=== PATIENT | female | born 1935 | race Caucasian/White ===

== ENCOUNTER → 2018-07-22 10:51 | Outpatient (CLI) | payer MEDICARE, SELFPAY ==
--- NOTE | 2018-07-22 10:55 | XR_ITS ---
XR shoulder RT min 2V HISTORY: Pain stiffness and limited range of motion ITS.REASON: grashy, axillary and supraspinatus views ORDERING PHYSICIAN: Blaine Canela MD PATIENT AGE: 82 years Comparison: None FINDINGS: There is severe subacromial stenosis. The distal acromion has a concave appearance and is markedly and. There is also thinning of the distal aspect of the clavicle having an oblique contour. There is a high rising humeral head and there are osteoarthritic changes of the glenohumeral joint. These findings are consistent with chronic rotator cuff tear with high riding humeral head. Has the patient had prior osteotomy of the distal clavicle? There is sclerosis of the distal aspect of the clavicle. No dislocation. No acute fracture. IMPRESSION: The findings are consistent with chronic rotator cuff tear with high right humeral head and osteoarthritic change of the glenohumeral joint with deformity of the distal clavicle and the acromion from the chronic tear. Has the patient had prior shoulder surgery?
== END ==
PROVIDERS: PCP Family Medicine; Visit Provider Orthopaedic Surgery
DX: M25.511 Pain in right shoulder (principal)
CPT/HCPCS: 73030

== ENCOUNTER 2019-07-18 12:03 | Observation (INO) ==
--- NOTE | 2019-07-18 12:22 | Emergency Department Note ---
ED Disposition Clinical Impression: Atrial fibrillation with rapid ventricular response, Chest pain, Congestive heart failure, Hypokalemia Disposition: Admitted As Inpatient Condition on Discharge: Serious Time of Disposition: 14:50 - Critical Care Critical Care Time: Yes Attestation: On 07/18/19, the high probability of a clinically significant, sudden or life threatening deterioration of the following system(s) required my full and direct attention, intervention and personal management. The time I documented below is in addition to time spent performing reported procedures but includes the follo wing listed in this critical care notation. Total Critical Care Time: 30 Vital system(s) involved:: Circulatory Failure My critical care processes included: Assessment & monitoring of V/S, Initial and Re-exams, Medication Orders and management Medical Decision Making - Medical Records Medical records reviewed: Yes: I reviewed the patient's medical records. - Chaz Inquiry Pt receiving controlled substance: No Vital Signs: 07/18/19 12:05 07/18/19 12:31 07/18/19 13:16 Temperature 98.3 F Temperature Source Oral Pulse Rate [Right Radial] 164 H 86 90 Respiratory Rate 22 Blood Pressure [Right Arm] 153/111 H 80/51 L 113/54 L Blood Pressure Mean [Right Arm] 125 60 73 Blood Pressure Source [Right Arm] Automatic Cuff Automatic Cuff Blood Pressure Position [Right Arm] Sitting Supine Sitting 02 Sat by Pulse Oximetry 97 95 96 Oxygen Delivery Method Room Air 07/18/19 13:30 07/18/19 14:04 Temperature Temperature Source Pulse Rate [Right Radial] 107 H 92 H Respiratory Rate Blood Pressure [Right Arm] 122/84 111/71 Blood Pressure Mean [Right Arm] 96 84 Blood Pressure Source [Right Arm] Automatic Cuff Manual Cuff/ Palpation Blood Pressure Position [Right Arm] Supine Supine 02 Sat by Pulse Oximetry 97 96 Oxygen Delivery Method - Lab Data Lab Results 07/18/19 12:05: WBC 8.3, RBC 5.49 H, Hgb 15.2, Hct 47.6 H, MCV 86.7, MCH 27.6, MCHC 31.9, RDW 15.8, Plt Count 246, MPV 10.2, Neut % (Auto) 80.6 H, Lymph % (Auto) 12.8, Parke % (Auto) 5.4, Eos % (Auto) 0.6, Baso % (Auto) 0.6, Neut # (Auto) 6.7, Lymph # (Auto) 1.1, Parke # (Auto) 0.5, Eos # (Auto) 0.1, Baso # (Auto) 0.1 07/18/19 12:05: Sodium 139, Potassium 2.6 L*, Chloride 98, Carbon Dioxide 29, Anion Gap 14.6, BUN 38 H, Creatinine 1.25 H, Estimated Creat Clear 59, Estimated GFR 41 L, Est GFR ( Amer) 50 L, Glucose 138 H, Calcium 9.9, Troponin I < 0.02, TSH 0.82 07/18/19 12:05: B-Natriuretic Peptide 993 H Result diagrams: 07/18/19 12:05 07/18/19 12:05 Orders (Tests/Meds): ED MEDICATIONS Generic Name Dose Route Start Last Admin Trade Name Freq PRN Reason Stop Dose Admin Diltiazem HCl 100 mg/ Sodium 100 mls @ 10 mls/hr 07/18/19 12:17 07/18/19 12:38 Chloride IV 07/18/19 22:16 10 mls/hr .Q10H ONE Administration Protocol Discontinued Medications Generic Name Dose Route Start Last Admin Trade Name Freq PRN Reason Stop Dose Admin Calcium Chloride 1 gm 07/18/19 12:32 07/18/19 12:42 Calcium Chloride 1gm/10ml Syringe IVP 07/18/19 12:33 Not Given ONCE ONE Calcium Chloride 1 gm 07/18/19 14:39 07/18/19 14:41 Calcium Chloride 1gm/10ml Syringe IVP 07/18/19 14:40 1 gm ONCE ONE Administration Diltiazem HCl 20 mg 07/18/19 12:18 07/18/19 12:28 Cardizem 125mg/25ml Vial IV 07/18/19 12:19 20 mg ONCE ONE Administration Magnesium Oxide 400 mg 07/18/19 14:16 07/18/19 14:40 Mag-Ox 400mg Tab PO 07/18/19 14:17 400 mg ONCE ONE Administration Potassium Chloride 60 meq 07/18/19 14:19 07/18/19 14:40 Klor-Con 20meq Tablet PO 07/18/19 14:20 60 meq ONCE ONE Administration ORDERS Category Date Time Status Troponin I Q3H Lab 07/18/19 15:30 Ordered Troponin I Q3H Lab 07/18/19 18:30 Ordered - ECG Data Tracing #1 I reviewed this ECG and interpreted as documented below: Atrial fibrillation with rapid ventricular response at 172 bpm. QRS duration normal at 80 ms. Corrected QT interval normal at 456 ms. URS axis normal at 55 degrees. ECG initial impression date: 07/17/19 ECG initial impression time: 12:02 Normal Sinus Rhythm: No Arrhythmias present: afib/aflutter - LEESA Score for Non-Stemi Age of Patient: 80-89 years old Heart Rate: 150-199 bpm Systolic Blood Pressure: 140-159 mmHg Serum Creatinine: 1.20-1.59 mg/dl CHF Killip Class: II-Pulmonary Rales or Jug Other Risk Factors: None Non-Stemi Risk Score: 183 General Adult HPI - General Chief complaint: Shortness of Breath/Dyspnea Stated complaint: SOA Time Seen by Provider: 07/18/19 12:10 Mode of Arrival: Wheelchair Source of Information: Patient Limitations: No Limitations Description of Symptoms (Recalled from ER Triage Doc. by RN): PT C/O SOA SINCE 299 CAUSING PAIN IN HER CHEST. - History of Present Illness HPI narrative: 83-year old obese female with a history of atrial fibrillation presents with complaints of weakness, shortness of breath and chest pain for the past 4 hours. Upon initial assessment the patient was found to be in atrial fibrillation with rapid ventricular response. Onset (ago): hour(s) (8) Severity: moderate Consistency: constant Relieving factors: none Exacerbating factors: none Associated symptoms: chest pain, malaise, shortness of breath Treatments prior to arrival: none - Related Data Home Medications Medication Instructions Recorded Confirmed aspirin 81 mg tablet,delayed 81 mg PO ONCE 12/04/17 11/12/18 release atenolol 50 mg tablet 50 mg PO Q12H tab 12/04/17 11/12/18 diclofenac sodium 1 % topical gel 2 g TOPICAL QID PRN 12/04/17 11/12/18 furosemide 40 mg tablet 40 mg PO ONCE PRN tab 12/04/17 11/12/18 losartan 50 mg-hydrochlorothiazide 1 tab PO ONCE 12/04/17 11/12/18 12.5 mg tablet warfarin 6 mg tablet 6 mg PO QMWF tab 12/04/17 11/12/18 Allergies Allergy/AdvReac Type Severity Reaction Status Date / Time codeine Allergy Mild Vomiting/na Verified 05/08/19 10:54 usea meloxicam AdvReac Verified 11/12/18 10:54 [facility] History - Hepatitis A Screen Drug use history?: No High risk sexual behaviors?: No History of sexually transmitted infection?: No Currently employed?: No Childcare worker?: No Do you have indoor plumbing?: Yes Do you have electricity?: Yes Attestation statement:: This patient has been screened for Hepatitis A risk factors. I have reviewed the patient's past medical history: Yes Medical History: Reports:: Atrial Fibrillation, Hypertension Denies:: Diabetes Mellitus Type 1, Diabetes Mellitus Type 2, Hyperlipidemia Other Medical History: Reports: Anemia, Arthritis Comment: 2 Heart blockages. - Social History Smoking Status: Never smoker Alcohol Intake: never Substance Use Type: denies use Occupational Status: retired Family Hx:: Hypertension, Heart Attack ROS Obtained: Yes Systems reviewed as appropriate & no additional complaints - Constitutional Constitutional: Reports fatigue, Reports malaise - Eyes Eyes: Reports system reviewed and no additional complaints, except as docu - ENT Ears, Nose, Mouth, and Throat: Reports system reviewed and no additional complaints, except as docu - Cardiovascular Cardiovascular: Reports chest pain, Reports dyspnea, Reports palpitations - Respiratory Respiratory: Yes dyspnea - Gastrointestinal Gastrointestingal: Reports: system reviewed and no additional complaints, except as docu - Genitourinary Female Genitourinary: Reports system reviewed and no additional complaints, except as docu - Musculoskeletal Musculoskeletal: Reports system reviewed and no additional complaints, except as docu - Integumentary/Breasts Skin/Breast: Reports system reviewed and no additional complaints, except as docu - Neurologic Neurologic: Reports system reviewed and no additional complaints, except as docu - Endocrine Endocrine: Reports system reviewed and no additional complaints, except as docu - Hematologic/Lymphatic Henatologic/Lymphatic: Reports system reviewed and no additional complaints, except as docu - Allergic/Immunologic Allergic/Immunologic: Reports system reviewed and no additional complaints, except as docu Physical Exam - General General appearance: alert, in no apparent distress - Head Head exam: atraumatic, normocephalic, normal inspection - Eye Eye exam: Present: normal appearance, PERRL, EOMI - ENT ENT exam: Present: normal exam, normal oropharynx, mucous membranes moist, normal external ear exam - Neck Neck exam: Present: normal inspection, full ROM, trachea midline. Absent: meningismus, lymphadenopathy - Chest Chest inspection: Present: normal inspection, symmetric chest wall rise. Absent: tenderness - Respiratory Respiratory exam: Present: normal lung sounds bilaterally. Absent: respiratory distress - Cardiovascular Cardiovascular exam: Present: tachycardia, irregular rhythm, normal heart sounds - Abdominal Exam Abdominal exam: Present: soft, normal bowel sounds. Absent: distention, tenderness, guarding - Extremities Exam Extremities exam: Present: normal inspection, full ROM, normal capillary refill. Absent: calf tenderness - Back Exam Back exam: Present: normal inspection. Absent: tenderness - Neurological Exam Neurological exam: Present: alert, oriented X3, CN II-XII intact. Absent: motor sensory deficit - Psychiatric Psychiatric exam: Present: normal affect, normal mood - Skin Skin exam: Present: warm, dry, intact, normal color
[2019-07-18 13:06] LABS: Basophils # 0.1 K/mm3 (0-0.2); Basophils % 0.6 % (0.1-2.0); Eosinophils # 0.1 K/mm3 (0.0-0.4); Eosinophils % 0.6 % (0.1-12.0); Hematocrit 47.6 % (37.0-47.0); Hemoglobin 15.2 g/dL (12.2-16.2); Lymphocytes # 1.1 K/mm3 (0.7-4.5); Lymphocytes % 12.8 % (10-50); Mean Corpuscular HGB Conc 31.9 g/dL (31.8-35.4); Mean Corpuscular Volume 86.7 fl (81-99); Mean Platelet Volume 10.2 fl (7.4-10.4); Monocytes # 0.5 K/mm3 (0.1-1.0); Monocytes % 5.4 % (1.7-9.3); Neutrophils # 6.7 K/mm3 (1.8-7.8); Neutrophils % 80.6 % (37.0-80.0); Platelet Count 246 K/mm3 (142-424); Red Blood Count 5.49 M/mm3 (4.20-5.40); Red Cell Distribution Width 15.8 % (11.5-17.5); White Blood Count 8.3 K/mm3 (4.8-10.8)
[2019-07-18 13:17] LABS: Anion Gap 14.6 mEq/L (5-15); Blood Urea Nitrogen 38 mg/dL (7-18); Calcium 9.9 mg/dL (8.5-10.1); Carbon Dioxide 29 mmol/L (21.0-32.0); Chloride 98 mmol/L (98-107); Sodium 139 mmol/L (136-145)
[2019-07-18 13:58] LABS: Glucose 138 mg/dL (74-106)
--- NOTE | 2019-07-18 14:19 | Electrocardiograph Report ---
APPROVED REPORT Exam: Resting ECG HR:172 bpm ECG Measurements Heart Rate 172 AXES QRSd 80 QRS 55 QT 270 T221 QTc 456 <Conclusion> Atrial fibrillation with rapid ventricular response Marked ST abnormality, possible inferior subendocardial injury Abnormal ECG Electronically signed by : Jairo Mann, 07/18/2019 14:18:35
[2019-07-18 14:36] LABS: Thyroid Stimulating Hormone 0.82 uIU/ml (0.358-3.740)
[2019-07-18 15:53] LABS: Activated Partial Thrombo Time 26.6 seconds (23.6-34.0); INR 1.47 (0.9-1.1)
[2019-07-19 06:22] LABS: Basophils # 0.1 K/mm3 (0-0.2); Basophils % 0.6 % (0.1-2.0); Eosinophils # 0.1 K/mm3 (0.0-0.4); Eosinophils % 1.2 % (0.1-12.0); Hematocrit 41.3 % (37.0-47.0); Lymphocytes % 12.1 % (10-50); Mean Corpuscular HGB Conc 32.2 g/dL (31.8-35.4); Mean Corpuscular Volume 86.7 fl (81-99); Mean Platelet Volume 10.1 fl (7.4-10.4); Monocytes # 0.5 K/mm3 (0.1-1.0); Monocytes % 5.4 % (1.7-9.3); Neutrophils # 6.9 K/mm3 (1.8-7.8); Neutrophils % 80.7 % (37.0-80.0); Platelet Count 195 K/mm3 (142-424); Red Blood Count 4.77 M/mm3 (4.20-5.40); Red Cell Distribution Width 15.8 % (11.5-17.5); White Blood Count 8.5 K/mm3 (4.8-10.8)
[2019-07-19 06:24] LABS: Hemoglobin 13.3 g/dL (12.2-16.2)
[2019-07-19 06:33] LABS: Albumin Level 3.3 gm/dL (3.4-5.0); Anion Gap 10.5 mEq/L (5-15); Bilirubin,Total 1.2 mg/dL (0.2-1.0); Calcium 9.8 mg/dL (8.5-10.1); Chol/HDL Ratio 4.5 (1-3.5); Globulin 3.3 gm/dl (1.3-3.2); Phosphorous 3.4 mg/dL (2.4-4.9); Total Protein,Serum 6.6 gm/dL (6.4-8.2)
--- NOTE | 2019-07-19 08:34 | History & Physical Report ---
*Admission Date: 07/19/19 *Chief complaint: Shortness of breath *History of present illness: 83-year-old female with known atrial fibrillation presented to the emergency department after awakening yesterday morning with inability to catch her breath. Patient denies chest pain but does note increasing swelling over the last several days. Patient is recently and since the of her has noticed symptoms of depression and she passed off some of her declining health as grieving. She has noticed change in her energy level. She denies orthopnea and endorses chronic dyspnea on exertion. Work-up in the emergency department revealed atrial fibrillation with rapid ventricular response with EKG capturing a rate of 172 bpm. Patient was started on a Cardizem drip and admitted to the stepdown unit. Overnight if pulse rate increased Cardizem drip was also increased which usually resulted in a sudden drop in pulse to the 40s and 50s. Currently patient is on Cardizem at 5 mg/min. Chest x-ray in the emergency department showed mild fluid overload and patient's BNP was elevated. She was also found to be hypokalemic. Patient takes Lasix intermittently. She takes losartan with HCTZ. She takes Coumadin for her atrial fibrillation but is generally noncompliant with follow-up and monitoring of her coags. [facility] History I have reviewed the patient's past medical history: Yes Medical History: Reports:: Atrial Fibrillation, Hypertension Denies:: Diabetes Mellitus Type 1, Diabetes Mellitus Type 2, Hyperlipidemia *Have you ever received a pneumonia vaccine?: No (refuses) *Have you received a flu vaccine this season?: No (refuses) Other Medical History: Reports: Anemia, Arthritis Laterality Cases: Left: Total Knee Replacement Other Surgeries: Yes: Cardiac Catheterization Amputation: No Fractures: No - *Social History Educational Level: Completed High School Smoking Status: Never smoker Alcohol Intake: never Substance Use Type: denies use *Occupational Status:: retired Household Members: none *Travel in the last 8 weeks: None Family Hx:: Hypertension, Heart Attack Review of Systems - Constitutional Reports lack of energy, Reports malaise, Denies body ache(s), Denies chills, Denies night sweats - *Cardiovascular Reports leg swelling, Denies chest pain, Denies chest pain at rest, Denies chest pain with activity - *Respiratory Reports shortness of breath, Reports shortness of breath with activity, Denies change in phlegm color, Denies chest congestion, Denies cough - *Musculoskeletal Denies abnormal walking Meds Home Medications Medication Instructions Recorded Confirmed Type furosemide 40 mg tablet 40 mg PO ONCE PRN tab 12/04/17 07/18/19 History losartan 50 mg-hydrochlorothiazide 1 tab PO ONCE 12/04/17 07/18/19 History 12.5 mg tablet warfarin 6 mg tablet 4 mg PO DAILY tab 12/04/17 07/18/19 History Allergies Allergy/AdvReac Type Severity Reaction Status Date / Time codeine Allergy Mild Vomiting/na Verified 11/12/18 10:54 usea meloxicam AdvReac Verified 11/12/18 10:54 Exam Vital signs and Labs for Last 24 Hours: Temp Pulse Resp BP Pulse Ox 97.8 F 110 H 22 100/82 L 96 07/19/19 04:00 07/19/19 07:00 07/19/19 07:00 07/19/19 07:00 07/19/19 07:00 Laboratory Results - last 24 hr 07/18/19 12:05: WBC 8.3, RBC 5.49 H, Hgb 15.2, Hct 47.6 H, MCV 86.7, MCH 27.6, MCHC 31.9, RDW 15.8, Plt Count 246, MPV 10.2, Neut % (Auto) 80.6 H, Lymph % (Auto) 12.8, [facility] % (Auto) 5.4, Eos % (Auto) 0.6, Baso % (Auto) 0.6, Neut # (Auto) 6.7, Lymph # (Auto) 1.1, [facility] # (Auto) 0.5, Eos # (Auto) 0.1, Baso # (Auto) 0.1 07/18/19 12:05: Sodium 139, Potassium 2.6 L*, Chloride 98, Carbon Dioxide 29, Anion Gap 14.6, BUN 38 H, Creatinine 1.25 H, Estimated Creat Clear 59, Estimated GFR 41 L, Est GFR ( Amer) 50 L, Glucose 138 H, Calcium 9.9, Troponin I < 0.02, TSH 0.82 07/18/19 12:05: B-Natriuretic Peptide 993 H 07/18/19 12:45: PT 15.0 H, INR 1.47 H, APTT 26.6 07/18/19 16:30: Troponin I 0.03 07/18/19 18:40: Troponin I 0.03 07/18/19 21:45: Troponin I 0.03 07/19/19 05:25: WBC 8.5, RBC 4.77, Hgb 13.3 D, Hct 41.3, MCV 86.7, MCH 28.0, MCHC 32.2, RDW 15.8, Plt Count 195, MPV 10.1, Neut % (Auto) 80.7 H, Lymph % (Auto) 12.1, [facility] % (Auto) 5.4, Eos % (Auto) 1.2, Baso % (Auto) 0.6, Neut # (Auto) 6.9, Lymph # (Auto) 1.0, [facility] # (Auto) 0.5, Eos # (Auto) 0.1, Baso # (Auto) 0.1 07/19/19 05:25: Sodium 139, Potassium 3.5 D, Chloride 102, Carbon Dioxide 30, Anion Gap 10.5, BUN 39 H, Creatinine 1.07 H, Estimated Creat Clear 69, Estimated GFR 49 L, Est GFR ( Amer) 60, Glucose 119 H, Calcium 9.8, Phosphorus 3.4, Magnesium 2.3 H, Total Bilirubin 1.2 H, AST 18, ALT 22, Alkaline Phosphatase 97, Total Protein 6.6, Albumin 3.3 L, Globulin 3.3 H, Albumin/Globulin Ratio 1.0 L, Triglycerides 113, Cholesterol 215 H, LDL Cholesterol 144 H, VLDL Cholesterol 23, HDL Cholesterol 48, Cholesterol/HDL Ratio 4.5 H I & O for Last 24 hours: Intake & Output 07/16/19 07/17/19 07/18/19 07/19/19 11:59 11:59 11:59 11:59 Intake Total 190 / 190 Balance 190 / 190 Weight 235 lb 2 oz - Constitutional no acute distress - *Routine HEENT Exam Head: Present: normocephalic Eye: Present: EOMI, PERRL ENT: Present: mucous membranes moist - *Routine Neck Exam Present: full ROM. Absent: JVD, carotid bruit - *Routine Respiratory Exam Present: CTA bilaterally, crackles (Bases). Absent: wheezes - *Routine Cardiovascular Exam Present: irregularly irregular - *Routine Abdominal Exam Present: soft, normoactive bowel sounds, obese. Absent: tenderness - *Routine Extremities Exam Present: edema (2+ lower extremities) - *Routine Skin Exam Present: intact. Absent: cyanosis, erythema - *Routine Neurological Exam Present: alert, oriented X3, CN II-XII intact Assessment and Plan (1) Atrial fibrillation with rapid ventricular response Current visit: Yes Status: Acute Category: Medical Code(s): I48.91 - Unspecified atrial fibrillation Attempt to wean patient from Cardizem drip today by starting oral Cardizem as well as low-dose oral beta-hamilton due to suspected underlying congestive heart failure. Cardiology consult. Echocardiogram in the morning (2) Congestive heart failure Current visit: Yes Status: Suspected Category: Medical Code(s): I50.9 - Heart failure, unspecified Insert Aguilar catheter for monitoring of urine output. Start Lasix 40 mg twice daily IV with oral potassium supplementation (3) Hypokalemia Current visit: Yes Status: Acute Category: Medical Code(s): E87.6 - Hypokalemia Start oral potassium supplementation
--- NOTE | 2019-07-19 11:42 | Pharmacy Consult Notes ---
[facility] Pharmacy VTE Monitoring - Patient Demographics Admission date: 07/19/19 Report Date: 07/19/19 Time: 11:42 Allergies/Adverse Reactions: Patient Allergies codeine Allergy (Mild, Verified 11/12/18 10:54) Vomiting/nausea meloxicam Adverse Reaction (Verified 11/12/18 10:54) Height: 1.7 m Weight: 106.651 kg Patient Problems: Current Active Problems Atrial fibrillation with rapid ventricular response (Acute) Chest pain (Acute) Hypokalemia (Acute) - VTE Risk Labs: VTE Related Lab Results Hgb 13.3 g/dL (12.2-16.2) D 07/19/19 05:25 Hct 41.3 % (37.0-47.0) 07/19/19 05:25 Plt Count 195 K/mm3 (142-424) 07/19/19 05:25 PT 15.0 seconds (9.4-11.8) H 07/18/19 12:45 INR 1.47 (0.9-1.1) H 07/18/19 12:45 APTT 26.6 seconds (23.6-34.0) 07/18/19 12:45 BUN 39 mg/dL (7-18) H 07/19/19 05:25 Creatinine 1.07 mg/dL (0.55-1.02) H 07/19/19 05:25 Estimated Creat Clear 69 mL/min (50-200) 07/19/19 05:25 Was VTE Risk Assessment Performed: Yes VTE Score: 3 VTE Risk Level: Low Risk - Prophylaxis Types of VTE Prophylaxis: TEDS Knee High (BECKY HOSE ORDER PLACED) Location of Applied Device: Bilateral Lower Extremeties
[2019-07-19 15:27] LABS: Microscopic, Urine URINE MICROSCOPIC (MICROSCOPIC)
[2019-07-19 15:38] LABS: Appearance,Urine CLEAR (Clear); Bilirubin,Urine Negative (Negative); Blood, Urine Negative (Negative); Color,Urine YELLOW (Yellow); Glucose,Urine (UA) Negative (Negative); Ketones,Urine Negative (Negative); Leukocyte Esterase,Urine 1+ (Negative); Protein,Urine Negative (Negative); Urobilinogen,Urine 0.2 EU/dl (0.2)
[2019-07-19 15:49] LABS: Bacteria,Urine 4+ /lpf; Mucus,Urine Trace /lpf
[2019-07-20 04:34] LABS: INR 1.87 (0.9-1.1); Prothrombin Time 18.9 seconds (9.4-11.8)
[2019-07-20 04:35] LABS: Anion Gap 7.7 mEq/L (5-15); Calcium 9.1 mg/dL (8.5-10.1)
--- NOTE | 2019-07-20 07:11 | Progress Note ---
Internal Medicine - PN: Subj *Date: 07/20/19 *Time: 07:09 Interval history: Patient has no complaints this morning other than we are disturbing her earlier than she is used to. She asks for a little more time to rest this morning. Echocardiogram will be performed soon. Patient denies any chest pain. Aguilar catheter is draining and patient has put out over 2 L of urine in the last 24 hours. She denies shortness of breath this morning. Patient once again had episodes of bradycardia overnight with pulse dropping into the 40s and 50s. Exam Vital signs and Labs for Last 24 Hours: Temp Pulse Resp BP Pulse Ox 98 F 74 26 H 115/69 95 07/20/19 04:00 07/20/19 06:00 07/20/19 06:00 07/20/19 06:00 07/20/19 06:00 Laboratory Results - last 24 hr 07/19/19 10:23: Urine Color Yellow, Urine Appearance Clear, Urine pH 6.0, Ur Specific Roland 1.020, Urine Protein Negative, Urine Glucose (UA) Negative, Urine Ketones Negative, Urine Blood Negative, Urine Nitrate Negative, Urine Bilirubin Negative, Urine Urobilinogen 0.2, Ur Leukocyte Esterase 1+ A, Urine RBC 5-10, Urine WBC 10-20, Ur Squamous Epith Cells 5-10, Urine Bacteria 4+, Urine Mucus Trace 07/20/19 04:15: PT 18.9 H, INR 1.87 H 07/20/19 04:15: Sodium 139, Potassium 3.7, Chloride 101, Carbon Dioxide 34 H, Anion Gap 7.7, BUN 32 H, Creatinine 1.08 H, Estimated Creat Clear 69, Estimated GFR 49 L, Est GFR ( Amer) 59, Glucose 95 D, Calcium 9.1 I & O for Last 24 hours: Intake & Output 07/17/19 07/18/19 07/19/19 07/20/19 11:59 11:59 11:59 11:59 Intake Total 190 / 190 240 / 240 Output Total 2675 / 2675 Balance 190 / 190 -2435 / -2435 Weight 235 lb 2 oz 229 lb 3 oz Microbiology Reports for the Last 24 Hours: Microbiology 07/19/19 10:23 Urine,Catheterized Urine Culture - Preliminary Gram Negative Rods Narrative: Patient is resting in bed. She is able to communicate clearly although does seem slightly confused this morning. Lungs are clear anteriorly with faint rales at the bases. Heart has an irregular rate and rhythm. Abdomen is soft. Aguilar catheter is in place. Assessment and Plan (1) Atrial fibrillation with rapid ventricular response Current visit: Yes Status: Acute Category: Medical Code(s): I48.91 - Unspecified atrial fibrillation (2) Congestive heart failure Current visit: Yes Status: Suspected Category: Medical Code(s): I50.9 - Heart failure, unspecified (3) Hypokalemia Current visit: Yes Status: Acute Category: Medical Code(s): E87.6 - Hypokalemia - Assessment and plan all Dx Assessment and Plan for all problems:: 1. Patient will be given a dose of digoxin this morning to finish a 1 g loading dose over the last 24 hours. Continue Cardizem and metoprolol. Cardiology consult this morning. Echocardiogram is been ordered. 2. Repeat CBC this morning. Patient's initial chest x-ray had been interpreted as possible infiltrate in the right lower lobe. We will monitor her white count. Patient has not shown any symptoms of infection such as fever, chills, cough
[2019-07-20 07:30] LABS: Basophils % 0.5 % (0.1-2.0); Eosinophils # 0.1 K/mm3 (0.0-0.4); Eosinophils % 0.8 % (0.1-12.0); Hematocrit 39.8 % (37.0-47.0); Hemoglobin 13.1 g/dL (12.2-16.2); Lymphocytes # 0.5 K/mm3 (0.7-4.5); Lymphocytes % 6.6 % (10-50); Mean Corpuscular Volume 86.2 fl (81-99); Mean Platelet Volume 10.3 fl (7.4-10.4); Monocytes # 0.6 K/mm3 (0.1-1.0); Monocytes % 6.6 % (1.7-9.3); Neutrophils # 7.1 K/mm3 (1.8-7.8); Neutrophils % 85.5 % (37.0-80.0); Platelet Count 169 K/mm3 (142-424); Red Blood Count 4.62 M/mm3 (4.20-5.40); Red Cell Distribution Width 15.8 % (11.5-17.5); White Blood Count 8.3 K/mm3 (4.8-10.8)
--- NOTE | 2019-07-20 08:06 | Consult Report ---
History of Present Illness Consult date: 07/20/19 Requesting physician: Jairo Valverde Consult reason: atrial fibrillation Chief complaint: SOA, palpitations Additional Medical History:: 1. Coronary artery disease, cardiac cath 1984, reportedly 2 blockages that did not require intervention per patient 2. Chronic atrial fibrillation, on chronic Coumadin therapy 3. Hypertension 4. History of knee replacement 5. Cardiomyopathy with ejection fraction 35%, echocardiogram, 07/2019 6. Pulmonary hypertension with right-sided pressure of 60 mmHg, echocardiogram, 07/2019 7. Mild to moderate mitral regurgitation, echocardiogram, 07/2019 History of present illness: 83-year-old female with known atrial fibrillation presented to the emergency department after awakening yesterday morning with inability to catch her breath. Patient denies chest pain but does note increasing swelling over the last several days. Patient is recently and since the of her has noticed symptoms of depression and she passed off some of her declining health as grieving. She has noticed change in her energy level. She denies orthopnea and endorses chronic dyspnea on exertion. Work-up in the emergency department revealed atrial fibrillation with rapid ventricular response with EKG capturing a rate of 172 bpm. Patient was started on a Cardizem drip and admitted to the stepdown unit. Overnight if pulse rate increased Cardizem drip was also increased which usually resulted in a sudden drop in pulse to the 40s and 50s. Currently patient is on Cardizem at 5 mg/min. Chest x-ray in the emergency department showed mild fluid overload and patient's BNP was elevated. She was also found to be hypokalemic. Patient takes Lasix intermittently. She takes losartan with HCTZ. She takes Coumadin for her atrial fibrillation but is generally noncompliant with follow-up and monitoring of her coags The above per Dr. Valverde Patient relates breathing has improved since hospitalization. She also relates a remote history of coronary artery disease by cardiac cath in 1984 and does not recall any further work-up since then. She has had some intermittent echocardiograms but reportedly no significant findings. Last one was about 10 years ago. Preliminary echocardiogram this a.m. shows ejection fraction of 35% with global hypokinesis, mild to moderate mitral regurgitation and a right ventricular systolic pressure of 60 mmHg. Cardiology consulted for evaluation and recommendations. Troponins have remained within normal limits during her hospitalization. She remains in atrial fibrillation with a controlled ventricular response at this time. [facility] History Medical History: Reports:: Atrial Fibrillation, Congestive Heart Failure, Coronary Artery Disease, Hypertension Denies:: Diabetes Mellitus Type 1, Diabetes Mellitus Type 2, Hyperlipidemia *Have you ever received a pneumonia vaccine?: No (refuses) *Have you received a flu vaccine this season?: No (refuses) Other Medical History: Reports: Anemia, Arthritis Laterality Cases: Left: Total Knee Replacement Other Surgeries: Yes: Cardiac Catheterization Amputation: No Fractures: No - *Social History Educational Level: Completed High School Smoking Status: Never smoker Alcohol Intake: never Substance Use Type: denies use *Occupational Status:: retired Household Members: none *Travel in the last 8 weeks: None Family Hx:: Hypertension, Heart Attack Meds Home Medications Medication Instructions Recorded Confirmed Type furosemide 40 mg tablet 40 mg PO DAILY tab 12/04/17 07/19/19 History losartan 50 mg-hydrochlorothiazide 1 tab PO ONCE 12/04/17 07/18/19 History 12.5 mg tablet warfarin 6 mg tablet 4 mg PO DAILY tab 12/04/17 07/18/19 History ALPRAZolam [Alprazolam 0.25mg 0.25 mg PO BIDP PRN 07/19/19 07/19/19 History Tab] Citalopram Hydrobromide [Celexa 10 mg PO DAILY 07/19/19 07/19/19 History 10mg Tablet] Temazepam [Restoril 30mg capsule] 30 mg PO HSP PRN 07/19/19 07/19/19 History Allergies Allergy/AdvReac Type Severity Reaction Status Date / Time codeine Allergy Mild Vomiting/na Verified 11/12/18 10:54 usea meloxicam AdvReac Verified 11/12/18 10:54 Review of Systems - *Cardiovascular Reports shortness of breath, Denies chest pain - *Respiratory Reports shortness of breath - *Gastrointestinal Denies abdominal pain, Denies nausea, Denies vomiting - *Genitourinary Denies blood in urine - *Musculoskeletal Reports joint pain, Denies back pain - *Neurologic Denies abnormal walking Exam Vital signs and Labs for Last 24 Hours: Temp Pulse Resp BP Pulse Ox 98 F 94 H 26 H 115/69 95 07/20/19 04:00 07/20/19 07:23 07/20/19 06:00 07/20/19 06:00 07/20/19 06:00 Laboratory Results - last 24 hr 07/19/19 10:23: Urine Color Yellow, Urine Appearance Clear, Urine pH 6.0, Ur Specific [place] 1.020, Urine Protein Negative, Urine Glucose (UA) Negative, Urine Ketones Negative, Urine Blood Negative, Urine Nitrate Negative, Urine Bilirubin Negative, Urine Urobilinogen 0.2, Ur Leukocyte Esterase 1+ A, Urine RBC 5-10, Urine WBC 10-20, Ur Squamous Epith Cells 5-10, Urine Bacteria 4+, Urine Mucus Trace 07/20/19 04:15: PT 18.9 H, INR 1.87 H 07/20/19 04:15: Sodium 139, Potassium 3.7, Chloride 101, Carbon Dioxide 34 H, Anion Gap 7.7, BUN 32 H, Creatinine 1.08 H, Estimated Creat Clear 69, Estimated GFR 49 L, Est GFR ( Amer) 59, Glucose 95 D, Calcium 9.1 07/20/19 04:15: WBC 8.3, RBC 4.62, Hgb 13.1, Hct 39.8, MCV 86.2, MCH 28.4, MCHC 33.0, RDW 15.8, Plt Count 169, MPV 10.3, Neut % (Auto) 85.5 H, Lymph % (Auto) 6.6 L, [place] % (Auto) 6.6, Eos % (Auto) 0.8, Baso % (Auto) 0.5, Neut # (Auto) 7.1, Lymph # (Auto) 0.5 L, [place] # (Auto) 0.6, Eos # (Auto) 0.1, Baso # (Auto) 0.0 I & O for Last 24 hours: Intake & Output 07/17/19 07/18/19 07/19/19 07/20/19 11:59 11:59 11:59 11:59 Intake Total 190 / 190 240 / 240 Output Total 2675 / 2675 Balance 190 / 190 -2435 / -2435 Weight 235 lb 2 oz 229 lb 3 oz Microbiology Reports for the Last 24 Hours: Microbiology 07/19/19 10:23 Urine,Catheterized Urine Culture - Preliminary Gram Negative Rods - *Routine HEENT Exam Head: Present: normocephalic Eye: Present: EOMI, PERRL ENT: Present: mucous membranes moist - *Routine Neck Exam Present: supple. Absent: JVD, carotid bruit - *Routine Respiratory Exam Present: CTA bilaterally. Absent: accessory muscle use, rales, rhonchi, wheezes - *Routine Cardiovascular Exam Present: irregularly irregular. Absent: murmur, gallop, rubs - *Routine Abdominal Exam Present: soft. Absent: tenderness, distended, guarding - *Routine Extremities Exam Present: edema. Absent: calf tenderness - *Routine Neurological Exam Present: alert, oriented X3, moving all extremities Assessment and Plan (1) Atrial fibrillation with rapid ventricular response Current visit: Yes Status: Acute Category: Medical Code(s): I48.91 - Unspecified atrial fibrillation (2) Congestive heart failure Current visit: Yes Status: Suspected Category: Medical Code(s): I50.9 - Heart failure, unspecified (3) Hypokalemia Current visit: Yes Status: Acute Category: Medical Code(s): E87.6 - Hypokalemia (4) Pulmonary hypertension Current visit: Yes Status: Acute Category: Medical Code(s): I27.20 - Pulmonary hypertension, unspecified (5) Cardiomyopathy Current visit: Yes Status: Acute Category: Medical Code(s): I42.9 - Cardiomyopathy, unspecified - Assessment and plan all Dx Assessment and Plan for all problems:: 1. Atrial fibrillation with a rapid ventricular response, patient relates out of her beta-hamilton for couple of months. Rate is now controlled on Cardizem, metoprolol and digoxin. Brief episodes of bradycardia noted on telemetry but overall heart rate in the 60 to 80 bpm range. 2. Cardiomyopathy with ejection fraction of around 35% on preliminary echocardiogram. Will discontinue Cardizem and continue beta-hamilton therapy in combination with losartan and digoxin. 3. Remote history of coronary artery disease for which patient will need stress testing to reassess during this hospitalization. 4. Consideration for AICD (dual-chamber versus biventricular pending above results) in the future but patient will need to be on goal-directed therapy prior to implantation. She may need LifeVest prior to discharge.
[2019-07-20 10:05] LABS: Lymphocytes % 8 % (10-50); Monocytes % 3 % (2-9); Neutrophils % 89 % (42-76); RBC Morphology Normal; Total Cells Counted 100
--- NOTE | 2019-07-20 22:08 | Cardiology Report ---
APPROVED REPORT Exam: Pharmacologic Technologist: Samira Mcnulty Ht: 5 ft 7 in Wt: 240 lbs BSA: 2.19 m2 HR: 76 bpm BP: 118/76 mmHg Indications: Cardiomyopathy, Atrial Fibrillation Medical History Medications: Alprazolam,,,,, Furosemide (LASIX),,,,, Warfarin,,,,, Losartan,,,,, Temazepam,,,,, Citalopram,,,,, Stress Test Details Test: LEXISCAN HR Resting HR: 80 bpmMax Heart Rate (APMHR): 139 bpm Max HR Achieved: 112 bpmTarget HR (85% APMHR): 118 bpm % of APMHR: 80 Recovery HR: 94 bpm BP Resting BP: 118.0/76.0 mmHg Max BP: 118.0/76.0 mmHg Recovery BP: 115.0/78.0 mmHg ECG Clinical Reason for Termination: Completed Protocol Exercise duration: 04:01 min Highest Stage Achieved: Exercise capacity: 1.0 METs Stress ECG Conclusion Non-Diagnostic lexiscan stress test. Patient received the infusion per protocol without chest pain. Baseline EKG is atrial fibrillation with CVR and NSSTTW abnormalities that preclude diagnostic interpretation. Occasional PVC's and bigeminy noted during stress. See the nuclear report for further information. Test Summary REST.......Resting REST30:46..80.118/ 76.. Stage 1.......Myoview Injected Stage 101:00..85.... Stage 201:00..94.115/ 72.. Stage 301:00..109.112/ 72.. Stage 401:00..88.... Stage 401:01..90...Stop exercise at 04:01 YJMEJTIC16:00..87.114/ 78.. ZYHXGBNO47:00..97.114/ 78.. OGGWEZCA35:00..97.115/ 78.. WZBVKEPL82:00..100.115/ 78.. VMYQFSRK72:28..100.115/ 78.. Electronically signed by : César Garcia, 07/20/2019 22:08:09
--- NOTE | 2019-07-20 22:16 | Cardiology Report ---
APPROVED REPORT EXAM: Comprehensive 2D, Doppler, and color-flow Echocardiogram Rate Manager: Cass Mckeon RT(R) Ht: 5 ft 7 in Wt: 229lbs BSA: 2.14 BP: 100/82 mmHg Indications: Shortness of Breath, Atrial Fibrillation, Hypertension/HDD 2D Dimensions LVOT 1.84 cm (M/F) 1.5-2.5 M-Mode Dimensions RVDd 3.70 cm (0.9-2.6)LVDd 4.82 cm (3.5-5.7) LVDs 4.02 cm (3.5-5.7)IVSd 1.21 cm (0.6-1.1) PWd 1.04 cm (0.6-1.1)EF (Teich) 34.80% FS 16.60% EDV (Teich) 108.60 mL ESV (Teich) 70.80 mL Aortic Valve AO VTI 155.53 (18-25 cm) Left Ventricle Left atrium is moderately enlarged, left ventricle is normal size, mild concentric left ventricular hypertrophy, visually estimated ejection fraction of 30 to 35%, left ventricle is globally hypokinetic. Diastolic parameters are inconclusive. Right Ventricle Right atrium and right ventricular normal size and contractility. Aortic Valve Aortic valve is thickened and calcified leaflet continue to display good mobility, there is no aortic stenosis or aortic insufficiency. Mitral Valve Mitral valve leaflets are minimally thickened, there is no mitral stenosis, there is moderate mitral regurgitation. Tricuspid Valve Tricuspid valve is grossly normal, there is mild tricuspid regurgitation, tricuspid regurgitation jet velocity is inadequate for calculation of the right ventricular systolic pressure. Pulmonic Valve Pulmonic valve is poorly visualized. Great Vessels Aortic root is normal size. Pericardium No significant pericardial effusion noted. Conclusion 1. Moderately enlarged left atrium, normal left ventricular size, mild concentric left ventricular hypertrophy, visually estimated ejection fraction 30 to 35%, left ventricle is globally hypokinetic. Diastolic parameters are inconclusive. 2. Thickened and calcified aortic valve without aortic stenosis or aortic insufficiency. 3. Moderate mitral and mild tricuspid regurgitation. 4. No significant pericardial effusion noted. Electronically signed by : César Garcia, 07/20/2019 22:15:52
[2019-07-21 05:42] LABS: Basophils % 0.3 % (0.1-2.0); Eosinophils # 0.1 K/mm3 (0.0-0.4); Eosinophils % 0.8 % (0.1-12.0); Hemoglobin 12.7 g/dL (12.2-16.2); INR 2.08 (0.9-1.1); Lymphocytes # 0.8 K/mm3 (0.7-4.5); Lymphocytes % 9.4 % (10-50); Mean Corpuscular HGB Conc 33.3 g/dL (31.8-35.4); Mean Corpuscular Volume 83.6 fl (81-99); Monocytes # 0.6 K/mm3 (0.1-1.0); Monocytes % 6.7 % (1.7-9.3); Neutrophils # 7.2 K/mm3 (1.8-7.8); Neutrophils % 82.7 % (37.0-80.0); Platelet Count 176 K/mm3 (142-424); Prothrombin Time 20.9 seconds (9.4-11.8); Red Blood Count 4.55 M/mm3 (4.20-5.40); Red Cell Distribution Width 15.6 % (11.5-17.5); White Blood Count 8.7 K/mm3 (4.8-10.8)
[2019-07-21 05:45] LABS: Anion Gap 7.8 mEq/L (5-15)
--- NOTE | 2019-07-21 07:24 | Progress Note ---
Internal Medicine - PN: Subj *Date: 07/21/19 *Time: 07:20 Interval history: Patient has no complaints this morning, she simply questions whether we think she will "get better". She remains in A. fib on the pvc monitor with heart rate rising up to 130 during the interview. Echocardiogram yesterday revealed ejection fraction of 30 to 35%. Patient denies shortness of breath or chest pain this morning. Exam Vital signs and Labs for Last 24 Hours: Temp Pulse Resp BP Pulse Ox 98.0 F 115 H 17 105/82 L 99 07/21/19 04:00 07/21/19 04:00 07/21/19 04:00 07/21/19 04:00 07/21/19 04:00 Laboratory Results - last 24 hr 07/20/19 04:15: WBC 8.3, RBC 4.62, Hgb 13.1, Hct 39.8, MCV 86.2, MCH 28.4, MCHC 33.0, RDW 15.8, Plt Count 169, MPV 10.3, Neut % (Auto) 85.5 H, Lymph % (Auto) 6.6 L, [place] % (Auto) 6.6, Eos % (Auto) 0.8, Baso % (Auto) 0.5, Neut # (Auto) 7.1, Lymph # (Auto) 0.5 L, [place] # (Auto) 0.6, Eos # (Auto) 0.1, Baso # (Auto) 0.0, Total Counted 100, Neutrophils % (Manual) 89 H, Lymphocytes % (Manual) 8 L, Monocytes % (Manual) 3, Platelet Estimate Normal, RBC Morphology Normal 07/21/19 05:05: WBC 8.7, RBC 4.55, Hgb 12.7, Hct 38.0, MCV 83.6, MCH 27.8, MCHC 33.3, RDW 15.6, Plt Count 176, MPV 10.0, Neut % (Auto) 82.7 H, Lymph % (Auto) 9.4 L, [place] % (Auto) 6.7, Eos % (Auto) 0.8, Baso % (Auto) 0.3, Neut # (Auto) 7.2, Lymph # (Auto) 0.8, [place] # (Auto) 0.6, Eos # (Auto) 0.1, Baso # (Auto) 0.0 07/21/19 05:05: PT 20.9 H, INR 2.08 H 07/21/19 05:05: Sodium 137, Potassium 3.8, Chloride 101, Carbon Dioxide 32, Anion Gap 7.8, BUN 31 H, Creatinine 0.91, Estimated Creat Clear 72, Estimated GFR 59, Est GFR ( Amer) 72 D, Glucose 96, Calcium 9.0 I & O for Last 24 hours: Intake & Output 07/18/19 07/19/19 07/20/19 07/21/19 11:59 11:59 11:59 11:59 Intake Total 190 / 190 480 / 480 720 / 720 Output Total 2675 / 2675 2200 / 2200 Balance 190 / 190 -2195 / -2195 -1480 / -1480 Weight 235 lb 2 oz 229 lb 3 oz 229 lb 3 oz Microbiology Reports for the Last 24 Hours: Microbiology 07/19/19 10:23 Urine,Catheterized Urine Culture - Final Klebsiella pneumoniae Narrative: Patient is awake and alert this morning. Lungs have some rales at the right base that cleared with repetitive deep breathing. No wheezing is heard. Heart is irregularly irregular. Abdomen is obese. Extremities have BECKY hose in place and very little palpable edema Assessment and Plan (1) Congestive heart failure Current visit: Yes Status: Acute Qualifiers: Heart failure type: systolic Category: Medical Code(s): I50.9 - Heart failure, unspecified (2) Atrial fibrillation with rapid ventricular response Current visit: Yes Status: Acute Category: Medical Code(s): I48.91 - Unspecified atrial fibrillation (3) Hypokalemia Current visit: Yes Status: Acute Category: Medical Code(s): E87.6 - Hypokalemia (4) Pulmonary hypertension Current visit: Yes Status: Acute Category: Medical Code(s): I27.20 - Pulmonary hypertension, unspecified (5) Cardiomyopathy Current visit: Yes Status: Acute Category: Medical Code(s): I42.9 - Cardiomyopathy, unspecified (6) UTI due to Klebsiella species Current visit: Yes Status: Acute Category: Medical Code(s): N39.0 - Uri nary tract infection, site not specified; B96.1 - Klebsiella pneumoniae [K. pneumoniae] as the cause of diseases classified elsewhere - Assessment and plan all Dx Assessment and Plan for all problems:: 1. Increase metoprolol ER to 25 mg. Continue digoxin. Patient will also continue her orbit. 2. Start Rocephin for Klebsiella urinary tract infection 3. Out of bed to chair today
--- NOTE | 2019-07-21 09:15 | Progress Note ---
Subjective Date: 07/21/19 Time: 09:11 Principal diagnosis: A. maxx with RVR, Cardiomyopathy Interval history: 83 yo WF in bed in NAD. Breathing better and feeling better. Telemetry shows A. maxx with mild RVR up to 120's bpm with no bradycardia noted. Lexiscan Myoview yesterday showed no evidence of ischemia with reduced ejection fraction. Echocardiogram showed ejection fraction in the 30 to 35% range. Exam Vital signs and Labs for Last 24 Hours: Temp Pulse Resp BP Pulse Ox 98.1 F 108 H 18 137/73 96 07/21/19 08:00 07/21/19 08:00 07/21/19 08:00 07/21/19 08:00 07/21/19 08:00 Laboratory Results - last 24 hr 07/20/19 04:15: Total Counted 100, Neutrophils % (Manual) 89 H, Lymphocytes % (Manual) 8 L, Monocytes % (Manual) 3, Platelet Estimate Normal, RBC Morphology Normal 07/21/19 05:05: WBC 8.7, RBC 4.55, Hgb 12.7, Hct 38.0, MCV 83.6, MCH 27.8, MCHC 33.3, RDW 15.6, Plt Count 176, MPV 10.0, Neut % (Auto) 82.7 H, Lymph % (Auto) 9.4 L, [place] % (Auto) 6.7, Eos % (Auto) 0.8, Baso % (Auto) 0.3, Neut # (Auto) 7.2, Lymph # (Auto) 0.8, [place] # (Auto) 0.6, Eos # (Auto) 0.1, Baso # (Auto) 0.0 07/21/19 05:05: PT 20.9 H, INR 2.08 H 07/21/19 05:05: Sodium 137, Potassium 3.8, Chloride 101, Carbon Dioxide 32, Anion Gap 7.8, BUN 31 H, Creatinine 0.91, Estimated Creat Clear 72, Estimated GFR 59, Est GFR ( Amer) 72 D, Glucose 96, Calcium 9.0 I & O for Last 24 hours: Intake & Output 07/18/19 07/19/19 07/20/19 07/21/19 11:59 11:59 11:59 11:59 Intake Total 190 / 190 480 / 480 960 / 960 Output Total 2675 / 2675 4100 / 4100 Balance 190 / 190 -2195 / -2195 -3140 / -3140 Weight 235 lb 2 oz 229 lb 3 oz 229 lb 3 oz Microbiology Reports for the Last 24 Hours: Microbiology 07/19/19 10:23 Urine,Catheterized Urine Culture - Final Klebsiella pneumoniae - *Routine Respiratory Exam Present: CTA bilaterally. Absent: accessory muscle use, rales, rhonchi, wheezes - *Routine Cardiovascular Exam Present: tachycardia, irregularly irregular. Absent: murmur, gallop, rubs - *Routine Extremities Exam Absent: edema, calf tenderness - *Routine Neurological Exam Present: alert, oriented X3, moving all extremities Progress Note: A&P (1) Congestive heart failure Status: Acute Current Visit: Yes (2) Atrial fibrillation with rapid ventricular response Status: Acute Current Visit: Yes (3) Hypokalemia Status: Acute Current Visit: Yes (4) Pulmonary hypertension Status: Acute Current Visit: Yes (5) Cardiomyopathy Status: Acute Current Visit: Yes (6) UTI due to Klebsiella species Status: Acute Current Visit: Yes Assessment and Plan for All Diagnoses:: 1. Systolic congestive heart failure with cardiomyopathy, improved on medical therapy. Patient does not wish to proceed with further evaluation but would rather continue with medical therapy at this time. Continue metoprolol, digoxin, Avapro, Lasix and spironolactone. 2. Atrial fibrillation with rapid ventricular response. Metoprolol has been increased today we will continue to follow on telemetry to evaluate for bradycardia. No need for pacemaker at this time. Patient continues on Coumadin therapy.
[2019-07-22 07:14] LABS: INR 1.91 (0.9-1.1); Prothrombin Time 19.3 seconds (9.4-11.8)
[2019-07-22 07:16] LABS: Anion Gap 9.4 mEq/L (5-15); Calcium 9.1 mg/dL (8.5-10.1)
--- NOTE | 2019-07-22 07:19 | Progress Note ---
Internal Medicine - PN: Subj *Date: 07/22/19 *Time: 07:16 Interval history: Patient has no complaints this morning. Yesterday oxygen was gradually weaned and then patient began feeling short of breath again and oxygen was reapplied. Despite her complaint of shortness of breath patient maintained her O2 sats above 90%. Exam Vital signs and Labs for Last 24 Hours: Temp Pulse Resp BP Pulse Ox 97.8 F 107 H 20 149/90 H 99 07/22/19 04:00 07/22/19 04:00 07/22/19 04:00 07/22/19 04:00 07/22/19 04:00 I & O for Last 24 hours: Intake & Output 07/19/19 07/20/19 07/21/19 07/22/19 11:59 11:59 11:59 11:59 Intake Total 190 / 190 480 / 480 960 / 960 650 / 650 Output Total 2675 / 2675 4100 / 4100 900 / 900 Balance 190 / 190 -2195 / -2195 -3140 / -3140 -250 / -250 Weight 235 lb 2 oz 229 lb 3 oz 229 lb 3 oz 227 lb 1 oz Microbiology Reports for the Last 24 Hours: Microbiology 07/19/19 10:23 Urine,Catheterized Urine Culture - Final Klebsiella pneumoniae Narrative: Patient looks well. Heart is irregularly irregular. Lungs are clear. Abdomen is soft. Lower extremity edema has improved. Patient has redness and induration in the left antecubital space from an IV consistent with phlebitis Assessment and Plan (1) Congestive heart failure Current visit: Yes Status: Acute Qualifiers: Heart failure type: systolic Category: Medical Code(s): I50.9 - Heart failure, unspecified (2) Atrial fibrillation with rapid ventricular response Current visit: Yes Status: Acute Category: Medical Code(s): I48.91 - Unspecified atrial fibrillation (3) Hypokalemia Current visit: Yes Status: Acute Category: Medical Code(s): E87.6 - Hypokalemia (4) Pulmonary hypertension Current visit: Yes Status: Acute Category: Medical Code(s): I27.20 - Pulmonary hypertension, unspecified (5) Cardiomyopathy Current visit: Yes Status: Acute Category: Medical Code(s): I42.9 - Cardiomyopathy, unspecified (6) UTI due to Klebsiella species Current visit: Yes Status: Acute Category: Medical Code(s): N39.0 - Urinary tract infection, site not specified; B96.1 - Klebsiella pneumoniae [K. pneumoniae] as the cause of diseases classified elsewhere (7) Phlebitis Current visit: Yes Status: Acute Category: Medical Code(s): I80.9 - Phlebitis and thrombophlebitis of unspecified site - Assessment and plan all Dx Assessment and Plan for all problems:: 1. Pulse rate is still quite variable and as high as 120. Increase metoprolol extended release to 50 mg daily. Continue digoxin. 2. Continue spironolactone and Lasix for patient's congestive heart failure with LV dysfunction 3. Continue Rocephin IV for Klebsiella UTI 4. Warm compresses to the left antecubital space
--- NOTE | 2019-07-22 11:21 | Progress Note ---
Subjective Date: 07/22/19 Time: 11:19 Principal diagnosis: Chris lilly with RVR, Cardiomyopathy Interval history: This is an 83-year-old white female who was found to be in atrial fibrillation with RVR as well as systolic congestive heart failure with cardiomyopathy. The patient states that she is feeling better. She denies any chest pain or pressure. She denies any shortness of breath or edema. She denies any fever, chills, nausea, vomiting, diarrhea, PND or orthopnea. However, her family states that she does seem to be short of breath although she denies that she is short of breath. When speaking to her she is short of breath just talking but she states that she does not feel that short of breath. The patient remains in atrial fibrillation with RVR. Her heart rate is around 105 but this is down from around 120s. The patient did undergo a Dulce scan which was negative for ischemia. She does have cardiomyopathy and the patient has preferred to just proceed with medical management. Exam Vital signs and Labs for Last 24 Hours: Temp Pulse Resp BP Pulse Ox 98.5 F 72 24 150/87 H 98 07/22/19 08:00 07/22/19 08:28 07/22/19 08:00 07/22/19 08:00 07/22/19 08:49 Laboratory Results - last 24 hr 07/22/19 06:13: PT 19.3 H, INR 1.91 H 07/22/19 06:13: Sodium 135 L, Potassium 4.4, Chloride 102, Carbon Dioxide 28, Anion Gap 9.4, BUN 32 H, Creatinine 0.83, Estimated Creat Clear 72, Estimated GFR 66, Est GFR ( Amer) 80, Glucose 94, Calcium 9.1 I & O for Last 24 hours: Intake & Output 07/19/19 07/20/19 07/21/19 07/22/19 23:59 23:59 23:59 23:59 Intake Total 386 / 386 960 / 960 840 / 840 390 / 390 Output Total 1475 / 2475 2800 / 2800 2800 / 2800 775 / 775 Balance -1089 / -2089 -1840 / -1840 -1960 / -1960 -385 / -385 Weight 235 lb 2 oz 229 lb 3 oz 229 lb 3 oz 227 lb 1 oz Microbiology Reports for the Last 24 Hours: Microbiology 07/19/19 10:23 Urine,Catheterized Urine Culture - Final Klebsiella pneumoniae Narrative: Her telemetry strip is atrial fibrillation with a rate of 105. - Constitutional no acute distress, obese - *Routine HEENT Exam Head: Present: normocephalic Eye: Present: EOMI, PERRL ENT: Present: mucous membranes moist - *Routine Neck Exam Present: supple, full ROM, normal carotid upstroke. Absent: JVD, carotid bruit, lymphadenopathy - *Routine Respiratory Exam Present: CTA bilaterally - *Routine Cardiovascular Exam Present: Normal S1, Normal S2, tachycardia, irregularly irregular. Absent: murmur - *Routine Abdominal Exam Present: soft, normoactive bowel sounds. Absent: tenderness - *Routine Extremities Exam Present: full ROM, pulses intact, normal capillary refill. Absent: cyanosis, clubbing, edema - *Routine Skin Exam Present: intact, warm. Absent: erythema, rash - *Routine Neurological Exam Present: alert, oriented X3, CN II-XII intact. Absent: sensory deficit, motor deficit - Detailed Eye Exam Eyelids: Left normal inspection Progress Note: A&P (1) Acute systolic (congestive) heart failure Status: Acute Current Visit: Yes (2) Atrial fibrillation with rapid ventricular response Status: Acute Current Visit: Yes (3) Hypokalemia Status: Acute Current Visit: Yes (4) Pulmonary hypertension Status: Acute Current Visit: Yes (5) Cardiomyopathy Status: Acute Current Visit: Yes (6) UTI due to Klebsiella species Status: Acute Current Visit: Yes (7) Phlebitis Status: Acute Current Visit: Yes Assessment and Plan for All Diagnoses:: Plan: 1. The patient was admitted to the hospital and found to be in atrial fibrillation with RVR. Her heart rate is down to 105 today from 120. However, her heart rate still remains too high. We will increase her metoprolol XL to 100 mg p.o. daily for better heart rate control. 2. The patient will continue Coumadin for anticoagulation secondary to her atrial fibrillation. 3. The patient does have systolic congestive heart failure with cardiomyopathy. She has preferred medical management for this. She will continue on metoprolol, digoxin, irbesartan, Lasix and Aldactone. She is tolerating these medications well. 4. She did have a Lexiscan that showed no ischemia. No plans for invasive cardiac testing at this time. 5. Her blood pressure is elevated this morning. Increasing her metoprolol will help to improve her blood pressure as well. 6. Her LDL goal is less than 55. 7. Further recommendations will be made pending the patient's response to treatment. Thank you for the opportunity to help participate in the care of this patient.
--- NOTE | 2019-07-23 07:20 | Discharge Summary ---
General - General Admission date:: 07/20/19 Discharge date: 07/23/19 HPI HPI: 83-year-old female with known atrial fibrillation presented to the emergency department after awakening yesterday morning with inability to catch her breath. Patient denies chest pain but does note increasing swelling over the last several days. Patient is recently and since the of her has noticed symptoms of depression and she passed off some of her declining health as grieving. She has noticed change in her energy level. She denies orthopnea and endorses chronic dyspnea on exertion. Work-up in the emergency department revealed atrial fibrillation with rapid ventricular response with EKG capturing a rate of 172 bpm. Patient was started on a Cardizem drip and admitted to the stepdown unit. Overnight if pulse rate increased Cardizem drip was also increased which usually resulted in a sudden drop in pulse to the 40s and 50s. Currently patient is on Cardizem at 5 mg/min. Chest x-ray in the emergency department showed mild fluid overload and patient's BNP was elevated. She was also found to be hypokalemic. Patient takes Lasix intermittently. She takes losartan with HCTZ. She takes Coumadin for her atrial fibrillation but is generally noncompliant with follow-up and monitoring of her coags. Hospital Course Hospital Course: Patient was admitted and placed on a Cardizem drip for her atrial fibrillation. Within 24 hours patient was transitioned to an oral regimen of p.o. Cardizem as well as p.o. metoprolol extended release. Patient was felt to be in congestive heart failure as well. Aguilar catheter was placed and patient was given Lasix 40 mg IV twice daily which led to excellent diuresis. On the morning of the patient underwent echocardiogram which revealed LV dysfunction with ejection fraction of 30 to 35%. Lexiscan stress test was performed later on that same day which showed no ischemia but depressed ejection fraction. Patient was continued on Toprol-XL which was gradually increased due to persistent tachycardia from atrial fibrillation. Patient will continue losartan and was also started on spironolactone and daily Lasix. Digoxin was also used to help with heart rate control. As hospitalization progressed and patient diuresed dyspnea improved. On the morning of discharge O2 sats were 97% on room air. Patient still had some dry crackles at the right base which were probably due to atelectasis. Heart rate remained irregular but mostly between 70 and 90 bpm. Home health was discussed with patient but she is trying to keep medical costs low at this time due to the recent of her and was declined. Routine urinalysis was performed with insertion of Aguilar catheter and urine came back with infection of Klebsiella pneumonia. Patient was started on Rocephin 1 g IV daily and she will continue Keflex at discharge to complete a course of antibiotics for her UTI. Objective Vital signs: Temp Pulse Resp BP Pulse Ox 98.1 F 106 H 23 151/67 H 96 07/23/19 04:00 07/23/19 04:00 07/23/19 04:00 07/23/19 04:00 07/23/19 04:00 no acute distress - *Routine HEENT Exam Head: Present: normocephalic Eye: Present: EOMI ENT: Present: mucous membranes moist - *Routine Neck Exam Present: supple. Absent: JVD - *Routine Respiratory Exam Present: rales (right base) - *Routine Cardiovascular Exam Present: irregularly irregular - *Routine Extremities Exam Present: edema (improved) Results Labs on day of discharge: Labs from last 24 hours 07/22/19 07/22/19 06:13 06:13 PT 19.3 H INR 1.91 H Sodium 135 L Potassium 4.4 Chloride 102 Carbon Dioxide 28 Anion Gap 9.4 BUN 32 H Creatinine 0.83 Estimated Creat Clear 72 Estimated GFR 66 Est GFR ( Amer) 80 Glucose 94 Calcium 9.1 DS: Diagnosis - Discharge Diagnosis (1) Acute systolic (congestive) heart failure Status: Acute (2) Atrial fibrillation with rapid ventricular response Status: Acute (3) Hypokalemia Status: Acute (4) Pulmonary hypertension Status: Acute (5) Cardiomyopathy Status: Acute (6) UTI due to Klebsiella species Status: Acute (7) Phlebitis Status: Acute Discharge Plan - Patient Discharge Instructions ACTIVITY: Continue current activity Patient Instructions: DI for Atrial Fibrillation, DI for Urinary Tract Infection (UTI), Warfarin, Coumadin Vitamin K/ Diet, Coumadin Therapy Booklet - Follow up Plan Follow up with: Jairo Valverde MD [Primary Care Provider] - 1 week Disposition: Home, Self-Longterm Medications: Home Medications Medication Instructions Recorded Confirmed Type furosemide 40 mg tablet 40 mg PO DAILY tab 12/04/17 07/19/19 History losartan 50 mg-hydrochlorothiazide 1 tab PO ONCE 12/04/17 07/18/19 History 12.5 mg tablet warfarin 6 mg tablet 4 mg PO DAILY tab 12/04/17 07/18/19 History ALPRAZolam [Alprazolam 0.25mg 0.25 mg PO BIDP PRN 07/19/19 07/19/19 History Tab] Citalopram Hydrobromide [Celexa 10 mg PO DAILY 07/19/19 07/19/19 History 10mg Tablet] Temazepam [Restoril 30mg capsule] 30 mg PO HSP PRN 07/19/19 07/19/19 History Digoxin [Digoxin 0.125mg Tablet] 125 mcg PO DAILY #30 tab 07/23/19 Rx Furosemide [Lasix 40mg tablet] 40 mg PO DAILY #30 tab 07/23/19 Rx Losartan Potassium 50 mg PO DAILY #30 tab 07/23/19 Rx Metoprolol Succinate [Toprol XL 100 mg PO DAILY #30 tab.er.24h 07/23/19 Rx 100mg tablet] Potassium Chloride [Klor-con 20 20 meq PO BID #60 tab 07/23/19 Rx mEq tablet] Spironolactone [Aldactone 25mg 25 mg PO DAILY #30 tab 07/23/19 Rx Tab] cephALEXin [Cephalexin 500mg Tab] 1,000 mg PO Q12H #20 tab 07/23/19 Rx Prescriptions/Medication Reconciliation: New Spironolactone [Aldactone 25mg Tab] 25 mg PO DAILY #30 tab Digoxin [Digoxin 0.125mg Tablet] 125 mcg PO DAILY #30 tab Furosemide [Lasix 40mg tablet] 40 mg PO DAILY #30 tab Losartan Potassium 50 mg PO DAILY #30 tab cephALEXin [Cephalexin 500mg Tab] 1,000 mg PO Q12H #20 tab Potassium Chloride [Klor-con 20 mEq tablet] 20 meq PO BID #60 tab Metoprolol Succinate [Toprol XL 100mg tablet] 100 mg PO DAILY #30 tab.er.24h Continued warfarin 6 mg tablet 4 mg PO DAILY tab ALPRAZolam [Alprazolam 0.25mg Tab] 0.25 mg PO BIDP PRN PRN Reason: Anxiety Temazepam [Restoril 30mg capsule] 30 mg PO HSP PRN PRN Reason: Sleep Citalopram Hydrobromide [Celexa 10mg Tablet] 10 mg PO DAILY Discontinued losartan 50 mg-hydrochlorothiazide 12.5 mg tablet 1 tab PO ONCE furosemide 40 mg tablet 40 mg PO DAILY tab - Problem Reconciliation Problems Reviewed?: Yes
[2019-07-23 07:35] LABS: Anion Gap 10.6 mEq/L (5-15); Calcium 9.2 mg/dL (8.5-10.1)
[2019-07-23 07:40] LABS: INR 1.86 (0.9-1.1); Prothrombin Time 18.8 seconds (9.4-11.8)
== END 2019-07-23 10:50 | disposition home or self-care (01) ==
LOC: ER 12:03 → 2ND 14:29 → INTOOBSV 07-20 12:12 → 2ND 07-21 08:55
PROVIDERS: ADMIT Emergency Medicine; ATTEND Family Medicine
CPT/HCPCS: 36415; 71010; 71045; 78452; 80048; 80053; 80061; 81001; 83735; 83880; 84100; 84443; 84484; 85007; 85025; 85610; 85730; 87086; 87088; 87186; 93005; 93017; 93306; 94761; 96365; 96375; 99285; A9502; G0378; J2785

== ENCOUNTER → 2019-12-22 14:53 | Outpatient (CLI) | payer MEDICARE, SELFPAY | PROVIDERS: PCP Family Medicine; Visit Provider Family Medicine | DX: I50.21 Acute systolic (congestive) heart failure (principal) | CPT/HCPCS: 93306 ==

== ENCOUNTER → 2021-12-16 08:28 | Outpatient (CLI) | payer MEDICARE, SELFPAY ==
--- NOTE | 2021-12-16 08:36 | XR_ITS ---
PROCEDURE INFORMATION: Exam: XR Right Ribs with PA Chest Exam date and time: 12/16/2021 8:37 AM Age: 86 years old Clinical indication: Injury or trauma; Fall; Rib area; Blunt trauma (contusions or hematomas); Injury date: 12/15/21; Additional info: Rib pain- right mid rib- fell and hit door knob TECHNIQUE: Imaging protocol: XR Right ribs with PA chest. Views: 3 views COMPARISON: CR XR CHEST PORTABLE 07/18/2019 1:11 PM FINDINGS: Lungs: Old granulomatous disease. No focal consolidation. Pleural spaces: No pneumothorax. Heart/Mediastinum: Mild cardiomegaly. Vasculature: Vascular calcifications. Bones/joints: Scoliosis and osteoarthritic changes. No evidence of an acute fracture. IMPRESSION: No acute process.
== END ==
PROVIDERS: PCP Nurse Practitioner Family; Visit Provider Nurse Practitioner Family
DX: R07.81 Pleurodynia (principal); S29.9XXA Unspecified injury of thorax, initial encounter
CPT/HCPCS: 71101

== ENCOUNTER 2022-03-17 11:21 | Emergency (ER) | payer MEDICARE, SELFPAY ==
--- NOTE | 2022-03-17 11:28 | EXP.UTC ---
Discharge Plan Disposition Patient Disposition: Home, Self-Care Condition: Good Prescriptions Prescriptions: New cephalexin [cephalexin] 500 mg capsule 500 mg PO Q6H 10 Days Qty: 40 0RF mupirocin 2 % ointment 1 applic topical TID 7 Days Qty: 1 0RF ondansetron 4 mg Tablet,Disintegrating 4 mg PO Q8H PRN (Reason: Nausea) Qty: 20 0RF No Action warfarin 2.5 MG tablet 2.5 mg PO DAILY methylprednisolone 4 MG tablets,dose pack 4 mg PO DIRECTED losartan 50 MG tablet 50 mg PO DAILY furosemide 40 MG tablet 40 mg PO DAILY metoprolol succinate 100 MG tablet extended release 24 hr 100 mg PO DAILY spironolactone 25 MG tablet 25 mg PO DAILY digoxin 125 MCG tablet 125 mcg PO DAILY Referrals Follow up/Referrals: Jacque Godinez APRN [Primary Care Provider] - See instructions Activity Restrictions/Add. Instructions Additional Instructions/Restrictions: Keep the affected area clean and dry. Follow up in 2 to 3 days to have the wound rechecked by your primary care physicain. Your primary care physician may need to refer you to a wound care physician also, Take the antibiotics as directed and apply the topical antibiotics as directed. Apply warm wet compresses to the affected area three or four times per day. GO TO THE ER FOR ANY WORSENING SYMPTOMS Clinical Impressions Clinical Impression: Cellulitis and abscess of right leg Instructions Patient Instructions: Cellulitis Discharge ED [place] Feng [place] [facility] [facility] [place] General Stated complaint: rt leg painful spot Time Seen by Provider: 03/17/22 11:51 History of Present Illness Provider Complaint: She states that she has a sore on her right lower leg that has been present for the past 1 week. She saw her pcp for this and she was prescribed bactrim, but she was unable to take it due to GI upset for the antibiotic. She has used the mupirocin as directed by her pcp but she states that it has not helped. Related Data Home Medications Medication Instructions Recorded Confirmed digoxin 125 mcg (0.125 mg) tablet 125 mcg PO DAILY ATRIAL 09/11/19 09/11/19 FIBRILLATION furosemide 40 mg tablet 40 mg PO DAILY Fluid 09/11/19 09/11/19 losartan 50 mg tablet 50 mg PO DAILY HTN 09/11/19 09/11/19 methylprednisolone 4 mg tablets in 4 mg PO DIRECTED INFLAMMTION 09/11/19 09/11/19 a dose pack metoprolol succinate 100 mg 100 mg PO DAILY HTN 09/11/19 09/11/19 tablet,extended release 24 hr spironolactone 25 mg tablet 25 mg PO DAILY Fluid 09/11/19 09/11/19 warfarin 2.5 mg tablet 2.5 mg PO DAILY Blood thinner 09/11/19 09/11/19 Previous Rx's Medication Instructions Recorded cephalexin 500 mg capsule 500 mg PO Q6H 10 days #40 caps 03/17/22 mupirocin 2 % topical ointment 1 applic topical TID 7 days #1 g 03/17/22 ondansetron 4 mg disintegrating 4 mg PO Q8H PRN Nausea #20 tabs 03/17/22 tablet Allergies Allergy/AdvReac Type Severity Reaction Status Date / Time codeine Allergy Mild Vomiting/na Verified 03/17/22 11:49 usea meloxicam AdvReac Verified 03/17/22 11:49 PFSH PFSH Social History Smoking Status: Never smoker alcohol intake: never substance use type: denies use current occupational status: retired Travel in the last 8 weeks: None household members: none caffeine: No ROS Obtained: Yes All systems reviewed & no additional complaints except as documented Constitutional Constitutional: Reports system reviewed and no additional complaints, except as documented, Denies chills and Denies fever(s) Eyes Eyes: Denies eye discharge ENT Ears, Nose, Mouth, and Throat: Denies dysphagia, Denies sore throat and Denies throat swelling Cardiovascular Cardiovascular: Denies chest pain and Denies dyspnea Respiratory Respiratory: Denies chest congestion, Denies cough and Denies dyspnea Gastrointestinal Gastrointestingal: Denies a
[2022-03-17 11:46] VITALS: BP 103/83; PULSE 66; RESP 16; TEMP 36.6; O2SAT 97; BMI 24.5
[2022-03-17 12:54] VITALS: BP 103/83; PULSE 66; RESP 16; TEMP 36.6
== END 2022-03-17 12:55 | disposition home or self-care (01) ==
PROVIDERS: Emergency Provider Nurse Practitioner Family; PCP Nurse Practitioner Family
DX: L03.115 Cellulitis of right lower limb (principal)
CPT/HCPCS: 87070; 87077; 87186; 87205; 96372; 99212; G0463; J0696

== ENCOUNTER 2022-04-16 14:00 | Outpatient (RCR) | payer MEDICARE, SELFPAY | END 2022-04-16 14:05 | disposition home or self-care (01) | LOC: PT 14:00 | PROVIDERS: PCP Nurse Practitioner Family; Visit Provider Family Medicine | DX: L97.919 Non-pressure chronic ulcer of unspecified part of right lower leg with unspecified severity (principal) | CPT/HCPCS: 29580; 97162; 97597; 97598 ==

== ENCOUNTER → 2022-07-05 13:35 | Outpatient (CLI) | payer MEDICARE, SELFPAY ==
[2022-07-05 13:41] LABS: Microscopic, Urine URINE MICROSCOPIC (MICROSCOPIC)
[2022-07-05 15:23] LABS: Appearance,Urine CLEAR (Clear); Bilirubin,Urine Negative (Negative); Blood, Urine Negative (Negative); Color,Urine YELLOW (Yellow); Glucose,Urine (UA) Negative (Negative); Ketones,Urine Negative (Negative); Leukocyte Esterase,Urine Negative (Negative); Nitrate,Urine Negative (Negative); PH,Urine 5.5 (5.0-8.5); Protein,Urine Negative (Negative); Specific Gravity, Urine 1.015 (1.005-1.030); Urobilinogen,Urine 0.2 EU/dl (0.2)
[2022-07-05 15:33] LABS: Hyaline Casts,Urine Occasional #/lpf (0)
[2022-07-05 15:34] LABS: Bacteria,Urine Trace /lpf; WBC,Urine Occasional #/hpf (0-3); Yeast,Urine Occasional /lpf
== END ==
PROVIDERS: PCP Nurse Practitioner Family; Visit Provider Nurse Practitioner Family
DX: R39.0 Extravasation of urine (principal)
CPT/HCPCS: 36415; 81001

== ENCOUNTER → 2022-07-17 12:33 | Outpatient (CLI) | payer MEDICARE, SELFPAY ==
--- NOTE | 2022-07-17 12:54 | XR_ITS ---
FINAL REPORT CLINICAL HISTORY: ulcer of foot FINDINGS: RIGHT FOOT Three views of the right foot demonstrate no acute fracture or dislocation. There are mild and moderate degenerative changes. There is a small plantar calcaneal spur. No bony erosion is seen. The soft tissues are unremarkable. IMPRESSION: Mild and moderate degenerative changes with no acute bony abnormality. No bony erosion is seen. Reviewed, Interpreted and Dictated by David Vargas III, MD Transcribed by Erika Henry Authenticated and [facility]
[2022-07-17 13:35] LABS: Basophils # 0.1 K/mm3 (0-0.2); Basophils % 1.1 % (0.1-2.0); Eosinophils # 0.1 K/mm3 (0.0-0.4); Eosinophils % 1.8 % (0.1-12.0); Hematocrit 33.4 % (37.0-47.0); Hemoglobin 10.7 g/dL (12.2-16.2); Lymphocytes # 1.3 K/mm3 (0.7-4.5); Mean Corpuscular HGB Conc 31.9 g/dL (31.8-35.4); Mean Corpuscular Hemoglobin 29.7 pg (27.0-31.2); Monocytes # 0.3 K/mm3 (0.1-1.0); Monocytes % 4.6 % (1.7-9.3); Neutrophils # 5.6 K/mm3 (1.8-7.8); Neutrophils % 75.6 % (37.0-80.0); Platelet Count 404 K/mm3 (142-424); Red Cell Distribution Width 16.9 % (11.5-17.5); White Blood Count 7.5 K/mm3 (4.8-10.8)
[2022-07-17 14:08] LABS: Erythrocyte Sedimentation Rate 98 mm/hr (0-30)
[2022-07-17 14:51] LABS: Chloride 101 mmol/L (98-107)
[2022-07-17 14:52] LABS: Potassium 3.5 mmoL/L (3.5-5.1); Sodium 141 mmol/L (136-145)
[2022-07-17 14:54] LABS: Alanine Aminotransferase 17 U/L (12-78); Alkaline Phosphatase 124 U/L (38-126); Anion Gap 10.5 mEq/L (5-15); Aspartate Amino Transferase 29 U/L (14-36); Bilirubin,Total 1.2 mg/dl (0.2-1.3); Blood Urea Nitrogen 17 mg/dl (7-17); Carbon Dioxide 33 mmol/L (22.0-30.0); Estimated Glomerular Filt Rate 95 ml/min (>60); GFR (African American) 115 ML/MIN (>60)
[2022-07-17 14:55] LABS: Albumin Level 3.6 g/dl (3.5-5.0); Albumin/Globulin Ratio 1.1 (1.1-1.8); Calcium 9.4 mg/dl (8.4-10.2); Globulin 3.4 g/dL (1.3-3.2); Glucose 89 mg/dl (74-100)
[2022-07-17 15:00] LABS: C-Reactive Protein 7.1 mg/L (0-4)
== END ==
PROVIDERS: PCP Nurse Practitioner Family; Visit Provider Nurse Practitioner Family
DX: L97.519 Non-pressure chronic ulcer of other part of right foot with unspecified severity (principal); I48.91 Unspecified atrial fibrillation
CPT/HCPCS: 36415; 73630; 80053; 85025; 85651; 86140

== ENCOUNTER → 2022-07-18 13:26 | Outpatient (CLI) | payer MEDICARE, SELFPAY ==
--- NOTE | 2022-07-18 13:28 | US_ITS ---
FINAL REPORT CLINICAL HISTORY: non healing wound of right foot, CAD, HLD, HTN FINDINGS: ANKLE-BRACHIAL PRESSURE INDICES Pressure indices are as follows: RIGHT LOWER EXTREMITY: Ankle-brachial pressure index: 0.65 Comments: Moderate LEFT LOWER EXTREMITY: Ankle-brachial pressure index: 0.90 Comments: Borderline CONCLUSION: Findings consistent with moderate vascular disease on the right and borderline vascular disease on the left. Reviewed, Interpreted and Dictated by David Vargas III, MD Transcribed by Chelsea Calvo Authenticated and [facility]
--- NOTE | 2022-07-18 13:31 | XR_ITS ---
FINAL REPORT CLINICAL HISTORY: broken right second toe; unhealing wound COMPARISON: One day prior FINDINGS: RIGHT TOES SERIES Three views of the right toes were obtained. Nondisplaced fracture proximal aspect of the 2nd proximal phalanx. There is inferior dislocation of the 2nd middle phalanx at the PIP. There is mild degenerative change noted. There is erosion of the tuft of the 2nd distal phalanx. The soft tissues are unremarkable. IMPRESSION: Nondisplaced fracture 2nd proximal phalanx. Inferior dislocation 2nd middle phalanx. Erosion of the tuft 2nd distal phalanx. Reviewed, Interpreted and Dictated by David Vargas III, MD Transcribed by Chelsea Calvo Authenticated and [facility]
== END ==
PROVIDERS: PCP Nurse Practitioner Family; Visit Provider Nurse Practitioner Family
DX: I73.9 Peripheral vascular disease, unspecified (principal); Z51.89 Encounter for other specified aftercare
CPT/HCPCS: 73660; 87070; 87077; 87186; 87205; 93923

== ENCOUNTER → 2022-07-23 13:55 | Outpatient (CLI) | payer MEDICARE, SELFPAY ==
--- NOTE | 2022-07-23 13:59 | CT_ITS ---
FINAL REPORT TECHNIQUE: Thin section axial images were obtained through the right foot without contrast. Reconstruction images were obtained from the axial data. Exam was performed using dose reduction technique. CLINICAL HISTORY: R/O Osteomyelitis of 2nd toe FINDINGS: There is osteopenia with cortical loss at the base of the proximal phalanx of the 2nd toe. There may be a subtle fracture along the medial base. There is bone irregularity of the head of the 2nd proximal phalanx with dislocation at the PIP joint. The middle phalanx is dislocated in the plantar direction. On this exam there appears to be a soft tissue defect along the dorsum of the 2nd toe, bone may protrude through the defect. No additional acute fracture is identified. There is multi joint degenerative disease. There are findings in the midfoot which likely represent neuropathic joint. There is nonspecific soft tissue edema of the foot which is worse at the forefoot. There is no convincing loculated fluid collection on this unenhanced exam. IMPRESSION: 1. Findings concerning for osteomyelitis of the proximal phalanx of the 2nd toe with a possible pathologic fracture at the base and with dislocation at the PIP joint. 2. 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 2. Diffuse soft tissue edema without convincing abscess. Reviewed, Interpreted and Dictated by Ada Perales MD Transcribed by Erika Henry Authenticated and [facility]
== END ==
PROVIDERS: PCP Nurse Practitioner Family; Visit Provider Nurse Practitioner Family
DX: G89.29 Other chronic pain (principal); L97.519 Non-pressure chronic ulcer of other part of right foot with unspecified severity; M79.674 Pain in right toe(s); M86.171 Other acute osteomyelitis, right ankle and foot
CPT/HCPCS: 73700

== ENCOUNTER 2022-07-31 14:00 | Observation (INO) | payer MEDICARE, SELFPAY ==
[2022-07-31] VITALS (75 sets, daily range): BP systolic 90–188; BP diastolic 43–124; PULSE 42–89; RESP 12–95; TEMP 36–36.9; O2SAT 92–99; BMI 24.5; BMI 25.7
--- NOTE | 2022-07-31 07:16 | IR_ITS ---
APPROVED REPORT Patient Location: Outpatient Sol[facility] Recoverer: ELIZABETH Lomeli RT (R) PROCEDURES Right femoral arterial access Left femoral arterial access Right retrograde femoral angiogram Left retrograde femoral angiogram Catheter placement in the abdominal aorta Distal abdominal aortography Bare-metal stent deployment to the distal abdominal aorta extending into the right common iliac artery Bare-metal stent deployment to the distal abdominal aorta extending into the left common iliac artery Reconstruction of the distal abdominal aortic bifurcation Bare-metal stent deployment to the left external iliac artery Pigtail catheter placement in the abdominal aorta status post aortic bifurcation reconstruction Bilateral iliofemoral runoff INDICATION [place] claudication class V and , Abnormal ABIs, Aortoiliac atherosclerosis Informed consent was obtained prior to the procedure. COMPLICATIONS None Estimated Blood Loss: Less than 10 mls TECHNIQUE 1% lidocaine used to anesthetize the left femoral groin. The left femoral artery was accessed via the Seldinger technique. A 5 Barbadian sheath was placed in the left femoral artery. A pigtail catheter could not traverse the iliofemoral vessel. A JR4 catheter was advanced to the common iliac artery and this was used to negotiate through the stenosis along with an advantage wire. With an advantage wire being placed in the abdominal aorta a pigtail catheter was then advanced. Abdominal aortography with bilateral iliofemoral angiography was performed. This demonstrated bilateral common iliac artery critical stenoses. At this point 1% lidocaine was used anesthetize the right groin and the right femoral artery was accessed via the Salinger technique. A 5 Barbadian sheath was placed in the right femoral artery and retrograde angiography was performed. A Choice PT extra-support wire was then used to traverse the right common iliac artery stenosis. Therapeutic heparin was administered and the 5 Barbadian sheaths were exchanged for bilateral 6 Barbadian 23 cm sheath. An 8 mm x 40 mm lithotripsy balloon was deployed at 4 5 and 6 alexandra supplying 30 pulsations to the right common iliac artery and distal abdominal aorta. Following this two 8 mm x 57 mm balloon mounted stents were deployed in the distal abdominal aorta into each right and left common iliac artery and then deployed at 12 alexandra. An 9 mm x 20 mm balloon was then deployed in the distal left common iliac artery and used to post dilate the distal aspect of the stent. An 9 mm x 40 mm self-expanding stent was then placed distal to the left common iliac artery which extended into the left external iliac artery, excellent transitioning through the stents was then achieved. Following this the 9 mm x 20 mm balloon was then advanced into the right femoral artery sheath and placed at the distal abdominal aorta and right common iliac artery and then deployed at 12 alexandra to further post dilate and reduce the calcium. After achieving excellent angiographic results a pigtail catheter was then placed back into the distal abdominal aorta and bilateral iliofemoral runoff was performed. At the end of procedure the apparatus was removed the sheaths were taped into place patient was transferred to the postop putting in stable addition for sheath removal ANGIOGRAPHIC RESULTS Distal abdominal aorta is heavily calcified and tortuous with a greater than 50% distal stenosis Right common iliac artery has a calcified ostial concentric 90% stenosis. The distal right common internal and external iliac arteries are widely patent but calcified. Right common femoral artery is heavily calcified but patent Right profunda femoris artery is normal
[2022-07-31 09:13] LABS: Chloride 108 mmol/L (98-107); Potassium 3.7 mmoL/L (3.5-5.1); Sodium 142 mmol/L (136-145)
[2022-07-31 09:15] LABS: Basophils # 0.1 K/mm3 (0-0.2); Basophils % 1.7 % (0.1-2.0); Eosinophils # 0.2 K/mm3 (0.0-0.4); Eosinophils % 2.8 % (0.1-12.0); Hemoglobin 10.9 g/dL (12.2-16.2); Lymphocytes # 1.2 K/mm3 (0.7-4.5); Lymphocytes % 19.2 % (10-50); Mean Corpuscular HGB Conc 32.1 g/dL (31.8-35.4); Mean Corpuscular Hemoglobin 29.5 pg (27.0-31.2); Mean Corpuscular Volume 91.9 fl (81-99); Mean Platelet Volume 9.2 fl (7.4-10.4); Monocytes # 0.3 K/mm3 (0.1-1.0); Monocytes % 4.4 % (1.7-9.3); Neutrophils # 4.6 K/mm3 (1.8-7.8); Neutrophils % 71.9 % (37.0-80.0); Platelet Count 309 K/mm3 (142-424); Red Cell Distribution Width 16.6 % (11.5-17.5); White Blood Count 6.4 K/mm3 (4.8-10.8)
[2022-07-31 09:16] LABS: Anion Gap 9.7 mEq/L (5-15); Blood Urea Nitrogen 17 mg/dl (7-17); Calcium 9.4 mg/dl (8.4-10.2); Carbon Dioxide 28 mmol/L (22.0-30.0); Creatinine Clearance Estimated 47 mL/min (50-200); Estimated Glomerular Filt Rate 80 ml/min (>60); GFR (African American) 96 ML/MIN (>60); Glucose 96 mg/dl (74-100)
[2022-07-31 12:32] LABS: CATHL Activated Clotting Time 239 SEC (74-125)
--- NOTE | 2022-07-31 14:22 | EXP.HP ---
History of Present Illness *Admission Date: 07/31/22 *Reason for visit:: Admitted for observation overnight after stenting of bilateral iliacs *History of present illness: Ms. Jones is an 86-year-old female with significant peripheral artery disease and nonhealing right second toe ulcer who presented as an outpatient to cardiology for intervention on her peripheral artery disease. Taken today to the Awning Craftsperson for stenting and evaluation of her lower extremities. Found to have severe to critical bilateral ostial common iliac artery stenosis. Successfully reconstructed improving flow in the bilateral lower extremities. Needs monitoring overnight as she is at risk for bleeding from bilateral insertion sites. Patient's history includes atrial fibrillation, peripheral artery disease, coronary artery disease, cardiomyopathy, hypertension, chronic systolic heart failure. Her granddaughter is her caregiver and at bedside on evaluation. Patient is still recovering from anesthesia and still groggy. Most of history and review of systems obtained from family. Patient appears comfortable at this time. Procedure today was elective. No acute complaints of pain, shortness of breath, chest pain, nausea, vomiting, diarrhea. Patient has slurred speech at this time, this is not baseline and secondary to anesthesia. Currently supine due to post procedural protocol. Hemodynamically stable and afebrile. No active bleeding at this time. Additionally, has appointment for follow-up with podiatry tomorrow, will have podiatry see her while she is inpatient for planning of further intervention on chronic ulcerated right second toe. Still finishing antibiotics for few more days (doxycycline). Cath report findings as follows: IMPRESSION Severe to critical bilateral ostial common iliac artery stenoses Successful reconstruction of the distal abdominal aorta and aortic bifurcation greatly improving inline flow into the bilateral lower extremities. Chronically occluded right distal SFA and right popliteal artery which then reconstitutes and supplies two-vessel runoff into the right foot. Chronically occluded left-sided infrageniculate disease which then reconstitutes at the infrageniculate level and supplies two-vessel runoff. [facility] Disclaimer: The information contained in this section may have been updated after the patient was seen, as this information can be updated by other users. Medical History Atrial fibrillation with rapid ventricular response Callus of foot Cardiomyopathy Congestive heart failure Edema Encounter for wound care Hammer toe Hypokalemia Left-sided weakness Onychoincurvatum Osteomyelitis Pincer nail deformity Pulmonary hypertension Ulcer of right foot Surgical History History of left knee replacement Social History Smoking Status: Never smoker alcohol intake: never substance use type: denies use current occupational status: retired Travel in the last 8 weeks: None household members: none caffeine: No Review of Systems Review of Systems Review of systems (narrative): 14 point review of systems performed, pertinent positives and negatives as per [facility] Meds Home Medications and Allergies Home Medications Medication Instructions Recorded Confirmed Type digoxin 125 mcg (0.125 mg) tablet 125 mcg PO DAILY ATRIAL 09/11/19 07/31/22 History FIBRILLATION furosemide 40 mg tablet 40 mg PO DAILY Fluid 09/11/19 07/31/22 History apixaban 5 mg tablet (Eliquis) 5 mg PO QODHS CEREBRAL INFARCTION 07/18/22 07/31/22 History atorvastatin 80 mg tablet 80 mg PO DAILY Cholesterol 07/18/22 07/31/22 History hydralazine 25 mg tablet 12.5 mg PO HS Hypertension 07/18/22 07/31/22 History doxycycline hyclate 100 mg capsule 100 mg PO BID right foot ulcer 14 07/19/22 07/31/22 Rx days #28 ca
--- NOTE | 2022-07-31 15:08 | HMH.PHAINT1 ---
Pharmacy Intervention Comments: MEDICATION RECONCILIATION COMPLETED ON PATIENT USING EXTERNAL FILL HISTORY FROM PHARMACY AND LIST FROM CARDIOLOGY OFFICE. -LAMAR COLE, CARMELAD
[2022-07-31 15:14] LABS: CATHL Activated Clotting Time 168 SEC (74-125)
[2022-07-31 15:15] LABS: CATHL Activated Clotting Time 210 SEC (74-125)
[2022-07-31 15:16] LABS: CATHL Activated Clotting Time 212 SEC (74-125)
[2022-07-31 15:18] LABS: CATHL Activated Clotting Time 241 SEC (74-125)
[2022-07-31 15:18] LABS: Microscopic, Urine URINE MICROSCOPIC (MICROSCOPIC)
[2022-07-31 15:20] LABS: Appearance,Urine CLEAR (Clear); Bilirubin,Urine Negative (Negative); Blood, Urine Negative (Negative); Color,Urine STRAW (Yellow); Glucose,Urine (UA) Negative (Negative); Ketones,Urine Negative (Negative); Leukocyte Esterase,Urine Negative (Negative); Nitrate,Urine Negative (Negative); Protein,Urine Negative (Negative); Urobilinogen,Urine 0.2 EU/dl (0.2)
--- NOTE | 2022-07-31 15:28 | PC.NURSE ---
Pt arrived to the floor at this time
--- NOTE | 2022-07-31 17:03 | PC.WOUNDNOTE ---
right second toe
--- NOTE | 2022-07-31 17:03 | PC.WOUNDNOTE ---
right second toe
--- NOTE | 2022-07-31 17:44 | EXP.ORTH.CON ---
History of Present Illness *Admission Date: 07/31/22 *History of present illness: Ms. Jones is an 86-year-old female with significant peripheral artery disease and nonhealing right second toe ulcer who presented as an outpatient to cardiology for intervention on her peripheral artery disease. Taken today to the Dope Edger for stenting and evaluation of her lower extremities. Found to have severe to critical bilateral ostial common iliac artery stenosis. Successfully reconstructed improving flow in the bilateral lower extremities. Needs monitoring overnight as she is at risk for bleeding from bilateral insertion sites. Patient's history includes atrial fibrillation, peripheral artery disease, coronary artery disease, cardiomyopathy, hypertension, chronic systolic heart failure. Her granddaughter is her caregiver and at bedside on evaluation. Patient is still recovering from anesthesia and still groggy. Most of history and review of systems obtained from family. Patient appears comfortable at this time. Procedure today was elective. No acute complaints of pain, shortness of breath, chest pain, nausea, vomiting, diarrhea. Patient has slurred speech at this time, this is not baseline and secondary to anesthesia. Currently supine due to post procedural protocol. Hemodynamically stable and afebrile. No active bleeding at this time. Additionally, has appointment for follow-up with podiatry tomorrow, will have podiatry see her while she is inpatient for planning of further intervention on chronic ulcerated right second toe. Still finishing antibiotics for few more days (doxycycline). Cath report findings as follows: IMPRESSION: Severe to critical bilateral ostial common iliac artery stenoses Successful reconstruction of the distal abdominal aorta and aortic bifurcation greatly improving inline flow into the bilateral lower extremities. Chronically occluded right distal SFA and right popliteal artery which then reconstitutes and supplies two-vessel runoff into the right foot. Chronically occluded left-sided infrageniculate disease which then reconstitutes at the infrageniculate level and supplies two-vessel runoff. Podiatry: Patient seen and evaluated with Viridiana. Granddaughter at bedside. Patient more awake and able to answer questions. Granddaughter concerned with patient going home and would like for her to have up to 20 days placement of SNF, preferably [facility]. I explained placement based on observation versus inpatient status. She is currently observation. If she is able to be switched to inpatient status, I can do her amputation surgery on and she will need PICC line, daily dressing changes. [facility] Disclaimer: The information contained in this section may have been updated after the patient was seen, as this information can be updated by other users. Medical History Atrial fibrillation with rapid ventricular response Callus of foot Cardiomyopathy Congestive heart failure Edema Encounter for wound care Hammer toe Hypokalemia Left-sided weakness Onychoincurvatum Osteomyelitis Pincer nail deformity Pulmonary hypertension Ulcer of right foot Surgical History History of left knee replacement Social History Smoking Status: Never smoker alcohol intake: never substance use type: denies use current occupational status: retired Travel in the last 8 weeks: None household members: none caffeine: No Review of Systems Review of Systems Review of systems:: pertinent systems reviewed and negative unless documented below Review of systems (narrative): 14 point review of systems performed, pertinent positives and negatives as per HPI Constitutional Constitutional: Reports system reviewed and no additional complaints, except as documented Eyes Eyes: Reports system rev
--- NOTE | 2022-07-31 19:00 | PC.NURSE ---
Right groin, hematoma present when brought to floor, site massaged, no bleeding noted during assessments. BP elevated, hospitalist aware, bp medicines restarted for tonight. Patient confused and lethargic but arousable and cooperative. Left groin site clean dry intact, no hematoma. 2nd toe on right foot ulcer present, pictures taken and in chart. Dr. Blackburn consulted, surgery 08/02 planned.
[2022-08-01] VITALS: PULSE 65
[2022-08-01 04:00] VITALS: BP 97/46; PULSE 72; PULSE 78; RESP 20; TEMP 36.9; O2SAT 94; BMI 25.7
[2022-08-01 04:08] LABS: Coronavirus 19, PCR Not Detected (NotDetected); Influenza A, PCR Not Detected (NotDetected); Influenza B, PCR Not Detected (NotDetected)
--- NOTE | 2022-08-01 04:18 | PC.NURSE ---
pt rested well through the night, blood pressures on the soft side post po hydralazine 12.5mg given as prescribed, bilateral groin cath sites with dressings cdi, pt c/o pain and tenderness rated 3/10 and medicated with tylenol as prescribed; no acute distress, lung sounds clear and diminished bilaterally with 02 sats 95% on room air, telemetry reveals atrial fib with st depression with hr fluctuating from 40-75; hr down to 36 at times, md's previously aware on dayshi, f/c to bsd with cyu noted, pt without edema, + pedal pulses ble, skin pwd, pt is alert and oriented but appears to be drowsy and sleeps when not disturbed, pt mumbles and slurs speech at times, pt with incontinent bowel x1 this shift.
[2022-08-01 07:05] LABS: Basophils % 0.6 % (0.1-2.0); Eosinophils # 0.2 K/mm3 (0.0-0.4); Eosinophils % 2.8 % (0.1-12.0); Hematocrit 29.2 % (37.0-47.0); Lymphocytes # 1.4 K/mm3 (0.7-4.5); Lymphocytes % 20.4 % (10-50); Mean Corpuscular HGB Conc 33.1 g/dL (31.8-35.4); Mean Corpuscular Hemoglobin 30.7 pg (27.0-31.2); Mean Corpuscular Volume 92.9 fl (81-99); Mean Platelet Volume 9.1 fl (7.4-10.4); Monocytes # 0.3 K/mm3 (0.1-1.0); Monocytes % 5.1 % (1.7-9.3); Neutrophils # 4.7 K/mm3 (1.8-7.8); Neutrophils % 71.1 % (37.0-80.0); Platelet Count 280 K/mm3 (142-424); Red Blood Count 3.14 M/mm3 (4.20-5.40); Red Cell Distribution Width 16.5 % (11.5-17.5); White Blood Count 6.6 K/mm3 (4.8-10.8)
[2022-08-01 07:09] VITALS: PULSE 60
[2022-08-01 07:09] LABS: Hemoglobin 9.7 g/dL (12.2-16.2)
[2022-08-01 07:15] LABS: Alanine Aminotransferase 13 U/L (12-78); Albumin Level 3.2 g/dl (3.5-5.0); Albumin/Globulin Ratio 1.1 (1.1-1.8); Alkaline Phosphatase 103 U/L (38-126); Anion Gap 8.7 mEq/L (5-15); Aspartate Amino Transferase 23 U/L (14-36); Bilirubin,Total 0.9 mg/dl (0.2-1.3); Blood Urea Nitrogen 17 mg/dl (7-17); Calcium 8.7 mg/dl (8.4-10.2); Carbon Dioxide 29 mmol/L (22.0-30.0); Chloride 107 mmol/L (98-107); Creatinine Clearance Estimated 49 mL/min (50-200); Estimated Glomerular Filt Rate 68 ml/min (>60); GFR (African American) 83 ML/MIN (>60); Globulin 2.9 g/dL (1.3-3.2); Glucose 79 mg/dl (74-100); Potassium 3.7 mmoL/L (3.5-5.1); Sodium 141 mmol/L (136-145); Total Protein,Serum 6.1 g/dl (6.3-8.2)
[2022-08-01 07:27] VITALS: BP 151/64; PULSE 66; RESP 18; TEMP 36.6; O2SAT 95
[2022-08-01 07:30] LABS: Erythrocyte Sedimentation Rate 64 mm/hr (0-30)
[2022-08-01 08:00] VITALS: PULSE 66
--- NOTE | 2022-08-01 08:00 | EXP.ORTH.PN ---
Subjective *Date: 08/01/22 *Time: 12:10 Interval history: Patient resting in bed alert and oriented. No acute distress noted. Right 2nd toe wound intact, no drainage noted. Patient will be schedule to have out patient surgery right foot second toe amputation by on 08/08/22 at 07:30. Consent signed by patient. She will need post op shoe prior to discharge today. Call podiatry with questions or concerns. Ortho Exam (Inpt) Vital signs and Labs for Last 24 Hours: Temp Pulse Resp BP Pulse Ox 97.8 F 66 18 151/64 H 95 08/01/22 07:27 08/01/22 07:27 08/01/22 07:27 08/01/22 07:27 08/01/22 07:27 Laboratory Results - last 24 hr 07/31/22 08:54: WBC 6.4, RBC 3.70 L, Hgb 10.9 L, Hct 34.0 L, MCV 91.9, MCH 29.5, MCHC 32.1, RDW 16.6, Plt Count 309, MPV 9.2, Neut % (Auto) 71.9, Lymph % (Auto) 19.2, [place] % (Auto) 4.4, Eos % (Auto) 2.8, Baso % (Auto) 1.7, Neut # (Auto) 4.6, Lymph # (Auto) 1.2, [place] # (Auto) 0.3, Eos # (Auto) 0.2, Baso # (Auto) 0.1 07/31/22 08:54: Sodium 142, Potassium 3.7, Chloride 108 H, Carbon Dioxide 28, Anion Gap 9.7, BUN 17, Creatinine 0.70, Estimated Creat Clear 47, Estimated GFR 80, Est GFR ( Amer) 96, Glucose 96, Calcium 9.4 07/31/22 12:14: Activated Clotting Time 239 H* 07/31/22 12:24: Urine Color Straw, Urine Appearance Clear, Urine pH 7.0, Ur Specific [place] 1.010, Urine Protein Negative, Urine Glucose (UA) Negative, Urine Ketones Negative, Urine Blood Negative, Urine Nitrate Negative, Urine Bilirubin Negative, Urine Urobilinogen 0.2, Ur Leukocyte Esterase Negative, Urine RBC None, Urine WBC None, Urine Bacteria None 07/31/22 12:54: Activated Clotting Time 241 H* 07/31/22 13:31: Activated Clotting Time 212 H* 07/31/22 13:58: Activated Clotting Time 210 H* 07/31/22 14:18: Activated Clotting Time 168 H* 08/01/22 03:30: SARS-CoV-2 (PCR) Not detected, Influenza A Untype (PCR) Not detected, Influenza Type B (PCR) Not detected 08/01/22 06:48: WBC 6.6, RBC 3.14 L, Hgb 9.7 L D, Hct 29.2 L, MCV 92.9, MCH 30.7, MCHC 33.1, RDW 16.5, Plt Count 280, MPV 9.1, Neut % (Auto) 71.1, Lymph % (Auto) 20.4, [place] % (Auto) 5.1, Eos % (Auto) 2.8, Baso % (Auto) 0.6, Neut # (Auto) 4.7, Lymph # (Auto) 1.4, [place] # (Auto) 0.3, Eos # (Auto) 0.2, Baso # (Auto) 0.0 08/01/22 06:48: Sodium 141, Potassium 3.7, Chloride 107, Carbon Dioxide 29, Anion Gap 8.7, BUN 17, Creatinine 0.80, Estimated Creat Clear 49, Estimated GFR 68, Est GFR ( Amer) 83, Glucose 79, Calcium 8.7, Total Bilirubin 0.9, AST 23, ALT 13, Alkaline Phosphatase 103, C-Reactive Protein 12.0 H, Total Protein 6.1 L, Albumin 3.2 L, Globulin 2.9, Albumin/Globulin Ratio 1.1 08/01/22 06:48: ESR 64 H I & O for Labs for Last 24 Hours: Intake & Output 07/29/22 07/30/22 07/31/22 08/01/22 23:59 23:59 23:59 23:59 Intake Total 0 / 0 Output Total 1949 250 / 250 Balance -1949 / -250 / -250 Weight 164 lb 3 oz 163 lb 9.6 oz Constitutional: Present no acute distress Head: Present normocephalic Neck: Present normal inspection Respiratory: Present normal respiratory effort and able to speak in complete sentences Cardiac: Present Regular Rate and pedal pulses present GI: Present other (no obesity) Rectal (female): Present deferred (female): Present deferred Extremities: Present normal inspection, tenderness (right foot 2nd toe) and calf tenderness (no calf tenderness) Skin: Present erythema (right 2nd toe), warm and wounds (right dorsal PIPJ: 2x1x0.1cm full thicknenn, 100 % yellow fibrotic) Neuro: Present Weakness (left side) and oriented x 3 Comment:: Hx of CVA Ankle: bilateral: normal inspection Feet/Toes: right: deformity, right: erythema (R-2nd toe), right: swelling (R-2nd toe), right: tenderness (R-2nd toe) and right: wound and bilateral: hammer toe and bilateral: nail abnormalities Assessment and Plan *Assessment and plan (1) Non-healing wound: Status: Acute Category: Medical (2) Abnormal ankle brachial index (ALEJANDRO): Status: Acute
--- NOTE | 2022-08-01 09:12 | EXP.CARD.CON ---
History of Present Illness History of Present Illness Consult date: 08/01/22 Requesting physician: Feng Vicente Chief complaint: post procedure observation Additional Medical History:: Significant past medical hx AFIB previously on eliquis CAD PAD with non healing right second toe ulcer HTN HFrEF recovered Interventional procedure note from 07/31/2022 IMPRESSION Severe to critical bilateral ostial common iliac artery stenoses Successful reconstruction of the distal abdominal aorta and aortic bifurcation greatly improving inline flow into the bilateral lower extremities Chronically occluded right distal SFA and right popliteal artery which then reconstitutes and supplies two-vessel runoff into the right foot Chronically occluded left-sided infrageniculate disease which then reconstitutes at the infrageniculate level and supplies two-vessel runoff PLAN 1. Xarelto 2.5 twice daily plus aspirin 81 mg daily 2. LDL less than 55 to be achieved with high intensity statin 3. Patient should have significant improvement with tremendous improvement in the inline flow to the lower extremities which should help heal any previous lower extremity ulcer and also allow much greater improvement with anticipated upcoming amputation 4. Physical therapy 5. Wound care History of present illness: 86 year old female presented to hospital yesterday for outpatient interventional procedure for peripheral artery disease. Patient underwent successful reconstruction of the distal abdominal aortia and aortic bifurcation. Patient was admitted overnight for observation of bilateral insertion sites due to risk of bleeding. Patient is currently also being treated by Dr. Blackburn and has an upcoming amputation of right second toe planned. Patient reports had a pleasant evening with no complaints at this time. Family member is at bedside. Bilateral groin sites have dry dressings intact with no signs of swelling or bleeding noted. [facility] Disclaimer: The information contained in this section may have been updated after the patient was seen, as this information can be updated by other users. Medical History Atrial fibrillation with rapid ventricular response Callus of foot Cardiomyopathy Congestive heart failure Edema Encounter for wound care Hammer toe Hypokalemia Left-sided weakness Onychoincurvatum Osteomyelitis Pincer nail deformity Pulmonary hypertension Ulcer of right foot Surgical History History of left knee replacement Social History Smoking Status: Never smoker alcohol intake: never substance use type: denies use current occupational status: retired Travel in the last 8 weeks: None household members: none caffeine: No Review of Systems Review of Systems Review of systems:: pertinent systems reviewed and negative unless documented below *Musculoskeletal Comments: lower extremity claudication *Neurologic Neurologic: Reports system reviewed and no additional complaints, except as documented Exam Data for Last 24 hours Vital signs and Labs for Last 24 Hours: Temp Pulse Resp BP Pulse Ox 97.8 F 66 18 151/64 H 95 08/01/22 07:27 08/01/22 07:27 08/01/22 07:27 08/01/22 07:27 08/01/22 07:27 Laboratory Results - last 24 hr 07/31/22 08:54: WBC 6.4, RBC 3.70 L, Hgb 10.9 L, Hct 34.0 L, MCV 91.9, MCH 29.5, MCHC 32.1, RDW 16.6, Plt Count 309, MPV 9.2, Neut % (Auto) 71.9, Lymph % (Auto) 19.2, [place] % (Auto) 4.4, Eos % (Auto) 2.8, Baso % (Auto) 1.7, Neut # (Auto) 4.6, Lymph # (Auto) 1.2, [place] # (Auto) 0.3, Eos # (Auto) 0.2, Baso # (Auto) 0.1 07/31/22 08:54: Sodium 142, Potassium 3.7, Chloride 108 H, Carbon Dioxide 28, Anion Gap 9.7, BUN 17, Creatinine 0.70, Estimated Creat Clear 47, Estimated GFR 80, Est GFR ( Amer) 96, Glucose 96, Calcium 9.4 07/31/22 12:14: Activated Thuy
--- NOTE | 2022-08-01 09:47 | HMH.OTEV ---
OT Inpatient Evaluation Rehab OT IP Evaluation Start: 07/31/22 17:48 Freq: ONCE Status: Active Protocol: Document 08/01/22 09:41 SHANNAN (Rec: 08/01/22 09:47 SHANNAN [id number]) Rehab OT IP Assessment Subjective History Ms. Jones is an 86-year-old female with significant peripheral artery disease and nonhealing right second toe ulcer who presented as an outpatient to cardiology for intervention on her peripheral artery disease. Taken today to the Jump Roll Operator for stenting and evaluation of her lower extremities. Found to have severe to critical bilateral ostial common iliac artery stenosis. Successfully reconstructed improving flow in the bilateral lower extremities. Needs monitoring overnight as she is at risk for bleeding from bilateral insertion sites. Patient's history includes atrial fibrillation, peripheral artery disease, coronary artery disease, cardiomyopathy , hypertension, chronic systolic heart failure. Her granddaughter is her caregiver and at bedside on evaluation. Patient is still recovering from anesthesia and still groggy. Most of history and review of systems obtained from family. Patient appears comfortable at this time. Procedure today was elective. No acute complaints of pain, shortness of breath, chest pain, nausea, vomiting, diarrhea. Patient has slurred speech at this time, this is not baseline and secondary to anesthesia. Currently supine due to post procedural protocol. Hemodynamically stable and afebrile. No active bleeding
--- NOTE | 2022-08-01 10:05 | HMH.PTEV ---
Physical Therapy Evaluation Rehab PT IP Evaluation Start: 07/31/22 17:48 Freq: ONCE Status: Active Protocol: Document 08/01/22 09:05 MANPREET (Rec: 08/01/22 10:05 MANPREET [id number]) Subjective/History History History Pt is an 86 y/o female with significant peripheral artery disease and non-healing right second toe ulcer who presented as an outpatient to cardiology for intervention on her peripheral artery disease . Taken to Short Filler Bunch Machine Operator on 07/31 for stenting and evaluation of her lower extremities. Found to have severe to critical bilateral ostial common iliac artery stenosis. Successfully reconstructed improving flow in the bilateral lower extremities. Pt was admitted for observation overnight following stenting of bilateral iliacs. Per history & physical note, pt additionally has appointment for follow-up with podiatry and will have podiatry see her while she is inpatient for planning of further intervention on chronic ulcerated right second toe. Still finishing antibiotics for few more days (doxycycline ). Medical History: atrial fibrillation, peripheral artery disease, coronary artery disease, cardiomyopathy , hypertension, chronic systolic heart failure Subjective Subjective Pt reports she lives at home with her grandaughter who assists with her care. Pt states her home is one story and she uses a RW for ambulation. Pt reports she did fall in April of 2022 due to a CVA affecting the left side but denies recent falls. Pt's grandaughter reports she
[2022-08-01 10:29] VITALS: BMI 25.6
--- NOTE | 2022-08-01 10:35 | EXP.DC.SUM ---
General Admission date:: 07/31/22 Discharge date: 08/01/22 HPI HPI HPI: Ms. Jones is an 86-year-old female with significant peripheral artery disease and nonhealing right second toe ulcer who presented as an outpatient to cardiology for intervention on her peripheral artery disease. Taken today to the Ecologist for stenting and evaluation of her lower extremities. Found to have severe to critical bilateral ostial common iliac artery stenosis. Successfully reconstructed improving flow in the bilateral lower extremities. Needs monitoring overnight as she is at risk for bleeding from bilateral insertion sites. Patient's history includes atrial fibrillation, peripheral artery disease, coronary artery disease, cardiomyopathy, hypertension, chronic systolic heart failure. Her granddaughter is her caregiver and at bedside on evaluation. Patient is still recovering from anesthesia and still groggy. Most of history and review of systems obtained from family. Patient appears comfortable at this time. Procedure today was elective. No acute complaints of pain, shortness of breath, chest pain, nausea, vomiting, diarrhea. Patient has slurred speech at this time, this is not baseline and secondary to anesthesia. Currently supine due to post procedural protocol. Hemodynamically stable and afebrile. No active bleeding at this time. Additionally, has appointment for follow-up with podiatry tomorrow, will have podiatry see her while she is inpatient for planning of further intervention on chronic ulcerated right second toe. Still finishing antibiotics for few more days (doxycycline). Cath report findings as follows: IMPRESSION: Severe to critical bilateral ostial common iliac artery stenoses Successful reconstruction of the distal abdominal aorta and aortic bifurcation greatly improving inline flow into the bilateral lower extremities. Chronically occluded right distal SFA and right popliteal artery which then reconstitutes and supplies two-vessel runoff into the right foot. Chronically occluded left-sided infrageniculate disease which then reconstitutes at the infrageniculate level and supplies two-vessel runoff. Podiatry: Patient seen and evaluated with Viridiana. Granddaughter at bedside. Patient more awake and able to answer questions. Granddaughter concerned with patient going home and would like for her to have up to 20 days placement of SNF, preferably [facility]. I explained placement based on observation versus inpatient status. She is currently observation. If she is able to be switched to inpatient status, I can do her amputation surgery on and she will need PICC line, daily dressing changes. Hospital Course Hospital Course Hospital Course: 86-year-old female with A. fib, peripheral artery disease, chronic systolic CHF, chronic ulceration of right foot who presented for outpatient evaluation and management of peripheral artery disease.? Status post stenting of bilateral iliacs with improvement of lower extremity flow.? Admitted for monitoring overnight.? Cardiology and podiatry consulted.? Problems addressed as follows: Peripheral artery disease Iliac stenosis -Cardiology consulted, appreciate their recommendations. Status post stenting to bilateral iliacs with improved inflow. Plan to resume her Xarelto for improved blood flow as well as A. fib. Continue daily aspirin 81 mg. Continue high intensity statin and Plavix. We will allow flow to improve for the next week before proceeding with amputation of right second toe as planned with podiatry. Patient has no bleeding or significant hematomas at insertion sites from sheaths and bilateral inguinal regions. Stable for discharge home. Cardiac Meds: Plavix 75mg PO daily Digoxin 125mcg PO daily Metoprolol 25mg PO daily Xarelto 20mg PO daily Atorvastatin 80mg PO daily Entresto 24/26mg PO daily Jardiance 10mg PO daily, held due to cost. Aldactone 25mg PO daily Chronic right foot ulcer/leni
--- NOTE | 2022-08-01 10:42 | SW/DCPLANNER ---
Addendum entered by Idania Castellanos 08/01/22 12:50: Niki w/ [facility] stated that services will resume tomorrow. Original Note: I received a referral on this patient regarding: placement and IV antibiotics. After a lengthy discussion with MD the plan for this patient is to return home today w/ granddaughter (Mackenzie [phone]) and resume home health services from [facility]. Patient is agreeable with this plan. Patient will not need IV antibiotics at discharge. PT/OT evaluated patient and stated that she was safe to return home with home health services. Mackenzie has asked that I fax patient information to [facility] incase placement is needed after surgery next week. I will fax all information to [facility] and [facility]. Patient will discharge today.
--- NOTE | 2022-08-01 12:49 | HMH.PHACL ---
PHA Retread Technician Discharge Med Bituminous Distributor Operator: Mireya Jones (EDUCATION PROVIDED TO NURSE PER PATIENT REQUEST) has received discharge medication counseling on the following medications: -ATORVASTATIN (ON PREVIOUSLY) -PLAVIX (BLEED/BRUISE RISK, NURSE AWARE) -METOPROLOL (ON PREVIOUSLY) -XARELTO (STOP ELIQUIS, BLEED RISK, NURSE AWARE) -ENTRESTO (BP, TWICE DAILY, NURSE AWARE) -SPIRONOLACTONE (FLUID PILL, WATCH FOR ELEVATED POTASSIUM, NURSE AWARE) NO QUESTIONS VERBALIZED AT THIS TIME.
--- NOTE | 2022-08-02 11:11 | CARE MANAGER ---
Contacted patient's granddaughter. She states patient is doing well. They haven't picked up medication yet as it wasn't ready and are waiting on pharmacy to contact them. They are aware of follow up appointments and home health is currently there. Deny any questions or concerns at this time. KASH Mann
== END 2022-08-01 12:55 | disposition home health service (06) ==
LOC: 2ND 14:01
PROVIDERS: Internal Medicine; Podiatrist; Admitting Provider Internal Medicine Adolescent Medicine; PCP Nurse Practitioner Family; Visit Provider Internal Medicine Adolescent Medicine
DX: I48.91 Unspecified atrial fibrillation (principal); I42.9 Cardiomyopathy, unspecified; I70.92 Chronic total occlusion of artery of the extremities; I70.222 Atherosclerosis of native arteries of extremities with rest pain, left leg; I25.2 Old myocardial infarction; G89.29 Other chronic pain; M79.674 Pain in right toe(s); M86.9 Osteomyelitis, unspecified; I11.0 Hypertensive heart disease with heart failure; I50.22 Chronic systolic (congestive) heart failure; I77.1 Stricture of artery; I25.10 Atherosclerotic heart disease of native coronary artery without angina pectoris; I70.235 Atherosclerosis of native arteries of right leg with ulceration of other part of foot; I69.354 Hemiplegia and hemiparesis following cerebral infarction affecting left non-dominant side; Z20.822 Contact with and (suspected) exposure to COVID-19; L97.516 Non-pressure chronic ulcer of other part of right foot with bone involvement without evidence of necrosis
CPT/HCPCS: G0378; 36415; 37221; 75625; 75716; 80048; 80053; 81001; 85025; 85347; 85651; 86140; 97162; 97165; 99152; 99153; C1725; C1769; C1876; C1894; C9765; C9803; J1644; J2720; Q9966; U0003; U0005

== ENCOUNTER 2022-08-06 08:48 | Emergency (ER) | payer MEDICARE, SELFPAY ==
--- NOTE | 2022-08-06 09:00 | HMH.EDFALL ---
Discharge Plan Disposition Patient Disposition: Home, Self-Care Condition: Good Prescriptions Prescriptions: No Action hydralazine 25 mg tablet 12.5 mg PO HS atorvastatin 80 mg tablet 80 mg PO DAILY doxycycline hyclate 100 mg capsule 100 mg PO BID 14 Days Qty: 28 0RF trazodone 50 mg tablet 50 mg PO HSP PRN (Reason: Insomnia) metoprolol tartrate 25 mg tablet 25 mg PO DAILY multivitamin Tablet 1 tab PO DAILY clopidogrel 75 mg Tablet 75 mg PO DAILY 30 Days Qty: 30 0RF Xarelto 10 mg Tablet 20 mg PO QPMWITHMEAL 30 Days Qty: 60 0RF spironolactone 25 mg Tablet 25 mg PO DAILY 30 Days Qty: 30 0RF Entresto 24-26 mg Tablet 1 ea PO BID 30 Days Qty: 60 0RF furosemide 40 MG tablet 40 mg PO DAILY digoxin 125 MCG tablet 125 mcg PO DAILY Referrals Follow up/Referrals: Jacque Godinez APRN [Primary Care Provider] - See instructions Activity Restrictions/Add. Instructions Additional Instructions/Restrictions: Return to the emergency department if you feel worse in any way. Keep all appointments as scheduled. Take all medications as prescribed. Clinical Impressions Clinical Impression: Fall PRITESH (subconjunctival hemorrhage) Qualifiers: Laterality: right Qualified Code(s): H11.31 - Conjunctival hemorrhage, right eye Instructions Patient Instructions: How to Prevent Falls, DI for Subconjunctival Hemorrhage Discharge ED Provider: Lor Leiva [facility] General Chief Complaint: Fall Stated Complaint: [id number]/29@home pain in hip, post op stint 08/01 Time Seen by Provider: 08/06/22 08:54 History of Present Illness HPI Narrative: The patient presents to the emergency department accompanied by her daughter after having fallen yesterday. She recently had a cardiac catheterization with stent placement and is currently on Eliquis. She did not lose consciousness. She fell because she tripped losing her balance while dusting furniture. He says that she fell on her right hip but that there is no pain there now. She has been ambulating on this lower extremity since yesterday. This morning she noticed that she had some redness in her right thigh. She does not recall injuring it but thought that maybe she scratched her eye during the night. She has no other symptoms. Related Data Home Medications Medication Instructions Recorded Confirmed digoxin 125 mcg (0.125 mg) tablet 125 mcg PO DAILY ATRIAL 09/11/19 07/31/22 FIBRILLATION furosemide 40 mg tablet 40 mg PO DAILY Fluid 09/11/19 07/31/22 atorvastatin 80 mg tablet 80 mg PO DAILY Cholesterol 07/18/22 07/31/22 hydralazine 25 mg tablet 12.5 mg PO HS Hypertension 07/18/22 07/31/22 trazodone 50 mg tablet 50 mg PO HSP PRN Insomnia 07/26/22 07/31/22 metoprolol tartrate 25 mg tablet 25 mg PO DAILY Hypertension 07/31/22 07/31/22 multivitamin 1 tab PO DAILY Supplement 07/31/22 07/31/22 Previous Rx's Medication Instructions Recorded doxycycline hyclate 100 mg capsule 100 mg PO BID right foot ulcer 14 07/19/22 days #28 caps clopidogrel 75 mg tablet 75 mg PO DAILY 30 days #30 tabs 08/01/22 rivaroxaban 10 mg tablet (Xarelto) 20 mg PO QPMWITHMEAL 30 days #60 08/01/22 tabs sacubitril 24 mg-valsartan 26 mg 1 ea PO BID 30 days #60 tabs 08/01/22 tablet (Entresto) spironolactone 25 mg tablet 25 mg PO DAILY 30 days #30 tabs 08/01/22 Allergies Allergy/AdvReac Type Severity Reaction Status Date / Time codeine Allergy Mild Vomiting/na Verified 07/26/22 09:02 usea meloxicam AdvReac Verified 07/26/22 09:02 [facility] Disclaimer: The information contained in this section may have been updated after the patient was seen, as this information can be updated by other users. Medical History Atrial fibrillation with rapid ventricular response Callus of foot Cardiomyopathy Congestive heart failure Edema Encounter for wound care Hammer toe Hypokalemi
[2022-08-06 09:01] VITALS: BP 166/58; PULSE 84; RESP 14; TEMP 36.5; O2SAT 96; BMI 24.2
[2022-08-06 09:17] VITALS: BP 103/68; PULSE 65; RESP 13; TEMP 37.2; O2SAT 100
== END 2022-08-06 09:18 | disposition home or self-care (01) ==
PROVIDERS: Emergency Provider Emergency Medicine; PCP Nurse Practitioner Family
DX: H11.31 Conjunctival hemorrhage, right eye (principal); M25.551 Pain in right hip; W01.0XXA Fall on same level from slipping, tripping and stumbling without subsequent striking against object, initial encounter; Z95.5 Presence of coronary angioplasty implant and graft; Z79.01 Long term (current) use of anticoagulants; I48.91 Unspecified atrial fibrillation; I50.9 Heart failure, unspecified; I42.9 Cardiomyopathy, unspecified; Z96.652 Presence of left artificial knee joint
CPT/HCPCS: 99283

== ENCOUNTER 2022-08-08 06:05 | Day surgery (SDC) | payer MEDICARE, SELFPAY ==
--- NOTE | 2022-08-06 10:27 | SUR.PREOP ---
Verified with Dr. Blackburn that pt is to hold Eloquis the morning of the surgery on 08/08/22. Notified granddaughter, Mackenzie-verbalized understanding.
[2022-08-08] VITALS (8 sets, daily range): BP systolic 109–165; BP diastolic 56–87; PULSE 48–62; RESP 16–18; TEMP 36.7–43; O2SAT 95–100; BMI 23.3
--- NOTE | 2022-08-08 07:34 | XR_ITS ---
FINAL REPORT CLINICAL HISTORY: Post op amp COMPARISON: 07/18/2022 FINDINGS: RIGHT FOOT: Three views of the right foot were obtained. There are postoperative changes from amputation of the 2nd digit at the MTP. There are 3rd, 4th, and 5th hammertoes. There is no acute fracture or dislocation. The joint spaces are intact. There is no soft tissue abnormality. IMPRESSION: Postoperative changes as described. 3rd,, 4th and 5th hammertoes. Reviewed, Interpreted and Dictated by David Vargas III, MD Transcribed by Chelsea Calvo Authenticated and [facility]
--- NOTE | 2022-08-08 08:20 | EXP.OP.NOTE ---
Date of procedure: 08/08/22 Pre-op Diagnosis:: Right second toe ulcer Right second toe osteomyelitis Post-op Diagnosis:: Same Procedure performed:: Right second toe amputation Right foot I&D Surgeon:: Simran Blackburn DPM SENIOR TRIAL ATTORNEY:: Roshan Linares Anesthesia: MAC and local (20cc 0.5% marcaine plain) Estimated blood loss (mL): 10 Clinical Note:: Patient is an 86-year-old female who presented with a right second toe ulcer, cellulitis with radiographic evidence of osteomyelitis. We discussed conservative versus surgical treatment options. Conservative treatment options include local wound care, oral and IV antibiotics, change in shoe wear, taping/padding, and off-loading. We discussed surgical intervention for amputation of the second toe. Patient understands that there is a chance that the toes can migrate to fill the gap or the foot may change shape after surgery. Patient also understands that they could have wound healing complications including delayed healing and infection. We discussed that if the wound does not heal, it is possible that they may need a more proximal amputation and could result in further loss of digits, loss of partial foot or loss of leg. We discussed the risks and benefits in great detail. Other surgical risks include: prolonged pain and swelling, further infection requiring oral or IV antibiotics, delay in healing of soft tissue or bone, nerve or blood vessel damage, CRPS/RSD, DVT, anesthesia complications, and even . All questions answered. Patient verbalized understanding. Consent obtained. Patient was recently admitted for a lower extremity runoff by Dr. Bolden and medical clearance granted by Dr. Vicente. She was discharged after 23-hour observation stay last week to do the toe amputation outpatient. SNF evaluation [facility] was pending a PT/OT evaluation. Operative findings:: Palpable pedal pulses noted. Right second toe edema with mild erythema. Ulcer noted to the dorsal aspect of the second toe over the PIPJ full-thickness 0.5 x 0.5 x 0.5 cm down to the level of the bone. Exposed proximal phalanx head noted and soft/crumbly. No purulence, drainage or malodor noted. There was no sinus tracking or signs of infection proximal past the second metatarsal. Operative note:: On this date and time patient was deemed an appropriate surgical candidate. With informed consent signed, the patient was taken to the operating theater. The patient was positioned supine. MAC anesthesia was induced. No tourniquet used. Pre-op right second toe block given with 10 cc 0.5% marcaine plain. IV Dapto infused today. Right 2nd irrigation and debridement, digit amputation: The right lower extremity was prepped and drapped in normal sterile fashion. Cellulitis is noted extending to the PIPJ. A racquetball incision was mapped out. Utilizing a 15 blade dissection was carried down sharply to the level of the bone around the medial phalanx which was disarticulated from the proximal phalanx. The middle phalanx bone was soft and crumbly and had a no malodor to it. Attention was then directed to the proximal phalanx. The head was soft and easily broken, discolored with cortical erosions noted. Portion of it was cut and sent for bone culture and the other part was sent for bone biopsy for pathology. The head of the metatarsal was intact with no cortical erosions, discoloration or obvious signs of osteomyelitis. Next gentamicin irrigation was used to flush the wound. The wound was reexplored and no further signs of infection noted. Bleeding controlled. No vessels ligated with electrocautery or tied as there was minimal to no blood loss. 3-0 vicryl and nylon was used to close skin in an interrupted simple suture fashion. The wounds were cleansed. Xeroform, betadine, dry sterile dressing was then applied to the foot. The patient was awoken from anesthesia and transferred to recovery with vital signs stable and neurovascular status intact. Discharge/Plan: Patient
--- NOTE | 2022-08-08 10:01 | HMH.PTEV ---
Physical Therapy Evaluation Rehab PT IP Evaluation Start: 08/08/22 07:35 Freq: ONCE Status: Active Protocol: Document 08/08/22 09:53 ERUM (Rec: 08/08/22 10:01 ERUM [id number]) Subjective/History History History 86 yowf in OR this date for R 2nd toe amputation due to chronic wound. She reports she lives with granddaughter, no steps to enter the home, uses a walker for ambulation at baseline. Her granddaughter assists her with all ADLs at baseline as well (cooking, cleaning, dressing, and bathing.) Subjective Subjective Pt currently c/o feeling dizzy , likely due to post anesthesia, and pain in the R foot. Rehab PT IP Eval Objective Appearance Patient Behavior Appropriate Patient Orientation Person,Place,Time Difficulty following instructions none Speech Pattern Clear Ambulation Patient Able to Ambulate No Balance Ability to Arise Able, uses arms to help Sitting Balance Steady, safe Standing Balance Unsteady Dynamic Sitting Balance Ability Good Dynamic Standing Balance Ability Poor Transfers Bed Transfer Ability Minimal x 1 (25% assist) Chair Transfer Ability Maximum x 1 (75% assist) Sit to Stand Bed Transfer Ability Maximum x 1 (75% assist) Sit to Stand Chair Transfer Ability Maximum x 1 (75% assist) ROM RUE PT ROM Status ABN Abnormal ROM Comment prior shld pathology MMT All Extremities PT MMT WFL Abnormal MMT Grade except R UE SHLD 2/5 Rehab PT IP prob,goals,plan Problems Date of Evaluation: 08/08/22 Discharge Plan PT Discharge Plan Pt is most appropriate for rehab placement once medically stable. G -code Required No Eval Complexity Eval Charge Codes 86265 - Moderate Complexity PHYSICIAN CERTIFICATION: I certify the specified therapy services for Mireya Jones are required, authorized, and reviewed every 30 days.
--- NOTE | 2022-08-08 10:02 | SUR.PHASEII ---
x-ray at bedside at 0935 rehab at bedside at 0968
== END 2022-08-08 10:00 | disposition home or self-care (01) ==
PROVIDERS: PCP Nurse Practitioner Family; Visit Provider Podiatrist
PROC: (CPT 28820; principal; 2022-08-08 07:30)
DX: M20.41 Other hammer toe(s) (acquired), right foot (principal); L03.031 Cellulitis of right toe; L97.514 Non-pressure chronic ulcer of other part of right foot with necrosis of bone; M86.171 Other acute osteomyelitis, right ankle and foot; Z79.01 Long term (current) use of anticoagulants; Z79.899 Other long term (current) drug therapy; I48.91 Unspecified atrial fibrillation; I42.9 Cardiomyopathy, unspecified; I11.0 Hypertensive heart disease with heart failure; I50.9 Heart failure, unspecified
CPT/HCPCS: 28820; 73630; 87077; 87186; 88304; 88305; 88311; 96374; 97162; J0878

== ENCOUNTER 2022-08-13 12:48 | Outpatient (CLI) | payer MEDICARE, SELFPAY ==
[2022-08-13 14:54] VITALS: BMI 21.7
--- NOTE | 2022-08-13 14:55 | XR_ITS ---
FINAL REPORT CLINICAL HISTORY: PICC line placement, 2 attempts made at picc line placement. COMPARISON: December 2021 FINDINGS: A right-sided PICC line terminates in the SVC. The heart size is normal. The mediastinum is within normal limits. There are mild chronic changes in both lungs. There is no acute cardiopulmonary process. There is no pleural effusion. There is no pneumothorax. The bony thorax is intact. IMPRESSION: No acute cardiopulmonary process. Reviewed, Interpreted and Dictated by Santo Aguilar MD Transcribed by Teo Helm Authenticated and [facility]
== END 2022-08-13 16:09 | disposition home or self-care (01) ==
LOC: INF 12:49
PROVIDERS: PCP Nurse Practitioner Family; Visit Provider Podiatrist
DX: Z45.2 Encounter for adjustment and management of vascular access device (principal); L97.514 Non-pressure chronic ulcer of other part of right foot with necrosis of bone; M86.9 Osteomyelitis, unspecified
CPT/HCPCS: 36569; 71045; C1751

== ENCOUNTER 2022-08-30 12:07 | Outpatient (CLI) | payer MEDICARE, SELFPAY | END 2022-08-30 12:30 | disposition home or self-care (01) | LOC: INF 12:08 | PROVIDERS: PCP Nurse Practitioner Family; Visit Provider Podiatrist | DX: E11.621 Type 2 diabetes mellitus with foot ulcer (principal); M86.671 Other chronic osteomyelitis, right ankle and foot; Z45.2 Encounter for adjustment and management of vascular access device; L97.519 Non-pressure chronic ulcer of other part of right foot with unspecified severity; Z22.322 Carrier or suspected carrier of Methicillin resistant Staphylococcus aureus | CPT/HCPCS: G0463 ==

== ENCOUNTER → 2022-10-03 11:58 | Outpatient (CLI) | payer MEDICARE, SELFPAY | PROVIDERS: Visit Provider Nurse Practitioner Family | DX: S98.131A Complete traumatic amputation of one right lesser toe, initial encounter (principal); Z98.890 Other specified postprocedural states | CPT/HCPCS: 87070; 87077; 87186; 87205 ==

== ENCOUNTER → 2023-02-12 09:23 | Outpatient (CLI) | payer MEDICARE, SELFPAY ==
[2023-02-12 09:41] LABS: Adenovirus F 40/41, stool Not Detected (NotDetected); Astrovirus Not Detected (NotDetected); Campylobacter Not Detected (NotDetected); Clostridium Difficile A/B, PCR Not Detected (NotDetected); Cryptosporidium Not Detected (NotDetected); Cyclospora Cayetanesis Not Detected (NotDetected); Entamoeba histolytica Not Detected (NotDetected); Enteroaggregative E coli Not Detected (NotDetected); Enteropathogenic E coli Not Detected (NotDetected); Enterotoxigenic E coli Not Detected (NotDetected); Giardia lamblia Not Detected (NotDetected); Norovirus Not Detected (NotDetected); Plesimonas Shigalloides, PCR Not Detected (NotDetected); Rotavirus A Not Detected (NotDetected); Salmonella, PCR Not Detected (NotDetected); Sapovirus Not Detected (NotDetected); Shiga-like toxin E coli Not Detected (NotDetected); Shigella Enterovasive E coli Not Detected (NotDetected); Vibrio Cholerae Not Detected (NotDetected); Vibrio, PCR Not Detected (NotDetected); Yersinia Entercolitica, PCR Not Detected (NotDetected)
== END ==
PROVIDERS: PCP Nurse Practitioner Family; Visit Provider Nurse Practitioner Family
DX: R19.7 Diarrhea, unspecified (principal); R10.9 Unspecified abdominal pain
CPT/HCPCS: 87506

== ENCOUNTER 2023-07-03 11:34 | Emergency (ER) | payer MEDICARE, SELFPAY ==
[2023-07-03 11:35] VITALS: BP 127/86; PULSE 89; RESP 18; TEMP 36.6; O2SAT 98; BMI 24.9
--- NOTE | 2023-07-03 12:20 | ED_ITS ---
Discharge Plan Disposition Patient Disposition: Home, Self-Care Condition: Good Prescriptions Prescriptions: New cephalexin 500 mg capsule 500 mg PO QID 7 Days Qty: 28 0RF mupirocin 2 % ointment 1 applic topical TID 10 Days Qty: 22 0RF Rx Instructions: apply directly to scratches on right lower leg No Action hydralazine 25 mg tablet 12.5 mg PO HS atorvastatin 80 mg tablet 80 mg PO DAILY clopidogrel 75 mg tablet 75 mg PO DAILY trazodone 50 mg tablet 50 mg PO HSP PRN (Reason: Insomnia) Santyl 250 unit/gram ointment 1 applic topical QDAY 30 Days Qty: 90 1RF oxycodone-acetaminophen 7.5-325 mg tablet 1 tab PO Q4-6H PRN (Reason: pain) Qty: 30 0RF temazepam 15 mg capsule 15 mg PO HS PRN (Reason: sleep) 90 Days Qty: 90 0RF Pradaxa 110 mg capsule 110 mg PO BID 90 Days Qty: 180 0RF metoprolol tartrate 25 mg tablet 25 mg PO DAILY multivitamin Tablet 1 tab PO DAILY furosemide 40 MG tablet 40 mg PO QODHS digoxin 125 MCG tablet 125 mcg PO DAILY Entresto 24-26 mg tablet 1 ea PO BID Referrals Follow up/Referrals: Jacque Godinez APRN [Primary Care Provider] - See instructions Activity Restrictions/Add. Instructions Additional Instructions/Restrictions: Use topical antibiotic on scratches on your right lower leg as prescribed Take oral antibiotics as prescribed Follow up with your Family Doctor as scheduled to discuss urine culture results and recheck urine Straight to ER if any worsening of redness, swelling or streaks Clinical Impressions Clinical Impression: Cellulitis Qualifiers: Site of cellulitis: unspecified site Qualified Code(s): L03.90 - Cellulitis, unspecified UTI (urinary tract infection) Qualifiers: Urinary tract infection type: site unspecified Hematuria presence: without hematuria Qualified Code(s): N39.0 - Urinary tract infection, site not specified Instructions Patient Instructions: Cellulitis, DI for Urinary Tract Infection (UTI), Cephalexin Discharge ED Provider: Sangita Mendez [facility] General Stated complaint: pain, swelling, redness in right leg Mode of Arrival: Wheelchair Source of Information: Patient Limitations: No Limitations Time Seen by Provider: 07/03/23 12:21 Description of Symptoms (Recalled from Triage Doc. by RN): Patient reports possible cellulitis in right lower leg and possible uti. HEENT Symptoms (Recalled from RN notes): No Resp Symptoms (Recalled from RN notes): No Skin Symptoms (Recalled from RN notes): Yes MS Symptoms (Recalled from RN notes): No Functional Status (Recalled from RN notes): wnl History of Present Illness Provider Complaint: Patient states that she has been scratching her right lower leg at night and noticed she had an area on her right ankle area that was starting to look red worried that she may be starting to get cellulitis States that she has been having a strong smell to her urine and caregiver states that she was acting like she did when she had UTI before so she wanted to get her urine checked Related Data Home Medications Medication Instructions Recorded Confirmed digoxin 125 mcg (0.125 mg) tablet 125 mcg PO DAILY ATRIAL 09/11/19 06/26/23 FIBRILLATION furosemide 40 mg tablet 40 mg PO QODHS Fluid 09/11/19 06/26/23 atorvastatin 80 mg tablet 80 mg PO DAILY Cholesterol 07/18/22 06/26/23 hydralazine 25 mg tablet 12.5 mg PO HS Hypertension 07/18/22 06/26/23 trazodone 50 mg tablet 50 mg PO HSP PRN Insomnia 07/26/22 06/26/23 metoprolol tartrate 25 mg tablet 25 mg PO DAILY Hypertension 07/31/22 06/26/23 multivitamin 1 tab PO DAILY Supplement 07/31/22 06/26/23 sacubitril 24 mg-valsartan 26 mg 1 ea PO BID * 08/06/22 06/26/23 tablet (Entresto) clopidogrel 75 mg tablet 75 mg PO DAILY 08/14/22 06/26/23 Previous Rx's Medication Instructions Recorded oxycodone-acetaminophen 7.5 mg-325 1 tab PO Q4-6H PRN pain #30 tabs 08/10/22 mg tablet collagenase clostridium histo. 250 1 applic topical QDAY wound care 08/30/22 unit/gram topical ointment (Santyl) 30 days #90 grams temazepam 15 mg capsule 15 mg PO HS PRN sleep 90 days #90 04/29/23 caps dabigatran etexilate 110 mg 110 mg PO BID 90 days #180 caps 06/26/23 capsule (Pradaxa) cephalexin 500 mg capsule 500 mg PO QID 7 days #28 caps 07/03/23 mupirocin 2 % topical ointment 1 applic topical TID 10 days #22 07/03/23 grams Allergies Allergy/AdvReac Type Severity Reaction Status Date / Time codeine Allergy Mild Vomiting/na Verified 06/26/23 13:43 usea meloxicam AdvReac Verified 06/26/23 13:43 Worker's Comp Is this a Worker's Comp case?: No [facility] Disclaimer: The information contained in this section may have been updated after the patient was seen, as this information can be updated by other users. Medical History Atrial fibrillation with rapid ventricular response Callus of foot Cardiomyopathy Congestive heart failure Congestive heart failure Edema Encounter for wound care Hammer toe History of stroke Hyperlipidemia Hypertension Hypokalemia Left-sided weakness Onychoincurvatum Osteomyelitis Pincer nail deformity Pulmonary hypertension Ulcer of right foot Surgical History History of left knee replacement History of surgery stent placed in femoral artery D/T venous insufficiencey in lower extremity Family History Other No significant family history Social History Smoking Status: Never smoker alcohol intake: never substance use type: denies use current occupational status: retired Travel in the last 8 weeks: None household members: none caffeine: No ROS Obtained: Yes All systems reviewed & no additional complaints except as documented and Yes Systems reviewed as appropriate & no additional complaints except as documented Constitutional Constitutional: Reports system reviewed and no additional complaints, except as documented and Reports as per HPI ENT Ears, Nose, Mouth, and Throat: Reports system reviewed and no additional complaints, except as documented and Reports as per HPI Cardiovascular Cardiovascular: Reports system reviewed and no additional complaints, except as documented and Reports as per HPI Respiratory Respiratory: Reports system reviewed and no additional complaints, except as documented and Reports as per HPI Gastrointestinal Gastrointestingal: Reports system reviewed and no additional complaints, except as documented and as per HPI; Denies abdominal pain Genitourinary Female Genitourinary: Reports system reviewed and no additional complaints, except as documented, Reports as per HPI and Reports other (urine has strong odor) Musculoskeletal Musculoskeletal: Reports system reviewed and no additional complaints, except as documented and Reports as per HPI Integumentary/Breasts Skin/Breast: Reports system reviewed and no additional complaints, except as do cumented, Reports as per HPI and Reports other Comments: scratches to right lower extremity from her leg itching with redness starting around her lower leg just above ankle Physical Exam General General appearance: alert and in no apparent distress ENT ENT exam: Present mucous membranes moist Respiratory Respiratory exam: Present normal lung sounds bilaterally; Absent respiratory distress or wheezes Cardiovascular Cardiovascular exam: Present regular rate, normal rhythm and normal heart sounds Expanded Lower Extremity Exam Right: Leg image: 2 1. redness noted mild warmth to the touch no edema noted at this time 2. multiple scratch roman with scabbing noted from patient scratching her lower leg at night Neurological Exam Neurological exam: Present alert, oriented X3 and normal gait Medical Decision Making Chaz Inquiry Pt receiving controlled substance: No Chaz was queried for this patient: No Vital Signs: 07/03/23 11:35 Temperature 97.8 F Temperature Source Oral Pulse Rate [Radial] 89 Respiratory Rate 18 Blood Pressure [Right Arm] 127/86 Blood Pressure Mean [Right Arm] 99 Blood Pressure Source [Right Arm] Automatic Cuff Blood Pressure Position [Right Arm] Sitting 02 Sat by Pulse Oximetry 98 Oxygen Delivery Method Room Air Lab Data Lab results reviewed: Yes I reviewed the patient's lab results.
[2023-07-03 12:29] LABS: Apearance,Urine Cloudy (Clear); Bilirubin,Urine 1+ (Negative); Blood, Urine Negative (Negative); Color,Urine Dark Yellow (Yellow); Glucose,Urine (UA) Negative (Negative); Ketones,Urine TRACE (Negative); Protein,Urine 1+ (Negative); Specific Gravity, Urine 1.025 (1.005-1.030); UTC Leukocyte Esterase,Urine Negative (Negative); UTC Nitrate,Urine Positive (Negative); Urobilinogen,Urine 0.2 EU/dl (0.2)
[2023-07-03 12:47] VITALS: BP 127/86; PULSE 89; RESP 18; TEMP 36.6; O2SAT 98
== END 2023-07-03 12:48 | disposition home or self-care (01) ==
PROVIDERS: Emergency Provider Nurse Practitioner; PCP Nurse Practitioner Family
DX: N39.0 Urinary tract infection, site not specified (principal); L03.115 Cellulitis of right lower limb; I11.0 Hypertensive heart disease with heart failure; I50.9 Heart failure, unspecified; E78.5 Hyperlipidemia, unspecified; I27.20 Pulmonary hypertension, unspecified
CPT/HCPCS: 81003; 99212; 99214; G0463

== ENCOUNTER 2023-07-09 07:08 | Outpatient (CLI) | payer MEDICARE, SELFPAY | END 2023-07-09 23:59 | LOC: LAB.DROPOF 07-10 07:11 | PROVIDERS: PCP Nurse Practitioner Family; Visit Provider Nurse Practitioner Family | DX: R30.0 Dysuria (principal) | CPT/HCPCS: 87086 ==

== ENCOUNTER 2023-07-16 07:12 | Inpatient (IN) | payer MEDICARE, SELFPAY ==
[2023-07-16] VITALS (19 sets, daily range): BP systolic 69–146; BP diastolic 27–102; PULSE 60–158; RESP 17–31; TEMP 35.2–36.8; O2SAT 93–100; BMI 24.9; BMI 25.7
--- NOTE | 2023-07-16 07:13 | CT_ITS ---
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 Coronal reformatted images were also obtained.This study was performed with techniques to keep radiation doses as low as reasonably achievable (ALARA). Individualized dose reduction techniques using automated exposure control or adjustment of mA and/or kV according to the patient's size were employed. There is age-appropriate atrophy. There is right hemisphere encephalomalacia. There is no evidence of intracranial hemorrhage or mass. The ventricular size is within normal limits. There is no evidence of shift of the midline structures. No abnormal extra axial fluid collection is identified. No skull abnormality is seen on the bone window images. IMPRESSION: No acute intracranial abnormality. Reviewed, Interpreted and Dictated by David Vargas III, MD Transcribed by Doris Fregsoo Authenticated and [facility]
--- NOTE | 2023-07-16 07:16 | ED_ITS ---
Discharge Plan Disposition Patient Disposition: Admitted Chief Complaint: Headache Clinical Impressions Clinical Impression: Headache, Acute hypotension, Atrial fibrillation with RVR, CHF exacerbation, Abdominal pain Discharge ED Provider: Polo Chavez General Adult HPI <Mackenzie Dougherty MD - Last Filed: 07/16/23 07:33> General Chief complaint: Headache Stated complaint: headache Time Seen by Provider: 07/16/23 07:13 Mode of Arrival: EMS History of Present Illness HPI narrative: Patient is an 87-year-old female with past medical history peripheral vascular disease status post stent on Eliquis, CAD, A-fib, cardiomyopathy presenting with sudden onset headache 4.5 hours prior to arrival. Patient states that she had sudden onset severe headache at 2:27 AM which is 4.5 hours prior to arrival. She does have a history of known aneurysm that she was told by a neurologist about during a prior head imaging and given this she is very aware of if she has headache, states it was in the back of her head and has significantly decreased in severity but still present. She denies any numbness, tingling, weakness but presented for further evaluation given her history of aneurysm. Denies any chest pain, shortness of breath, nausea, vomiting, abdominal pain. Related Data Home Medications Medication Instructions Recorded Confirmed digoxin 125 mcg (0.125 mg) tablet 125 mcg PO DAILY ATRIAL 09/11/19 07/09/23 FIBRILLATION atorvastatin 80 mg tablet 80 mg PO DAILY Cholesterol 07/18/22 07/09/23 hydralazine 25 mg tablet 12.5 mg PO HS Hypertension 07/18/22 07/09/23 trazodone 50 mg tablet 50 mg PO HSP PRN Insomnia 07/26/22 07/09/23 multivitamin 1 tab PO DAILY Supplement 07/31/22 07/09/23 sacubitril 24 mg-valsartan 26 mg 1 ea PO BID * 08/06/22 07/09/23 tablet (Entresto) clopidogrel 75 mg tablet 75 mg PO DAILY 08/14/22 07/09/23 apixaban 5 mg tablet (Eliquis) 5 mg PO BID 07/09/23 07/09/23 Previous Rx's Medication Instructions Recorded oxycodone-acetaminophen 7.5 mg-325 1 tab PO Q4-6H PRN pain #30 tabs 08/10/22 mg tablet temazepam 15 mg capsule 15 mg PO HS PRN sleep 90 days #90 04/29/23 caps dabigatran etexilate 110 mg 110 mg PO BID 90 days #180 caps 06/26/23 capsule (Pradaxa) cephalexin 500 mg capsule 500 mg PO QID 7 days #28 caps 07/03/23 mupirocin 2 % topical ointment 1 applic topical TID 10 days #22 07/03/23 grams furosemide 40 mg tablet 40 mg PO QODHS Fluid 90 days #45 07/09/23 tabs mupirocin 2 % topical ointment 1 applic topical TID 10 days #50 07/09/23 grams metoprolol tartrate 25 mg tablet See Rx Instructions .Route 07/15/23 .COMPLEX #270 tabs Allergies Allergy/AdvReac Type Severity Reaction Status Date / Time codeine Allergy Mild Vomiting/na Verified 07/09/23 15:06 usea meloxicam AdvReac Verified 07/09/23 15:06 PFSH <Mackenzie Dougherty MD - Last Filed: 07/16/23 07:33> [facility] Disclaimer: The information contained in this section may have been updated after the pat ient was seen, as this information can be updated by other users. Medical History Atrial fibrillation with rapid ventricular response Callus of foot Cardiomyopathy Congestive heart failure Congestive heart failure Edema Encounter for wound care Hammer toe History of stroke Hyperlipidemia Hypertension Hypokalemia Left-sided weakness Onychoincurvatum Osteomyelitis Pincer nail deformity Pulmonary hypertension Ulcer of right foot Surgical History History of left knee replacement History of surgery stent placed in femoral artery D/T venous insufficiencey in lower extremity Family History Other No significant family history Social History Smoking Status: Unknown if ever smoked alcohol intake: never substance use type: denies use current occupational status: retired Travel in the last 8 weeks: None household members: none caffeine: No <Mackenzie Dougherty MD - Last Filed: 07/16/23 07:33> ROS Obtained: Yes All systems reviewed & no additional complaints except as documented Physical Exam <Mackenzie Dougherty MD - Last Filed: 07/16/23 07:33> General General appearance: alert and in no apparent distress Head Head exam: atraumatic and normocephalic Eye Eye exam: Present PERRL and EOMI ENT ENT exam: Present mucous membranes moist Neck Neck exam: Present normal inspection Chest Chest inspection: Present normal inspection and symmetric chest wall rise Respiratory Respiratory exam: Present normal lung sounds bilaterally; Absent respiratory distress Cardiovascular Cardiovascular exam: Present regular rate and normal rhythm Abdominal Exam Abdominal exam: Present soft; Absent tenderness Extremities Exam Extremities exam: Present normal inspection Neurological Exam Neurological exam: Present alert, oriented X3 and other (Strength 5 out of 5 bilateral upper and lower extremities, sensation intact bilateral upper and lower extremities, face is symmetric, able to smile, stick out tongue, raise eyebrows, close eyes) Psychiatric Psychiatric exam: Present normal affect Skin Skin exam: Present warm and dry Medical Decision Making <Mackenzie Dougherty MD - Last Filed: 07/16/23 07:33> Medical Records Medical records reviewed: Yes I reviewed the patient's medical records. Chaz Inquiry Pt receiving controlled substance: No Vital Signs: 07/16/23 07:12 07/16/23 07:30 07/16/23 08:05 Temperature 97.9 F Temperature Source Oral Pulse Rate 119 H 146 H Pulse Rate [Radial] 131 H Respiratory Rate 18 20 27 H TAR Vitals Timing Blood Pressure 111/84 97/76 L Blood Pressure [Right Arm] 127/89 Blood Pressure Mean 91 81 Blood Pressure Mean [Right Arm] 101 Blood Pressure Source Blood Pressure Source [Right Arm] Automatic Cuff Blood Pressure Position [Right Arm] Supine 02 Sat by Pulse Oximetry 93 L 93 L 93 L Oxygen Delivery Method Room Air Nasal Cannula Nasal Cannula Oxygen Flow Rate (LPM) 4 4 07/16/23 08:20 07/16/23 08:30 07/16/23 08:00 Temperature Temperature Source Pulse Rate 143 H 65 130 H Pulse Rate [Radial] Respiratory Rate 24 25 H 31 H TAR Vitals Timing Blood Pressure 130/102 H 77/51 L 71/45 L Blood Pressure [Right Arm] Blood Pressure Mean 106 59 Blood Pressure Mean [Right Arm] Blood Pressure Source Blood Pressure Source [Right Arm] Blood Pressure Position [Right Arm] 02 Sat by Pulse Oximetry 96 94 L 98 Oxygen Delivery Method Nasal Cannula Nasal Cannula Nasal Cannula Oxygen Flow Rate (LPM) 4 4 4 07/16/23 08:35 07/16/23 08:28 07/16/23 08:15 Temperature 97.9 F Temperature Source Oral Pulse Rate 158 H 130 H 158 H Pulse Rate [Radial] Respiratory Rate 25 H 31 H 25 H TAR Vitals Timing Pre-Blood Vitals Start Vitals Blood Pressure 69/27 L 71/45 L 69/27 L Blood Pressure [Right Arm] Blood Pressure Mean 53 41 Blood Pressure Mean [Right Arm] Blood Pressure Source Blood Pressure Source [Right Arm] Blood Pressure Position [Right Arm] 02 Sat by Pulse Oximetry 97 98 98 Oxygen Delivery Method Nasal Cannula Oxygen Flow Rate (LPM) 07/16/23 08:20 07/16/23 08:25 07/16/23 08:30 Temperature 95.4 F L 97.2 F L Temperature Source Core Core Pulse Rate 118 H 115 H 118 H Pulse Rate [Radial] Respiratory Rate 23 26 H 22 TAR Vitals Timing 5 Minute 10 Minute 15 Minute Blood Pressure 70/33 L 146/98 H 132/99 H Blood Pressure [Right Arm] Blood Pressure Mean 45 114 110 Blood Pressure Mean [Right Arm] Blood Pressure Source Automatic Cuff Blood Pressure Source [Right Arm] Blood Pressure Position [Right Arm] 02 Sat by Pulse Oximetry 97 99 99 Oxygen Delivery Method Oxygen Flow Rate (LPM) 07/16/23 08:40 Temperature 98.0 F Temperature Source Core Pulse Rate 122 H Pulse Rate [Radial] Respiratory Rate 22 TAR Vitals Timing 30 Minute Blood Pressure 123/88 Blood Pressure [Right Arm] Blood Pressure Mean 99 Blood Pressure Mean [Right Arm] Blood Pressure Source Blood Pressure Source [Right Arm] Blood Pressure Position [Right Arm] 02 Sat by Pulse Oximetry 98 Oxygen Delivery Method Oxygen Flow Rate (LPM) Lab Data Lab Results 07/16/23 07:40: WBC 5.5, RBC 4.29, Hgb 11.8 L, Hct 37.4, MCV 87.1, MCH 27.5, MCHC 31.6 L, RDW 15.0, Plt Count 216, MPV 9.0, Neut % (Auto) 74.6, Lymph % (Auto) 16.8, Cataño % (Auto) 6.1, Eos % (Auto) 1.5, Baso % (Auto) 1.0, Neut # (Auto) 4.1, Lymph # (Auto) 0.9, Cata[place] # (Auto) 0.3, Eos # (Auto) 0.1, Baso # (Auto) 0.1, PT 12.9 H, INR 1.21 H, APTT 28.5, Sodium 139, Potassium 3.7, Chloride 107, Carbon Dioxide 27, Anion Gap 8.7, BUN 24 H, Creatinine 0.70, Estimated Creat Clear 47, Estimated GFR 80, Est GFR ( Amer) 96, Glucose 105 H, Calcium 9.2, Total Bilirubin 1.1, AST 40 H, ALT 30, Alkaline Phosphatase 121, Troponin I 0.03, NT-Pro-B Natriuret Pep 83104 H, Total Protein 6.7, Albumin 3.6, Globulin 3.1, Albumin/Globulin Ratio 1.2 07/16/23 08:10: Blood Type A Positive, Antibody Screen Negative, Crossmatch (AHG) See Detail 07/16/23 10:16: Specimen Source A-line, O2 % 3.5 lpm, ABG pH 7.34 L, ABG pCO2 38.9, ABG pO2 136.8 H, ABG HCO3 20.7 L, ABG Total CO2 21.9 L, ABG O2 Saturation 99, ABG Base Excess -5.0 L, Fahad Test N/a 07/16/23 11:40: Troponin I 0.05 H 07/16/23 07:40 07/16/23 07:40 Orders (Tests/Meds): ED MEDICATIONS Discontinued Medications Generic Name Dose Route Start Last Admin Trade Name Michael PRN Reason Stop Dose Admin Acetaminophen 1,000 mg 07/16/23 07:13 07/16/23 07:32 Acetaminophen 500mg Tab PO 07/16/23 07:14 1,000 mg ONCE ONE Administration Diphenhydramine HCl 25 mg 07/16/23 07:13 07/16/23 07:32 Diphenhydramine 50mg/Ml Vial IV 07/16/23 07:14 25 mg ONCE ONE Administration Furosemide 40 mg 07/16/23 10:18 07/16/23 10:20 Furosemide 40mg/4ml Vial IV 07/16/23 10:19 40 mg ONCE ONE Administration Esmolol HCl 2,500 mg in 250 mls @ 21.636 mls/hr 07/16/23 08:15 07/16/23 10:58 Esmolol In Water 2,500mg/250ml Premix IV 08/15/23 08:14 0 mcg/kg/min .[id number] PRITESH 0 mls/hr Titration Protocol 50 MCG/KG/MIN Nicardipine HCl 25 mg/ Sodium 250 mls @ 50 mls/hr 07/16/23 08:45 07/16/23 10:23 Chloride IV 08/15/23 08:44 Not Given .Q5H PRITESH Protocol Iopamidol 200 ml 07/16/23 09:10 07/16/23 09:12 Iopamidol-370 (76%);100ml Bottle IV 07/16/23 09:11 200 ml ONCE ONE Administration Prochlorperazine Edisylate 10 mg 07/16/23 07:13 07/16/23 07:32 Prochlorperazine 10mg/2ml Vial IV 07/16/23 07:14 10 mg ONCE ONE Administration Sodium Chloride 100 ml 07/16/23 09:10 07/16/23 09:12 0.9 % Sodium Chloride 50 Ml Vial IV 07/16/23 09:11 100 ml ONCE ONE Administration ORDERS Category Date Time Status Type and Screen Stat BBK 07/16/23 08:[address] angio abdomen pelvis Stat Cat Scan 07/16/23 08:[address] angio chest - dissection Stat Cat Scan 07/16/23 08:[address] head/brain wo con Stat Cat Scan 07/16/23 07:13 Completed XR chest portable Stat Exams 07/16/23 07:28 Completed Brain Natriuretic Peptide Stat Lab 07/16/23 07:40 Completed CBC w/Auto Diff [Complete Blood Count Auto Diff] Stat Lab 07/16/23 07:40 Completed CMP [Comprehensive Metabolic Panel] Stat Lab 07/16/23 07:40 Completed Complete Blood Count Auto Diff AMLAB Lab 07/17/23 06:00 Ordered Comprehensive Metabolic Panel AMLAB Lab 07/17/23 06:00 Ordered Magnesium AMLAB Lab 07/17/23 06:00 Ordered PT/INR [Prothrombin Time INR] Stat Lab 07/16/23 07:40 Completed PTT [Activated Partial Thrombo Time] Stat Lab 07/16/23 07:40 Completed Troponin I Stat Lab 07/16/23 11:40 Ordered Urinalysis and Microscopic Stat Lab 07/16/23 08:55 Ordered ABG [Arterial Blood Gas] Stat RT 07/16/23 10:16 Completed ECG initial Besson Routine Y 07/16/23 07:35 Completed Medical Decision Narrative: Patient is an 87-year-old female with past medical history A-fib and peripheral vascular disease status post stenting on Eliquis, cardiomyopathy presenting with sudden onset headache 4.5 hours prior to arrival that patient notes was severe and in the posterior head. It has lessened in severity since onset and patient is neurologically intact, NIH 0 and GCS 15 on arrival. Despite headache improving since onset did patient does also have a notable history of reported cerebral aneurysm and given this history and patient presented within 6 hours of onset will obtain CT imaging for further evaluation, will obtain basic labs and provide medication for headache at this time. Notably patient also noted to be tachycardic and cariac workup added to patient labs for further evaluation. Care of patient transferred to Dr. Chavez pending labs, ECG and imaging results. <Polo Chavez MD - Last Filed: 07/16/23 12:36> Vital Signs: 07/16/23 07:12 07/16/23 07:30 07/16/23 08:05 Temperature 97.9 F Temperature Source Oral Pulse Rate 119 H 146 H Pulse Rate [Radial] 131 H Respiratory Rate 18 20 27 H TAR Vitals Timing Blood Pressure 111/84 97/76 L Blood Pressure [Right Arm] 127/89 Blood Pressure Mean 91 81 Blood Pressure Mean [Right Arm] 101 Blood Pressure Source Blood Pressure Source [Right Arm] Automatic Cuff Blood Pressure Position [Right Arm] Supine 02 Sat by Pulse Oximetry 93 L 93 L 93 L Oxygen Delivery Method Room Air Nasal Cannula Nasal Cannula Oxygen Flow Rate (LPM) 4 4 07/16/23 08:20 07/16/23 08:30 07/16/23 08:00 Temperature Temperature Source Pulse Rate 143 H 65 130 H Pulse Rate [Radial] Respiratory Rate 24 25 H 31 H TAR Vitals Timing Blood Pressure 130/102 H 77/51 L 71/45 L Blood Pressure [Right Arm] Blood Pressure Mean 106 59 Blood Pressure Mean [Right Arm] Blood Pressure Source Blood Pressure Source [Right Arm] Blood Pressure Position [Right Arm] 02 Sat by Pulse Oximetry 96 94 L 98 Oxygen Delivery Method Nasal Cannula Nasal Cannula Nasal Cannula Oxygen Flow Rate (LPM) 4 4 4 07/16/23 08:35 07/16/23 08:28 07/16/23 08:15 Temperature 97.9 F Temperature Source Oral Pulse Rate 158 H 130 H 158 H Pulse Rate [Radial] Respiratory Rate 25 H 31 H 25 H TAR Vitals Timing Pre-Blood Vitals Start Vitals Blood Pressure 69/27 L 71/45 L 69/27 L Blood Pressure [Right Arm] Blood Pressure Mean 53 41 Blood Pressure Mean [Right Arm] Blood Pressure Source Blood Pressure Source [Right Arm] Blood Pressure Position [Right Arm] 02 Sat by Pulse Oximetry 97 98 98 Oxygen Delivery Method Nasal Cannula Oxygen Flow Rate (LPM) 07/16/23 08:20 07/16/23 08:25 07/16/23 08:30 Temperature 95.4 F L 97.2 F L Temperature Source Core Core Pulse Rate 118 H 115 H 118 H Pulse Rate [Radial] Respiratory Rate 23 26 H 22 TAR Vitals Timing 5 Minute 10 Minute 15 Minute Blood Pressure 70/33 L 146/98 H 132/99 H Blood Pressure [Right Arm] Blood Pressure Mean 45 114 110 Blood Pressure Mean [Right Arm] Blood Pressure Source Automatic Cuff Blood Pressure Source [Right Arm] Blood Pressure Position [Right Arm] 02 Sat by Pulse Oximetry 97 99 99 Oxygen Delivery Method Oxygen Flow Rate (LPM) 07/16/23 08:40 Temperature 98.0 F Temperature Source Core Pulse Rate 122 H Pulse Rate [Radial] Respiratory Rate 22 TAR Vitals Timing 30 Minute Blood Pressure 123/88 Blood Pressure [Right Arm] Blood Pressure Mean 99 Blood Pressure Mean [Right Arm] Blood Pressure Source Blood Pressure Source [Right Arm] Blood Pressure Position [Right Arm] 02 Sat by Pulse Oximetry 98 Oxygen Delivery Method Oxygen Flow Rate (LPM) Lab Data Lab Results 07/16/23 07:40: WBC 5.5, RBC 4.29, Hgb 11.8 L, Hct 37.4, MCV 87.1, MCH 27.5, MCHC 31.6 L, RDW 15.0, Plt Count 216, MPV 9.0, Neut % (Auto) 74.6, Lymph % (Auto) 16.8, Cataño % (Auto) 6.1, Eos % (Auto) 1.5, Baso % (Auto) 1.0, Neut # (Auto) 4.1, Lymph # (Auto) 0.9, Cata[place] # (Auto) 0.3, Eos # (Auto) 0.1, Baso # ( Auto) 0.1, PT 12.9 H, INR 1.21 H, APTT 28.5, Sodium 139, Potassium 3.7, Chloride 107, Carbon Dioxide 27, Anion Gap 8.7, BUN 24 H, Creatinine 0.70, Estimated Creat Clear 47, Estimated GFR 80, Est GFR ( Amer) 96, Glucose 105 H, Calcium 9.2, Total Bilirubin 1.1, AST 40 H, ALT 30, Alkaline Phosphatase 121, Troponin I 0.03, NT-Pro-B Natriuret Pep 05415 H, Total Protein 6.7, Albumin 3.6, Globulin 3.1, Albumin/Globulin Ratio 1.2 07/16/23 08:10: Blood Type A Positive, Antibody Screen Negative, Crossmatch (AHG) See Detail 07/16/23 10:16: Specimen Source A-line, O2 % 3.5 lpm, ABG pH 7.34 L, ABG pCO2 38.9, ABG pO2 136.8 H, ABG HCO3 20.7 L, ABG Total CO2 21.9 L, ABG O2 Saturation 99, ABG Base Excess -5.0 L, Fahad Test N/a 07/16/23 11:40: Troponin I 0.05 H Orders (Tests/Meds): ED MEDICATIONS Discontinued Medications Generic Name Dose Route Start Last Admin Trade Name Michael PRN Reason Stop Dose Admin Acetaminophen 1,000 mg 07/16/23 07:13 07/16/23 07:32 Acetaminophen 500mg Tab PO 07/16/23 07:14 1,000 mg ONCE ONE Administration Diphenhydramine HCl 25 mg 07/16/23 07:13 07/16/23 07:32 Diphenhydramine 50mg/Ml Vial IV 07/16/23 07:14 25 mg ONCE ONE Administration Furosemide 40 mg 07/16/23 10:18 07/16/23 10:20 Furosemide 40mg/4ml Vial IV 07/16/23 10:19 40 mg ONCE ONE Administration Esmolol HCl 2,500 mg in 250 mls @ 21.636 mls/hr 07/16/23 08:15 07/16/23 10:58 Esmolol In Water 2,500mg/250ml Premix IV 08/15/23 08:14 0 mcg/kg/min .[id number] PRITESH 0 mls/hr Titration Protocol 50 MCG/KG/MIN Nicardipine HCl 25 mg/ Sodium 250 mls @ 50 mls/hr 07/16/23 08:45 07/16/23 10:23 Chloride IV 08/15/23 08:44 Not Given .Q5H PRITESH Protocol Iopamidol 200 ml 07/16/23 09:10 07/16/23 09:12 Iopamidol-370 (76%);100ml Bottle IV 07/16/23 09:11 200 ml ONCE ONE Administration Prochlorperazine Edisylate 10 mg 07/16/23 07:13 07/16/23 07:32 Prochlorperazine 10mg/2ml Vial IV 07/16/23 07:14 10 mg ONCE ONE Administration Sodium Chloride 100 ml 07/16/23 09:10 07/16/23 09:12 0.9 % Sodium Chloride 50 Ml Vial IV 07/16/23 09:11 100 ml ONCE ONE Administration ORDERS Category Date Time Status Type and Screen Stat BBK 07/16/23 08:[address] angio abdomen pelvis Stat Cat Scan 07/16/23 08:[address] angio chest - dissection Stat Cat Scan 07/16/23 08:[address] head/brain wo con Stat Cat Scan 07/16/23 07:13 Completed XR chest portable Stat Exams 07/16/23 07:28 Completed Brain Natriuretic Peptide Stat Lab 07/16/23 07:40 Completed CBC w/Auto Diff [Complete Blood Count Auto Diff] Stat Lab 07/16/23 07:40 Completed CMP [Comprehensive Metabolic Panel] Stat Lab 07/16/23 07:40 Completed Complete Blood Count Auto Diff AMLAB Lab 07/17/23 06:00 Ordered Comprehensive Metabolic Panel AMLAB Lab 07/17/23 06:00 Ordered Magnesium AMLAB Lab 07/17/23 06:00 Ordered PT/INR [Prothrombin Time INR] Stat Lab 07/16/23 07:40 Completed PTT [Activated Partial Thrombo Time] Stat Lab 07/16/23 07:40 Completed Troponin I Stat Lab 07/16/23 11:40 Ordered Urinalysis and Microscopic Stat Lab 07/16/23 08:55 Ordered ABG [Arterial Blood Gas] Stat RT 01/09/24 10:16 Completed ECG initial Besson Routine Y 07/16/23 07:35 Completed Medical Decision Narrative: Patient is an 87-year-old female with past medical history A-fib and peripheral vascular disease status post stenting on Eliquis, cardiomyopathy presenting with sudden onset headache 4.5 hours prior to arrival that patient notes was severe and in the posterior head. It has lessened in severity since onset and patient is neurologically intact, NIH 0 and GCS 15 on arrival. Despite headache improving since onset did patient does also have a notable history of reported cerebral aneurysm and given this history and patient presented within 6 hours of onset will obtain CT imaging for further evaluation, will obtain basic labs and provide medication for headache at this time. Notably patient also noted to be tachycardic and cariac workup added to patient labs for further evaluation. Care of patient transferred to Dr. Chavez pending labs, ECG and imaging results. Kathy: I assume primary responsibility for this patient after signout from gillian winkler physician. On my evaluation, patient complaining of severe abdominal pain. Abdomen was tender, but nondistended and nonperitoneal neck. Patient began becoming hypotensive and tachycardic up into the 160s, so bedside ultrasound goldstein exam performed. Patient had abnormal abdominal aorta which appeared to be concerning for dissection. Patient also had AAA as well as free fluid around the liver and spleen concerning for potential ruptured AAA. Arterial line was placed, patient was given 1 unit of uncrossed matched O+ blood. [facility] was contacted and they wanted CTA of th chest abdomen pelvis before transfer. Esmolol drip was started. Patient was stabilized and CT scanned. CT scan with large right adnexal cyst, free fluid concerning more for ascites than blood. Aorta has been previously repaired and graft appears patent. Large right adnexal cyst versus malignancy. Labs largely unremarkable with normal CBC and chemistry. ABG nonactionable. BNP elevated 18,000, corresponding to CT imaging of the chest concern for pulmonary edema and bilateral pleural effusions. Blood pressure cuff pressures did not seem to be correlating with arterial line. Patient was given Lasix, vasoactive drips were tapered off once arterial line began working and patient was actually hypertensive. Out of concern for CHF exacerbation, patient was started on CPAP, but declined that shortly thereafter. Hospital medicine contacted, case was discussed at length and patient was admitted. Because patient high risk for clinical decompensation, deemed appropriate for inpatient admission. Results were relayed to patient who voiced understanding and patient was agreeable to inpatient admission and management. Patient was admitted to the hospital for further definitive management. <Polo Chavez MD - Last Filed: 07/16/23 12:36> Arterial Line Time Out Performed: No Size (Gauge): 20 Technique Used: guide wire technique Post-Procedure: line sutured into place and dry sterile dressing placed Patient Tolerated Procedure: well Complications: none Site: left and radial Limited Ultrasound Indication:: Limited GOLDSTEIN ultrasound Indication: , Tachycardia cardiac, abdominal pain Views: LUQ, RUQ, Pelvis, Limited Cardiac, Limited Thoracic, IVC, aorta Interpretation: Peritoneal Free Fluid: Present Pericardial effusion: Absent Right thoracic free Fluid: Present Left thoracic Free Fluid: Present Right lung pneumothorax: Negative Left Lung pneumothorax: Negative IVC: Plump, noncollapsible Aorta: Flat concerning for dissection versus graft Impression: Positive goldstein ultrasound Images were saved to permanent archive The study was technically adequate CPT 53149-40 (limited cardiac) 40474-06 (limited abdominal) 92870-75 (chest) This study was performed by me, and I personally interpreted all images/videos. Based on my clinical judgement, these images were adequate and did necessitate further imaging. Critical Care <Mackenzie Dougherty MD - Last Filed: 07/16/23 07:33> Critical Care Time Critical Care Time: No <Polo Chavez MD - Last Filed: 07/16/23 12:36> Critical Care Time Critical Care Time: Yes (GI, vascular, CV) Attestation: On 07/16/23, the high probability of a clinically significant, sudden or life threatening deterioration of the following system(s) required my full and direct attention, intervention and personal management. The time I documented below is in addition to time spent performing reported procedures but includes the following listed in this critical care notation. Total Time Total Critical Care Time: 60
--- NOTE | 2023-07-16 07:28 | XR_ITS ---
FINAL REPORT CLINICAL HISTORY: tachycardia FINDINGS: SINGLE-VIEW CHEST There is cardiomegaly with pulmonary vascular congestion. The mediastinum is normal. There are bilateral pulmonary opacities, favor edema. There is no pneumothorax. IMPRESSION: Favor bilateral edema. Reviewed, Interpreted and Dictated by David Vargas III, MD Transcribed by Doris Fregoso Authenticated and [facility]
[2023-07-16] MEDS: ACETAMINOPHEN 500MG TAB 1000 MG PO (07:32)
[2023-07-16] MEDS: diphenhydrAMINE 50MG/ML VIAL 25 MG IV (07:32)
[2023-07-16] MEDS: PROCHLORPERAZINE 10MG/2ML VIAL 10 MG IV (07:32)
--- NOTE | 2023-07-16 07:35 | ECG_ITS ---
APPROVED REPORT Exam: Resting ECG HR:113 bpm ECG Measurements Heart Rate 113 AXES QRSd 90 QRS 83 QT 329 T -51 QTc 396 Conclusion ATRIAL FIBRILLATION WITH RAPID VENTRICULAR RESPONSE NONSPECIFIC ST & T-WAVE ABNORMALITY ABNORMAL ECG UNCONFIRMED REPORT Electronically signed by : Jairo Mann MD 07/16/2023 20:39:08
--- NOTE | 2023-07-16 07:38 | PC.NURSE ---
LAB at to draw blood
--- NOTE | 2023-07-16 07:44 | PC.NURSE ---
Pt gone to RAD via stretcher
--- NOTE | 2023-07-16 07:51 | PC.NURSE ---
Pt returned from RAD
[2023-07-16 07:58] LABS: Alanine Aminotransferase 30 U/L (12-78); Albumin Level 3.6 g/dl (3.5-5.0); Albumin/Globulin Ratio 1.2 (1.1-1.8); Alkaline Phosphatase 121 U/L (38-126); Anion Gap 8.7 mEq/L (5-15); Aspartate Amino Transferase 40 U/L (14-36); Bilirubin,Total 1.1 mg/dl (0.2-1.3); Blood Urea Nitrogen 24 mg/dl (7-17); Calcium 9.2 mg/dl (8.4-10.2); Carbon Dioxide 27 mmol/L (22.0-30.0); Chloride 107 mmol/L (98-107); Creatinine Clearance Estimated 47 mL/min (50-200); Estimated Glomerular Filt Rate 80 ml/min (>60); GFR (African American) 96 ML/MIN (>60); Globulin 3.1 g/dL (1.3-3.2); Glucose 105 mg/dl (74-100); Potassium 3.7 mmoL/L (3.5-5.1); Sodium 139 mmol/L (136-145); Total Protein,Serum 6.7 g/dl (6.3-8.2)
[2023-07-16 07:59] LABS: Basophils # 0.1 K/mm3 (0-0.2); Eosinophils # 0.1 K/mm3 (0.0-0.4); Eosinophils % 1.5 % (0.1-12.0); Hematocrit 37.4 % (37.0-47.0); Hemoglobin 11.8 g/dL (12.2-16.2); Lymphocytes # 0.9 K/mm3 (0.7-4.5); Lymphocytes % 16.8 % (10-50); Mean Corpuscular HGB Conc 31.6 g/dL (31.8-35.4); Mean Corpuscular Hemoglobin 27.5 pg (27.0-31.2); Mean Corpuscular Volume 87.1 fl (81-99); Monocytes # 0.3 K/mm3 (0.1-1.0); Monocytes % 6.1 % (1.7-9.3); Neutrophils # 4.1 K/mm3 (1.8-7.8); Neutrophils % 74.6 % (37.0-80.0); Platelet Count 216 K/mm3 (142-424); Red Blood Count 4.29 M/mm3 (4.20-5.40); White Blood Count 5.5 K/mm3 (4.8-10.8)
[2023-07-16 08:05] LABS: Activated Partial Thrombo Time 28.5 seconds (22.8-30.6); INR 1.21 (0.9-1.1); Prothrombin Time 12.9 seconds (10.1-12.5)
--- NOTE | 2023-07-16 08:06 | CT_ITS ---
FINAL REPORT TECHNIQUE: Pre-and postcontrast images of the abdomen and pelvis were performed by computed tomography. Extensive 3-D reconstruction images were performed. A CTA was performed. This study was performed with techniques to keep radiation doses as low as reasonably achievable (ALARA). Individualized dose reduction techniques using automated exposure control or adjustment of mA and/or kV according to the patient''s size were employed. CLINICAL HISTORY: concern for dissection FINDINGS: ABDOMEN/PELVIS: Motion artifact is seen on some of the images. Precontrast images demonstrate no evidence of nephrolithiasis. There are bilateral renal cysts. No adrenal masses are identified. The liver, spleen and pancreas are unremarkable. A small amount of ascites is identified. There are gallstones with gallbladder wall thickening. There is a 4.2 cm right adnexal cystic mass, favor cyst over low-grade neoplasm. There is a large amount of retained stool in the rectum. CTA: There is no evidence of abdominal aortic aneurysm. 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 There is mild stenosis at the origin of the SMA measuring less than 50%. There is moderate stenosis more distally measuring approximately 50%. There is mild stenosis at the origin of the right renal artery. The left renal artery is patent. The origin of the SARMAD is suboptimally visualized but probably intact. The bilateral common iliac artery stents are patent. There is mild stenosis of the external iliac arteries. 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 Mild and moderate stenosis at the origin of the SMA. Mild stenosis of the right renal artery. Mild stenosis of the external iliac arteries. Other abdominal and pelvic findings as detailed above. Reviewed, Interpreted and Dictated by David Vargas III, MD Transcribed by Doris Fregoso Authenticated and [facility]
--- NOTE | 2023-07-16 08:06 | CT_ITS ---
FINAL REPORT CLINICAL HISTORY: concern for dissection FINDINGS: Thin section axial CT images of the chest were obtained with contrast. 3D reformatted images were also obtained. This study was performed with techniques to keep radiation doses as low as reasonably achievable (ALARA). Individualized dose reduction techniques using automated exposure control or adjustment of mA and/or kV according to the patient's size were employed. Motion artifact is identified on some of the images. There is cardiomegaly. There is moderate diffuse vascular calcification. There is no evidence of pulmonary embolism. There is no evidence of thoracic aortic aneurysm or dissection. There is no evidence of mediastinal or hilar mass or adenopathy. There are moderate pleural effusions. There is bilateral lower lobe atelectasis. Pulmonary alveolar opacities are seen, favor edema over bilateral pneumonia. IMPRESSION: No evidence of pulmonary embolism. Moderate pleural effusions with bilateral atelectasis. Pulmonary alveolar opacities, favor edema. Reviewed, Interpreted and Dictated by David Vargas III, MD Transcribed by Doris Fregoso Authenticated and [facility]
--- NOTE | 2023-07-16 08:12 | PC.NURSE ---
[facility] declined flight at this time due to weather. Checking with [employer] at this time.
--- NOTE | 2023-07-16 08:15 | PC.NURSE ---
emergent blood released by lab at bs per unit number [id number], VERIFIED AT BS.
--- NOTE | 2023-07-16 08:25 | PC.NURSE ---
Art line obtained at this time by
--- NOTE | 2023-07-16 08:29 | PC.NURSE ---
[employer] checking flight status with [facility]
--- NOTE | 2023-07-16 08:30 | PC.NURSE ---
Dr. Chavez speaking with at this time
--- NOTE | 2023-07-16 08:37 | PC.NURSE ---
[facility] and [employer] have declined at this time
--- NOTE | 2023-07-16 08:38 | PC.NURSE ---
Pt gone to CT via stretcher
[2023-07-16] MEDS: ESMOLOL HCL IN STERILE WATER 2,500 MG/250 ML PIGGYBACK 21.6400000000000006 MG IV (08:41)
[2023-07-16 08:48] LABS: Troponin I 0.03 ng/ml (0.00-0.034)
--- NOTE | 2023-07-16 09:00 | PC.NURSE ---
Blood finished at this time.
--- NOTE | 2023-07-16 09:01 | PC.NURSE ---
Pt returned from CT
[2023-07-16] MEDS: 0.9 % SODIUM CHLORIDE 50 ML VIAL 100 ML IV (09:12)
[2023-07-16] MEDS: IOPAMIDOL-370 (76%);100ML BOTTLE 200 ML IV (09:12)
--- NOTE | 2023-07-16 09:12 | PC.NURSE ---
Pt family voiced they prefer to go to [facility] over . Dr. Chavez made aware of this.
--- NOTE | 2023-07-16 09:30 | PC.NURSE ---
Dr. Chavez at to update family
--- NOTE | 2023-07-16 10:04 | PC.NURSE ---
Called RT for ABG
[2023-07-16 10:18] LABS: ABG HCO3 20.7 mmhg (22.0-26.0); ABG Oxygen Saturation 99 % (90-100); ABG PCO2 38.9 mmhg (35.0-45.0); ABG PH 7.34 mmol/L (7.35-7.45); ABG PO2 136.8 mmhg (80-100); ABG TCO2 21.9 mmhg (23-27)
[2023-07-16 10:20] LABS: Source A-LINE
[2023-07-16] MEDS: FUROSEMIDE 40MG/4ML VIAL 40 MG IV (10:20)
--- NOTE | 2023-07-16 10:20 | PC.NURSE ---
states that Andexxa was not needed at this time due to ct scan results
[2023-07-16 10:42] LABS: NT Pro Brain Natriuretic Pep. 18400 pg/mL (0-450)
--- NOTE | 2023-07-16 10:42 | PC.NURSE ---
RESP CARE NOTE: Attempted to place CPAP of [id number], within 2 mins patient ripped mask off and refused to allow placement again. Dr Chavez notified, and we will continue to monitor patient.
--- NOTE | 2023-07-16 11:24 | PC.NURSE ---
Pt granddaughter at
--- NOTE | 2023-07-16 12:01 | PC.NURSE ---
olga dumas in repositioning pt.
[2023-07-16 12:12] LABS: Troponin I 0.05 ng/ml (0.00-0.034)
--- NOTE | 2023-07-16 12:57 | PC.NURSE ---
emergent blood paper returned to blood bank
[2023-07-16 13:19] LABS: Microscopic, Urine URINE MICROSCOPIC (MICROSCOPIC)
--- NOTE | 2023-07-16 13:19 | PC.NURSE ---
REport called to Shabana Davila RN
[2023-07-16 13:22] LABS: Appearance,Urine CLEAR (Clear); Blood, Urine 3+ (Negative); Color,Urine YELLOW (Yellow); Glucose,Urine (UA) Negative (Negative); Ketones,Urine Negative (Negative); Leukocyte Esterase,Urine Negative (Negative); Nitrate,Urine Negative (Negative); PH,Urine 5.5 (5.0-8.5); Protein,Urine 3+ (Negative); Specific Gravity, Urine >= 1.030 (1.005-1.030)
[2023-07-16 13:34] LABS: Bilirubin,Urine 1+ (Negative)
[2023-07-16 13:39] LABS: Bacteria,Urine 1+ /lpf; Calcium Oxalate Crystals,Urine 1+ /lpf; Hyaline Casts,Urine Occasional #/lpf (0); Yeast,Urine 1+ /lpf
--- NOTE | 2023-07-16 13:40 | PC.NURSE ---
art line removed by , pressure held 15 minutes with no signs of bleeding after, wrapped in pressure dressing
[2023-07-16 15:25] LABS: Troponin I 0.07 ng/ml (0.00-0.034)
[2023-07-16] MEDS: METOPROLOL TARTRATE 5MG/5ML VIAL 5 MG IV (17:00)
--- NOTE | 2023-07-16 17:08 | EXP.HP ---
History of Present Illness *Admission Date: 07/16/23 *Reason for visit:: Headache, weakness, shortness of breath *History of present illness: Ms. Jones is an 87-year-old female who presented to the ER because of complaint of headache, shortness of breath, progressive weakness. Presentation in the ER stated she presented because of acute headache this morning at 2:30 AM. Eval after admission however family provides slightly different presentation history more concerning for shortness of breath, weakness, abdominal pain. History significant for peripheral vascular disease, CAD, A-fib, cardiomyopathy, history of strokes with residual deficits. History of aortic aneurysm status post graft repair. Extensive workup in the ER including head imaging, CT of the chest and abdomen, and initial labs including CBC, CMP, INR, BNP. Patient found to be in CHF exacerbation with elevated BNP of 18,000. Heart rate irregular in A-fib. Stable on room air however given weakness, symptoms, and need for diuresis, medicine was consulted for admission and further management. On my evaluation, patient is in bed laying on her left side. Heart rate is between 90 and 115. She reports having had a headache that was in the back of her head. Family at bedside reports that she was complaining of shortness of breath acutely this morning and called family. Denies any nausea, vomiting, diarrhea. Family is concerned as well because of weakness and patient lives by herself. They are worried about her going home and being safe in the home setting Patient is an 87-year-old female with past medical history peripheral vascular disease status post stent on Eliquis, CAD, A-fib, cardiomyopathy presenting with sudden onset headache 4.5 hours prior to arrival. Patient states that she had sudden onset severe headache at 2:27 AM which is 4.5 hours prior to arrival. She does have a history of known aneurysm that she was told by a neurologist about during a prior head imaging and given this she is very aware of if she has headache, states it was in the back of her head and has significantly decreased in severity but still present. She denies any numbness, tingling, weakness but presented for further evaluation given her history of aneurysm. Denies any chest pain, shortness of breath, nausea, vomiting, abdominal pain. [facility] Disclaimer: The information contained in this section may have been updated after the patient was seen, as this information can be updated by other users. Medical History Atrial fibrillation with rapid ventricular response Callus of foot Cardiomyopathy Congestive heart failure Congestive heart failure Edema Encounter for wound care Hammer toe History of stroke Hyperlipidemia Hypertension Hypokalemia Left-sided weakness Onychoincurvatum Osteomyelitis Pincer nail deformity Pulmonary hypertension Ulcer of right foot Surgical History History of left knee replacement History of surgery Family History No significant family history Social History Smoking Status: Unknown if ever smoked alcohol intake: never substance use type: denies use current occupational status: retired Travel in the last 8 weeks: None household members: none caffeine: No Review of Systems Review of Systems Review of systems (narrative): 14 point review of systems performed, pertinent positives and negatives as per [facility] Meds Home Medications and Allergies Home Medications Medication Instructions Recorded Confirmed Type digoxin 125 mcg (0.125 mg) tablet 125 mcg PO DAILY ATRIAL 09/11/19 07/16/23 History FIBRILLATION atorvastatin 80 mg tablet 80 mg PO DAILY Cholesterol 07/18/22 07/16/23 History hydralazine 25 mg tablet 12.5 mg PO HS Hypertension 07/18/22 07/16/23 History trazodone 50 mg tablet 50 mg PO HSP PRN Insomnia 07/26/22 07/16/23 History multivitamin 1 tab PO DAILY Supplement 07/31/22 07/16/23 History sacubitril 24 mg-valsartan 26 mg 1 ea PO BID * 08/06/22 07/16/23 History tablet (Entresto) clopidogrel 75 mg tablet 75 mg PO DAILY 08/14/22 07/16/23 History temazepam 15 mg capsule 15 mg PO HS PRN sleep 90 days #90 04/29/23 07/16/23 Rx caps dabigatran etexilate 110 mg 110 mg PO BID 90 days #180 caps 06/26/23 07/16/23 Rx capsule (Pradaxa) apixaban 5 mg tablet (Eliquis) 5 mg PO BID 07/09/23 07/16/23 History furosemide 40 mg tablet 40 mg PO QODHS Fluid 90 days #45 07/09/23 07/16/23 Rx tabs mupirocin 2 % topical ointment 1 applic topical TID 10 days #50 07/09/23 07/16/23 Rx grams metoprolol tartrate 25 mg tablet See Rx Instructions .Route 07/15/23 07/16/23 Rx .COMPLEX #270 tabs New Prescriptions to Start Prescriptions: Allergies Allergy/AdvReac Type Severity Reaction Status Date / Time codeine Allergy Mild Vomiting/na Verified 07/16/23 14:43 usea meloxicam AdvReac Verified 07/16/23 14:43 Exam Data for Last 24 hours Vital signs and Labs for Last 24 Hours: Temp Pulse Resp BP Pulse Ox O2 Del Method O2 Flow Rate 97.4 F L 101 H 20 137/92 H 94 L Room Air 2 07/16/23 16:00 07/16/23 16:00 07/16/23 16:00 07/16/23 16:00 07/16/23 16:00 07/16/23 16:00 07/16/23 14:07 Laboratory Results - last 24 hr 07/16/23 07:40: WBC 5.5, RBC 4.29, Hgb 11.8 L, Hct 37.4, MCV 87.1, MCH 27.5, MCHC 31.6 L, RDW 15.0, Plt Count 216, MPV 9.0, Neut % (Auto) 74.6, Lymph % (Auto) 16.8, [place] % (Auto) 6.1, Eos % (Auto) 1.5, Baso % (Auto) 1.0, Neut # (Auto) 4.1, Lymph # (Auto) 0.9, [place] # (Auto) 0.3, Eos # (Auto) 0.1, Baso # (Auto) 0.1, PT 12.9 H, INR 1.21 H, APTT 28.5, Sodium 139, Potassium 3.7, Chloride 107, Carbon Dioxide 27, Anion Gap 8.7, BUN 24 H, Creatinine 0.70, Estimated Creat Clear 47, Estimated GFR 80, Est GFR ( Amer) 96, Glucose 105 H, Calcium 9.2, Total Bilirubin 1.1, AST 40 H, ALT 30, Alkaline Phosphatase 121, Troponin I 0.03, NT-Pro-B Natriuret Pep 56069 H, Total Protein 6.7, Albumin 3.6, Globulin 3.1, Albumin/Globulin Ratio 1.2 07/16/23 08:10: Blood Type A Positive, Antibody Screen Negative, Crossmatch (AHG) See Detail 07/16/23 09:25: Urine Color Yellow, Urine Appearance Clear, Urine pH 5.5, Ur Specific [place] >= 1.030, Urine Protein 3+, Urine Glucose (UA) Negative, Urine Ketones Negative, Urine Blood 3+, Urine Nitrate Negative, Urine Bilirubin 1+ A, Urine Urobilinogen 1.0, Ur Leukocyte Esterase Negative, Urine RBC 5-10, Urine WBC 3-5, Ur Squamous Epith Cells 3-5, Calcium Oxalate Crystal 1+, Urine Bacteria 1+, Hyaline Casts Occasional, Urine Yeast 1+ 07/16/23 10:16: Specimen Source A-line, O2 % 3.5 lpm, ABG pH 7.34 L, ABG pCO2 38.9, ABG pO2 136.8 H, ABG HCO3 20.7 L, ABG Total CO2 21.9 L, ABG O2 Saturation 99, ABG Base Excess -5.0 L, [place] Test N/a 07/16/23 11:40: Troponin I 0.05 H 07/16/23 14:57: Troponin I 0.07 H I & O for Last 24 hours: Intake & Output 07/13/23 07/14/23 07/15/23 07/16/23 23:59 23:59 23:59 23:59 Intake Total 54.459 / 54.459 Output Total 1700 / 1700 Balance -1645.541 / -1645.541 Weight 72.206 kg Constitutional Constitutional: no acute distress, average body habitus, chronically ill appearing and cooperative *Routine HEENT Exam Head: Present normocephalic Eye: Present EOMI and PERRL ENT: Present mucous membranes moist *Routine Neck Exam Neck: Present supple; Absent lymphadenopathy *Routine Respiratory Exam Respiratory: Present crackles (bases) and normal respiratory effort; Absent rhonchi or wheezes *Routine Cardiovascular Exam Cardiovascular: Present irregularly irregular *Routine Abdominal Exam Abdominal: Present soft and normoactive bowel sounds; Absent tenderness *Routine Rectal Exam Rectal:: deferred *Routine Genitalia Exam Genitalia:: deferred *Routine Extremities Exam Extremities: Present edema (trace bilaterally LE); Absent cyanosis or clubbing *Routine Skin Exam Skin: Present warm; Absent rash *Routine Neurological Exam Neurological: Present alert and moving all extremities; Absent altered mental status Comments: Mild left-sided weakness. Assessment and Plan *Assessment and plan (1) CHF exacerbation: Status: Acute Category: Medical Code(s): I50.9 - Heart failure, unspecified (2) Chronic systolic heart failure: Status: Acute Category: Medical Code(s): I50.22 - Chronic systolic (congestive) heart failure (3) CAD (coronary atherosclerotic disease): Status: Acute Qualifiers: Associated angina: without angina Coronary Disease-Associated Artery/Lesion type: [place] artery [place] vs. transplanted heart: [place] heart Qualified Code(s): I25.10 - Atherosclerotic heart disease of [place] coronary artery without angina pectoris Category: Medical Code(s): I25.10 - Atherosclerotic heart disease of [place] coronary artery without angina pectoris (4) Cerebrovascular accident (CVA): Status: Chronic Qualifiers: CVA mechanism: embolism Category: Medical Code(s): I63.9 - Cerebral infarction, unspecified (5) Atrial fibrillation: Status: Acute Qualifiers: Atrial fibrillation type: permanent Qualified Code(s): I48.21 - Permanent atrial fibrillation Category: Medical Code(s): I48.91 - Unspecified atrial fibrillation (6) Left-sided weakness: Status: Acute Category: Medical Code(s): R53.1 - Weakness Plan 87-year-old female with multiple comorbidities, history of strokes, history of heart failure. Presentation concerning for CHF exacerbation. Discussed case with ER, request admission for further diuresis, eval by therapy, further inpatient management. Medicine agreed to admit for further treatment. Diuresing well, -2 L by the time of my evaluation after she arrived to the floor. Patient stable on room air. Continues to require inpatient management and therapy evaluations. Problems addressed as follows: Heart failure with reduced ejection fraction, acute on chronic exacerbation A-fib -Last echo obtained at in 2021, reviewed records. EF 40 to 45%. Repeat echo pending. -Heart rate above goal, continue home digoxin 125 mcg daily. Will add metoprolol 25 mg tartrate twice daily. IV 5 mg tartrate x 1. Goal rate less than 90. -Continue Eliquis 5 mg to daily. Will have pharmacy help fight home anticoagulation and antiplatelet therapy. Per fill history does not appear the patient has recently filled Plavix or Pradaxa. -Continue Entresto 4/26 mg twice daily for heart failure. -Lasix 40 mg IV twice daily, has had brisk response to dose given in ER. -2 L so far. Close monitoring of creatinine and potassium during diuresis. Creatinine 0.7, BUN 24, potassium 3.7. Repeat levels pending this afternoon. CMP ordered for the morning. History of strokes, left-sided weakness -Patient lives by herself, given weakness, concern for safety going home. PT and OT consulted, appreciate their recommendations. Sleep disorder: Continue trazodone 50 mg nightly as needed. Will hold on temazepam given weakness and concern for worsening her condition in conjunction with patient's advanced age of 87 years DNR Cardiac diet jamari
[2023-07-16 19:48] LABS: Chloride 105 mmol/L (98-107); Potassium 3.5 mmoL/L (3.5-5.1); Sodium 138 mmol/L (136-145)
[2023-07-16 19:51] LABS: Anion Gap 9.5 mEq/L (5-15); Blood Urea Nitrogen 26 mg/dl (7-17); Carbon Dioxide 27 mmol/L (22.0-30.0); Creatinine Clearance Estimated 47 mL/min (50-200); Estimated Glomerular Filt Rate 60 ml/min (>60); GFR (African American) 72 ML/MIN (>60)
[2023-07-16 19:52] LABS: Calcium 8.8 mg/dl (8.4-10.2); Glucose 152 mg/dl (74-100)
[2023-07-16] MEDS: APIXABAN 5MG TABLET 5 MG PO (20:14)
[2023-07-16] MEDS: SACUBITRIL/VALSARTAN 24-26MG TABLET 1 EACH PO (20:14)
[2023-07-16] MEDS: METOPROLOL TARTRATE 25MG TABLET 25 MG PO (20:14)
[2023-07-16] MEDS: TRAZODONE 50MG TABLET 50 MG PO (20:14)
[2023-07-16] MEDS: MAGNESIUM SULFATE IN WATER 2 GM/50 ML PIGGYBACK IV (21:36)
[2023-07-16] MEDS: TEMAZEPAM 15MG CAPSULE 15 MG PO (21:48)
[2023-07-17] VITALS (11 sets, daily range): BP systolic 88–128; BP diastolic 51–92; PULSE 51–115; RESP 16–20; TEMP 36.5–36.9; O2SAT 92–100; BMI 25.7
--- NOTE | 2023-07-17 06:45 | PC.NURSE ---
Patient was restless for most of the night with short frequent episodes of sleep. She remained oriented to person and place; however, was still attempting to climb out of bed. Easily redirected and safety maintained. Medicated per MAR for sleep and anxiety. Remains in Afib, but VSS otherwise. NAD and pleasant. 16fr hughes remains in place with adequate urinary output.
[2023-07-17 07:57] LABS: Basophils # 0.1 K/mm3 (0-0.2); Basophils % 1.1 % (0.1-2.0); Eosinophils # 0.1 K/mm3 (0.0-0.4); Eosinophils % 1.8 % (0.1-12.0); Hematocrit 39.5 % (37.0-47.0); Hemoglobin 12.8 g/dL (12.2-16.2); Lymphocytes # 1.3 K/mm3 (0.7-4.5); Lymphocytes % 20.7 % (10-50); Mean Corpuscular HGB Conc 32.5 g/dL (31.8-35.4); Mean Platelet Volume 9.1 fl (7.4-10.4); Monocytes # 0.4 K/mm3 (0.1-1.0); Monocytes % 6.9 % (1.7-9.3); Neutrophils # 4.2 K/mm3 (1.8-7.8); Neutrophils % 69.5 % (37.0-80.0); Platelet Count 193 K/mm3 (142-424); Red Blood Count 4.59 M/mm3 (4.20-5.40); Red Cell Distribution Width 14.9 % (11.5-17.5)
[2023-07-17 08:00] LABS: Albumin Level 3.2 g/dl (3.5-5.0); Aspartate Amino Transferase 31 U/L (14-36); Bilirubin,Total 1.4 mg/dl (0.2-1.3); Blood Urea Nitrogen 23 mg/dl (7-17); Calcium 8.7 mg/dl (8.4-10.2); Chloride 105 mmol/L (98-107); Creatinine Clearance Estimated 47 mL/min (50-200); Estimated Glomerular Filt Rate 68 ml/min (>60); GFR (African American) 82 ML/MIN (>60); Glucose 84 mg/dl (74-100); Magnesium 2.2 mg/dl (1.6-2.3); Potassium 3.2 mmoL/L (3.5-5.1)
[2023-07-17 08:08] LABS: Alanine Aminotransferase 26 U/L (12-78); Albumin/Globulin Ratio 1.1 (1.1-1.8); Alkaline Phosphatase 117 U/L (38-126); Anion Gap 5.2 mEq/L (5-15); Carbon Dioxide 29 mmol/L (22.0-30.0); Globulin 2.9 g/dL (1.3-3.2); Sodium 136 mmol/L (136-145); Total Protein,Serum 6.1 g/dl (6.3-8.2)
--- NOTE | 2023-07-17 08:50 | HMH.PHAINT1 ---
Pharmacy Intervention Comments: Home med list verified with patient at bedside and with external pharmacy list.
[2023-07-17] MEDS: DIGOXIN 0.125MG TABLET 125 MCG PO (09:06)
[2023-07-17] MEDS: SACUBITRIL/VALSARTAN 24-26MG TABLET 1 EACH PO (09:06)
[2023-07-17] MEDS: FUROSEMIDE 40MG/4ML VIAL 40 MG IV ×2 (09:07→15:51)
[2023-07-17] MEDS: APIXABAN 5MG TABLET 5 MG PO (09:07)
[2023-07-17] MEDS: METOPROLOL TARTRATE 25MG TABLET 25 MG PO (09:12)
--- NOTE | 2023-07-17 10:26 | SW/DCPLANNER ---
Addendum entered by [facility] 07/19/23 12:01: The plan for this patient is to discharge home tomorrow w/ Hospice services and family. Petrona maurice/ Hospice stated DME will be set up at home today. Addendum entered by [facility] 07/19/23 10:01: Petrona maurice/ [facility] is onsite evaluating patient and speaking w/ family. Addendum entered by [facility] 07/19/23 08:58: Bess w/ [facility] stated that she is unable to accept this patient. Patient/family are agreeable to return home w/ Hospice services. Patient information has been faxed to Keisha maurice/ [facility]. I will follow up w/ Keisha once patient information is reviewed. Addendum entered by [facility] 07/18/23 14:42: Bess evaluated patient this AM and stated that she would like to follow up w/ patient after heart cath to make any further decisions. I will follow up w/ Bess once heart cath is completed. Addendum entered by Tram Birmingham RN 07/17/23 16:30: Met with [facility]onson and personal [facility] daycare teacher. They plan on having a sitter with the patient at rehab. Will let Bess with [facility] know. Addendum entered by [facility] 07/17/23 15:01: Bess maurice/ [facility] will onsite evaluation patient in the AM: I have updated patient and family. Addendum entered by [facility] 07/17/23 12:14: Patient is now confused and sister (ELISEO) is presenet. Sister would like for information to be faxed to [facility] for SNF level of care at this time. Original Note: I spoke w/ patient and her granddaughter regarding plans once medically stable for discharge. PT/OT evaluated patient and recommended SNF level of care at time of discharge. Once speaking w/ patient and granddaughter they have expressed an interest in Hospice care. I will follow up w/ Dr Vicente then speak w/ family regarding services. Discharge date is unknown at this time.
--- NOTE | 2023-07-17 11:32 | ECG_ITS ---
APPROVED REPORT Exam: Resting ECG HR:28 bpm ECG Measurements Heart Rate 28 AXES QRSd 93 QRS 78 QT 440 T 206 QTc 282 Conclusion ATRIAL FIBRILLATION WITH SLOW VENTRICULAR RESPONSE ANTERIOR MYOCARDIAL INFARCTION , PROBABLY RECENT [40+ ms Q WAVE AND/OR ST/T ABNORMALITY IN V3/V4] ACUTE NC UNCONFIRMED REPORT Electronically signed by : Jairo Mann MD 07/17/2023 13:08:09
--- NOTE | 2023-07-17 11:38 | HMH.PTEV ---
Physical Therapy Evaluation Rehab PT IP Evaluation Start: 07/16/23 18:44 Freq: ONCE Status: Active Protocol: Document 07/17/23 08:30 NIALLCAMI (Rec: 07/17/23 11:38 NIALLCAMI [id number]) Subjective/History History History Pt is a 87 y/o female who presented to [facility] ED on 07/16/23 with complaint of headache, shortness of breath, progressive weakness. Per history & physical note, pt presenting with sudden onset headache 4.5 hours prior to arrival. Patient states that she had sudden onset severe headache at 2:27 AM which is 4 .5 hours prior to arrival. She does have a history of known aneurysm that she was told by a neurologist about during a prior head imaging and given this she is very aware of if she has headache, states it was in the back of her head and has significantly decreased in severity but still present. She denies any numbness, tingling, weakness but presented for further evaluation given her history of aneurysm. Denies any chest pain, shortness of breath, nausea, vomiting, abdominal pain. Family is concerned as well because of weakness and patient lives by herself. They are worried about her going home and being safe in the home setting Medical History: Atrial fibrillation with rapid ventricular response, Callus of foot, Cardiomyopathy, Congestive heart failure, Edema, Hammer toe, History of stroke, Hyperlipidemia, Hypertension, Hypokalemia, Left-sided weakness, Onychoincurvatum, Osteomyelitis, Pincer nail deformity, Pulmonary hypertension, Ulcer of right foot Subjective Subjective Pt reports she lives alone in a single-story home without steps to enter. Pt reports her niece lives a block away. Pt reports she uses a walker for ambulation, denies recent falls. Pt reports previously she was independent with all ADLs and iADLs. Pt reports she does not drive and relies on her sister for this. Pt reports she has been having bad headaches. New diagnosis of cancer in past 12 No months? Rehab PT IP Eval Objective Appearance Patient Behavior Appropriate,Cooperative Patient Orientation Person,Place,Name,Birthday Difficulty following instructions none Speech Pattern Clear,Appropriate Ambulation Patient Able to Ambulate Yes Ambulation Observation IP General Gait Pattern Observation Shuffling Step,Hips Posterior to GINETTE Ambulation Distance (feet) 5 Ambulation Assistive Device Rolling Walker Ambulation Ability Contact Guard/Hand Hold Balance Ability to Arise Able, uses arms to help Sitting Balance Steady, safe Standing Balance Unsteady Dynamic Sitting Balance Ability Fair Dynamic Standing Balance Ability Fair Transfers Bed Transfer Ability Minimal x 1 (25% assist) Sit to Stand Bed Transfer Ability Minimal x 1 (25% assist) Rehab PT IP prob,goals,plan Problems Date of Evaluation: 07/17/23 PT IP Problems Bed Mobility,Transfers,Gait, Balance,Self care,Safety Rehab Potential Rehab Potential Good Equipment Needs Assistive Devices Rolling / Wheeled Walker Plan PT Intervention Plan Bed Mobility,Transfers,Gait, Balance,Self care,Safety, Therapeutic Exercise Other Intervention Plan 1-2x/day PT Plan Frequency Daily Duration LOS Discharge Goals Bed Transfer Ability Contact Guard/Hand Hold Sit to Stand Chair Transfer Ability Contact Guard/Hand Hold Ambulation Assistive Device Rolling Walker Ambulation Distance (feet) 20 Discharge Plan PT Discharge Plan Pt will benefit from skilled physical therapy while in [facility] and continue to benefit from short-term rehab s/p DC from [facility] once deemed medically stable by MD. Without skilled therapy the pt is at an increased risk for falls, fractures, wounds, further functional decline and increased burden of care. Eval Complexity Eval Charge Codes 35855 - Moderate Complexity PHYSICIAN CERTIFICATION: I certify the specified therapy services for Mireya Jones are required, authorized, and reviewed every 30 days.
[2023-07-17] MEDS: POTASSIUM CHLORIDE 20MEQ TAB 20 MEQ PO (12:31)
--- NOTE | 2023-07-17 13:52 | P.CONCA_ITS ---
History of Present Illness History of Present Illness Consult date: 07/17/23 Requesting physician: Feng Vicente Consult reason: atrial fibrillation Chief complaint: bradycardia History of present illness: This is an 87-year-old white female who presented to the emergency department with complaints of headache, shortness of breath and progressive weakness. The patient states that her headache started around 2:30 in the morning on the day of admission. The patient has just been more short of breath and more weak than usual. She also complained of some vague abdominal pain. She denied any chest pain or pressure. Today she was given her regular dose of metoprolol for her history of atrial fibrillation and hypertension. The patient became profoundly bradycardic with a heart rate as low as 14 on the telemetry strip. Her heart rate was as low as the 20s on EKG. The patient was symptomatic with this bradycardia. She became very anxious and nervous when her heart rate was low and then her heart rate would jump up to around 60 and then got as high as the 120s. She is in atrial fibrillation with a low heart rate and sometimes she is having the tachycardia as well. She currently denies any chest pain or pressure. She states that she is short of breath with exertion she denies any edema she denies any orthopnea. She denies any fever, chills, nausea, vomiting, diarrhea, PND orthopnea. [facility] Disclaimer: The information contained in this section may have been updated after the patient was seen, as this information can be updated by other users. Medical History (Updated 07/17/23 @ 13:57 by Mackenzie Burger APRN) Atrial fibrillation with rapid ventricular response Callus of foot Cardiomyopathy Congestive heart failure Congestive heart failure Edema Encounter for wound care Hammer toe History of stroke Hx of cardiomyopathy Hyperlipidemia Hypertension Hypokalemia Left-sided weakness Onychoincurvatum Osteomyelitis Pincer nail deformity Pulmonary hypertension Symptomatic bradycardia Tachy-kaylah syndrome Ulcer of right foot Surgical History History of left knee replacement History of surgery Family History No significant family history Social History Smoking Status: Unknown if ever smoked alcohol intake: never substance use type: denies use current occupational status: retired Travel in the last 8 weeks: None household members: none caffeine: No Review of Systems Review of Systems Review of systems:: pertinent systems reviewed and negative unless documented below Constitutional Constitutional: Reports system reviewed and no additional complaints, except as documented, Reports fatigue and Reports lethargy Eyes Eyes: Reports system reviewed and no additional complaints, except as documented ENT Ears, Nose, Mouth, and Throat: Reports system reviewed and no additional complaints, except as documented *Cardiovascular Cardiovascular: Reports system reviewed and no additional complaints, except as documented, Denies chest pain and Reports dyspnea on exertion *Respiratory Respiratory: Reports system reviewed and no additional complaints, except as documented and Reports dyspnea on exertion *Gastrointestinal Gastrointestinal: Reports system reviewed and no additional complaints, except as documented *Genitourinary Genitourinary: Reports system reviewed and no additional complaints, except as documented *Musculoskeletal Musculoskeletal: Reports system reviewed and no additional complaints, except as documented Integumentary/Breasts Skin/Breast: Reports system reviewed and no additional complaints, except as documented *Neurologic Neurologic: Reports system reviewed and no additional complaints, except as documented Psychiatric Psychiatric: Reports system reviewed and no additional complaints, except as documented and Reports anxiety Endocrine Endocrine: Reports system reviewed and no additional complaints, except as documented and Reports fatigue Hematologic/Lymphatic Hematologic/Lymphatic: Reports system reviewed and no additional complaints, except as documented Allergic/Immunologic Allergic/Immunologic: Reports system reviewed and no additional complaints, except as documented Exam Data for Last 24 hours Vital signs and Labs for Last 24 Hours: Temp Pulse Resp BP Pulse Ox O2 Del Method O2 Flow Rate 97.9 F 80 16 92/51 L 98 Nasal Cannula 2 07/17/23 11:15 07/17/23 12:00 07/17/23 11:15 07/17/23 11:15 07/17/23 11:15 07/17/23 12:57 07/16/23 14:07 Laboratory Results - last 24 hr 07/16/23 14:57: Troponin I 0.07 H 07/16/23 19:07: Sodium 138, Potassium 3.5, Chloride 105, Carbon Dioxide 27, An ion Gap 9.5, BUN 26 H, Creatinine 0.90 D, Estimated Creat Clear 47, Estimated GFR 60, Est GFR ( Amer) 72 D, Glucose 152 H D, Calcium 8.8 07/17/23 07:25: WBC 6.0, RBC 4.59, Hgb 12.8, Hct 39.5, MCV 86.0, MCH 28.0, MCHC 32.5, RDW 14.9, Plt Count 193, MPV 9.1, Neut % (Auto) 69.5, Lymph % (Auto) 20.7, [place] % (Auto) 6.9, Eos % (Auto) 1.8, Baso % (Auto) 1.1, Neut # (Auto) 4.2, Lymph # (Auto) 1.3, [place] # (Auto) 0.4, Eos # (Auto) 0.1, Baso # (Auto) 0.1, Sodium 136, Potassium 3.2 L, Chloride 105, Carbon Dioxide 29, Anion Gap 5.2, BUN 23 H, Creatinine 0.80, Estimated Creat Clear 47, Estimated GFR 68, Est GFR ( Amer) 82, Glucose 84 D, Calcium 8.7, Magnesium 2.2, Total Bilirubin 1.4 H, AST 31, ALT 26, Alkaline Phosphatase 117, Total Protein 6.1 L, Albumin 3.2 L D, Globulin 2.9, Albumin/Globulin Ratio 1.1 I & O for Last 24 hours: Intake & Output 07/14/23 07/15/23 07/16/23 07/17/23 23:59 23:59 23:59 23:59 Intake Total 684.459 / 684.459 120 / 120 Output Total 3225 / 3225 925 / 925 Balance -2540.541 / -2540.541 -805 / -805 Weight 159 lb 3 oz 159 lb 13.362 oz Constitutional Constitutional: no acute distress and average body habitus *Routine HEENT Exam Head: Present normocephalic and atraumatic ENT: Present mucous membranes moist *Routine Neck Exam Neck: Present supple, full ROM and normal carotid upstroke; Absent JVD, carotid bruit or lymphadenopathy *Routine Respiratory Exam Respiratory: Present CTA bilaterally, normal respiratory effort, able to speak in complete sentences and symmetric chest movement *Routine Cardiovascular Exam Cardiovascular: Present Normal S1, Normal S2, bradycardia and irregularly irregular; Absent murmur or gallop *Routine Abdominal Exam Abdominal: Present soft and normoactive bowel sounds; Absent tenderness, distended or organomegaly *Routine Extremities Exam Extremities: Present full ROM, pulses intact and normal capillary refill; Absent cyanosis, clubbing or edema *Routine Skin Exam Skin: Present intact and warm; Absent erythema *Routine Neurological Exam Neurological: Present alert, oriented X3 and CN II-XII intact; Absent sensory deficit or motor deficit Routine Psychiatric Exam Psychiatric: Present normal affect Meds Home Medications and Allergies Home Medications Medication Instructions Recorded Confirmed Type trazodone 50 mg tablet 50 mg PO HS 07/26/22 07/17/23 History multivitamin 1 tab PO DAILY 07/31/22 07/16/23 History furosemide 40 mg tablet 40 mg PO QODHS Fluid 90 days #45 07/09/23 07/16/23 Rx tabs metoprolol tartrate 25 mg tablet 25 mg PO TIDWMEAL 07/17/23 07/17/23 History mupirocin 2 % topical ointment 1 applic topical BID 07/17/23 07/17/23 History temazepam 15 mg capsule 15 mg PO HSP PRN Sleep 07/17/23 07/17/23 History New Prescriptions to Start Prescriptions: Allergies Allergy/AdvReac Type Severity Reaction Status Date / Time codeine Allergy Mild Vomiting/na Verified 07/16/23 14:43 usea meloxicam AdvReac Verified 07/16/23 14:43 Assessment and Plan *Assessment and plan (1) Symptomatic bradycardia: Status: Acute Category: Medical Code(s): R00.1 - Bradycardia, unspecified (2) Tachy-kaylah syndrome: Status: Acute Category: Medical Code(s): I49.5 - Sick sinus syndrome (3) Atrial fibrillation with RVR: Status: Acute Category: Medical Code(s): I48.91 - Unspecified atrial fibrillation (4) Atrial fibrillation: Status: Acute Qualifiers: Atrial fibrillation type: permanent Qualified Code(s): I48.21 - Permanent atrial fibrillation Category: Medical Code(s): I48.91 - Unspecified atrial fibrillation (5) Peripheral arterial disease: Status: Acute Category: Medical Code(s): I73.9 - Peripheral vascular disease, unspecified (6) CAD (coronary atherosclerotic disease): Status: Acute Qualifiers: Coronary Disease-Associated Artery/Lesion type: [place] artery [place] vs. transplanted heart: [place] heart Associated angina: without angina Qualified Code(s): I25.10 - Atherosclerotic heart disease of [place] coronary artery without angina pectoris Category: Medical Code(s): I25.10 - Atherosclerotic heart disease of [place] coronary artery without angina pectoris (7) Hypertension: Status: Chronic Qualifiers: Hypertension type: primary hypertension Qualified Code(s): I10 - Essential (primary) hypertension Category: Medical Code(s): I10 - Essential (primary) hypertension (8) Hyperlipidemia: Status: Acute Qualifiers: Hyperlipidemia type: mixed hyperlipidemia Qualified Code(s): E78.2 - Mixed hyperlipidemia Category: Medical Code(s): E78.5 - Hyperlipidemia, unspecified (9) Hx of cardiomyopathy: Status: Acute Category: Medical Code(s): Z86.79 - Personal history of other diseases of the circulatory system Plan Plan: 1. This is an 87-year-old female presented to the emergency department with complaints of shortness of breath and weakness. The patient was admitted to the hospital for an acute exacerbation of HFrEF. 2. Will obtain echocardiogram to evaluate her LV function. The patient does have a history of cardiomyopathy. 3. Cardiology was consulted due to bradycardia. The patient was given her normal dose of metoprolol and she had significant bradycardia this morning. On telemetry her heart rate was as low as 14 bpm and on EKG her heart rate was in the 20s. She remained in atrial fibrillation at that time. Her heart rate is now in the 60s and 70s. Her heart rate has been getting high as high as the 120s. 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 Will stop her metoprolol now and due to her bradycardia and monitor her heart rate overnight. 4. If the patient continues to have atrial fibrillation with RVR then we will likely have to proceed with permanent pacemaker placement tomorrow. 5. We will obtain a TSH and free T4. 6. Continue Entresto and Lasix for her HFrEF. 7. We do recommend Jardiance 10 mg daily for HFrEF. 8. The patient does have a history of atrial fibrillation. She is on long-term anticoagulation with Eliquis. 9. Her blood pressure is well-controlled. 10. Her LDL goal is less than 100. Will get a lipid panel in the morning. 11. Further recommendations will be made pending the patient's response to treatment and the results of her echocardiogram today. Thank you for the opportunity to help participate in the care of this patient. All recommendations and orders are per Dr. Antonio.
[2023-07-17] MEDS: EMPAGLIFLOZIN 10MG TABLET 10 MG PO (14:30)
--- NOTE | 2023-07-17 15:42 | CA_ITS ---
APPROVED REPORT EXAM: Comprehensive 2D, Doppler, and color-flow Echocardiogram Manager Of School: Bridget Trevino CRT Ht: 5 ft 7 in Wt: 159lbs BSA: 1.83 BP: 128/67 mmHg Indications: Congestive Heart Failure, CVA/TIA, Atrial Fibrillation, CAD 2D Dimensions Left Atrium 5.73 cm LVEF (Kulkarni's) 24.20 % LVOT 1.79 cm (M/F) 1.5-2.5 LV Volume 104.10 mL LA Volume 151.50 mL LA Volume Index 82.80 mL/m2 (M/F) 16-34 EF AP4 21.30 % EF AP2 25.8 % EF BP 24.2 % GL Strain -7.1 % M-Mode Dimensions RVDd 2.99 cm (0.9-2.6) LVDd 5.35 cm (3.5-5.7) Ao Diam 3.42 cm (2.0-3.7) LVDs 4.22 cm (3.5-5.7) IVSd 1.42 cm (0.6-1.1) PWd 0.97 cm (0.6-1.1) EF (Teich) 42.50% FS 21.10% EDV (Teich) 138.30 mL TAPSE 1.08 (<1.7) ESV (Teich) 79.50 mL LV Diastology E Decel Time 175 (160-240 msec) E/A Ratio 3.77 LAT E' 12.4 (>= 10 cm/sec) LAT A' 4.70 cm/s E/LAT E' Ratio 6.35 (<= 14) Aortic Valve AoV Peak Dex. 97.0 (50-130 cm/s) AO Peak GR. 3.80 mmHg Mitral Valve MV E Max Dex. 79.0 (40-130 cm/s) MV A Velocity 21.0 (40-130 cm/s) E/A Ratio 3.77 MV Decel. Time 175 (160-240 ms) Tricuspid Valve TR P. Velocity 299.00 cm/s RAP Estimate 10.00 mmHg RVSP 45.60 mmHg Left Ventricle The left ventricle is normal size. Left ventricular systolic function is severely decreased. There is increased LV wall thickness. There is severe global hypokinesis present. The septal and anteroseptal LV curiel are akinetic. Diastolic function is indeterminate due to atrial fibrillation. LVEF is 20%. Right Ventricle Right ventricle is mildly dilated. There is mild to moderate RV dysfunction. Atria The left atrium is severely dilated. The right atrium is severely dilated. There is no Doppler evidence of interatrial shunt. Aortic Valve The aortic valve is mildly thickened. There is no aortic valvular stenosis. Trace aortic regurgitation. Mitral Valve The mitral valve leaflets are mildly thickened. No evidence of mitral valve stenosis. Moderate to severe mitral regurgitation. Tricuspid Valve The tricuspid valve leaflets are thin and pliable. Moderate tricuspid regurgitation. RVSP is 35-40 mmHg. Pulmonic Valve The pulmonary valve is normal in structure. Trace pulmonic regurgitation. Great Vessels The aortic root is normal in size. The ascending aorta is not well-visualized. IVC is normal in size and collapses >50% with inspiration. Pericardium There is no pericardial effusion. Other Information Study Quality: Fair Conclusion Severe reduction in LV systolic function (LVEF 20%). Akinesis of the septal and anteroseptal LV curiel. Mild RV dilation with mild to moderate RV dysfunction. Severe biatrial dilation. Moderate to severe MR. Moderate TR. RVSP is 35-40 mmHg. Electronically signed by : Mary Antonio MD 07/18/2023 15:24:12
--- NOTE | 2023-07-17 18:00 | EXP.ACUTE.PN ---
Subjective *Date: 07/17/23 *Time: 18:00 Interval history: Alert and oriented this morning. Had discussion about placement versus home with home health. Family unsure of what they want to do. Heart rate well-controlled on rounds, after rounds patient had an episode of bradycardia. Denies nausea, chest pain, vomiting, shortness of breath. Responding well to diuresis with good urine output Medical Exam Vital signs and Labs for Last 24 Hours: Vital Signs Temp Pulse Pulse Resp BP Pulse Ox O2 Del Method 07/17/23 16:00 89 07/17/23 17:00 Nasal Cannula 07/17/23 15:29 97.7 F 107 H 20 128/71 100 Nasal Cannula 07/17/23 14:53 Nasal Cannula 07/17/23 12:00 80 07/17/23 12:57 Nasal Cannula 07/17/23 11:15 97.9 F 84 16 92/51 L 98 Room Air 07/17/23 10:50 Room Air 07/17/23 08:00 60 07/17/23 09:06 83 07/17/23 08:51 Room Air 07/17/23 08:00 97.7 F 87 20 88/52 L 95 Room Air 07/17/23 08:00 97 Room Air 07/17/23 06:09 Room Air 07/17/23 05:00 Room Air 07/17/23 04:00 107 H 07/17/23 04:00 89 18 125/92 H 95 Room Air 07/17/23 00:34 70 07/16/23 20:04 60 07/17/23 00:00 97 H 16 92 L Room Air 07/17/23 03:00 Room Air 07/17/23 01:00 Room Air 07/17/23 00:00 98.2 F 97 H 16 121/63 92 L Room Air 07/16/23 22:51 Room Air 07/16/23 21:00 Room Air 07/16/23 20:00 96 Room Air 07/16/23 20:00 97.8 F 89 17 114/56 L 96 Room Air 07/16/23 19:00 Room Air O2 Flow Rate 07/17/23 16:00 07/17/23 17:00 1 07/17/23 15:29 2 07/17/23 14:53 07/17/23 12:00 07/17/23 12:57 07/17/23 11:15 07/17/23 10:50 07/17/23 08:00 07/17/23 09:06 07/17/23 08:51 07/17/23 08:00 07/17/23 08:00 07/17/23 06:09 07/17/23 05:00 07/17/23 04:00 07/17/23 04:00 07/17/23 00:34 07/16/23 20:04 07/17/23 00:00 07/17/23 03:00 07/17/23 01:00 07/17/23 00:00 07/16/23 22:51 07/16/23 21:00 07/16/23 20:00 07/16/23 20:00 07/16/23 19:00 Intake and Output 07/17/23 07/17/23 07/17/23 07:59 15:59 23:59 Intake Total 120 / 600 480 / 600 Output Total 1425 / 1425 Balance -1305 / -825 480 / -825 Intake: Intake, Oral Amount 120 / 600 480 / 600 Output: Output, Urine Amount 600 / 600 Output, Urine Amount (Catheter) 825 / 825 Aguilar 825 / 825 Other: Number of Unmeasured Voids 0 Weight 72.5 kg Patient Weight 07/17/23 23:59 Weight 72.5 kg Laboratory Results - last 24 hr 07/16/23 19:07: Sodium 138, Potassium 3.5, Chloride 105, Carbon Dioxide 27, Anion Gap 9.5, BUN 26 H, Creatinine 0.90 D, Estimated Creat Clear 47, Estimated GFR 60, Est GFR ( Amer) 72 D, Glucose 152 H D, Calcium 8.8 07/17/23 07:25: WBC 6.0, RBC 4.59, Hgb 12.8, Hct 39.5, MCV 86.0, MCH 28.0, MCHC 32.5, RDW 14.9, Plt Count 193, MPV 9.1, Neut % (Auto) 69.5, Lymph % (Auto) 20.7, [place] % (Auto) 6.9, Eos % (Auto) 1.8, Baso % (Auto) 1.1, Neut # (Auto) 4.2, Lymph # (Auto) 1.3, [place] # (Auto) 0.4, Eos # (Auto) 0.1, Baso # (Auto) 0.1, Sodium 136, Potassium 3.2 L, Chloride 105, Carbon Dioxide 29, Anion Gap 5.2, BUN 23 H, Creatinine 0.80, Estimated Creat Clear 47, Estimated GFR 68, Est GFR ( Amer) 82, Glucose 84 D, Calcium 8.7, Magnesium 2.2, Total Bilirubin 1.4 H, AST 31, ALT 26, Alkaline Phosphatase 117, Total Protein 6.1 L, Albumin 3.2 L D, Globulin 2.9, Albumin/Globulin Ratio 1.1 I & O for Labs for Last 24 Hours: Intake & Output 07/14/23 07/15/23 07/16/23 07/17/23 23:59 23:59 23:59 23:59 Intake Total 684.459 / 684.459 600 / 600 Output Total 3225 / 3225 1425 / 1425 Balance -2540.541 / -2540.541 -825 / -825 Weight 72.206 kg 72.5 kg Constitutional: Present no acute distress, average body habitus and chronically ill appearing Head: Present atraumatic and normocephalic ENT: Present normal exam Respiratory: Present normal respiratory effort; Absent rhonchi, wheezes or crackles Cardiac: Present Irregularly Regular GI: Present soft and normal bowel sounds; Absent distention or tenderness Extremities: Present normal inspection and full ROM Skin: Present intact; Absent erythema Neuro: Present Grossly Intact, alert, awake and moves all extremities Comment:: Alert to person and place Assessment and Plan *Assessment and plan (1) CHF exacerbation: Status: Acute Category: Medical Code(s): I50.9 - Heart failure, unspecified (2) Chronic systolic heart failure: Status: Acute Category: Medical Code(s): I50.22 - Chronic systolic (congestive) heart failure (3) CAD (coronary atherosclerotic disease): Status: Acute Qualifiers: Coronary Disease-Associated Artery/Lesion type: [place] artery [place] vs. transplanted heart: [place] heart Associated angina: without angina Qualified Code(s): I25.10 - Atherosclerotic heart disease of [place] coronary artery without angina pectoris Category: Medical Code(s): I25.10 - Atherosclerotic heart disease of [place] coronary artery without angina pectoris (4) Cerebrovascular accident (CVA): Status: Chronic Qualifiers: CVA mechanism: embolism Category: Medical Code(s): I63.9 - Cerebral infarction, unspecified (5) Atrial fibrillation: Status: Acute Qualifiers: Atrial fibrillation type: permanent Qualified Code(s): I48.21 - Permanent atrial fibrillation Category: Medical Code(s): I48.91 - Unspecified atrial fibrillation (6) Left-sided weakness: Status: Acute Category: Medical Code(s): R53.1 - Weakness Plan 87-year-old female with multiple comorbidities, history of strokes, history of heart failure. Presentation concerning for CHF exacerbation. Discussed case with ER, request admission for further diuresis, eval by therapy, further inpatient management. Medicine agreed to admit for further treatment. Diuresing well. Continue Lasix. Cardiology consulted due to episode of bradycardia. Continues to require inpatient management. Working on placement. Problems addressed as follows: Heart failure with reduced ejection fraction, acute on chronic exacerbation A-fib Bradycardia -Cardiology consulted, appreciate their assistance in care given new onset of bradycardia with initiation of low-dose metoprolol. -Last echo obtained at in 2021, reviewed records. EF 40 to 45%. Repeat echo pending. -Became bradycardic this morning. Continuing digoxin at home dose of 125 mcg daily. Holding metoprolol. - Continue Eliquis 5 mg to daily. -Continue Entresto 4/26 mg twice daily for heart failure. -Lasix 40 mg IV twice daily. Continueto diurese well. Volume status negative since admission. Labs reviewed this morning, CBC within normal range with white cell count of 6 hemoglobin 12.8. Potassium low at 3.2, will replace orally. Kidney function normal at 0.8. Responding well to diuresis. Magnesium 2.2. -Repeat CMP, CBC, magnesium ordered for the morning -Initiate Jardiance 10 mg daily for heart failure. History of strokes, left-sided weakness -Patient lives by herself, given weakness, concern for safety going home. PT and OT consulted, appreciate their recommendations. Case management assisting with placement. Sleep disorder: Continue trazodone 50 mg nightly as needed. Will hold on temazepam given weakness and concern for worsening her condition in conjunction with patient's advanced age of 87 years DNR Cardiac diet eliquis
--- NOTE | 2023-07-17 21:52 | PC.NURSE ---
Patient refusing to take medications states my doctor gave me a white pill today and told me this is all i have to take today , asked this nurse to leave her house as she doesn't know why we are here anyways. Medications was taken with this nurse, will attempt to administer later.
[2023-07-17] MEDS: TRAZODONE 50MG TABLET 50 MG PO (22:21)
--- NOTE | 2023-07-17 22:33 | PC.NURSE ---
Another nurse attempted to give patient her medications, she refused all except trazadone.
[2023-07-18] VITALS (20 sets, daily range): BP systolic 85–146; BP diastolic 38–99; PULSE 80–151; RESP 15–18; TEMP 36.2–37.7; O2SAT 91–99; BMI 25.7
--- NOTE | 2023-07-18 00:46 | PC.NURSE ---
Patient is refusing all care. Will not let toni Longoria get blood pressure or check for incontinence. This nurse attempted and explained why it was important we check her blood pressure and ensure she is dry, and patient states get out the engineering specialist are on their way .
--- NOTE | 2023-07-18 00:47 | PC.NURSE ---
patient refused to let vitals be taken and stated she does not want to be touched at all for anything. Nurse is aware.
[2023-07-18 08:00] LABS: Basophils # 0.1 K/mm3 (0-0.2); Eosinophils # 0.1 K/mm3 (0.0-0.4); Eosinophils % 2.3 % (0.1-12.0); Hematocrit 39.9 % (37.0-47.0); Hemoglobin 12.7 g/dL (12.2-16.2); Lymphocytes % 18.4 % (10-50); Mean Corpuscular HGB Conc 31.9 g/dL (31.8-35.4); Mean Corpuscular Hemoglobin 27.9 pg (27.0-31.2); Mean Corpuscular Volume 87.4 fl (81-99); Mean Platelet Volume 8.8 fl (7.4-10.4); Monocytes # 0.4 K/mm3 (0.1-1.0); Monocytes % 7.3 % (1.7-9.3); Platelet Count 184 K/mm3 (142-424); Red Blood Count 4.57 M/mm3 (4.20-5.40); Red Cell Distribution Width 14.8 % (11.5-17.5); White Blood Count 5.7 K/mm3 (4.8-10.8)
[2023-07-18 08:11] LABS: Free T4 (Free Thyroxine) 2.09 ng/dl (0.78-2.19)
[2023-07-18] MEDS: DIGOXIN 0.125MG TABLET 125 MCG PO (08:13)
[2023-07-18] MEDS: EMPAGLIFLOZIN 10MG TABLET 10 MG PO (08:13)
[2023-07-18] MEDS: SACUBITRIL/VALSARTAN 24-26MG TABLET 1 EACH PO (08:13)
[2023-07-18] MEDS: FUROSEMIDE 40MG/4ML VIAL 40 MG IV (08:14)
[2023-07-18] MEDS: APIXABAN 5MG TABLET 5 MG PO ×2 (08:14→20:51)
[2023-07-18] MEDS: POTASSIUM CHLORIDE 20MEQ TAB 20 MEQ PO ×2 (08:14→20:50)
[2023-07-18 08:25] LABS: Thyroid Stimulating Hormone 0.55 uIU/mL (0.465-4.68)
[2023-07-18 08:27] LABS: Chloride 105 mmol/L (98-107)
[2023-07-18 08:28] LABS: Potassium 3.8 mmoL/L (3.5-5.1); Sodium 137 mmol/L (136-145)
[2023-07-18 08:30] LABS: Alanine Aminotransferase 23 U/L (12-78); Aspartate Amino Transferase 32 U/L (14-36); Blood Urea Nitrogen 22 mg/dl (7-17); Creatinine Clearance Estimated 47 mL/min (50-200); Estimated Glomerular Filt Rate 60 ml/min (>60); GFR (African American) 72 ML/MIN (>60)
[2023-07-18 08:31] LABS: Albumin Level 2.8 g/dl (3.5-5.0); Albumin/Globulin Ratio 1.1 (1.1-1.8); Alkaline Phosphatase 104 U/L (38-126); Anion Gap 7.8 mEq/L (5-15); Bilirubin,Total 1.2 mg/dl (0.2-1.3); Calcium 8.6 mg/dl (8.4-10.2); Carbon Dioxide 28 mmol/L (22.0-30.0); Globulin 2.6 g/dL (1.3-3.2); Glucose 81 mg/dl (74-100); Total Protein,Serum 5.4 g/dl (6.3-8.2)
--- NOTE | 2023-07-18 08:31 | P.PN_ITS ---
Subjective *Date: 07/18/23 *Time: 16:10 Interval history: Patient had some confusion overnight, appears to be sundowning later in the evenings. Is alert and oriented on exam this morning. No chest pain. Heart rate better controlled in the 80s on exam. On 2 L nasal cannula oxygen. No c hest pain, nausea, vomiting. Family at bedside. Medical Exam Vital signs and Labs for Last 24 Hours: Vital Signs Temp Pulse Pulse Resp BP Pulse Ox O2 Del Method 07/18/23 08:00 95 Room Air 07/18/23 08:13 80 07/18/23 06:16 Room Air 07/18/23 04:00 97.9 F 102 H 17 125/72 97 Nasal Cannula 07/18/23 04:00 129 H 07/18/23 04:45 Room Air 07/18/23 03:00 Room Air 07/18/23 00:00 94 H 07/18/23 01:00 Room Air 07/17/23 20:00 108 H 07/17/23 23:57 115 H 07/17/23 20:00 89 07/17/23 20:00 98.4 F 51 L 17 102/59 L 93 L Nasal Cannula 07/17/23 19:00 Room Air 07/17/23 16:00 89 07/17/23 17:00 Nasal Cannula 07/17/23 15:29 97.7 F 107 H 20 128/71 100 Nasal Cannula 07/17/23 14:53 Nasal Cannula 07/17/23 12:00 80 07/17/23 12:57 Nasal Cannula 07/17/23 11:15 97.9 F 84 16 92/51 L 98 Room Air 07/17/23 10:50 Room Air 07/17/23 09:06 83 07/17/23 08:51 Room Air O2 Flow Rate 07/18/23 08:00 07/18/23 08:13 07/18/23 06:16 07/18/23 04:00 07/18/23 04:00 07/18/23 04:45 07/18/23 03:00 07/18/23 00:00 07/18/23 01:00 07/17/23 20:00 07/17/23 23:57 07/17/23 20:00 07/17/23 20:00 2 07/17/23 19:00 07/17/23 16:00 07/17/23 17:00 1 07/17/23 15:29 2 07/17/23 14:53 07/17/23 12:00 07/17/23 12:57 07/17/23 11:15 07/17/23 10:50 07/17/23 09:06 07/17/23 08:51 Intake and Output 07/17/23 07/18/23 07/18/23 23:59 07:59 15:59 Intake Total 600 / 720 Output Total 1500 / 2925 1000 / 1000 Balance -900 / -2205 -1000 / -1000 Intake: Intake, Oral Amount 600 / 720 Output: Output, Urine Amount 1500 / 2100 1000 / 1000 Other: Number of Unmeasured Voids 0 0 Weight 72.62 kg Patient Weight 07/18/23 23:59 Weight 72.62 kg Laboratory Results - last 24 hr 07/18/23 07:02: WBC 5.7, RBC 4.57, Hgb 12.7, Hct 39.9, MCV 87.4, MCH 27.9, MCHC 31.9, RDW 14.8, Plt Count 184, MPV 8.8, Neut % (Auto) 71.0, Lymph % (Auto) 18.4, [place] % (Auto) 7.3, Eos % (Auto) 2.3, Baso % (Auto) 1.0, Neut # (Auto) 4.0, Lymph # (Auto) 1.0, [place] # (Auto) 0.4, Eos # (Auto) 0.1, Baso # (Auto) 0.1, Sodium 137, Potassium 3.8, Chloride 105, TSH 0.55, Free T4 2.09 I & O for Labs for Last 24 Hours: Intake & Output 07/15/23 07/16/23 07/17/23 07/18/23 23:59 23:59 23:59 23:59 Intake Total 684.459 / 684.459 720 / 720 Output Total 3225 / 3225 2925 / 2925 1000 / 1000 Balance -2540.541 / -2540.541 -2205 / -2205 -1000 / -1000 Weight 72.206 kg 72.5 kg 72.62 kg Constitutional: Present no acute distress, average body habitus and chronically ill appearing Head: Present atraumatic and normocephalic ENT: Present normal exam Respiratory: Present normal respiratory effort; Absent rhonchi, wheezes or crackles Cardiac: Present Irregularly Regular GI: Present soft and normal bowel sounds; Absent distention or tenderness Extremities: Present normal inspection and full ROM Skin: Present intact; Absent erythema Neuro: Present Grossly Intact, alert, awake and moves all extremities Comment:: Alert to person and place Assessment and Plan *Assessment and plan (1) CHF exacerbation: Status: Acute Qualifiers: Heart failure type: combined systolic and diastolic Qualified Code(s): I50.43 - Acute on chronic combined systolic (congestive) and diastolic (congestive) heart failure Category: Medical Code(s): I50.9 - Heart failure, unspecified (2) Chronic systolic heart failure: Status: Acute Category: Medical Code(s): I50.22 - Chronic systolic (congestive) heart failure (3) CAD (coronary atherosclerotic disease): Status: Acute Qualifiers: Coronary Disease-Associated Artery/Lesion type: [place] artery [place] vs. transplanted heart: shosh[place] heart Associated angina: without angina Qualified Code(s): I25.10 - Atherosclerotic heart disease of [place] coronary artery without angina pectoris Category: Medical Code(s): I25.10 - Atherosclerotic heart disease of [place] coronary artery without angina pectoris (4) Cerebrovascular accident (CVA): Status: Chronic Qualifiers: CVA mechanism: embolism Category: Medical Code(s): I63.9 - Cerebral infarction, unspecified (5) Atrial fibrillation: Status: Acute Qualifiers: Atrial fibrillation type: permanent Qualified Code(s): I48.21 - Permanent atrial fibrillation Category: Medical Code(s): I48.91 - Unspecified atrial fibrillation (6) Left-sided weakness: Status: Acute Category: Medical Code(s): R53.1 - Weakness Plan 87-year-old female with multiple comorbidities, history of strokes, history of heart failure. Presentation concerning for CHF exacerbation. Discussed case with ER, request admission for further diuresis, eval by therapy, further inpatient management. Medicine agreed to admit for further treatment. Diuresing well. Continue Lasix. Volume status negative since admission. Cardiology consulted due to episode of bradycardia, discussed case today, recommend proceeding with left heart cath given reduced ejection fraction on echo. Continues to require inpatient management. Working on placement. Problems addressed as follows: Heart failure with reduced ejection fraction, acute on chronic exacerbation A-fib Bradycardia -Cardiology consulted, appreciate their assistance in care given new onset of bradycardia with initiation of low-dose metoprolol. Continue digoxin, holding on metoprolol. -Last echo obtained at in 2021, reviewed records. EF 40 to 45%. Repeat echo showing EF of 20% with elevated RVSP. Recommend proceeding with left heart cath to evaluate for ischemic disease - Continuing digoxin at home dose of 125 mcg daily. Holding metoprolol. - Continue Eliquis 5 mg to daily. -Continue Entresto 24/26 mg twice daily for heart failure. -Lasix 40 mg IV twice daily. Continue to diurese well. Volume status negative since admission. White cell count 5.7, hemoglobin 12.7, kidney function normal with creatinine of 0.9 and BUN of 22. Electrolytes within the normal range with potassium 3.8 magnesium 2.0. Repeat CMP, CBC, magnesium ordered for the morning - Jardiance 10 mg daily for heart failure. History of strokes, left-sided weakness -Patient lives by herself, given weakness, concern for safety going home. PT and OT consulted, appreciate their recommendations. Case management assisting with placement. Being evaluated by Osorio Pond. Sleep disorder: Continue trazodone 50 mg nightly as needed. Will hold on temazepam given weakness and concern for worsening her condition in conjunction with patient's advanced age of 87 years DNR Cardiac diet jamari
[2023-07-18] MEDS: SPIRONOLACTONE 25MG TABLET 25 MG PO (11:42)
--- NOTE | 2023-07-18 11:43 | IR_ITS ---
APPROVED REPORT Patient Location: Inpatient Soldering Machine Operator: ELIZABETH Bridges RT (R) PROCEDURES Selective coronary angiogram INDICATION Non-ST elevation myocardial infarction Informed consent was obtained prior to the procedure. COMPLICATIONS NONE Estimated Blood Loss: LESS THAN 10 ML TECHNIQUE 1% lidocaine used anesthetize the right anterior aspect of the right wrist and the right radial artery was accessed via the Salinger technique. A 6 [place] hydrophilic sheath was placed in the right radial artery and an arterial cocktail using verapamil and lidocaine nitroglycerin and heparin was administered intra-arterially. The catheter was advanced to the brachial artery and retrograde angiography demonstrated subtotal occlusion of the brachial artery. An advantage wire was used to try to traverse the occlusion however this was unable to pass therefore 1% lidocaine was used anesthetize right groin. The right femoral artery was completely calcified and occluded. 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 Because of this it was decided to proceed with a high risk right external iliac artery access by going proximal to the inguinal ligament. The artery was easily accessed and a wire was advanced. A JL 4 JR4 catheter were used to perform selective coronary angiography. Patient indeed had critical calcific disease involving the distal left main artery LAD circumflex artery with a chronically occluded right coronary artery. Rather than proceeding with a high risk intervention it was decided to speak with the power of blind aide, her sister, and discussed options. After much discussion with the sister as well as granddaughter was it was decided to proceed with medical management and not undergo an intervention. I quoted the family and anticipated mortality of at least 10 to 15% with high risk intervention based on the nature of the coronary artery disease. After it was decided to proceed with medical management I reentered the Donor Specialist reprepped the groin and removed the sheath achieving arterial hemostasis using Perclose device. ANGIOGRAPHIC RESULTS The left main artery Has a distal calcific 70 to 80% stenosis The left anterior descending artery Is an ostial calcific greater than 50% stenosis with additional mid vessel calcified 90% stenosis. The distal segment is subtotally occluded.. The first diagonal artery has proximal calcified 90% stenosis. The circumflex artery Is a codominant vessel and has proximal 40% stenosis with 90% stenosis in a large second obtuse marginal artery and a 90% stenosis in a small to medium sized third obtuse marginal artery The right coronary artery Codominant proximally occluded with the distal vessel filling via [id number] collaterals The URBANO ventriculogram reveals Not performed The left ventricular end-diastolic pressure Not measured IMPRESSION Severe to critical three-vessel coronary disease as described above Family has decided to proceed with medical management and not consider high risk percutaneous intervention. I believe this is entirely reasonable given the critical diffuse and the high risk nature of the coronary artery disease PLAN 1. Recommend medical/palliative care. Electronically signed by : Golden Bolden MD 07/18/2023 17:59:29
--- NOTE | 2023-07-18 13:12 | P.PN_ITS ---
Subjective Subjective Date: 07/18/23 Time: 09:00 Principal diagnosis: afib, bradycardia, CM Interval history: This is an 87-year-old female who presented to the emergency department with headache, shortness of breath and progressive weakness. The patient was admitted for an acute exacerbation of her congestive heart failure. Cardiology was consulted yesterday due to bradycardia. Her heart rate got down as low as 14 bpm and her EKG did show heart rates in the 20s. Her Toprol was stopped and her heart rate remained stable today. The patient had an echocardiogram which has a preliminary ejection fraction of 20%. Previous echocardiogram here shows a normal ejection fraction in 2019. She had an echo at [facility] in 2021 which showed an ejection fraction of 45 to 50%. The patient now has an interval reduction in her LV function. She does state that she is feeling better today. She denies any chest pain or pressure. She does have shortness of breath with exertion. She states that this improves with rest. She states that this is better today since her medications have been changed but she is still having shortness of breath with exertion. She denies any lower extremity edema. She denies any fever, chills, nausea, vomiting, diarrhea, PND or orthopnea. Exam Data for Last 24 hours Vital signs and Labs for Last 24 Hours: Temp Pulse Resp BP Pulse Ox O2 Del Method O2 Flow Rate 97.8 F 107 H 16 134/65 94 L Nasal Cannula 1 07/18/23 11:35 07/18/23 11:35 07/18/23 11:35 07/18/23 11:35 07/18/23 11:35 07/18/23 13:00 07/18/23 13:00 Laboratory Results - last 24 hr 07/18/23 07:02: WBC 5.7, RBC 4.57, Hgb 12.7, Hct 39.9, MCV 87.4, MCH 27.9, MCHC 31.9, RDW 14.8, Plt Count 184, MPV 8.8, Neut % (Auto) 71.0, Lymph % (Auto) 18.4, [place] % (Auto) 7.3, Eos % (Auto) 2.3, Baso % (Auto) 1.0, Neut # (Auto) 4.0, Lymph # (Auto) 1.0, [place] # (Auto) 0.4, Eos # (Auto) 0.1, Baso # (Auto) 0.1, Sodium 137, Potassium 3.8, Chloride 105, Carbon Dioxide 28, Anion Gap 7.8, BUN 22 H, Creatinine 0.90, Estimated Creat Clear 47, Estimated GFR 60, Est GFR ( Amer) 72, Glucose 81, Calcium 8.6, Magnesium 2.0, Total Bilirubin 1.2, AST 32, ALT 23, Alkaline Phosphatase 104, Total Protein 5.4 L, Albumin 2.8 L D, Globulin 2.6, Albumin/Globulin Ratio 1.1, TSH 0.55, Free T4 2.09 I & O for Last 24 hours: Intake & Output 07/15/23 07/16/23 07/17/23 07/18/23 23:59 23:59 23:59 23:59 Intake Total 684.459 / 684.459 720 / 720 840 / 840 Output Total 3225 / 3225 2925 / 2925 1000 / 1000 Balance -2540.541 / -2540.541 -2205 / -2205 -160 / -160 Weight 159 lb 3 oz 159 lb 13.362 oz 160 lb 1.595 oz Constitutional Constitutional: no acute distress and average body habitus *Routine HEENT Exam Head: Present normocephalic and atraumatic ENT: Present mucous membranes moist *Routine Neck Exam Neck: Present supple, full ROM and normal carotid upstroke; Absent JVD, carotid bruit or lymphadenopathy *Routine Respiratory Exam Respiratory: Present CTA bilaterally, normal respiratory effort, able to speak in complete sentences and symmetric chest movement *Routine Cardiovascular Exam Cardiovascular: Present Normal S1, Normal S2 and irregularly irregular; Absent murmur or gallop *Routine Abdominal Exam Abdominal: Present soft and normoactive bowel sounds; Absent tenderness, distended or organomegaly *Routine Extremities Exam Extremities: Present full ROM, pulses intact and normal capillary refill; Absent cyanosis, clubbing or edema *Routine Skin Exam Skin: Present intact and warm; Absent erythema *Routine Neurological Exam Neurological: Present alert, oriented X3 and CN II-XII intact; Absent sensory deficit or motor deficit Routine Psychiatric Exam Psychiatric: Present normal affect Progress Note: A&P Assessment and plan (1) Atypical angina: Status: Acute (2) CAD (coronary atherosclerotic disease): Status: Acute (3) HFrEF (heart failure with reduced ejection fraction): Status: Acute (4) Cerebrovascular accident (CVA): Status: Chronic (5) Atrial fibrillation: Status: Acute (6) Left-sided weakness: Status: Acute (7) Hyperlipidemia: Status: Acute (8) Tachy-kaylah syndrome: Status: Acute (9) Symptomatic bradycardia: Status: Acute (10) Hypertension: Status: Chronic (11) Peripheral arterial disease: Status: Acute (12) Regional wall motion abnormality of heart: Status: Acute Assessment and Plan Assessment and Plan for All Diagnoses:: Plan: 1. The patient was admitted to the hospital with an acute exacerbation of congestive heart failure. The patient now has a reduced ejection fraction of approximately 20%. We do plan to continue with IV diuresis for her HFrEF. 2. Continue Entresto and Jardiance for HFrEF. 3. Will start spironolactone 25 mg daily for HFrEF. 4. The patient has had an interval reduction in her ejection fraction. Her EF is now approximately 20%. She also has regional wall motion abnormalities. Given her atypical angina, reduced EF and wall motion abnormalities, we will plan to proceed with left cardiac catheterization today to evaluate her coronary artery disease. 5. The patient has been educated the risk and benefits of proceeding with left cardiac catheterization. The patient verbalizes understanding and is agreeable in proceeding with the procedure. 6. Her blood pressure is well-controlled. 7. Her LDL goal is less than 55. Will obtain a lipid panel in the morning. She has been started on Lipitor. 8. The patient does have atrial fibrillation. She is rate controlled today. Her metoprolol was stopped yesterday due to bradycardia. Will continue to hold beta-hamilton at this time. 9. Her heart rate has responded well to being off of the metoprolol. She has had no tachycardia or bradycardia since that time. No plans for permanent pacemaker placement at this time. However, the patient adamantly declines proceeding with permanent pacemaker placement. 10. The patient has severe LV dysfunction. She does increase risk for sudden cardiac . Due to her severe LV dysfunction the patient is a candidate for a LifeVest prior to discharge home. Will have a long discussion with the patient about this tomorrow to see if she is willing to wear the LifeVest and if so then we will get a LifeVest ordered prior to her discharge. 11. Further recommendations will be made pending the patient's response to treatment and the results of her left cardiac catheterization today. Thank you for the opportunity to help participate in the care of this patient. All recommendations and orders are per Dr. Antonio.
--- NOTE | 2023-07-18 14:19 | PC.NURSE ---
Pt. aox3 with some confusion at times, f/c, vss, to have a heart cath later today.
[2023-07-18] MEDS: LIDOCAINE 1% 10ML MDV 20 ML IJ (16:54)
[2023-07-18] MEDS: 0.9 % SODIUM CHLORIDE 500 ML 25 ML IV (16:54)
[2023-07-18] MEDS: HEPARIN 1,000 UNITS/ML 10ML VIAL (CATH LAB) 10000 UNIT IV (16:54)
[2023-07-18] MEDS: HEPARIN 1,000 UNITS/500ML NS (CATH LAB) 3000 UNIT IV (16:54)
[2023-07-18] MEDS: VERAPAMIL 2.5MG/ML 2ML VIAL 2.5 MG IV (16:55)
[2023-07-18] MEDS: diphenhydrAMINE 50MG/ML VIAL 50 MG IV (16:55)
[2023-07-18] MEDS: NITROGLYCERIN 800MCG/8ML SYR (CATH LAB) 800 MCG IA (16:55)
[2023-07-18] MEDS: MIDAZOLAM HCL 1MG/1ML 5ML VIAL 1 MG IV (17:47)
[2023-07-18] MEDS: FENTANYL 100MCG/2ML VIAL 50 MCG IV (17:47)
[2023-07-18] MEDS: IOPAMIDOL-370 (76%);100ML BOTTLE 50 ML IV (18:03)
--- NOTE | 2023-07-18 18:20 | PC.NURSE ---
In report nurse states Yuan is aware with patient's HR in the 140's and he is okay with this HR.
--- NOTE | 2023-07-18 19:12 | PC.NURSE ---
Charge nurse aware of some spotting on pt's right groin dressing. Checked twice with other nurse Zaira HEWITT. No Hematoma noted, area soft right groin.
[2023-07-18] MEDS: ATORVASTATIN 40MG TABLET 80 MG PO (20:51)
[2023-07-18] MEDS: TRAZODONE 50MG TABLET 50 MG PO (20:51)
[2023-07-19] VITALS (10 sets, daily range): BP systolic 86–136; BP diastolic 38–76; PULSE 50–112; RESP 16–18; TEMP 36.2–37.2; O2SAT 91–98; BMI 25.7
--- NOTE | 2023-07-19 03:43 | PC.NURSE ---
Patient alert and orient to self and situation, episodes of confusion noted. Denies pain this far in shift. s/p cardiac cath on 07/18/23. Surgical Site is right radial and right groin. Dressing C/D/I to right wrist, dressing to right groin noted with old red blood which was noted on dayshift and during report, MD aware. Vital signs stable. Patient currently laying in bed with eyes closed. Granddaughter sitting at bedside.
--- NOTE | 2023-07-19 03:51 | PC.NURSE ---
Patient ordered from regional engineer continuous and pulse ox continuous per Dr. Bolden. Staff placed pulse ox on patient twice and patient keep pulling it off. 02 being monitored closely d/t patient noted cooperating with care. 02 has been greater than 90% on 2L per NC this far in shift. Patient continues to deny pain.
[2023-07-19 06:42] LABS: Chol/HDL Ratio 4.3 (1-3.5); Cholesterol 182 mg/dl (140-200); HDL Cholesterol 42 mg/dl (40-60); Triglycerides 95 mg/dl (30-150); VLDL Cholesterol 19 mg/dL (0-40)
[2023-07-19 06:49] LABS: Alanine Aminotransferase 20 U/L (12-78); Alkaline Phosphatase 106 U/L (38-126); Anion Gap 3.7 mEq/L (5-15); Aspartate Amino Transferase 25 U/L (14-36); Bilirubin,Total 1.5 mg/dl (0.2-1.3); Blood Urea Nitrogen 19 mg/dl (7-17); Calcium 8.2 mg/dl (8.4-10.2); Carbon Dioxide 30 mmol/L (22.0-30.0); Chloride 105 mmol/L (98-107); Creatinine Clearance Estimated 47 mL/min (50-200); Estimated Glomerular Filt Rate 60 ml/min (>60); GFR (African American) 72 ML/MIN (>60); Globulin 2.9 g/dL (1.3-3.2); Glucose 81 mg/dl (74-100); Potassium 3.7 mmoL/L (3.5-5.1); Sodium 135 mmol/L (136-145); Total Protein,Serum 5.9 g/dl (6.3-8.2)
[2023-07-19 06:53] LABS: Direct LDL Cholesterol 102.14 mg/dL (100-129)
[2023-07-19 08:13] LABS: Basophils % 0.6 % (0.1-2.0); Eosinophils # 0.1 K/mm3 (0.0-0.4); Hematocrit 40.4 % (37.0-47.0); Hemoglobin 13.1 g/dL (12.2-16.2); Lymphocytes # 1.1 K/mm3 (0.7-4.5); Lymphocytes % 17.6 % (10-50); Mean Corpuscular HGB Conc 32.4 g/dL (31.8-35.4); Mean Corpuscular Hemoglobin 27.4 pg (27.0-31.2); Mean Corpuscular Volume 84.5 fl (81-99); Mean Platelet Volume 9.1 fl (7.4-10.4); Monocytes # 0.5 K/mm3 (0.1-1.0); Monocytes % 7.5 % (1.7-9.3); Neutrophils # 4.6 K/mm3 (1.8-7.8); Neutrophils % 72.2 % (37.0-80.0); Platelet Count 211 K/mm3 (142-424); Red Blood Count 4.78 M/mm3 (4.20-5.40); White Blood Count 6.4 K/mm3 (4.8-10.8)
--- NOTE | 2023-07-19 10:13 | PC.NURSE ---
HOSPICE CONSULT IN PROGRESS WILL ADMIN MORNING MEDICATIONS AFTER CONSULT
[2023-07-19] MEDS: EMPAGLIFLOZIN 10MG TABLET 10 MG PO (10:27)
[2023-07-19] MEDS: SACUBITRIL/VALSARTAN 24-26MG TABLET 1 EACH PO ×2 (10:27→21:25)
[2023-07-19] MEDS: DIGOXIN 0.125MG TABLET 125 MCG PO (10:29)
[2023-07-19] MEDS: APIXABAN 5MG TABLET 5 MG PO ×2 (10:29→21:25)
[2023-07-19] MEDS: FUROSEMIDE 40MG/4ML VIAL 40 MG IV (10:30)
[2023-07-19] MEDS: POTASSIUM CHLORIDE 20MEQ TAB 20 MEQ PO ×2 (10:30→21:25)
[2023-07-19] MEDS: SPIRONOLACTONE 25MG TABLET 25 MG PO (10:32)
[2023-07-19] MEDS: ASPIRIN EC 81MG TABLET 81 MG PO (10:33)
--- NOTE | 2023-07-19 11:33 | EXP.ACUTE.PN ---
Subjective *Date: 07/19/23 *Time: 13:59 Interval history: Patient remains quite fatigued. After cath yesterday, recommendation is for hospice. Family would like hospice consult today. Patient tolerating p.o. intake. Significant diuresis during admission. No chest pain. Stable on 2 L nasal cannula oxygen. Medical Exam Vital signs and Labs for Last 24 Hours: Vital Signs Temp Pulse Pulse Resp BP Pulse Ox O2 Del Method 07/19/23 10:29 82 07/19/23 08:00 97.1 F L 50 L 18 125/74 95 Room Air 07/19/23 08:00 105 H 07/19/23 04:00 98.9 F 96 H 17 112/68 96 Room Air 07/19/23 04:00 80 07/19/23 05:00 Nasal Cannula 07/19/23 00:00 80 07/18/23 20:00 130 H 07/19/23 03:00 Nasal Cannula 07/19/23 01:00 Nasal Cannula 07/18/23 20:00 128 H 97 Nasal Cannula 07/19/23 00:35 97.8 F 112 H 18 136/76 93 L Nasal Cannula 07/19/23 00:05 75 17 91/38 L 91 L Nasal Cannula 07/18/23 23:05 92 H 16 85/38 L 91 L Nasal Cannula 07/18/23 23:00 Nasal Cannula 07/18/23 22:05 97.5 F L 140 H 17 134/66 99 Nasal Cannula 07/18/23 21:05 97 H 17 99/57 L 96 Nasal Cannula 07/18/23 21:00 Nasal Cannula 07/18/23 20:35 123 H 16 90/59 L 97 Nasal Cannula 07/18/23 20:05 128 H 17 91/68 L 97 Nasal Cannula 07/18/23 19:35 97.1 F L 130 H 16 99/42 L 95 Nasal Cannula 07/18/23 19:05 99.9 F H 137 H 17 105/60 L 96 Nasal Cannula 07/18/23 18:50 99.9 F H 139 H 17 99/45 L 96 Nasal Cannula 07/18/23 18:35 99.9 F H 151 H 18 132/98 H 96 Nasal Cannula 07/18/23 18:20 99.9 F H 146 H 18 146/75 H 94 L Nasal Cannula 07/18/23 18:05 100 F H 140 H 17 143/99 H 95 Nasal Cannula 07/18/23 18:22 Nasal Cannula 07/18/23 17:59 135 H 140 H 15 143/99 H 92 L Room Air 07/18/23 15:00 Nasal Cannula 07/18/23 12:00 100 H 07/18/23 15:28 97.4 F L 91 H 16 138/66 96 Nasal Cannula 07/18/23 13:00 Nasal Cannula 07/18/23 11:35 97.8 F 107 H 16 134/65 94 L Nasal Cannula O2 Flow Rate 07/19/23 10:29 07/19/23 08:00 07/19/23 08:00 07/19/23 04:00 07/19/23 04:00 07/19/23 05:00 2 07/19/23 00:00 07/18/23 20:00 07/19/23 03:00 2 07/19/23 01:00 2 07/18/23 20:00 2 07/19/23 00:35 2 07/19/23 00:05 2 07/18/23 23:05 2 07/18/23 23:00 2 07/18/23 22:05 2 07/18/23 21:05 2 07/18/23 21:00 2 07/18/23 20:35 07/18/23 20:05 2 07/18/23 19:35 2 07/18/23 19:05 2 07/18/23 18:50 2 07/18/23 18:35 2 07/18/23 18:20 2 07/18/23 18:05 2 07/18/23 18:22 1 07/18/23 17:59 07/18/23 15:00 1 07/18/23 12:00 07/18/23 15:28 2 07/18/23 13:00 1 07/18/23 11:35 2 Intake and Output 07/18/23 07/19/23 07/19/23 23:59 07:59 15:59 Intake Total 60 / 180 120 / 180 Output Total 1100 / 1100 Balance -1040 / -920 120 / -920 Intake: Intake, Oral Amount 60 / 180 120 / 180 Output: Output, Urine Amount 1100 / 1100 Other: Number of Unmeasured Voids 0 Number of Bowel Movements 1 Weight 72.62 kg Patient Weight 07/19/23 23:59 Weight 72.62 kg Laboratory Results - last 24 hr 07/19/23 06:02: WBC 6.4, RBC 4.78, Hgb 13.1, Hct 40.4, MCV 84.5, MCH 27.4, MCHC 32.4, RDW 15.0, Plt Count 211, MPV 9.1, Neut % (Auto) 72.2, Lymph % (Auto) 17.6, [place] % (Auto) 7.5, Eos % (Auto) 2.0, Baso % (Auto) 0.6, Neut # (Auto) 4.6, Lymph # (Auto) 1.1, [place] # (Auto) 0.5, Eos # (Auto) 0.1, Baso # (Auto) 0.0, Sodium 135 L, Potassium 3.7, Chloride 105, Carbon Dioxide 30, Anion Gap 3.7 L, BUN 19 H, Creatinine 0.90, Estimated Creat Clear 47, Estimated GFR 60, Est GFR ( Amer) 72, Glucose 81, Calcium 8.2 L, Total Bilirubin 1.5 H, AST 25, ALT 20, Alkaline Phosphatase 106, Total Protein 5.9 L, Albumin 3.0 L, Globulin 2.9, Albumin/Globulin Ratio 1.0 L, Triglycerides 95, Cholesterol 182, LDL Cholesterol Direct 102.14, VLDL Cholesterol 19, HDL Cholesterol 42, Cholesterol/HDL Ratio 4.3 H I & O for Labs for Last 24 Hours: Intake & Output 07/16/23 07/17/23 07/18/23 07/19/23 23:59 23:59 23:59 23:59 Intake Total 684.459 / 684.459 720 / 720 840 / 900 180 / 180 Output Total 3225 / 3225 2925 / 2925 3050 / 3550 1100 / 1100 Balance -2540.541 / -2540.541 -2205 / -2205 -2210 / -2650 -920 / -920 Weight 72.206 kg 72.5 kg 72.62 kg 72.62 kg Constitutional: Present no acute distress, average body habitus and chronically ill appearing Head: Present atraumatic and normocephalic ENT: Present normal exam Respiratory: Present normal respiratory effort; Absent rhonchi, wheezes or crackles Cardiac: Present Irregularly Regular GI: Present soft and normal bowel sounds; Absent distention or tenderness Extremities: Present normal inspection and full ROM Skin: Present intact; Absent erythema Neuro: Present Grossly Intact, alert, awake and moves all extremities Comment:: Alert to person and place Assessment and Plan *Assessment and plan (1) HFrEF (heart failure with reduced ejection fraction): Status: Acute Category: Medical Code(s): I50.20 - Unspecified systolic (congestive) heart failure (2) Ischemic cardiomyopathy: Status: Acute Category: Medical Code(s): I25.5 - Ischemic cardiomyopathy (3) CHF exacerbation: Status: Acute Qualifiers: Heart failure type: combined systolic and diastolic Qualified Code(s): I50.43 - Acute on chronic combined systolic (congestive) and diastolic (congestive) heart failure Category: Medical Code(s): I50.9 - Heart failure, unspecified (4) Chronic systolic heart failure: Status: Acute Category: Medical Code(s): I50.22 - Chronic systolic (congestive) heart failure (5) CAD (coronary atherosclerotic disease): Status: Acute Qualifiers: Associated angina: without angina Coronary Disease-Associated Artery/Lesion type: [place] artery [place] vs. transplanted heart: [place] heart Qualified Code(s): I25.10 - Atherosclerotic heart disease of [place] coronary artery without angina pectoris Category: Medical Code(s): I25.10 - Atherosclerotic heart disease of [place] coronary artery without angina pectoris (6) Cerebrovascular accident (CVA): Status: Chronic Qualifiers: CVA mechanism: embolism Category: Medical Code(s): I63.9 - Cerebral infarction, unspecified (7) Atrial fibrillation: Status: Acute Qualifiers: Atrial fibrillation type: permanent Qualified Code(s): I48.21 - Permanent atrial fibrillation Category: Medical Code(s): I48.91 - Unspecified atrial fibrillation (8) Left-sided weakness: Status: Acute Category: Medical Code(s): R53.1 - Weakness Plan 87-year-old female with multiple comorbidities, history of strokes, history of heart failure. Presentation concerning for CHF exacerbation. Discussed case with ER, request admission for further diuresis, eval by therapy, further inpatient management. Medicine agreed to admit for further treatment. Diuresing well. Continue Lasix. Volume status negative since admission. Cardiology assisting with care. Taken for heart cath with critical multivessel disease, patient not a candidate for intervention. Her risk of intervention outweighs potential benefit, high risk of . Cardiology recommends pursuing hospice. Discussed case with family, they would like to pursue hospice at this time. Hospice consulted and evaluated patient this morning. Will admit patient to hospice at home. Plan to take patient home in the next 24 hours once hospice has gotten patient's home set up and nighttime sitter schedule has been established. Continuing treatment as follows: Heart failure with reduced ejection fraction, acute on chronic exacerbation A-fib Bradycardia -Discussed case with cardiology, no further interventions available. Recommend keeping patient comfortable and managing symptoms as best as possible. -Given findings on heart cath with critical multivessel disease, hospice consulted today. Repeat echo with EF of 20% and severely elevated RVSP. - Continuing digoxin at home dose of 125 mcg daily. Holding metoprolol. - Continue Eliquis 5 mg to daily. -Continue Entresto 24/26 mg twice daily for heart failure. -Lasix 40 mg p.o. daily. Reviewed kidney function electrolytes, remain within a normal range today. Repeat CMP for the morning History of strokes, left-sided weakness -Patient lives by herself, given weakness, concern for safety going home. Initial recommendation was for placement, after recommendation from cardiology for hospice, family has changed their minds. Sleep disorder: Continue trazodone 50 mg nightly as needed. Will hold on temazepam given weakness and concern for worsening her condition in conjunction with patient's advanced age of 87 years DNR Cardiac diet jamari
--- NOTE | 2023-07-19 12:46 | EXP.CARD.PN ---
Subjective Subjective Date: 07/19/23 Time: 10:30 Principal diagnosis: afib, bradycardia, CM Interval history: This is an 87-year-old female presented to the emergency department with complaints of shortness of breath and weakness. The patient was found to have an acute exacerbation of HFrEF. The patient had previously had an ejection fraction around 45 to 50% but her EF dropped down to 20% with akinesis of the septal and anterior septal curiel. The patient underwent left cardiac catheterization yesterday and was found to have severe to critical three-vessel coronary artery disease. Her family decided with medical management and not to consider high risk percutaneous intervention at her age. This was reasonable given her critical diffuse disease and the high risk nature of her coronary artery disease. This morning she does states that she still feels really tired from the sedation medicine she got yesterday. She denies any chest pain or pressure. She denies any shortness of breath or edema. She denies any fever, chills, nausea, vomiting, diarrhea. Exam Data for Last 24 hours Vital signs and Labs for Last 24 Hours: Temp Pulse Resp BP Pulse Ox O2 Del Method O2 Flow Rate 97.1 F L 82 18 125/74 95 Room Air 2 07/19/23 08:00 07/19/23 10:29 07/19/23 08:00 07/19/23 08:00 07/19/23 08:00 07/19/23 08:00 07/19/23 05:00 Laboratory Results - last 24 hr 07/19/23 06:02: WBC 6.4, RBC 4.78, Hgb 13.1, Hct 40.4, MCV 84.5, MCH 27.4, MCHC 32.4, RDW 15.0, Plt Count 211, MPV 9.1, Neut % (Auto) 72.2, Lymph % (Auto) 17.6, [place] % (Auto) 7.5, Eos % (Auto) 2.0, Baso % (Auto) 0.6, Neut # (Auto) 4.6, Lymph # (Auto) 1.1, [place] # (Auto) 0.5, Eos # (Auto) 0.1, Baso # (Auto) 0.0, Sodium 135 L, Potassium 3.7, Chloride 105, Carbon Dioxide 30, Anion Gap 3.7 L, BUN 19 H, Creatinine 0.90, Estimated Creat Clear 47, Estimated GFR 60, Est GFR ( Amer) 72, Glucose 81, Calcium 8.2 L, Total Bilirubin 1.5 H, AST 25, ALT 20, Alkaline Phosphatase 106, Total Protein 5.9 L, Albumin 3.0 L, Globulin 2.9, Albumin/Globulin Ratio 1.0 L, Triglycerides 95, Cholesterol 182, LDL Cholesterol Direct 102.14, VLDL Cholesterol 19, HDL Cholesterol 42, Cholesterol/HDL Ratio 4.3 H I & O for Last 24 hours: Intake & Output 07/16/23 07/17/23 07/18/23 07/19/23 23:59 23:59 23:59 23:59 Intake Total 684.459 / 684.459 720 / 720 840 / 900 180 / 180 Output Total 3225 / 3225 2925 / 2925 3050 / 3550 1100 / 1100 Balance -2540.541 / -2540.541 -2205 / -2205 -2210 / -2650 -920 / -920 Weight 159 lb 3 oz 159 lb 13.362 oz 160 lb 1.595 oz 160 lb 1.595 oz Constitutional Constitutional: no acute distress and average body habitus *Routine HEENT Exam Head: Present normocephalic and atraumatic ENT: Present mucous membranes moist *Routine Neck Exam Neck: Present supple, full ROM and normal carotid upstroke; Absent JVD, carotid bruit or lymphadenopathy *Routine Respiratory Exam Respiratory: Present CTA bilaterally, normal respiratory effort, able to speak in complete sentences and symmetric chest movement *Routine Cardiovascular Exam Cardiovascular: Present Normal S1, Normal S2 and irregularly irregular; Absent murmur or gallop *Routine Abdominal Exam Abdominal: Present soft and normoactive bowel sounds; Absent tenderness, distended or organomegaly *Routine Extremities Exam Extremities: Present full ROM, pulses intact and normal capillary refill; Absent cyanosis, clubbing or edema *Routine Skin Exam Skin: Present intact and warm; Absent erythema *Routine Neurological Exam Neurological: Present alert, oriented X3 and CN II-XII intact; Absent sensory deficit or motor deficit Routine Psychiatric Exam Psychiatric: Present normal affect Progress Note: A&P Assessment and plan (1) HFrEF (heart failure with reduced ejection fraction): Status: Acute (2) CAD (coronary atherosclerotic disease): Status: Acute (3) Cerebrovascular accident (CVA): Status: Chronic (4) Atrial fibrillation: Status: Acute (5) Left-sided weakness: Status: Acute (6) Ischemic cardiomyopathy: Status: Acute (7) Hyperlipidemia: Status: Acute (8) Tachy-[place] syndrome: Status: Acute (9) Hypertension: Status: Chronic (10) Atrial fibrillation with RVR: Status: Acute Assessment and Plan Assessment and Plan for All Diagnoses:: Plan: 1. The patient was admitted to the hospital with acute exacerbation of HFrEF. The patient's ejection fraction is now reduced to around 20% and she had wall motion abnormalities. The patient has been on diuretics getting IV Lasix. Will switch her over to Lasix 40 mg p.o. daily. 2. The patient did get bradycardic during her hospitalization and cardiology was consulted. Her metoprolol was stopped and her heart rate has been well-controlled since that time. She was having some tachycardia when she was bradycardic and her tachycardia also improved. She was a little tachycardic yesterday following her left cardiac catheterization but her heart rate is stable at this time. 3. The patient did undergo a left cardiac catheterization yesterday secondary to an interval reduction in her ejection fraction and shortness of breath. The patient was found to have severe to critical coronary artery disease. She was not a candidate for bypass surgery and proceeding with PCI would be a very high risk intervention. The family decided to continue with medical management as this is what the patient would want. This is reasonable given the critical nature of her disease and how high risk the procedure would be at her age. Medical management for her coronary artery disease at this time. 4. We do recommend aspirin 81 mg daily and Lipitor 80 mg p.o. nightly for her coronary artery disease 5. No beta-[place] due to her bradycardia. 6. Continue oral Lasix, spironolactone, Entresto and Jardiance for HFrEF. 7. The patient does have atrial fibrillation. Will continue digoxin. 8. She is on long-term anticoagulation with Eliquis. 9. Her blood pressure is well-controlled. 7. Her LDL goal is less than 55. Her LDL is 102. She is on a statin. 8. The patient does have severe LV dysfunction. She is at increased risk for sudden cardiac due to her severe LV dysfunction. The patient declines a LifeVest at this time. 9. Hospice has been consulted for her critical coronary artery disease and heart failure. 10. No further recommendations at this time from a cardiac standpoint. Thank you for the opportunity to help participate in the care of this patient. All recommendations and orders are per Dr. Antonio.
[2023-07-19] MEDS: FUROSEMIDE 40 MG TABLET PO (14:49)
[2023-07-20] VITALS: BP 98/46; PULSE 100; PULSE 89; RESP 18; TEMP 36.4; O2SAT 95
[2023-07-20 04:00] VITALS: BP 118/52; PULSE 111; RESP 18; TEMP 36.4; O2SAT 100; BMI 23.6
[2023-07-20 07:10] LABS: Alanine Aminotransferase 17 U/L (12-78); Albumin Level 3.1 g/dl (3.5-5.0); Albumin/Globulin Ratio 1.1 (1.1-1.8); Alkaline Phosphatase 92 U/L (38-126); Anion Gap 5.2 mEq/L (5-15); Aspartate Amino Transferase 26 U/L (14-36); Bilirubin,Total 1.1 mg/dl (0.2-1.3); Blood Urea Nitrogen 22 mg/dl (7-17); Calcium 8.4 mg/dl (8.4-10.2); Carbon Dioxide 30 mmol/L (22.0-30.0); Chloride 103 mmol/L (98-107); Creatinine Clearance Estimated 39 mL/min (50-200); Estimated Glomerular Filt Rate 47 ml/min (>60); GFR (African American) 57 ML/MIN (>60); Globulin 2.8 g/dL (1.3-3.2); Glucose 82 mg/dl (74-100); Potassium 4.2 mmoL/L (3.5-5.1); Sodium 134 mmol/L (136-145); Total Protein,Serum 5.9 g/dl (6.3-8.2)
--- NOTE | 2023-07-20 07:23 | EXP.DC.SUM ---
General Admission date:: 07/16/23 Discharge date: 07/20/23 HPI HPI HPI: Ms. Jones is an 87-year-old female who presented to the ER because of complaint of headache, shortness of breath, progressive weakness. Presentation in the ER stated she presented because of acute headache this morning at 2:30 AM. Eval after admission however family provides slightly different presentation history more concerning for shortness of breath, weakness, abdominal pain. History significant for peripheral vascular disease, CAD, A-fib, cardiomyopathy, history of strokes with residual deficits. History of aortic aneurysm status post graft repair. Extensive workup in the ER including head imaging, CT of the chest and abdomen, and initial labs including CBC, CMP, INR, BNP. Patient found to be in CHF exacerbation with elevated BNP of 18,000. Heart rate irregular in A-fib. Stable on room air however given weakness, symptoms, and need for diuresis, medicine was consulted for admission and further management. On my evaluation, patient is in bed laying on her left side. Heart rate is between 90 and 115. She reports having had a headache that was in the back of her head. Family at bedside reports that she was complaining of shortness of breath acutely this morning and called family. Denies any nausea, vomiting, diarrhea. Family is concerned as well because of weakness and patient lives by herself. They are worried about her going home and being safe in the home setting Patient is an 87-year-old female with past medical history peripheral vascular disease status post stent on Eliquis, CAD, A-fib, cardiomyopathy presenting with sudden onset headache 4.5 hours prior to arrival. Patient states that she had sudden onset severe headache at 2:27 AM which is 4.5 hours prior to arrival. She does have a history of known aneurysm that she was told by a neurologist about during a prior head imaging and given this she is very aware of if she has headache, states it was in the back of her head and has significantly decreased in severity but still present. She denies any numbness, tingling, weakness but presented for further evaluation given her history of aneurysm. Denies any chest pain, shortness of breath, nausea, vomiting, abdominal pain. Hospital Course Hospital Course Hospital Course: 87-year-old female with multiple comorbidities, history of strokes, history of heart failure. Presentation concerning for CHF exacerbation. Discussed case with ER, request admission for further diuresis, eval by therapy, further inpatient management. Medicine agreed to admit for further treatment. Diuresing well. Continue Lasix. Volume status negative since admission. Cardiology assisting with care. Taken for heart cath with critical multivessel disease, patient not a candidate for intervention. Her risk of intervention outweighs potential benefit, high risk of . Cardiology recommends pursuing hospice. Discussed case with family, they would like to pursue hospice at this time. Hospice consulted and evaluated patient. Patient is discharging to home with sitters and family and hospice care. Heart failure with reduced ejection fraction, acute on chronic exacerbation A-fib Bradycardia -Discussed case with cardiology, no further interventions available. Recommend keeping patient comfortable and managing symptoms as best as possible. Given findings on heart cath with critical multivessel disease, hospice consulted today. Repeat echo with EF of 20% and severely elevated RVSP. Continuing digoxin at home dose of 125 mcg daily. Holding metoprolol. Continue Eliquis 5 mg to daily. Continue Entresto 24/26 mg twice daily for heart failure. Lasix 40 mg p.o. daily. Reviewed kidney function electrolytes, remain within a normal range today. Sleep disorder: Continue trazodone 50 mg nightly as needed. Resume temazepam at home given goals of care. Exam Data for Last 24 hours Vital signs and Labs for Last 24 Hours: Temp Pulse Resp BP Pulse Ox O2 Del Method O2 Flow Rate 97.9 F 80 17 125/72 95 Room Air 2 07/18/23 04:00 07/18/23 08:13 07/18/23 04:00 07/18/23 04:00 07/18/23 08:00 07/18/23 08:00 07/17/23 20:00 Laboratory Results - last 24 hr 07/18/23 07:02: WBC 5.7, RBC 4.57, Hgb 12.7, Hct 39.9, MCV 87.4, MCH 27.9, MCHC 31.9, RDW 14.8, Plt Count 184, MPV 8.8, Neut % (Auto) 71.0, Lymph % (Auto) 18.4, [place] % (Auto) 7.3, Eos % (Auto) 2.3, Baso % (Auto) 1.0, Neut # (Auto) 4.0, Lymph # (Auto) 1.0, [place] # (Auto) 0.4, Eos # (Auto) 0.1, Baso # (Auto) 0.1, Sodium 137, Potassium 3.8, Chloride 105, TSH 0.55, Free T4 2.09 I & O for Last 24 hours: Intake & Output 07/15/23 07/16/23 07/17/23 07/18/23 23:59 23:59 23:59 23:59 Intake Total 684.459 / 684.459 720 / 720 Output Total 3225 / 3225 2925 / 2925 1000 / 1000 Balance -2540.541 / -2540.541 -2205 / -2205 -1000 / -1000 Weight 72.206 kg 72.5 kg 72.62 kg Constitutional Constitutional: no acute distress, average body habitus and chronically ill appearing *Routine HEENT Exam Head: Present normocephalic and atraumatic ENT: Present mucous membranes moist *Routine Neck Exam Neck: Present supple, full ROM and normal carotid upstroke; Absent JVD, carotid bruit or lymphadenopathy *Routine Respiratory Exam Respiratory: Present crackles (in bases), normal respiratory effort, able to speak in complete sentences and symmetric chest movement *Routine Cardiovascular Exam Cardiovascular: Present Normal S1, Normal S2 and irregularly irregular; Absent murmur or gallop *Routine Abdominal Exam Abdominal: Present soft and normoactive bowel sounds; Absent tenderness, distended or organomegaly *Routine Extremities Exam Extremities: Present pulses intact and normal capillary refill; Absent cyanosis, clubbing or edema *Routine Skin Exam Skin: Present intact and warm; Absent erythema *Routine Neurological Exam Neurological: Present alert, CN II-XII intact and moving all extremities; Absent sensory deficit, motor deficit or altered mental status Routine Psychiatric Exam Psychiatric: Present normal affect Results Data Completed and Pending Labs on day of discharge: Labs from last 24 hours 07/18/23 07:02 WBC 5.7 RBC 4.57 Hgb 12.7 Hct 39.9 MCV 87.4 MCH 27.9 MCHC 31.9 RDW 14.8 Plt Count 184 MPV 8.8 Neut % (Auto) 71.0 Lymph % (Auto) 18.4 [place] % (Auto) 7.3 Eos % (Auto) 2.3 Baso % (Auto) 1.0 Neut # (Auto) 4.0 Lymph # (Auto) 1.0 [place] # (Auto) 0.4 Eos # (Auto) 0.1 Baso # (Auto) 0.1 Sodium 137 Potassium 3.8 Chloride 105 TSH 0.55 Free T4 2.09 DS: Diagnosis Discharge Diagnosis (1) CHF exacerbation: Status: Acute Code(s): I50.9 - Heart failure, unspecified (2) Chronic systolic heart failure: Status: Acute Code(s): I50.22 - Chronic systolic (congestive) heart failure (3) CAD (coronary atherosclerotic disease): Status: Acute Code(s): I25.10 - Atherosclerotic heart disease of [place] coronary artery without angina pectoris Qualifiers: Associated angina: without angina Coronary Disease-Associated Artery/Lesion type: [place] artery [place] vs. transplanted heart: [place] heart Qualified Code(s): I25.10 - Atherosclerotic heart disease of [place] coronary artery without angina pectoris (4) Cerebrovascular accident (CVA): Status: Chronic Code(s): I63.9 - Cerebral infarction, unspecified Qualifiers: CVA mechanism: embolism (5) Atrial fibrillation: Status: Acute Code(s): I48.91 - Unspecified atrial fibrillation Qualifiers: Atrial fibrillation type: permanent Qualified Code(s): I48.21 - Permanent atrial fibrillation (6) Left-sided weakness: Status: Acute Code(s): R53.1 - Weakness Meds Home Medications and Allergies Home Medications Medication Instructions Recorded Confirmed Type trazodone 50 mg tablet 50 mg PO HS 07/26/22 07/17/23 History temazepam 15 mg capsule 15 mg PO HSP PRN Sleep 07/17/23 07/17/23 History apixaban 5 mg tablet (Eliquis) 5 mg PO BID 30 days #60 tabs 07/19/23 Rx digoxin 125 mcg (0.125 mg) tablet 125 mcg PO DAILY 30 days #30 tabs 07/19/23 Rx (Digox) furosemide 40 mg tablet 40 mg PO DAILY 30 days #30 tabs 07/19/23 Rx metoprolol tartrate 25 mg tablet 12.5 mg PO BID 30 days #30 tabs 07/19/23 Rx morphine concentrate 100 mg/5 mL 5 mg (0.25 mL) PO Q6H PRN pain #30 07/19/23 Rx (20 mg/mL) oral solution mL spironolactone 25 mg tablet 25 mg PO DAILY 30 days #30 tabs 07/19/23 Rx New Prescriptions to Start Prescriptions: apixaban [Eliquis] Feng Vicente digoxin [Digox] Feng Vicente furosemide Feng Vicente metoprolol tartrate Feng Vicente morphine concentrate Feng Vicente spironolactone Feng Vicente Allergies Allergy/AdvReac Type Severity Reaction Status Date / Time codeine Allergy Mild Vomiting/na Verified 07/16/23 14:43 usea meloxicam AdvReac Verified 07/16/23 14:43 Discharge Plan Disposition Patient Disposition: Hospice - Home Condition: Serious Discharge Order Discharge Orders: Discharge Order (Routine); Ordered 07/20/23 Ordered By: Feng Vicente Follow up Plan Prescriptions/Medication Reconciliation: New furosemide 40 mg Tablet 40 mg PO DAILY 30 Days Qty: 30 0RF spironolactone 25 mg Tablet 25 mg PO DAILY 30 Days Qty: 30 0RF digoxin [Digox] 125 mcg (0.125 mg) Tablet 125 mcg PO DAILY 30 Days Qty: 30 0RF metoprolol tartrate 25 mg Tablet 12.5 mg PO BID 30 Days Qty: 30 0RF Eliquis 5 mg Tablet 5 mg PO BID 30 Days Qty: 60 0RF morphine concentrate 100 mg/5 mL (20 mg/mL) solution 5 mg PO Q6H PRN (Reason: pain) Qty: 30 0RF Continued trazodone 50 mg tablet 50 mg PO HS temazepam 15 mg capsule 15 mg PO HSP PRN (Reason: Sleep) Discontinued furosemide 40 mg tablet 40 mg PO QODHS 90 Days Qty: 45 2RF multivitamin Tablet 1 tab PO DAILY metoprolol tartrate 25 mg tablet 25 mg PO TIDWMEAL mupirocin 2 % ointment 1 applic TOPICAL BID Problem Reconciliation Problems Reviewed?: Yes Patient Discharge Instructions ACTIVITY: Continue current activity and Bed rest DIET: continue same diet Patient Instructions: DI for Heart Failure, DI for Atrial Fibrillation Providers Primary Care Provider: Provider,Referral Admit Provider: Feng Vicente Attending Provider: Feng Vicente
[2023-07-20] MEDS: ACETAMINOPHEN 325MG TAB 650 MG PO (08:16)
[2023-07-20 10:25] VITALS: PULSE 111
[2023-07-20] MEDS: DIGOXIN 0.125MG TABLET 125 MCG PO (10:25)
[2023-07-20] MEDS: APIXABAN 5MG TABLET 5 MG PO (10:25)
[2023-07-20] MEDS: FUROSEMIDE 40 MG TABLET PO (10:26)
[2023-07-20] MEDS: SACUBITRIL/VALSARTAN 24-26MG TABLET 1 EACH PO (10:27)
[2023-07-20] MEDS: ASPIRIN EC 81MG TABLET 81 MG PO (10:27)
[2023-07-20] MEDS: SPIRONOLACTONE 25MG TABLET 25 MG PO (10:28)
[2023-07-20] MEDS: POTASSIUM CHLORIDE 20MEQ TAB 20 MEQ PO (10:34)
== END 2023-07-20 10:56 | disposition hospice, home (50) | DRG 286 ==
LOC: ER 10:26 → 2ND 12:36
PROVIDERS: Emergency Medicine; Internal Medicine; Nurse Practitioner Family; Admitting Provider Internal Medicine Adolescent Medicine; Emergency Provider Emergency Medicine; Visit Provider Internal Medicine Adolescent Medicine
DX: I11.0 Hypertensive heart disease with heart failure (principal); I50.23 Acute on chronic systolic (congestive) heart failure; I48.21 Permanent atrial fibrillation; I69.354 Hemiplegia and hemiparesis following cerebral infarction affecting left non-dominant side; I25.10 Atherosclerotic heart disease of native coronary artery without angina pectoris; Z79.01 Long term (current) use of anticoagulants; Z95.5 Presence of coronary angioplasty implant and graft; G47.9 Sleep disorder, unspecified; E78.5 Hyperlipidemia, unspecified; I27.20 Pulmonary hypertension, unspecified; Z96.652 Presence of left artificial knee joint; I25.5 Ischemic cardiomyopathy; R00.1 Bradycardia, unspecified
CPT/HCPCS: 36415; 51702; 70450; 71045; 71275; 74174; 80048; 80053; 80061; 81001; 82803; 83735; 83880; 84439; 84443; 84484; 85025; 85610; 85730; 86850; 93005; 93306; 93454; 97110; 97116; 97162; 97165; 97530; 97535; 99152; 99153; 99291; C1725; C1760; C1769; J1644; J3475; P9016; Q9967

== ENCOUNTER 2023-08-29 12:39 | Outpatient (CLI) | payer OTHER, SELFPAY ==
[2023-08-29 13:20] LABS: Microscopic, Urine URINE MICROSCOPIC (MICROSCOPIC)
[2023-08-29 13:24] LABS: Appearance,Urine CLEAR (Clear); Bilirubin,Urine Negative (Negative); Blood, Urine Negative (Negative); Color,Urine YELLOW (Yellow); Glucose,Urine (UA) Negative (Negative); Ketones,Urine Negative (Negative); Leukocyte Esterase,Urine Negative (Negative); Nitrate,Urine Negative (Negative); Protein,Urine Negative (Negative); Urobilinogen,Urine 0.2 EU/dl (0.2)
[2023-08-29 13:43] LABS: Bacteria,Urine 2+ /lpf; Mucus,Urine Trace /lpf; WBC,Urine Occasional #/hpf (0-3)
== END 2023-08-29 23:59 ==
LOC: LAB.DROPOF 12:41
PROVIDERS: PCP Family Medicine Hospice and Palliative Medicine; Visit Provider Family Medicine Hospice and Palliative Medicine
DX: R39.15 Urgency of urination (principal); R41.0 Disorientation, unspecified; B95.2 Enterococcus as the cause of diseases classified elsewhere
CPT/HCPCS: 81001; 87086

== ENCOUNTER → 2023-10-09 13:28 | Outpatient (REF) | payer OTHER, SELFPAY ==
[2023-10-09 13:49] LABS: Microscopic, Urine URINE MICROSCOPIC (MICROSCOPIC)
[2023-10-09 14:46] LABS: Appearance,Urine CLEAR (Clear); Bilirubin,Urine Negative (Negative); Blood, Urine Negative (Negative); Color,Urine YELLOW (Yellow); Glucose,Urine (UA) Negative (Negative); Ketones,Urine Negative (Negative); Leukocyte Esterase,Urine Negative (Negative); Nitrate,Urine Negative (Negative); PH,Urine 7.5 (5.0-8.5); Protein,Urine Negative (Negative)
[2023-10-09 15:17] LABS: Squamous Epithelial Cell,Urine Occasional #/hpf (0-5)
== END ==
LOC: LAB.DROPOF 13:28
PROVIDERS: Visit Provider Family Medicine Hospice and Palliative Medicine
DX: B96.89 Other specified bacterial agents as the cause of diseases classified elsewhere; R39.15 Urgency of urination
CPT/HCPCS: 81001; 87086

== ENCOUNTER 2023-11-20 13:49 | Emergency (ER) | payer OTHER, SELFPAY ==
[2023-11-20] VITALS (9 sets, daily range): BP systolic 87–118; BP diastolic 51–70; PULSE 55–74; RESP 16; TEMP 36.6–36.8; O2SAT 94–99; BMI 23.1
--- NOTE | 2023-11-20 14:02 | HMH.EDGENADL ---
Discharge Plan Disposition Patient Disposition: Home, Self-Care Condition: Good Prescriptions Prescriptions: No Action trazodone 50 mg tablet 50 mg PO HS temazepam 15 mg capsule 15 mg PO HSP PRN (Reason: Sleep) furosemide 40 mg Tablet 40 mg PO DAILY 30 Days Qty: 30 0RF spironolactone 25 mg Tablet 25 mg PO DAILY 30 Days Qty: 30 0RF digoxin [Digox] 125 mcg (0.125 mg) Tablet 125 mcg PO DAILY 30 Days Qty: 30 0RF metoprolol tartrate 25 mg Tablet 12.5 mg PO BID 30 Days Qty: 30 0RF Eliquis 5 mg Tablet 5 mg PO BID 30 Days Qty: 60 0RF morphine concentrate 100 mg/5 mL (20 mg/mL) solution 5 mg PO Q6H PRN (Reason: pain) Qty: 30 0RF Referrals Follow up/Referrals: Jacque Godinez APRN [Primary Care Provider] - See instructions Activity Restrictions/Add. Instructions Additional Instructions/Restrictions: Please follow-up with your PCP as needed. Please return to the emergency department for any worsening signs or symptoms including intractable headache, intractable nausea vomiting, change in level of consciousness or mental status. Clinical Impressions Clinical Impression: Hematoma Fall Qualifiers: Encounter type: subsequent encounter Qualified Code(s): W19.XXXD - Unspecified fall, subsequent encounter Discharge ED Provider: Medina Garcia General Adult HPI <GOPAL Stallworth - Last Filed: 11/20/23 16:06> General Chief complaint: Fall Stated complaint: 11/15 fell hit her head Time Seen by Provider: 11/20/23 14:02 Mode of Arrival: Wheelchair Source of Information: Patient Limitations: No Limitations Description of Symptoms (Recalled from ER Triage Doc. by RN): Patient states she tripped on her carpet on Saturday causing her to fall and hit her head. Denies LOC. Grand daughter states the patient would not get seen Saturday but when her Hospice nurse came today the patient complained of soreness and dizziness and recommended she come to the er for evaluation. History of Present Illness HPI narrative: Patient presents for evaluation of a hematoma. Patient had an accidental trip on Saturday and on Saturday. Patient suffered no injury on Saturday however on Saturday she struck her right upper forehead. She did not lose consciousness. She is however on blood thinners and significant hematoma developed. However she has had no headache no neck pain no nausea no vomiting no change in level of consciousness. She does report that her right knee is aching but fell on her right hip but did not strike her knee. Patient was sent for evaluation of the hematoma. Related Data Home Medications Medication Instructions Recorded Confirmed trazodone 50 mg tablet 50 mg PO HS 07/26/22 07/17/23 temazepam 15 mg capsule 15 mg PO HSP PRN Sleep 07/17/23 07/17/23 Previous Rx's Medication Instructions Recorded apixaban 5 mg tablet (Eliquis) 5 mg PO BID 30 days #60 tabs 07/19/23 digoxin 125 mcg (0.125 mg) tablet 125 mcg PO DAILY 30 days #30 tabs 07/19/23 (Digox) furosemide 40 mg tablet 40 mg PO DAILY 30 days #30 tabs 07/19/23 metoprolol tartrate 25 mg tablet 12.5 mg (1/2 x 25 mg) PO BID 30 07/19/23 days #30 tabs morphine concentrate 100 mg/5 mL 5 mg (0.25 mL) PO Q6H PRN pain #30 07/19/23 (20 mg/mL) oral solution mL spironolactone 25 mg tablet 25 mg PO DAILY 30 days #30 tabs 07/19/23 Allergies Allergy/AdvReac Type Severity Reaction Status Date / Time codeine Allergy Mild Vomiting/na Verified 07/16/23 14:43 usea meloxicam AdvReac Verified 07/16/23 14:43 [facility] <GOPAL Stallworth - Last Filed: 11/20/23 16:06> [facility] Disclaimer: The information contained in this section may have been updated after the patient was seen, as this information can be updated by other users. Medical History (Updated 11/20/23 @ 16:06 by GOPAL Stallworth) Ischemic cardiomyopathy Regional wall motion abnormality of heart Atypical angina HFrEF (heart failure with reduced ejection fraction) Hx of cardiomyopathy Tachy-kayl[place] syndrome Symptomatic bradycardia History of stroke Congestive heart failure Hyperlipidemia Hypertension Left-sided weakness Pincer nail deformity Edema Hammer toe Callus of foot Osteomyelitis Onychoincurvatum Encounter for wound care Ulcer of right foot Cardiomyopathy Pulmonary hypertension Hypokalemia Congestive heart failure Atrial fibrillation with rapid ventricular response Surgical History (Updated 07/24/23 @ 00:00 by Mitzi Khan) History of surgery History of left knee replacement Family History No significant family history Social History Smoking Status: Never smoker alcohol intake: never substance use type: denies use current occupational status: retired Travel in the last 8 weeks: None household members: none caffeine: No <GOPAL Stallworth - Last Filed: 11/20/23 16:06> ROS Obtained: Yes Systems reviewed as appropriate & no additional complaints except as documented Physical Exam <GOPAL Stallworth - Last Filed: 11/20/23 16:06> General General appearance: alert and in no apparent distress Eye Eye exam: Present normal appearance, PERRL and EOMI; Absent nystagmus Neck Neck exam: Present normal inspection and full ROM; Absent tenderness Respiratory Respiratory exam: Present normal lung sounds bilaterally Cardiovascular Cardiovascular exam: Present regular rate, normal rhythm and normal heart sounds Extremities Exam Extremities exam: Present normal inspection, full ROM and tenderness (Right medial knee but no ecchymosis no edema no deformity) Back Exam Back exam: Present normal inspection and full ROM; Absent tenderness Neurological Exam Neurological exam: Present alert, oriented X3 and CN II-XII intact Psychiatric Psychiatric exam: Present normal affect and normal mood Skin Skin exam: Present warm, dry and normal color (Patient has a approximately 10 cm area of ecchymosis on the right upper forehead along with a hematoma. Skin is intact.) Medical Decision Making <GOPAL Stallworth - Last Filed: 11/20/23 16:06> Medical Records Medical records reviewed: Yes I reviewed the patient's medical records. Chaz Inquiry Pt receiving controlled substance: No Vital Signs: 11/20/23 13:51 11/20/23 13:56 11/20/23 14:01 Temperature 97.9 F Temperature Source Oral Pulse Rate 74 61 Pulse Rate [Radial] 73 Respiratory Rate 16 Blood Pressure 118/55 L 101/55 L Blood Pressure [Right Arm] 118/55 L Blood Pressure Mean Blood Pressure Mean [Right Arm] 76 Blood Pressure Source Blood Pressure Source [Right Arm] Automatic Cuff Blood Pressure Position Blood Pressure Position [Right Arm] Sitting 02 Sat by Pulse Oximetry 97 96 99 Oxygen Delivery Method Room Air 05/15/24 14:31 11/20/23 15:00 11/20/23 16:00 Temperature Temperature Source Pulse Rate 66 55 L 60 Pulse Rate [Radial] Respiratory Rate Blood Pressure 96/64 L 106/51 L 104/58 L Blood Pressure [Right Arm] Blood Pressure Mean Blood Pressure Mean [Right Arm] Blood Pressure Source Blood Pressure Source [Right Arm] Blood Pressure Position Blood Pressure Position [Right Arm] 02 Sat by Pulse Oximetry 99 99 95 Oxygen Delivery Method Room Air 11/20/23 16:13 11/20/23 16:19 11/20/23 16:20 Temperature 98.0 F 98.2 F Temperature Source Oral Pulse Rate 63 63 73 Pulse Rate [Radial] Respiratory Rate 16 16 Blood Pressure 87/70 L 104/58 L 110/62 Blood Pressure [Right Arm] Blood Pressure Mean 72 Blood Pressure Mean [Right Arm] Blood Pressure Source Automatic Cuff Blood Pressure Source [Right Arm] Blood Pressure Position Sitting Blood Pressure Position [Right Arm] 02 Sat by Pulse Oximetry 95 Oxygen Delivery Method Room Air Room Air Room Air Lab Data Lab results reviewed: Yes I reviewed the patient's lab results. Lab Results 11/20/23 14:53: Sodium 139, Potassium 4.4, Chloride 103, Carbon Dioxide 31 H, Anion Gap 9.4, BUN 22 H, Creatinine 0.80, Estimated Creat Clear 40, Estimated GFR 68, Est GFR ( Amer) 82, Glucose 93, Calcium 10.3 H 11/20/23 14:53 Orders (Tests/Meds): ED MEDICATIONS Discontinued Medications Generic Name Dose Route Start Last Admin Trade Name Freq PRN Reason Stop Dose Admin Iopamidol 100 ml 11/20/23 15:38 11/20/23 15:40 Iopamidol-370 (76%);100ml Bottle IV 11/20/23 15:39 100 ml ONCE ONE Administration Sodium Chloride 40 ml 11/20/23 15:38 11/20/23 15:40 0.9 % Sodium Chloride 50 Ml Vial IV 11/20/23 15:39 40 ml ONCE ONE Administration Sodium Chloride 10 ml 11/20/23 15:38 11/20/23 15:40 Sodium Chloride 0.9% 10ml Syr (Rad Only) IV 11/20/23 15:39 10 ml ONCE ONE Administration ORDERS Category Date Time Status CT angio head Stat Cat Scan 11/20/23 14:[address] cervical spine wo con Stat Cat Scan 11/20/23 14:[address] head/brain wo con Stat Cat Scan 11/20/23 14:41 Completed BMP [Basic Metabolic Panel] Stat Lab 11/20/23 14:53 Completed Medical Decision Narrative: In summary patient is a 8-year-old female who presents to the emergency department for evaluation of fall and hematoma. Patient is hemodynamically stable upon arrival, afebrile. Physical exam is remarkable for ecchymosis and hematoma to right upper forehead that does not include the orbit. Extraocular movements are intact without pain. Patient has no C-spine tenderness and has full range of motion of her C-spine. Patient has no cranial deformities on palpation. Patient has no tenderness to palpation of her skull.. Differential diagnosis includes hematoma versus intracranial bleed versus occult fracture of the C-spine, skull, face. Initial workup will be conducted with mental logic labs CT scan of the head and neck. Initial workup reviewed by me shows that her hematologic labs are nonactionable and her imaging via my informal interpretation shows no acute fracture or intracranial bleed. Upon repeat evaluation she remains with [place] Coma Score 15 and pain-free. Given this appropriate for discharge home to follow-up with her PCP as needed <Polo Chavez MD - Last Filed: 11/21/23 10:10> Vital Signs: 11/20/23 13:51 11/20/23 13:56 11/20/23 14:01 Temperature 97.9 F Temperature Source Oral Pulse Rate 74 61 Pulse Rate [Radial] 73 Respiratory Rate 16 Blood Pressure 118/55 L 101/55 L Blood Pressure [Right Arm] 118/55 L Blood Pressure Mean Blood Pressure Mean [Right Arm] 76 Blood Pressure Source Blood Pressure Source [Right Arm] Automatic Cuff Blood Pressure Position Blood Pressure Position [Right Arm] Sitting 02 Sat by Pulse Oximetry 97 96 99 Oxygen Delivery Method Room Air 11/20/23 14:31 11/20/23 15:00 11/20/23 16:00 Temperature Temperature Source Pulse Rate 66 55 L 60 Pulse Rate [Radial] Respiratory Rate Blood Pressure 96/64 L 106/51 L 104/58 L Blood Pressure [Right Arm] Blood Pressure Mean Blood Pressure Mean [Right Arm] Blood Pressure Source Blood Pressure Source [Right Arm] Blood Pressure Position Blood Pressure Position [Right Arm] 02 Sat by Pulse Oximetry 99 99 95 Oxygen Delivery Method Room Air 11/20/23 16:13 11/20/23 16:19 11/20/23 16:20 Temperature 98.0 F 98.2 F Temperature Source Oral Pulse Rate 63 63 73 Pulse Rate [Radial] Respiratory Rate 16 16 Blood Pressure 87/70 L 104/58 L 110/62 Blood Pressure [Right Arm] Blood Pressure Mean 72 Blood Pressure Mean [Right Arm] Blood Pressure Source Automatic Cuff Blood Pressure Source [Right Arm] Blood Pressure Position Sitting Blood Pressure Position [Right Arm] 02 Sat by Pulse Oximetry 95 Oxygen Delivery Method Room Air Room Air Room Air Lab Data Lab Results 11/20/23 14:53: Sodium 139, Potassium 4.4, Chloride 103, Carbon Dioxide 31 H, Anion Gap 9.4, BUN 22 H, Creatinine 0.80, Estimated Creat Clear 40, Estimated GFR 68, Est GFR ( Amer) 82, Glucose 93, Calcium 10.3 H Orders (Tests/Meds): ED MEDICATIONS Discontinued Medications Generic Name Dose Route Start Last Admin Trade Name Freq PRN Reason Stop Dose Admin Iopamidol 100 ml 11/20/23 15:38 11/20/23 15:40 Iopamidol-370 (76%);100ml Bottle IV 11/20/23 15:39 100 ml ONCE ONE Administration Sodium Chloride 40 ml 11/20/23 15:38 11/20/23 15:40 0.9 % Sodium Chloride 50 Ml Vial IV 11/20/23 15:39 40 ml ONCE ONE Administration Sodium Chloride 10 ml 11/20/23 15:38 11/20/23 15:40 Sodium Chloride 0.9% 10ml Syr (Rad Only) IV 11/20/23 15:39 10 ml ONCE ONE Administration ORDERS Category Date Time Status CT angio head Stat Cat Scan 11/20/23 14:[address] cervical spine wo con Stat Cat Scan 11/20/23 14:[address] head/brain wo con Stat Cat Scan 11/20/23 14:41 Completed BMP [Basic Metabolic Panel] Stat Lab 11/20/23 14:53 Completed Medical Decision Narrative: In summary patient is a 8-year-old female who presents to the emergency department for evaluation of fall and hematoma. Patient is hemodynamically stable upon arrival, afebrile. Physical exam is remarkable for ecchymosis and hematoma to right upper forehead that does not include the orbit. Extraocular movements are intact without pain. Patient has no C-spine tenderness and has full range of motion of her C-spine. Patient has no cranial deformities on palpation. Patient has no tenderness to palpation of her skull.. Differential diagnosis includes hematoma versus intracranial bleed versus occult fracture of the C-spine, skull, face. Initial workup will be conducted with mental logic labs CT scan of the head and neck. Initial workup reviewed by me shows that her hematologic labs are nonactionable and her imaging via my informal interpretation shows no acute fracture or intracranial bleed. Upon repeat evaluation she remains with [place] Coma Score 15 and pain-free. Given this appropriate for discharge home to follow-up with her PCP as needed I was consulted by the DEVEN, and we discussed the complexity of the problems being addressed. I approved the treatment and management plan for this patient?s care in the Emergency Department, thus performing a substantive portion of the medical decision making. Polo Chavez MD Critical Care <GOPAL Stallworth - Last Filed: 11/20/23 16:06> Critical Care Time Critical Care Time: No
--- NOTE | 2023-11-20 14:26 | PC.NURSE ---
Hospice at bedside.
--- NOTE | 2023-11-20 14:41 | CT_ITS ---
FINAL REPORT CLINICAL HISTORY: Trauma FINDINGS: Axial CT images of the cervical spine were obtained without contrast. Sagittal and coronal reformatted images were also obtained. This study was performed with techniques to keep radiation doses as low as reasonably achievable (ALARA). Individualized dose reduction techniques using automated exposure control or adjustment of mA and/or kV according to the patient''s size were employed. Many of the images are degraded by motion artifact. There is no evidence of fracture or dislocation. Dextroscoliosis is noted. There is mild anterolisthesis of C3 on C4. There is also anterolisthesis of C7 on T1. Multilevel moderate and severe degenerative changes are seen. Multilevel osteophytes are present with multilevel bilateral neural foraminal narrowing. There is enlargement of the right thyroid lobe which may represent a goiter. No paraspinous soft tissue abnormality is seen. Limited images of the upper thorax are unremarkable. IMPRESSION: No fracture or acute bony abnormality identified. Multilevel degenerative disc disease and spondylosis with multilevel neural foraminal narrowing. Authenticated and ERN
--- NOTE | 2023-11-20 14:41 | CT_ITS ---
FINAL REPORT TECHNIQUE: Thin section axial CT with IV contrast supplemented with multiplanar reconstruction under CT angiogram protocol. 3-D reconstructions were performed. This study was performed with techniques to keep radiation doses as low as reasonably achievable (ALARA). Individualized dose reduction techniques using automated exposure control or adjustment of mA and/or kV according to the patient''s size were employed. CLINICAL HISTORY: Trauma FINDINGS: The distal vertebral, basilar and distal internal carotid arteries have an unremarkable appearance. No aneurysm is seen. Major intracranial vessels are patent without significant stenosis. The proximal anterior, middle and posterior cerebral arteries have an unremarkable appearance. IMPRESSION: No evidence of significant stenosis or major branch occlusion. Authenticated and ERN
--- NOTE | 2023-11-20 14:41 | CT_ITS ---
FINAL REPORT CLINICAL HISTORY: Trauma COMPARISON: July 16, 2023 FINDINGS: Axial images of the head were obtained without contrast. Coronal reformatted images were also obtained. This study was performed with techniques to keep radiation doses as low as reasonably achievable (ALARA). Individualized dose reduction techniques using automated exposure control or adjustment of mA and/or kV according to the patient''s size were employed. There is generalized age-appropriate atrophy. Periventricular low-attenuation areas are seen consistent with mild chronic ischemic changes. Right hemisphere areas of encephalomalacia are seen, stable. There is no evidence of intracranial hemorrhage or mass. There is no evidence of acute infarct. There is no evidence of shift of the midline structures. No skull abnormality is seen on the bone window images. IMPRESSION: Atrophy and mild periventricular chronic ischemic changes. Stable right hemisphere areas of encephalomalacia. No acute intracranial abnormality identified. Authenticated and ERN
[2023-11-20 15:21] LABS: Chloride 103 mmol/L (98-107); Potassium 4.4 mmoL/L (3.5-5.1); Sodium 139 mmol/L (136-145)
[2023-11-20 15:24] LABS: Anion Gap 9.4 mEq/L (5-15); Blood Urea Nitrogen 22 mg/dl (7-17); Calcium 10.3 mg/dl (8.4-10.2); Carbon Dioxide 31 mmol/L (22.0-30.0); Creatinine Clearance Estimated 40 mL/min (50-200); Estimated Glomerular Filt Rate 68 ml/min (>60); GFR (African American) 82 ML/MIN (>60); Glucose 93 mg/dl (74-100)
--- NOTE | 2023-11-20 15:38 | PC.NURSE ---
PT IS GONE TO CT
[2023-11-20] MEDS: SODIUM CHLORIDE 0.9% 10ML SYR (RAD ONLY) 10 ML IV (15:40)
[2023-11-20] MEDS: IOPAMIDOL-370 (76%);100ML BOTTLE 100 ML IV (15:40)
[2023-11-20] MEDS: 0.9 % SODIUM CHLORIDE 50 ML VIAL 40 ML IV (15:40)
--- NOTE | 2023-11-20 15:48 | PC.NURSE ---
provided patient with ice water at this time.
--- NOTE | 2023-11-20 15:55 | HMH.ITSTN ---
patient denies any hip or knee pain, patient stated she did not want xrays for this reason. ER aware.
== END 2023-11-20 16:20 | disposition home or self-care (01) ==
PROVIDERS: Physician Assistant; Emergency Provider Emergency Medicine; PCP Nurse Practitioner Family
DX: S00.83XA Contusion of other part of head, initial encounter (principal); M25.561 Pain in right knee; I11.0 Hypertensive heart disease with heart failure; I50.9 Heart failure, unspecified; I48.0 Paroxysmal atrial fibrillation; E78.5 Hyperlipidemia, unspecified; Z79.01 Long term (current) use of anticoagulants; Z86.73 Personal history of transient ischemic attack (TIA), and cerebral infarction without residual deficits; W19.XXXA Unspecified fall, initial encounter
CPT/HCPCS: 70450; 70496; 72125; 80048; 99285; Q9967

== ENCOUNTER 2023-12-04 18:18 | Emergency (ER) | payer OTHER, SELFPAY ==
[2023-12-04 19:40] VITALS: BP 144/77; PULSE 86; RESP 19; TEMP 36.5; O2SAT 99; BMI 23.9
--- NOTE | 2023-12-04 20:12 | ED_ITS ---
Discharge Plan Disposition Patient Disposition: Home, Self-Care Condition: Good Prescriptions Prescriptions: New cephalexin 500 mg capsule 500 mg PO Q8H 7 Days Qty: 21 0RF mupirocin 2 % ointment 1 applic topical TID 10 Days Qty: 22 0RF Rx Instructions: apply to wounds as directed No Action trazodone 50 mg tablet 50 mg PO HS temazepam 15 mg capsule 15 mg PO HSP PRN (Reason: Sleep) furosemide 40 mg Tablet 40 mg PO DAILY 30 Days Qty: 30 0RF spironolactone 25 mg Tablet 25 mg PO DAILY 30 Days Qty: 30 0RF digoxin [Digox] 125 mcg (0.125 mg) Tablet 125 mcg PO DAILY 30 Days Qty: 30 0RF metoprolol tartrate 25 mg Tablet 12.5 mg PO BID 30 Days Qty: 30 0RF Eliquis 5 mg Tablet 5 mg PO BID 30 Days Qty: 60 0RF morphine concentrate 100 mg/5 mL (20 mg/mL) solution 5 mg PO Q6H PRN (Reason: pain) Qty: 30 0RF Referrals Follow up/Referrals: Jacque Godinez APRN [Primary Care Provider] - See instructions Activity Restrictions/Add. Instructions Additional Instructions/Restrictions: Start antibiotic(s) immediately and be sure to take as ordered for the FULL length of time although you may be feeling better or start to see improvement in the next 24-48 hours *Monitor closely. Outlined redness so that you can monitor easier. Follow up immediately for new or worsening symptoms including but not limited to redness, swelling, streaking from site fever or chills. *Warm compress 15 minutes 3-4 times day *Never squeeze or pop these on your own. Seek immediate medical attention next time this occurs *Monitor Temp. Tylenol every 4 hours as needed and ibuprofen every 6 hours as needed (as long as your primary care doctor has told you that it is ok to take both. For fever, aches, pain. ER if no less that 101 despite Tylenol and ibuprofen ?Follow up with your family doctor/primary care physician in the next 48-72 hours if no improvement Clinical Impressions Clinical Impression: Cellulitis Instructions Patient Instructions: Cellulitis, Cephalexin Discharge ED Provider: Sangita Mendez [facility] [place] HPI General Stated complaint: swelling, redness toe on LT foot Mode of Arrival: Ambulatory Source of Information: Patient Limitations: No Limitations Time Seen by Provider: 12/04/23 20:12 Description of Symptoms (Recalled from Triage Doc. by RN): PATIENT C/O REDNESS, SWELLING, AND WARMTH TO LEFT FOOT SINCE YESTERDAY HEENT Symptoms (Recalled from RN notes): No Resp Symptoms (Recalled from RN notes): No Skin Symptoms (Recalled from RN notes): No MS Symptoms (Recalled from RN notes): Yes Functional Status (Recalled from RN notes): WNL History of Present Illness Provider Complaint: Patient states that she had a bad toenail on her left 3rd toe and she picked at it to removed it and she pulled a small piece of skin from it and then she noticed it was swelling and looking red States that she has been soaking it in warm water and epson salt but not helped much so this evening she came in to get checked Denies known injury to toe denies hitting toe Related Data Home Medications Medication Instructions Recorded Confirmed trazodone 50 mg tablet 50 mg PO HS 07/26/22 07/17/23 temazepam 15 mg capsule 15 mg PO HSP PRN Sleep 07/17/23 07/17/23 Previous Rx's Medication Instructions Recorded apixaban 5 mg tablet (Eliquis) 5 mg PO BID 30 days #60 tabs 07/19/23 digoxin 125 mcg (0.125 mg) tablet 125 mcg PO DAILY 30 days #30 tabs 07/19/23 (Digox) furosemide 40 mg tablet 40 mg PO DAILY 30 days #30 tabs 07/19/23 metoprolol tartrate 25 mg tablet 12.5 mg (1/2 x 25 mg) PO BID 30 07/19/23 days #30 tabs morphine concentrate 100 mg/5 mL 5 mg (0.25 mL) PO Q6H PRN pain #30 07/19/23 (20 mg/mL) oral solution mL spironolactone 25 mg tablet 25 mg PO DAILY 30 days #30 tabs 07/19/23 cephalexin 500 mg capsule 500 mg PO Q8H 7 days #21 caps 12/04/23 mupirocin 2 % topical ointment 1 applic topical TID 10 days #22 12/04/23 grams Allergies Allergy/AdvReac Type Severity Reaction Status Date / Time codeine Allergy Mild Vomiting/na Verified 07/16/23 14:43 usea meloxicam AdvReac Verified 07/16/23 14:43 Worker's Comp Is this a Worker's Comp case?: No [facility] Disclaimer: The information contained in this section may have been updated after the patient was seen, as this information can be updated by other users. Medical History (Updated 12/04/23 @ 20:38 by Sangita Mendez APRN) Ischemic cardiomyopathy Regional wall motion abnormality of heart Atypical angina HFrEF (heart failure with reduced ejection fraction) Hx of cardiomyopathy Tachy-kaylah syndrome Symptomatic bradycardia History of stroke Congestive heart failure Hyperlipidemia Hypertension Left-sided weakness Pincer nail deformity Edema Hammer toe Callus of foot Osteomyelitis Onychoincurvatum Encounter for wound care Ulcer of right foot Cardiomyopathy Pulmonary hypertension Hypokalemia Congestive heart failure Atrial fibrillation with rapid ventricular response Surgical History (Updated 07/24/23 @ 00:00 by Mitzi Khan) History of surgery History of left knee replacement Family History No significant family history Social History Smoking Status: Never smoker alcohol intake: never substance use type: denies use current occupational status: retired Travel in the last 8 weeks: None household members: none caffeine: No ROS Obtained: Yes All systems reviewed & no additional complaints except as documented and Yes Systems reviewed as appropriate & no additional complaints except as documented Constitutional Constitutional: Reports system reviewed and no additional complaints, except as documented and Reports as per HPI Cardiovascular Cardiovascular: Reports system reviewed and no additional complaints, except as documented and Reports as per HPI Respiratory Respiratory: Reports system reviewed and no additional complaints, except as documented and Reports as per HPI Gastrointestinal Gastrointestingal: Reports system reviewed and no additional complaints, except as documented and as per HPI Musculoskeletal Musculoskeletal: Reports system reviewed and no additional complaints, except as documented, Reports as per HPI and Reports other (redness and warmth to left foot 3rd toe and top of foot) Physical Exam General General appearance: alert and in no apparent distress Respiratory Respiratory exam: Present normal lung sounds bilaterally; Absent respiratory distress or wheezes Cardiovascular Cardiovascular exam: Present regular rate, normal rhythm and normal heart sounds Expanded Lower Extremity Exam Left: Top foot image: 2 1. Redness and mild warmth to 3rd toe and top of her foot, 3rd toe appears bent and swollen patient denies hitting or striking toe Neurological Exam Neurological exam: Present alert and oriented X3 Medical Decision Making Chaz Inquiry Pt receiving controlled substance: No Chaz was queried for this patient: No Vital Signs: 12/04/23 19:40 Temperature 97.7 F Temperature Source Oral Pulse Rate [Left Brachial] 86 Respiratory Rate 19 Blood Pressure [Left Arm] 144/77 H Blood Pressure Mean [Left Arm] 99 Blood Pressure Source [Left Arm] Automatic Cuff Blood Pressure Position [Left Arm] Sitting 02 Sat by Pulse Oximetry 99 Oxygen Delivery Method Room Air Medical Decision Narrative: Discussed with patient and recommended xray of foot and patient refused States she just wants antibiotics she did not hurt it or anything all this started after she pulled and ripped her toenail Discussed with patient concern for possible broken toe and she still declined States just wants antibitoics to treat the infection
[2023-12-04 20:35] VITALS: BP 144/77; PULSE 86; RESP 19; TEMP 36.5; O2SAT 99
[2023-12-04] MEDS: cephALEXin 500MG CAPSULE 500 MG PO (20:46)
== END 2023-12-04 20:44 | disposition home or self-care (01) ==
PROVIDERS: Emergency Provider Nurse Practitioner; PCP Nurse Practitioner Family
DX: L03.116 Cellulitis of left lower limb (principal)
CPT/HCPCS: 99212; 99214; G0463

== ENCOUNTER 2024-01-14 08:57 | Outpatient (CLI) | payer OTHER, SELFPAY ==
--- OUTSIDE RECORDS SUMMARY | 2024-01-14 09:00 | XMS_ITS ---
Author Name Unknown Organization Unknown ALLERGIES AND ADVERSE REACTIONS No information ASSESSMENT No information CHIEF COMPLAINT No information MEDICATIONS No information OBJECTIVE DATA No information PHYSICAL EXAMINATION No information TREATMENT PLAN Planned Care Start Date Provider Encounter for Check-up [id number] ALISHA Sanabria PROBLEMS No information RESULTS No information REVIEW OF SYSTEMS No information SUBJECTIVE DATA No information VITAL SIGNS No information
[2024-01-14 09:35] LABS: Microscopic, Urine URINE MICROSCOPIC (MICROSCOPIC)
[2024-01-14 09:41] LABS: Appearance,Urine CLOUDY (Clear); Bilirubin,Urine Negative (Negative); Blood, Urine Negative (Negative); Color,Urine YELLOW (Yellow); Glucose,Urine (UA) Negative (Negative); Ketones,Urine Negative (Negative); Leukocyte Esterase,Urine Negative (Negative); Nitrate,Urine Negative (Negative); Protein,Urine Negative (Negative)
[2024-01-14 09:50] LABS: Amorphous Sediment,Urine 1+ /lpf; Bacteria,Urine 1+ /lpf; Squamous Epithelial Cell,Urine Occasional #/hpf (0-5)
== END 2024-01-14 23:59 | disposition home or self-care (01) ==
PROVIDERS: Visit Provider Family Medicine Hospice and Palliative Medicine
DX: I51.9 Heart disease, unspecified (principal)
CPT/HCPCS: 81001

== ENCOUNTER 2024-01-23 22:29 | Inpatient (IN) | payer OTHER, SELFPAY ==
[2024-01-23 22:29] VITALS: BP 144/73; PULSE 70; RESP 16; TEMP 36.4; O2SAT 96; BMI 23.2
--- NOTE | 2024-01-23 22:31 | ED_ITS ---
Discharge Plan Disposition Patient Disposition: Admitted Clinical Impressions Clinical Impression: NSTEMI, initial episode of care Discharge ED Provider: Al Londono [facility] <GOPAL Stallworth - Last Filed: 01/23/24 22:43> General Chief Complaint: Shortness of Breath/Dyspnea Stated Complaint: SOA, AFib RVR Time Seen by Provider: 01/23/24 22:31 History of Present Illness HPI narrative: Patient presents for evaluation of respiratory distress. Patient called EMS for shortness of breath. Initially patient reportedly had a heart rate of 140 but has never been significantly over 100 since EMS arrival. Unfortunately we are unable to achieve an oxygen saturation here but she is having a perfusing pressure [place] Coma Score 15 Related Data Home Medications Medication Instructions Recorded Confirmed trazodone 50 mg tablet 50 mg PO HS 07/26/22 01/01/24 temazepam 15 mg capsule 15 mg PO HSP PRN Sleep 07/17/23 01/01/24 Previous Rx's Medication Instructions Recorded apixaban 5 mg tablet (Eliquis) 5 mg PO BID 30 days #60 tabs 07/19/23 digoxin 125 mcg (0.125 mg) tablet 125 mcg PO DAILY 30 days #30 tabs 07/19/23 (Digox) furosemide 40 mg tablet 40 mg PO DAILY 30 days #30 tabs 07/19/23 metoprolol tartrate 25 mg tablet 12.5 mg (1/2 x 25 mg) PO BID 30 07/19/23 days #30 tabs morphine concentrate 100 mg/5 mL 5 mg (0.25 mL) PO Q6H PRN pain #30 07/19/23 (20 mg/mL) oral solution mL spironolactone 25 mg tablet 25 mg PO DAILY 30 days #30 tabs 07/19/23 mupirocin 2 % topical ointment 1 applic topical TID 10 days #22 12/04/23 grams Allergies Allergy/AdvReac Type Severity Reaction Status Date / Time codeine Allergy Mild Vomiting/na Verified 01/01/24 14:02 usea meloxicam AdvReac Verified 01/01/24 14:02 PFSH <GOPAL Stallworth - Last Filed: 01/23/24 22:43> [facility] Disclaimer: The information contained in this section may have been updated after the patient was seen, as this information can be updated by other users. Medical History (Updated 01/24/24 @ 03:21 by Lizbeth Johnson RN) Atrial fibrillation Ischemic cardiomyopathy Regional wall motion abnormality of heart Atypical angina HFrEF (heart failure with reduced ejection fraction) Hx of cardiomyopathy Tachy-kaylah syndrome Symptomatic bradycardia History of stroke Congestive heart failure Hyperlipidemia Hypertension Left-sided weakness Pincer nail deformity Edema Hammer toe Callus of foot Osteomyelitis Onychoincurvatum Encounter for wound care Ulcer of right foot Cardiomyopathy Pulmonary hypertension Hypokalemia Congestive heart failure Atrial fibrillation with rapid ventricular response Surgical History History of surgery History of left knee replacement Family History Other No significant family history Social History Smoking Status: Unknown if ever smoked alcohol intake: never substance use type: denies use current occupational status: retired Travel in the last 8 weeks: None household members: none caffeine: No <GOPAL Stallworth - Last Filed: 01/23/24 22:43> ROS Obtained: Yes Systems reviewed as appropriate & no additional complaints except as documented Physical Exam <GOPAL Stallworth - Last Filed: 01/23/24 22:43> General General appearance: alert and in no apparent distress Head Head exam: atraumatic and normal inspection Eye Eye exam: Present normal appearance and EOMI ENT ENT exam: Present normal exam, normal oropharynx and mucous membranes moist Neck Neck exam: Present normal inspection, full ROM and lymphadenopathy Chest Chest inspection: Present normal inspection and symmetric chest wall rise Respiratory Respiratory exam: Present normal lung sounds bilaterally; Absent wheezes or accessory muscle use Cardiovascular Cardiovascular exam: Present irregular rhythm, normal heart sounds, +S1 and +S2; Absent normal rhythm Abdominal Exam Abdominal exam: Present soft and normal bowel sounds; Absent tenderness Extremities Exam Extremities exam: Present normal inspection and full ROM Neurological Exam Neurological exam: Present alert and oriented X3 Psychiatric Psychiatric exam: Present normal affect and normal mood Skin Skin exam: Present warm, dry and normal color HEART Score <GOPAL Stallworth - Last Filed: 01/23/24 22:43> HEART Score HEART Score assessment performed?: No History (anamnesis): Slightly suspicious ECG: Non-specific disturbance Age: >65 years Risk factors: Atherosclerosis history <Al Londono MD - Last Filed: 01/24/24 03:37> HEART Score HEART Score assessment performed?: Yes Troponin: </= normal limit HEART Score: 5 Critical Care <GOPAL Stallworth - Last Filed: 01/23/24 22:43> Critical Care Time Critical Care Time: No Medical Decision Making <GOPAL Stallworth - Last Filed: 01/23/24 22:43> Medical Records Medical records reviewed: Yes I reviewed the patient's medical records. Chaz Inquiry Pt receiving controlled substance: No Vital Signs Vital Signs: 01/23/24 22:29 01/23/24 23:00 01/23/24 23:30 Temperature 97.5 F L Temperature Source Axillary Pulse Rate 88 79 Pulse Rate [Left] 70 Respiratory Rate 16 20 21 Blood Pressure 152/101 H 124/90 Blood Pressure [Right Arm] 144/73 H Blood Pressure Mean [Right Arm] 96 02 Sat by Pulse Oximetry 96 98 100 Oxygen Delivery Method Non-Rebreather 01/24/24 00:01 01/24/24 00:30 01/24/24 01:00 Temperature Temperature Source Pulse Rate 82 85 Pulse Rate [Left] Respiratory Rate 23 25 H 22 Blood Pressure 134/94 H 156/96 H 107/105 L Blood Pressure [Right Arm] Blood Pressure Mean [Right Arm] 02 Sat by Pulse Oximetry 95 98 94 L Oxygen Delivery Method Lab Data Lab results reviewed: Yes I reviewed the patient's lab results. Labs: Lab Results 01/23/24 22:30: WBC 5.6, RBC 3.91 L, Hgb 12.1 L, Hct 36.7 L, MCV 93.9, MCH 31.0, MCHC 33.0, RDW 14.3, Plt Count 247, MPV 8.8, Neut % (Auto) 66.8, Lymph % (Auto) 23.1, [place] % (Auto) 7.2, Eos % (Auto) 2.0, Baso % (Auto) 0.8, Neut # (Auto) 3.7, Lymph # (Auto) 1.3, [place] # (Auto) 0.4, Eos # (Auto) 0.1, Baso # (Auto) 0.1, Sodium 142, Potassium 4.3, Chloride 108 H, Carbon Dioxide 29, Anion Gap 9.3, BUN 27 H, Creatinine 0.80, Estimated Creat Clear 42, Estimated GFR 68, Est GFR ( Amer) 82, Glucose 103 H, Calcium 9.5, Magnesium 2.1, Total Bilirubin 0.8, AST 28, ALT 16, Alkaline Phosphatase 110, Troponin I 0.01, NT-Pro-B Natriuret Pep 2410 H, Total Protein 7.4 D, Albumin 3.8, Globulin 3.6 H, Albumin/Globulin Ratio 1.1 01/23/24 22:32: VBG pH 7.38, VBG pCO2 44.3, VBG pO2 83.8 H, VBG HCO3 25.7, VBG Total CO2 27.0, VBG O2 Saturation 95.7 H, VBG Base Excess 0.6, VBG Lactic Acid 2.1 H 01/24/24 01:00: Troponin I 0.05 H 01/24/24 02:40: Lactate 1.6 01/23/24 22:30 01/23/24 22:30 Response Orders (Tests/Meds): ED MEDICATIONS Generic Name Dose Route Start Last Admin Trade Name Freq PRN Reason Stop Dose Admin Acetaminophen 650 mg 01/24/24 03:24 Acetaminophen 325mg Tab PO 02/23/24 03:23 Q4HP PRN Fever or Mild Pain (1-3) Apixaban 5 mg 01/24/24 09:00 Apixaban 5mg Tablet PO 02/23/24 08:59 BID PRITESH Digoxin 125 mcg 01/24/24 09:00 Digoxin 0.125mg Tablet PO 02/23/24 08:59 DAILY PRITESH Furosemide 40 mg 01/24/24 09:00 Furosemide 40 Mg Tablet PO 02/23/24 08:59 DAILY PRITESH Metoprolol Tartrate 12.5 mg 01/24/24 09:00 Metoprolol Tartrate 25mg Tablet PO 02/23/24 08:59 BID PRITESH Ondansetron HCl 4 mg 01/24/24 03:24 Ondansetron 4mg/2ml Vial IV 02/23/24 03:23 Q6HP PRN Nausea Spironolactone 25 mg 01/24/24 09:00 Spironolactone 25mg Tablet PO 02/23/24 08:59 DAILY PRITESH Trazodone HCl 50 mg 01/24/24 19:00 Trazodone 50mg Tablet PO 02/23/24 18:59 HSP PRN Sleep Discontinued Medications Generic Name Dose Route Start Last Admin Trade Name Michael PRN Reason Stop Dose Admin Albuterol/Ipratropium 3 ml 01/23/24 22:31 01/23/24 23:11 Ipratropium/Albuterol 3 Ml Neb IH 01/23/24 22:32 3 ml ONCE ONE Administration Dexamethasone Sodium Phosphate 10 mg 01/23/24 22:31 01/23/24 22:47 Dexamethasone 4mg/Ml 5ml Mdv IV 01/23/24 22:32 10 mg ONCE ONE Administration ORDERS Category Date Time Status Chest XR -- portable [XR chest portable] Stat Exams 01/23/24 22:31 Completed BNP [NT Pro Brain Natriuretic Pep.] Stat Lab 01/23/24 22:30 Completed CBC w/Auto Diff [Complete Blood Count Auto Diff] Stat Lab 01/23/24 22:30 Completed CMP [Comprehensive Metabolic Panel] Stat Lab 01/23/24 22:30 Completed Lactic Acid Follow Up (RFLX 1) Stat Lab 01/24/24 02:40 Completed Magnesium Stat Lab 01/23/24 22:30 Completed Trop I [Troponin I] Stat Lab 01/23/24 22:30 Completed Troponin I Q3H Lab 01/24/24 01:00 Completed Troponin I Q3H Lab 01/24/24 04:45 Ordered VBG [Venous Blood Gas] Stat RT 01/23/24 22:32 Completed EKG Request [ECG Request] Stat Y 01/24/24 01:43 Ordered MDM Narrative Medical Decision Narrative: In summary patient is a 88-year-old female who presents to the emergency department for evaluation of shortness of breath. Patient is hemodynamically stable in atrial fibrillation with controlled rate currently upon arrival, afebrile. Physical exam shows clear breath sounds without adventitious sounds currently irregularly irregular heart rate on auscultation and atrial fibrillation on the bedside monitor. Differential diagnosis includes CHF exacerbation versus COPD exacerbation versus ACS etc. Patient is reportedly on hospice care due to her cardiovascular disease. Initial workup will be conducted with hematologic labs twelve-lead EKG plain film chest x-ray. Initial interventions have been considered but will be deferred until we have some data back and a chest x-ray but possibly Lasix in addition to supplemental O2. Initial workup ordered and is pending at the time of handoff to Dr. Londono at 2300 hrs. <Polo Chavez MD - Last Filed: 01/23/24 22:49> Vital Signs Vital Signs: 01/23/24 22:29 01/23/24 23:00 01/23/24 23:30 Temperature 97.5 F L Temperature Source Axillary Pulse Rate 88 79 Pulse Rate [Left] 70 Respiratory Rate 16 20 21 Blood Pressure 152/101 H 124/90 Blood Pressure [Right Arm] 144/73 H Blood Pressure Mean [Right Arm] 96 02 Sat by Pulse Oximetry 96 98 100 Oxygen Delivery Method Non-Rebreather 01/24/24 00:01 01/24/24 00:30 01/24/24 01:00 Temperature Temperature Source Pulse Rate 82 85 Pulse Rate [Left] Respiratory Rate 23 25 H 22 Blood Pressure 134/94 H 156/96 H 107/105 L Blood Pressure [Right Arm] Blood Pressure Mean [Right Arm] 02 Sat by Pulse Oximetry 95 98 94 L Oxygen Delivery Method Lab Data Labs: Lab Results 01/23/24 22:30: WBC 5.6, RBC 3.91 L, Hgb 12.1 L, Hct 36.7 L, MCV 93.9, MCH 31.0, MCHC 33.0, RDW 14.3, Plt Count 247, MPV 8.8, Neut % (Auto) 66.8, Lymph % (Auto) 23.1, [place] % (Auto) 7.2, Eos % (Auto) 2.0, Baso % (Auto) 0.8, Neut # (Auto) 3.7, Lymph # (Auto) 1.3, [place] # (Auto) 0.4, Eos # (Auto) 0.1, Baso # (Auto) 0.1, Sodium 142, Potassium 4.3, Chloride 108 H, Carbon Dioxide 29, Anion Gap 9.3, BUN 27 H, Creatinine 0.80, Estimated Creat Clear 42, Estimated GFR 68, Est GFR ( Amer) 82, Glucose 103 H, Calcium 9.5, Magnesium 2.1, Total Bilirubin 0.8, AST 28, ALT 16, Alkaline Phosphatase 110, Troponin I 0.01, NT-Pro-B Natriuret Pep 2410 H, Total Protein 7.4 D, Albumin 3.8, Globulin 3.6 H, Albumin/Globulin Ratio 1.1 01/23/24 22:32: VBG pH 7.38, VBG pCO2 44.3, VBG pO2 83.8 H, VBG HCO3 25.7, VBG Total CO2 27.0, VBG O2 Saturation 95.7 H, VBG Base Excess 0.6, VBG Lactic Acid 2.1 H 01/24/24 01:00: Troponin I 0.05 H 01/24/24 02:40: Lactate 1.6 Response Orders (Tests/Meds): ED MEDICATIONS Generic Name Dose Route Start Last Admin Trade Name Frepoonam PRN Reason Stop Dose Admin Acetaminophen 650 mg 01/24/24 03:24 Acetaminophen 325mg Tab PO 02/23/24 03:23 Q4HP PRN Fever or Mild Pain (1-3) Apixaban 5 mg 01/24/24 09:00 Apixaban 5mg Tablet PO 02/23/24 08:59 BID PRITESH Digoxin 125 mcg 01/24/24 09:00 Digoxin 0.125mg Tablet PO 02/23/24 08:59 DAILY PRITESH Furosemide 40 mg 01/24/24 09:00 Furosemide 40 Mg Tablet PO 02/23/24 08:59 DAILY PRITESH Metoprolol Tartrate 12.5 mg 01/24/24 09:00 Metoprolol Tartrate 25mg Tablet PO 02/23/24 08:59 BID PRITESH Ondansetron HCl 4 mg 01/24/24 03:24 Ondansetron 4mg/2ml Vial IV 02/23/24 03:23 Q6HP PRN Nausea Spironolactone 25 mg 01/24/24 09:00 Spironolactone 25mg Tablet PO 02/23/24 08:59 DAILY PRITESH Trazodone HCl 50 mg 01/24/24 19:00 Trazodone 50mg Tablet PO 02/23/24 18:59 HSP PRN Sleep Discontinued Medications Generic Name Dose Route Start Last Admin Trade Name Freq PRN Reason Stop Dose Admin Albuterol/Ipratropium 3 ml 01/23/24 22:31 01/23/24 23:11 Ipratropium/Albuterol 3 Ml Neb IH 01/23/24 22:32 3 ml ONCE ONE Administration Dexamethasone Sodium Phosphate 10 mg 01/23/24 22:31 01/23/24 22:47 Dexamethasone 4mg/Ml 5ml Mdv IV 01/23/24 22:32 10 mg ONCE ONE Administration ORDERS Category Date Time Status Chest XR -- portable [XR chest portable] Stat Exams 01/23/24 22:31 Completed BNP [NT Pro Brain Natriuretic Pep.] Stat Lab 01/23/24 22:30 Completed CBC w/Auto Diff [Complete Blood Count Auto Diff] Stat Lab 01/23/24 22:30 Completed CMP [Comprehensive Metabolic Panel] Stat Lab 01/23/24 22:30 Completed Lactic Acid Follow Up (RFLX 1) Stat Lab 01/24/24 02:40 Completed Magnesium Stat Lab 01/23/24 22:30 Completed Trop I [Troponin I] Stat Lab 01/23/24 22:30 Completed Troponin I Q3H Lab 01/24/24 01:00 Completed Troponin I Q3H Lab 01/24/24 04:45 Ordered VBG [Venous Blood Gas] Stat RT 01/23/24 22:32 Completed EKG Request [ECG Request] Stat Y 01/24/24 01:43 Ordered ECG Data Tracing #1: Attestation: I reviewed this ECG and interpreted as documented below: ECG Narrative: Atrial fibrillation with controlled rate at 87 bpm. QRS 98 and narrow, QTc 360. Patient have scooped ST segments consistent with digoxin use. No ischemic change <Al Londono MD - Last Filed: 01/24/24 03:37> Vital Signs Vital Signs: 01/23/24 22:29 01/23/24 23:00 01/23/24 23:30 Temperature 97.5 F L Temperature Source Axillary Pulse Rate 88 79 Pulse Rate [Left] 70 Respiratory Rate 16 20 21 Blood Pressure 152/101 H 124/90 Blood Pressure [Right Arm] 144/73 H Blood Pressure Mean [Right Arm] 96 02 Sat by Pulse Oximetry 96 98 100 Oxygen Delivery Method Non-Rebreather 01/24/24 00:01 01/24/24 00:30 01/24/24 01:00 Temperature Temperature Source Pulse Rate 82 85 Pulse Rate [Left] Respiratory Rate 23 25 H 22 Blood Pressure 134/94 H 156/96 H 107/105 L Blood Pressure [Right Arm] Blood Pressure Mean [Right Arm] 02 Sat by Pulse Oximetry 95 98 94 L Oxygen Delivery Method Lab Data Labs: Lab Results 01/23/24 22:30: WBC 5.6, RBC 3.91 L, Hgb 12.1 L, Hct 36.7 L, MCV 93.9, MCH 31.0, MCHC 33.0, RDW 14.3, Plt Count 247, MPV 8.8, Neut % (Auto) 66.8, Lymph % (Auto) 23.1, [place] % (Auto) 7.2, Eos % (Auto) 2.0, Baso % (Auto) 0.8, Neut # (Auto) 3.7, Lymph # (Auto) 1.3, [place] # (Auto) 0.4, Eos # (Auto) 0.1, Baso # (Auto) 0.1, Sodium 142, Potassium 4.3, Chloride 108 H, Carbon Dioxide 29, Anion Gap 9.3, BUN 27 H, Creatinine 0.80, Estimated Creat Clear 42, Estimated GFR 68, Est GFR ( Amer) 82, Glucose 103 H, Calcium 9.5, Magnesium 2.1, Total Bilirubin 0.8, AST 28, ALT 16, Alkaline Phosphatase 110, Troponin I 0.01, NT-Pro-B Natriuret Pep 2410 H, Total Protein 7.4 D, Albumin 3.8, Globulin 3.6 H, Albumin/Globulin Ratio 1.1 01/23/24 22:32: VBG pH 7.38, VBG pCO2 44.3, VBG pO2 83.8 H, VBG HCO3 25.7, VBG Total CO2 27.0, VBG O2 Saturation 95.7 H, VBG Base Excess 0.6, VBG Lactic Acid 2.1 H 01/24/24 01:00: Troponin I 0.05 H 01/24/24 02:40: Lactate 1.6 Response Orders (Tests/Meds): ED MEDICATIONS Generic Name Dose Route Start Last Admin Trade Name Freq PRN Reason Stop Dose Admin Acetaminophen 650 mg 01/24/24 03:24 Acetaminophen 325mg Tab PO 02/23/24 03:23 Q4HP PRN Fever or Mild Pain (1-3) Apixaban 5 mg 01/24/24 09:00 Apixaban 5mg Tablet PO 02/23/24 08:59 BID PRITESH Digoxin 125 mcg 01/24/24 09:00 Digoxin 0.125mg Tablet PO 02/23/24 08:59 DAILY PRITESH Furosemide 40 mg 01/24/24 09:00 Furosemide 40 Mg Tablet PO 02/23/24 08:59 DAILY PRITESH Metoprolol Tartrate 12.5 mg 01/24/24 09:00 Metoprolol Tartrate 25mg Tablet PO 02/23/24 08:59 BID PRITESH Ondansetron HCl 4 mg 01/24/24 03:24 Ondansetron 4mg/2ml Vial IV 02/23/24 03:23 Q6HP PRN Nausea Spironolactone 25 mg 01/24/24 09:00 Spironolactone 25mg Tablet PO 02/23/24 08:59 DAILY PRITESH Trazodone HCl 50 mg 01/24/24 19:00 Trazodone 50mg Tablet PO 02/23/24 18:59 HSP PRN Sleep Discontinued Medications Generic Name Dose Route Start Last Admin Trade Name Freq PRN Reason Stop Dose Admin Albuterol/Ipratropium 3 ml 01/23/24 22:31 01/23/24 23:11 Ipratropium/Albuterol 3 Ml Neb IH 01/23/24 22:32 3 ml ONCE ONE Administration Dexamethasone Sodium Phosphate 10 mg 01/23/24 22:31 01/23/24 22:47 Dexamethasone 4mg/Ml 5ml Mdv IV 01/23/24 22:32 10 mg ONCE ONE Administration ORDERS Category Date Time Status Chest XR -- portable [XR chest portable] Stat Exams 01/23/24 22:31 Completed BNP [NT Pro Brain Natriuretic Pep.] Stat Lab 01/23/24 22:30 Completed CBC w/Auto Diff [Complete Blood Count Auto Diff] Stat Lab 01/23/24 22:30 Completed CMP [Comprehensive Metabolic Panel] Stat Lab 01/23/24 22:30 Completed Lactic Acid Follow Up (RFLX 1) Stat Lab 01/24/24 02:40 Completed Magnesium Stat Lab 01/23/24 22:30 Completed Trop I [Troponin I] Stat Lab 01/23/24 22:30 Completed Troponin I Q3H Lab 01/24/24 01:00 Completed Troponin I Q3H Lab 01/24/24 04:45 Ordered VBG [Venous Blood Gas] Stat RT 01/23/24 22:32 Completed EKG Request [ECG Request] Stat Y 01/24/24 01:43 Ordered MDM Narrative Medical Decision Narrative: In summary patient is a 88-year-old female who presents to the emergency department for evaluation of shortness of breath. Patient is hemodynamically stable in atrial fibrillation with controlled rate currently upon arrival, afebrile. Physical exam shows clear breath sounds without adventitious sounds currently irregularly irregular heart rate on auscultation and atrial fibrillation on the bedside monitor. Differential diagnosis includes CHF exacerbation versus COPD exacerbation versus ACS etc. Patient is reportedly on hospice care due to her cardiovascular disease. Initial workup will be conducted with hematologic labs twelve-lead EKG plain film chest x-ray. Initial interventions have been considered but will be deferred until we have some data back and a chest x-ray but possibly Lasix in addition to supplemental O2. Initial workup ordered and is pending at the time of handoff to Dr. Londono at 2300 hrs. Spring ROBLEDO: I assumed care of the patient at the time of handoff from the prior provider. On reassessment patient is satting appropriately on home oxygen requirement. Has had no episodes of A-fib with RVR. Labs interpreted by me and show no significant leukocytosis, unremarkable VBG with exception of minimally elevated lactate, normal renal function, initial troponin 0.01, repeat troponin elevated at 0.05, BNP minimally elevated, improved from prior. Repeat EKG was obtained and independently interpreted by me, atrial fibrillation with rate in the 90s, diffuse scooped ST/T wave segments consistent with digoxin use. Rising troponin may be from patient's reportedly transient A-fib RVR. Given rising troponin, interactive discussion was had with hospitalist on-call who accepted the patient for admission.
--- NOTE | 2024-01-23 22:31 | XR_ITS ---
PROCEDURE INFORMATION: Exam: XR Chest Exam date and time: 01/23/2024 10:35 PM Age: 88 years old Clinical indication: Other: Hypoxemic; Additional info: Acute hypoxemic respiratory failure TECHNIQUE: Imaging protocol: Radiologic exam of the chest. Views: 1 view. COMPARISON: CT ANGIO CHEST 07/16/2023 8:39 AM FINDINGS: Lungs: No consolidation. Pleural spaces: No pleural effusion. No pneumothorax. Heart/Mediastinum: Cardiomegaly. Calcified atherosclerotic changes of the thoracic aorta. Bones/joints: Chronic osteolytic changes of the right shoulder. IMPRESSION: No acute pulmonary findings.
--- NOTE | 2024-01-23 22:32 | ECG_ITS ---
APPROVED REPORT Exam: Resting ECG HR:87 bpm ECG Measurements Heart Rate 87 AXES QRSd 98 QRS 46 QT 315 T 0 QTc 360 Conclusion ATRIAL FIBRILLATION NONSPECIFIC ST & T-WAVE ABNORMALITY ABNORMAL RHYTHM ECG Scooping ST depression lateroinferior leads Electronically signed by : THAO CASTRO, 01/24/2024 12:50:04
--- NOTE | 2024-01-23 22:44 | PC.NURSE ---
Contacted RT in regards to a DuoNeb treatment for this patient.
--- NOTE | 2024-01-23 22:46 | PC.NURSE ---
Hospice electronic assembler notified that patient was brought to ER via EMS, Annabel electronic assembler nurse will return call within 15 minutes
[2024-01-23] MEDS: DEXAMETHASONE 4MG/ML 5ML MDV 10 MG IV (22:47)
[2024-01-23 22:48] LABS: Basophils # 0.1 K/mm3 (0-0.2); Basophils % 0.8 % (0.1-2.0); Eosinophils # 0.1 K/mm3 (0.0-0.4); Hematocrit 36.7 % (37.0-47.0); Hemoglobin 12.1 g/dL (12.2-16.2); Lymphocytes # 1.3 K/mm3 (0.7-4.5); Lymphocytes % 23.1 % (10-50); Mean Corpuscular Volume 93.9 fl (81-99); Mean Platelet Volume 8.8 fl (7.4-10.4); Monocytes # 0.4 K/mm3 (0.1-1.0); Monocytes % 7.2 % (1.7-9.3); Neutrophils # 3.7 K/mm3 (1.8-7.8); Neutrophils % 66.8 % (37.0-80.0); Platelet Count 247 K/mm3 (142-424); Red Blood Count 3.91 M/mm3 (4.20-5.40); Red Cell Distribution Width 14.3 % (11.5-17.5); White Blood Count 5.6 K/mm3 (4.8-10.8)
--- NOTE | 2024-01-23 22:50 | PC.NURSE ---
RT notified that charlotte duran is in lab for a VBG
[2024-01-23 22:52] LABS: Chloride 108 mmol/L (98-107); Potassium 4.3 mmoL/L (3.5-5.1); Sodium 142 mmol/L (136-145)
[2024-01-23 22:55] LABS: Alanine Aminotransferase 16 U/L (12-78); Albumin Level 3.8 g/dl (3.5-5.0); Albumin/Globulin Ratio 1.1 (1.1-1.8); Alkaline Phosphatase 110 U/L (38-126); Anion Gap 9.3 mEq/L (5-15); Aspartate Amino Transferase 28 U/L (14-36); Bilirubin,Total 0.8 mg/dl (0.2-1.3); Carbon Dioxide 29 mmol/L (22.0-30.0); Globulin 3.6 g/dL (1.3-3.2); Total Protein,Serum 7.4 g/dl (6.3-8.2)
[2024-01-23 22:56] LABS: Calcium 9.5 mg/dl (8.4-10.2); Glucose 103 mg/dl (74-100)
--- NOTE | 2024-01-23 22:57 | PC.NURSE ---
family @ bedside patient receiving breathing treatment
[2024-01-23 23:00] VITALS: BP 152/101; PULSE 88; RESP 20; O2SAT 98
[2024-01-23 23:00] LABS: Blood Urea Nitrogen 27 mg/dl (7-17); Creatinine Clearance Estimated 42 mL/min (50-200); Estimated Glomerular Filt Rate 68 ml/min (>60); GFR (African American) 82 ML/MIN (>60)
[2024-01-23 23:06] LABS: VBG Base Excess 0.6 mmol/L (-2.4-2.3); VBG HCO3 25.7 mmol/L (23-30); VBG Oxygen Saturation 95.7 % (50-70); VBG PCO2 44.3 mmol/L (35-51); VBG PH 7.38 mmol/L (7.31-7.41); VBG PO2 83.8 mmol/L (28-40)
[2024-01-23 23:07] LABS: Magnesium 2.1 mg/dl (1.6-2.3); Troponin I 0.01 ng/ml (0.00-0.034)
[2024-01-23 23:09] LABS: Lactate Venous 2.1 mmol/L (0.4-2.0)
[2024-01-23] MEDS: IPRATROPIUM/ALBUTEROL 3 ML NEB IH (23:11)
[2024-01-23 23:26] LABS: NT Pro Brain Natriuretic Pep. 2410 pg/mL (0-450)
--- NOTE | 2024-01-23 23:26 | PC.NURSE ---
Jami Schwartz, hospice recreation manager nurse on phone with patients nurse at this time
[2024-01-23 23:30] VITALS: BP 124/90; PULSE 79; RESP 21; O2SAT 100
[2024-01-24] VITALS (10 sets, daily range): BP systolic 107–156; BP diastolic 67–105; PULSE 70–110; RESP 18–25; TEMP 36.6–36.7; O2SAT 94–100; BMI 23.1
[2024-01-24 01:28] LABS: Troponin I 0.05 ng/ml (0.00-0.034)
--- NOTE | 2024-01-24 01:48 | ECG_ITS ---
APPROVED REPORT Exam: Resting ECG HR:90 bpm ECG Measurements Heart Rate 90 AXES QRSd 93 QRS 35 QT 303 T 0 QTc 351 [address] F[address] DEVIATION AND MODERATE T-WAVE ABNORMALITY, CONSIDER LATERAL ISCHEMIA [-0.1+ mV T-WAVE IN I/aVL/V5/V6] ABNORMAL ECG Electronically signed by : THAO CASTRO, 01/24/2024 12:48:57
--- NOTE | 2024-01-24 02:42 | PC.NURSE ---
Dr. Londono s/w hospitalist for admission, agrees. quality assurance supervisor body notified of admission
[2024-01-24 02:45] LABS: Reflex Lactic Add Lactic Reflex
[2024-01-24 02:54] LABS: Lactic Acid Follow Up (RFLX 1) 1.6 mmol/L (0.7-2.1)
--- NOTE | 2024-01-24 03:06 | PC.NURSE ---
call placed to Hospice call center to speak to Hospice nylon operator nurseJami will return call
--- NOTE | 2024-01-24 03:09 | PC.NURSE ---
[id number] RECEIVED PHONE REPORT FROM CHRISTOPHER RN/ED NURSE. PATIENT IS A 88 YO FEMALE WITH NSTEMI/HYPOXIA. iS A HOSPICE PATIENT. MAY TRAVEL BY STRETCHER.
--- NOTE | 2024-01-24 03:09 | PC.NURSE ---
Report called to KASH Arellano
--- NOTE | 2024-01-24 03:10 | PC.NURSE ---
spoke to Jami Green network contractor hospice nurse and informed her of patient admission
--- NOTE | 2024-01-24 03:24 | PC.NURSE ---
[id number] pATIENT ARRIVED TO THE FLOOR VIA STRETCHER WITH 02 SUPPORT.
--- NOTE | 2024-01-24 03:46 | PC.NURSE ---
Patient arrived to floor via stretcher from ED at 03:23.
--- NOTE | 2024-01-24 04:14 | P.HP_ITS ---
History of Present Illness *Admission Date: 01/24/24 *Reason for visit:: Shortness of breath, chest pressure *History of present illness: Mireya Jones is an 88 -year-old female past medical history significant for HFrEF, ischemic cardiomyopathy, HTN, HLD, CVA with some residual deficits who presents emergency room tonight with complaints of some shortness of breath and some chest pressure. Granddaughter was at bedside during my evaluation, most of the HPI is obtained from her. She states that Ms. Jones called her tonight and said that she was having some shortness of breath and what was described as chest pressure. Granddaughter went over to check on her and states that she was alvarado ving issues with the blood pressure cuff in the pulse oximetry at the house. Decided to call EMS. Apparently the patient's heart rate was up to 140 when EMS arrived. Granddaughter reports that patient had not been having any complaints prior to this evening. Pt does wear 3L NC at baseline. Does live at home by herself, granddaughter lives close by and checks on her frequently. Patient is on hospice for her heart failure, has been on hospice since July. Does take Eliquis for her A-fib. Workup in the ER showed elevated BNP of 2410, initial troponin was 0.01, second troponin was 0.05. All other labs were essentially unremarkable. UA was noninfectious. EKG showed A-fib, rate controlled, no ST elevation, STT abnormalities inferolaterally unchanged compared to previous tracings. PT has been chest pain/pressure free since being in the ER. She denies any shortness of breath at this time. She will be admitted to the hospitalist service for NSTEMI. [facility] Disclaimer: The information contained in this section may have been updated after the patient was seen, as this information can be updated by other users. Medical History (Updated 01/24/24 @ 04:36 by More Paula APRN) Atrial fibrillation Ischemic cardiomyopathy Regional wall motion abnormality of heart Atypical angina HFrEF (heart failure with reduced ejection fraction) Hx of cardiomyopathy Tachy-kaylah syndrome Symptomatic bradycardia History of stroke Congestive heart failure Hyperlipidemia Hypertension Left-sided weakness Pincer nail deformity Edema Hammer toe Callus of foot Osteomyelitis Onychoincurvatum Encounter for wound care Ulcer of right foot Cardiomyopathy Pulmonary hypertension Hypokalemia Congestive heart failure Atrial fibrillation with rapid ventricular response Surgical History History of surgery History of left knee replacement Family History Other No significant family history Social History (Updated 01/24/24 @ 03:59 by Eileen Mendez RN) Smoking Status: Unknown if ever smoked alcohol intake: never substance use type: denies use current occupational status: retired Travel in the last 8 weeks: None household members: none caffeine: No Review of Systems Review of Systems Review of systems:: pertinent systems reviewed and negative unless documented below Meds Home Medications and Allergies Home Medications Medication Instructions Recorded Confirmed Type furosemide 40 mg tablet 40 mg PO DAILY 30 days #30 tabs 07/19/23 01/24/24 Rx spironolactone 25 mg tablet 25 mg PO DAILY 30 days #30 tabs 07/19/23 01/24/24 Rx acetaminophen 500 mg tablet 500 mg PO Q4HP PRN Mild Pain 01/24/24 01/24/24 History (Scale Score 1-4) dabigatran etexilate 150 mg 150 mg PO BID 01/24/24 01/24/24 History capsule (Pradaxa) digoxin 125 mcg (0.125 mg) tablet 125 mcg PO DAILY 01/24/24 01/24/24 History lorazepam 0.5 mg tablet 0.5 mg PO Q6HP PRN Anxiety 01/24/24 01/24/24 History mupirocin 2 % topical ointment 1 applic topical TID 01/24/24 01/24/24 History New Prescriptions to Start Prescriptions: Allergies Allergy/AdvReac Type Severity Reaction Status Date / Time codeine Allergy Mild Vomiting/na Verified 01/01/24 14:02 usea meloxicam AdvReac Verified 01/01/24 14:02 Exam Data for Last 24 hours Vital signs and Labs for Last 24 Hours: Temp Pulse Resp BP Pulse Ox O2 Del Method O2 Flow Rate 97.9 F 101 H 18 154/101 H 94 L Nasal Cannula 3 01/24/24 03:18 01/24/24 03:18 01/24/24 03:18 01/24/24 03:18 01/24/24 01:00 01/24/24 03:18 01/24/24 03:18 Laboratory Results - last 24 hr 01/23/24 22:30: WBC 5.6, RBC 3.91 L, Hgb 12.1 L, Hct 36.7 L, MCV 93.9, MCH 31.0, MCHC 33.0, RDW 14.3, Plt Count 247, MPV 8.8, Neut % (Auto) 66.8, Lymph % (Auto) 23.1, [place] % (Auto) 7.2, Eos % (Auto) 2.0, Baso % (Auto) 0.8, Neut # (Auto) 3.7, Lymph # (Auto) 1.3, [place] # (Auto) 0.4, Eos # (Auto) 0.1, Baso # (Auto) 0.1, Sodium 142, Potassium 4.3, Chloride 108 H, Carbon Dioxide 29, Anion Gap 9.3, BUN 27 H, Creatinine 0.80, Estimated Creat Clear 42, Estimated GFR 68, Est GFR ( Amer) 82, Glucose 103 H, Calcium 9.5, Magnesium 2.1, Total Bilirubin 0.8, AST 28, ALT 16, Alkaline Phosphatase 110, Troponin I 0.01, NT-Pro-B Natriuret Pep 2410 H, Total Protein 7.4 D, Albumin 3.8, Globulin 3.6 H, Albumin/Globulin Ratio 1.1 01/23/24 22:32: VBG pH 7.38, VBG pCO2 44.3, VBG pO2 83.8 H, VBG HCO3 25.7, VBG Total CO2 27.0, VBG O2 Saturation 95.7 H, VBG Base Excess 0.6, VBG Lactic Acid 2.1 H 01/24/24 01:00: Troponin I 0.05 H 01/24/24 02:40: Lactate 1.6 I & O for Last 24 hours: Intake & Output 01/21/24 01/22/24 01/23/24 01/24/24 23:59 23:59 23:59 23:59 Weight 65.317 kg *Routine HEENT Exam Head: Present normocephalic and atraumatic Eye: Present EOMI and PERRL ENT: Present mucous membranes moist *Routine Neck Exam Neck: Present supple *Routine Respiratory Exam Respiratory: Present CTA bilaterally *Routine Cardiovascular Exam Cardiovascular: Present irregular rhythm and irregularly irregular Comments: A-fib with a rate in the 90s *Routine Abdominal Exam Abdominal: Present soft and normoactive bowel sounds *Routine Rectal Exam Rectal:: deferred *Routine Genitalia Exam Genitalia:: deferred *Routine Extremities Exam Extremities: Present pulses intact and normal capillary refill *Routine Skin Exam Skin: Present intact *Routine Neurological Exam Neurological: Present alert and oriented X3 Assessment and Plan *Assessment and plan (1) NSTEMI, initial episode of care: Status: Acute Category: Medical Code(s): I21.4 - Non-ST elevation (NSTEMI) myocardial infarction (2) Ischemic cardiomyopathy: Status: Acute Category: Medical Code(s): I25.5 - Ischemic cardiomyopathy (3) HFrEF (heart failure with reduced ejection fraction): Status: Acute Category: Medical Code(s): I50.20 - Unspecified systolic (congestive) heart failure (4) Hyperlipidemia: Status: Acute Qualifiers: Hyperlipidemia type: mixed hyperlipidemia Qualified Code(s): E78.2 - Mixed hyperlipidemia Category: Medical Code(s): E78.5 - Hyperlipidemia, unspecified (5) Atrial fibrillation: Status: Acute Qualifiers: Atrial fibrillation type: permanent Qualified Code(s): I48.21 - Permanent atrial fibrillation Category: Medical Code(s): I48.91 - Unspecified atrial fibrillation Plan Assessment: This is an 88-year-old female who is being admitted for an NSTEMI. On my exam, patient is lying in bed in no acute distress. No complaints at this time. Plan: Admit to observation-MedSurg NSTEMI CAD -Likely secondary to transient a-fib with RVR -Serial troponins -Serial EKGs -Telemetry -continue Eliquis for now, could consider transitioning to heparin if troponin has significant elevation -Pt was not a candidate back in July for PCI nor CABG, was noted to have severe/critical 3 vessel disease, consider consult to cardiology if troponin with significant elevation HFrEF -Last EF in Jul was severely reduced to around 20%, septal/anteroseptal akinesis, mod-severe MR/TR with RVSP 35-40 mm Hg. -1500cc fluid restriction -continue lasix and spironolactone -Pt appears euvolemic at this time -likely resume hospice once DC back home A-fib -currently rate controlled -continue BB and digoxin -will obtain Dig level HLD -Not on statin DVT prophylaxis: Eliquis Code status: DNR/DNI Surrogate decision maker: Mackenzie [phone] Skiin: low risk Rounded on patient after nurse practitioner. Personally examined and interviewed patient. Agree with exam findings and care plan as documented.
--- NOTE | 2024-01-24 05:07 | PC.NURSE ---
CONSULTED WITH Tushar FERRER APRN RE ELEVATED BP. NO NEW ORDERS AT THIS TIME.
--- NOTE | 2024-01-24 06:24 | PC.NURSE ---
PATIENT DESIRES DNR/DNI BUT WONT SIGN PAPERS UNTIL FAMILY HERE. EXPLAINED TO PATIENT THAT SHE WOULD HAVE LIFE SAVING PROCEDURES PERFORMED UNTIL THOSE PAPERS WERE SIGNED. PATIENT DENIES PAIN BUR REPORTS SOA ON EXERTION. 02 AT 3LNC02 SAT 94 %.
--- NOTE | 2024-01-24 07:46 | P.DS_ITS ---
General Admission date:: 01/24/24 Discharge date: 01/24/24 HPI HPI HPI: Mireya Jones is an 88 -year-old female past medical history significant for HFrEF, ischemic cardiomyopathy, HTN, HLD, CVA with some residual deficits who presents emergency room tonight with complaints of some shortness of breath and some chest pressure. Granddaughter was at bedside during my evaluation, most of the HPI is obtained from her. She states that Ms. Jones called her tonight and said that she was having some shortness of breath and what was described as chest pressure. Granddaughter went over to check on her and states that she was having issues with the blood pressure cuff in the pulse oximetry at the house. Decided to call EMS. Apparently the patient's heart rate was up to 140 when EMS arrived. Granddaughter reports that patient had not been having any complaints prior to this evening. Pt does wear 3L NC at baseline. Does live at home by herself, granddaughter lives close by and checks on her frequently. Patient is on hospice for her heart failure, has been on hospice since July. Does take Eliquis for her A-fib. Workup in the ER showed elevated BNP of 2410, initial troponin was 0.01, second troponin was 0.05. All other labs were essentially unremarkable. UA was noninfectious. EKG showed A-fib, rate controlled, no ST elevation, STT abnormalities inferolaterally unchanged compared to previous tracings. PT has been chest pain/pressure free since being in the ER. She denies any shortness of breath at this time. She will be admitted to the hospitalist service for NSTEMI. Hospital Course Hospital Course Hospital Course: This is an 88-year-old female who is being admitted for an NSTEMI. On my exam, patient is lying in bed in no acute distress. No complaints at this time. Admitted to medicine for management. Of note, patient is a hospice patient for heart failure. After extensive discussion with patient, hospice nurse, family, plan is to proceed with no interventions. Will make medication adjustments as an outpatient. She has previously been worked up prior to going on hospice and at that time elected for no interventions. She appears comfortable and stable at this time. Discharge home with hospice. Problems addressed as follows: Heart failure with reduced ejection fraction, acute on chronic exacerbation A-fib NSTEMI -Patient had mild detectable troponin. Chest pain better by morning. In light of patient's goals of care, will not pursue any further interventions. Continue home regimen including Pradaxa 150 mg twice daily, digoxin 125 mcg daily, Lasix 40 mg daily, spironolactone 25 mg daily. Would add nitroglycerin 0.4 mg as needed for chest pain. No plan for intervention. Per review of patient's chart, cardiology had actually recommended hospice in July and has no intervention recommendations from that visit. Continue hospice care. Anxiety: Continue Ativan 0.5 mg every 6 hours as needed. Would also benefit from having the ability to increase her oxygen as needed when she feels anxious. Currently on 2 to 3 L at baseline. Would recommend increasing to 5 if she is anxious to help with transient hypoxia. Continue activity as tolerated. Oxygen as needed for comfort. Stable to discharge home with hospice care. It has been a pleasure to care for Ms. Jones. Exam Data for Last 24 hours Vital signs and Labs for Last 24 Hours: Temp Pulse Resp BP Pulse Ox O2 Del Method O2 Flow Rate 98.0 F 70 20 154/105 H 100 Nasal Cannula 3 01/24/24 04:00 01/24/24 04:38 01/24/24 04:00 01/24/24 04:00 01/24/24 04:00 01/24/24 05:00 01/24/24 05:00 Laboratory Results - last 24 hr 01/23/24 22:30: WBC 5.6, RBC 3.91 L, Hgb 12.1 L, Hct 36.7 L, MCV 93.9, MCH 31.0, MCHC 33.0, RDW 14.3, Plt Count 247, MPV 8.8, Neut % (Auto) 66.8, Lymph % (Auto) 23.1, [place] % (Auto) 7.2, Eos % (Auto) 2.0, Baso % (Auto) 0.8, Neut # (Auto) 3.7, Lymph # (Auto) 1.3, [place] # (Auto) 0.4, Eos # (Auto) 0.1, Baso # (Auto) 0.1, Sodium 142, Potassium 4.3, Chloride 108 H, Carbon Dioxide 29, Anion Gap 9.3, BUN 27 H, Creatinine 0.80, Estimated Creat Clear 42, Estimated GFR 68, Est GFR ( Amer) 82, Glucose 103 H, Calcium 9.5, Magnesium 2.1, Total Bilirubin 0.8, AST 28, ALT 16, Alkaline Phosphatase 110, Troponin I 0.01, NT-Pro-B Natriuret Pep 2410 H, Total Protein 7.4 D, Albumin 3.8, Globulin 3.6 H, Albumin/Globulin Ratio 1.1 01/23/24 22:32: VBG pH 7.38, VBG pCO2 44.3, VBG pO2 83.8 H, VBG HCO3 25.7, VBG Total CO2 27.0, VBG O2 Saturation 95.7 H, VBG Base Excess 0.6, VBG Lactic Acid 2.1 H 01/24/24 01:00: Troponin I 0.05 H 01/24/24 02:40: Lactate 1.6 I & O for Last 24 hours: Intake & Output 01/21/24 01/22/24 01/23/24 01/24/24 23:59 23:59 23:59 23:59 Weight 65.317 kg 65.317 kg Constitutional Constitutional: no acute distress, average body habitus and chronically ill appearing *Routine HEENT Exam Head: Present normocephalic and atraumatic ENT: Present mucous membranes moist *Routine Neck Exam Neck: Present supple, full ROM and normal carotid upstroke; Absent JVD, carotid bruit or lymphadenopathy *Routine Respiratory Exam Respiratory: Present normal respiratory effort, able to speak in complete sentences and symmetric chest movement; Absent rhonchi, wheezes or crackles (in bases) *Routine Cardiovascular Exam Cardiovascular: Present Normal S1, Normal S2 and irregularly irregular; Absent murmur or gallop *Routine Abdominal Exam Abdominal: Present soft and normoactive bowel sounds; Absent tenderness, distended or organomegaly *Routine Extremities Exam Extremities: Present pulses intact and normal capillary refill; Absent cyanosis, clubbing or edema *Routine Skin Exam Skin: Present intact and warm; Absent erythema *Routine Neurological Exam Neurological: Present alert, oriented X3, CN II-XII intact and moving all extremities; Absent sensory deficit, motor deficit or altered mental status Routine Psychiatric Exam Psychiatric: Present normal affect Results Data Completed and Pending Labs on day of discharge: Labs from last 24 hours 01/24/24 01/24/24 01/23/24 02:40 01:00 22:32 WBC RBC Hgb Hct MCV MCH MCHC RDW Plt Count MPV Neut % (Auto) Lymph % (Auto) [place] % (Auto) Eos % (Auto) Baso % (Auto) Neut # (Auto) Lymph # (Auto) [place] # (Auto) Eos # (Auto) Baso # (Auto) VBG pH 7.38 VBG pCO2 44.3 VBG pO2 83.8 H VBG HCO3 25.7 VBG Total CO2 27.0 VBG O2 Saturation 95.7 H VBG Base Excess 0.6 VBG Lactic Acid 2.1 H Sodium Potassium Chloride Carbon Dioxide Anion Gap BUN Creatinine Estimated Creat Clear Estimated GFR Est GFR ( Amer) Glucose Lactate 1.6 Calcium Magnesium Total Bilirubin AST ALT Alkaline Phosphatase Troponin I 0.05 H NT-Pro-B Natriuret Pep Total Protein Albumin Globulin Albumin/Globulin Ratio 01/23/24 22:30 WBC 5.6 RBC 3.91 L Hgb 12.1 L Hct 36.7 L MCV 93.9 MCH 31.0 MCHC 33.0 RDW 14.3 Plt Count 247 MPV 8.8 Neut % (Auto) 66.8 Lymph % (Auto) 23.1 [place] % (Auto) 7.2 Eos % (Auto) 2.0 Baso % (Auto) 0.8 Neut # (Auto) 3.7 Lymph # (Auto) 1.3 [place] # (Auto) 0.4 Eos # (Auto) 0.1 Baso # (Auto) 0.1 VBG pH VBG pCO2 VBG pO2 VBG HCO3 VBG Total CO2 VBG O2 Saturation VBG Base Excess VBG Lactic Acid Sodium 142 Potassium 4.3 Chloride 108 H Carbon Dioxide 29 Anion Gap 9.3 BUN 27 H Creatinine 0.80 Estimated Creat Clear 42 Estimated GFR 68 Est GFR ( Amer) 82 Glucose 103 H Lactate Calcium 9.5 Magnesium 2.1 Total Bilirubin 0.8 AST 28 ALT 16 Alkaline Phosphatase 110 Troponin I 0.01 NT-Pro-B Natriuret Pep 2410 H Total Protein 7.4 D Albumin 3.8 Globulin 3.6 H Albumin/Globulin Ratio 1.1 DS: Diagnosis Discharge Diagnosis (1) NSTEMI, initial episode of care: Status: Acute Code(s): I21.4 - Non-ST elevation (NSTEMI) myocardial infarction (2) Ischemic cardiomyopathy: Status: Acute Code(s): I25.5 - Ischemic cardiomyopathy (3) HFrEF (heart failure with reduced ejection fraction): Status: Acute Code(s): I50.20 - Unspecified systolic (congestive) heart failure (4) Hyperlipidemia: Status: Acute Code(s): E78.5 - Hyperlipidemia, unspecified Qualifiers: Hyperlipidemia type: mixed hyperlipidemia Qualified Code(s): E78.2 - Mixed hyperlipidemia (5) Atrial fibrillation: Status: Acute Code(s): I48.91 - Unspecified atrial fibrillation Qualifiers: Atrial fibrillation type: permanent Qualified Code(s): I48.21 - Permanent atrial fibrillation Meds Home Medications and Allergies Home Medications Medication Instructions Recorded Confirmed Type furosemide 40 mg tablet 40 mg PO DAILY 30 days #30 tabs 07/19/23 01/24/24 Rx spironolactone 25 mg tablet 25 mg PO DAILY 30 days #30 tabs 07/19/23 01/24/24 Rx acetaminophen 500 mg tablet 500 mg PO Q4HP PRN Mild Pain 01/24/24 01/24/24 History (Scale Score 1-4) dabigatran etexilate 150 mg 150 mg PO BID 01/24/24 01/24/24 History capsule (Pradaxa) digoxin 125 mcg (0.125 mg) tablet 125 mcg PO DAILY 01/24/24 01/24/24 History lorazepam 0.5 mg tablet 0.5 mg PO Q6HP PRN Anxiety 01/24/24 01/24/24 History mupirocin 2 % topical ointment 1 applic topical TID 01/24/24 01/24/24 History New Prescriptions to Start Prescriptions: Allergies Allergy/AdvReac Type Severity Reaction Status Date / Time codeine Allergy Mild Vomiting/na Verified 01/01/24 14:02 usea meloxicam AdvReac Verified 01/01/24 14:02 Discharge Plan Disposition Patient Disposition: Hospice - Home Condition: Fair Discharge Order Discharge Orders: Discharge Order (Routine); Ordered 01/24/24 Ordered By: Feng Vicente Follow up Plan Follow up with: Jacque Godinez APRN [Primary Care Provider] - 01/31/24 9:00 am Prescriptions/Medication Reconciliation: Continued lorazepam 0.5 mg tablet 0.5 mg PO Q6HP PRN (Reason: Anxiety) Patient Comments: 1 Tablet Oral PRN Every 6 Hours Indication: anxiety SOA digoxin 125 mcg (0.125 mg) tablet 125 mcg PO DAILY dabigatran etexilate [Pradaxa] 150 mg capsule 150 mg PO BID Patient Comments: 1 Capsule Oral 2 Times Daily Indication: heart/afib acetaminophen 500 mg tablet 500 mg PO Q4HP PRN (Reason: Mild Pain (Scale Score 1-4)) Patient Comments: 1 Tablet Oral PRN Every 4 Hours Indication: pain/fever mupirocin 2 % ointment 1 applic TOPICAL TID furosemide 40 mg Tablet 40 mg PO DAILY 30 Days Qty: 30 0RF spironolactone 25 mg Tablet 25 mg PO DAILY 30 Days Qty: 30 0RF Problem Reconciliation Problems Reviewed?: Yes Patient Discharge Instructions ACTIVITY: Continue current activity DIET: continue same diet Patient Instructions: DI for Chest Pain Providers Primary Care Provider: Jacque Godinez Admit Provider: Feng Vicente Attending Provider: Feng Vicente
[2024-01-24 07:49] LABS: Troponin I < 0.01 ng/ml (0.00-0.034)
--- NOTE | 2024-01-24 08:09 | SW/DCPLANNER ---
Addendum entered by Idania Castellanos 01/24/24 11:03: Per Petrona maurice/ BING patient's hospital admission is related to Hospice dx. Addendum entered by Idania Castellanos 01/24/24 10:52: I have updated Keisha maurice/ Federica that patient will discharge home today. Original Note: [facility]. I have faxed updated patient information to Keisha maurice/ Federica and she will contact me back once reviewing regarding if hospital admission is related to Hospice dx.
[2024-01-24 08:53] LABS: Chloride 110 mmol/L (98-107); Potassium 4.8 mmoL/L (3.5-5.1); Sodium 141 mmol/L (136-145)
[2024-01-24 08:56] LABS: Anion Gap 11.8 mEq/L (5-15); Blood Urea Nitrogen 26 mg/dl (7-17); Calcium 9.3 mg/dl (8.4-10.2); Carbon Dioxide 24 mmol/L (22.0-30.0); Creatinine Clearance Estimated 42 mL/min (50-200); Estimated Glomerular Filt Rate 79 ml/min (>60); GFR (African American) 96 ML/MIN (>60); Glucose 135 mg/dl (74-100)
--- NOTE | 2024-01-24 09:10 | PC.NURSE ---
. aware of bp and it's okay to give meds.
--- NOTE | 2024-01-24 09:26 | HMH.PHAINT1 ---
Pharmacy Intervention Comments: MEDICATION RECONCILIATION COMPLETED ON PATIENT USING EXTERNAL FILL HISTORY FROM PHARMACY AND MATTHEW REPORT. -LAMAR COLE, CARMELAD
[2024-01-24] MEDS: APIXABAN 5MG TABLET 5 MG PO (09:27)
[2024-01-24] MEDS: FUROSEMIDE 40 MG TABLET PO (09:27)
[2024-01-24] MEDS: SPIRONOLACTONE 25MG TABLET 25 MG PO (09:27)
[2024-01-24] MEDS: METOPROLOL TARTRATE 25MG TABLET 12.5 MG PO (09:27)
[2024-01-24] MEDS: DIGOXIN 0.125MG TABLET 125 MCG PO (09:27)
== END 2024-01-24 13:51 | disposition hospice, home (50) | DRG 281 ==
LOC: ER 23:37 → 2ND 01-24 03:00
PROVIDERS: Nurse Practitioner Acute Care; Physician Assistant; Admitting Provider Internal Medicine Adolescent Medicine; Emergency Provider Emergency Medicine; PCP Nurse Practitioner Family; Visit Provider Internal Medicine Adolescent Medicine
DX: I21.4 Non-ST elevation (NSTEMI) myocardial infarction (principal); I48.21 Permanent atrial fibrillation; I50.20 Unspecified systolic (congestive) heart failure; I25.5 Ischemic cardiomyopathy; Z79.01 Long term (current) use of anticoagulants; E78.2 Mixed hyperlipidemia; Z79.899 Other long term (current) drug therapy; I25.10 Atherosclerotic heart disease of native coronary artery without angina pectoris; I11.0 Hypertensive heart disease with heart failure; I69.30 Unspecified sequelae of cerebral infarction
CPT/HCPCS: 36415; 71045; 80048; 80053; 80162; 82803; 83605; 83735; 83880; 84484; 85025; 93005; 99221; 99285; J7620

== ENCOUNTER 2024-02-26 12:50 | Outpatient (CLI) | payer OTHER, SELFPAY ==
[2024-02-26 12:59] LABS: Microscopic, Urine URINE MICROSCOPIC (MICROSCOPIC)
[2024-02-26 13:16] LABS: Appearance,Urine CLEAR (Clear); Blood, Urine Negative (Negative); Color,Urine YELLOW (Yellow); Glucose,Urine (UA) Negative (Negative); Ketones,Urine Negative (Negative); Leukocyte Esterase,Urine Negative (Negative); Nitrate,Urine Negative (Negative); Protein,Urine Negative (Negative); Specific Gravity, Urine 1.025 (1.005-1.030)
[2024-02-26 13:29] LABS: Bilirubin,Urine 1+ (Negative)
[2024-02-26 13:30] LABS: Bacteria,Urine Trace /lpf
== END 2024-02-26 23:59 | disposition home or self-care (01) ==
LOC: LAB.DROPOF 12:52
PROVIDERS: PCP Family Medicine Hospice and Palliative Medicine; Visit Provider Family Medicine Hospice and Palliative Medicine
DX: I51.9 Heart disease, unspecified (principal)
CPT/HCPCS: 81001; 87086

== ENCOUNTER 2024-09-10 07:03 | Emergency (ER) | payer OTHER, SELFPAY ==
[2024-09-10] VITALS (11 sets, daily range): BP systolic 102–151; BP diastolic 58–103; PULSE 61–87; RESP 13–19; TEMP 36.8–37.1; O2SAT 90–100; BMI 25.4
--- NOTE | 2024-09-10 07:21 | CT_ITS ---
FINAL REPORT TECHNIQUE: Noncontrast exam. Coronal and sagittal images were obtained and reviewed. This study was performed with techniques to keep radiation doses as low as reasonably achievable, (ALARA). Individualized dose reduction techniques using automated exposure control or adjustment of mA and/or kV according to the patient''s size were employed. CLINICAL HISTORY: AMS COMPARISON: 11/20/2023 FINDINGS: There is encephalomalacia in the posterior right hemisphere and right frontal cortex compatible with old infarcts but stable. Moderate atrophy is noted. There is no hemorrhage. No mass effect is seen. Bone windows show no evidence of fracture. IMPRESSION: Chronic changes without acute process. Reviewed, Interpreted and Dictated by Alba Oneill MD Transcribed by Chelsea Calvo Authenticated and [facility]
--- NOTE | 2024-09-10 07:22 | XR_ITS ---
FINAL REPORT CLINICAL HISTORY: Shortness of breath COMPARISON: 01/23/2024 FINDINGS: A single frontal view of the chest was obtained. No acute pulmonary opacity is present. There is no evidence of effusion or pneumothorax. Mediastinum is unremarkable. 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 Heart size is moderately enlarged. IMPRESSION: No acute findings. Reviewed, Interpreted and Dictated by Alba Oneill MD Transcribed by Chelsea Calvo Authenticated and . [facility]
--- NOTE | 2024-09-10 07:26 | HMH.EDGENADL ---
Discharge Plan Disposition Patient Disposition: Home, Self-Care Prescriptions Prescriptions: New cefdinir 300 mg capsule 300 mg PO BID 10 Days Qty: 20 0RF No Action lorazepam 0.5 mg tablet 0.5 mg PO Q6HP PRN (Reason: Anxiety) Patient Comments: 1 Tablet Oral PRN Every 6 Hours Indication: anxiety SOA digoxin 125 mcg (0.125 mg) tablet 125 mcg PO DAILY dabigatran etexilate [Pradaxa] 150 mg capsule 150 mg PO BID Patient Comments: 1 Capsule Oral 2 Times Daily Indication: heart/afib acetaminophen 500 mg tablet 500 mg PO Q4HP PRN (Reason: Mild Pain (Scale Score 1-4)) Patient Comments: 1 Tablet Oral PRN Every 4 Hours Indication: pain/fever mupirocin 2 % ointment 1 applic TOPICAL TID furosemide 40 mg Tablet 40 mg PO DAILY 30 Days Qty: 30 0RF spironolactone 25 mg Tablet 25 mg PO DAILY 30 Days Qty: 30 0RF Referrals Follow up/Referrals: Provider,Referral, MD [Primary Care Provider] - See instructions Clinical Impressions Clinical Impression: Hallucinations, visual, Acute UTI Instructions Patient Instructions: DI for Altered Mental Status Print Language Print Language: Divehi Discharge ED Provider: Paula Goodman General Adult HPI General Chief complaint: Altered Mental Status Stated complaint: Altered Mental Status Time Seen by Provider: 09/10/24 07:10 History of Present Illness HPI narrative: Patient is an 89-year-old female who lives at home and is on hospice care for numerous chronic comorbidities including A-fib heart failure cardiomyopathy history of CVAs who presents today with visual hallucinations. Unclear as to who called EMS however the patient is aware that she is here to be evaluated for to see if I am out of my mind. She tells us that she is aware that she was told that she was having visual hallucinations. She states that she saw young boy a young girl and tells an elaborate story of fixing food for them but eventually was told that these children were not real. She currently denies any complaints denies any injuries. Her sister called and told us that she is on hospice care primarily for her cardiomyopathy told that she had a very weak heart and that she had less than a week to live which was about a year ago. Related Data Home Medications ?Medication ?Instructions ?Recorded ?Confirmed acetaminophen 500 mg tablet 500 mg PO Q4HP PRN Mild Pain 01/24/24 09/10/24 (Scale Score 1-4) dabigatran etexilate 150 mg 150 mg PO BID 01/24/24 01/24/24 capsule (Pradaxa) digoxin 125 mcg (0.125 mg) tablet 125 mcg PO DAILY 01/24/24 09/10/24 lorazepam 0.5 mg tablet 0.5 mg PO Q6HP PRN Anxiety 01/24/24 09/10/24 mupirocin 2 % topical ointment 1 applic topical TID 01/24/24 01/24/24 Previous Rx's ?Medication ?Instructions ?Recorded furosemide 40 mg tablet 40 mg PO DAILY 30 days #30 tabs 07/19/23 spironolactone 25 mg tablet 25 mg PO DAILY 30 days #30 tabs 07/19/23 cefdinir 300 mg capsule 300 mg PO BID 10 days #20 caps 09/10/24 Allergies Allergy/AdvReac Type Severity Reaction Status Date / Time codeine Allergy Mild Vomiting/na Verified 09/10/24 07:46 usea meloxicam AdvReac Other Verified 09/10/24 07:46 PFSH PFS Disclaimer: The information contained in this section may have been updated after the patient was seen, as this information can be updated by other users. Medical History (Updated 09/10/24 @ 11:33 by Paula Goodman MD) Atrial fibrillation Ischemic cardiomyopathy Regional wall motion abnormality of heart Atypical angina HFrEF (heart failure with reduced ejection fraction) Hx of cardiomyopathy Tachy-kaylah syndrome Symptomatic bradycardia History of stroke Congestive heart failure Hyperlipidemia Hypertension Left-sided weakness Pincer nail deformity Edema Hammer toe Callus of foot Osteomyelitis Onychoincurvatum Encounter for wound care Ulcer of right foot Cardiomyopathy Pulmonary hypertension Hypokalemia Congestive heart failure Atrial fibrillation with rapid ventricular response Surgical History History of surgery History of left knee replacement Family History Other No significant family history Social History (Updated 01/24/24 @ 03:59 by Eileen Mendez RN) Smoking Status: Never smoker alcohol intake: never substance use type: denies use current occupational status: retired Travel in the last 8 weeks: None household members: none caffeine: No Other Medical History Have you received the Flu Vaccine for this season: No Have you received the Pneumonia Vaccine: No ROS Obtained: Yes All systems reviewed & no additional complaints except as documented Physical Exam General General appearance: alert and in no apparent distress Respiratory Respiratory exam: Present normal lung sounds bilaterally Cardiovascular Cardiovascular exam: Present regular rate and normal rhythm Neurological Exam Neurological exam: Present alert and oriented X3 Medical Decision Making Medical Records Screening: Per USPSTF and CDC recommendations, given the prevalence of disease in our region, it is our hospital?s policy to screen for HIV and viral Hepatitis for all patients aged 18 and over and those with ongoing risk factors. Chaz Inquiry Pt receiving controlled substance: No Vital Signs: 09/10/24 07:31 09/10/24 07:38 09/10/24 08:01 Temperature 98.7 F Temperature Source Oral Pulse Rate 85 64 Pulse Rate [Right] 61 Respiratory Rate 16 16 14 Blood Pressure 110/58 L 102/59 L Blood Pressure [Right Arm] 133/103 H Blood Pressure Mean [Right Arm] 113 Blood Pressure Source [Right Arm] Automatic Cuff Blood Pressure Position [Right Arm] Supine 02 Sat by Pulse Oximetry 90 L 94 L 100 Oxygen Delivery Method Nasal Cannula Nasal Cannula Nasal Cannula Oxygen Flow Rate (LPM) 3 3 09/10/24 08:30 09/10/24 08:45 09/10/24 09:00 Temperature Temperature Source Pulse Rate 62 75 67 Pulse Rate [Right] Respiratory Rate 16 18 15 Blood Pressure 108/68 L 135/73 Blood Pressure [Right Arm] Blood Pressure Mean [Right Arm] Blood Pressure Source [Right Arm] Blood Pressure Position [Right Arm] 02 Sat by Pulse Oximetry 100 100 100 Oxygen Delivery Method Oxygen Flow Rate (LPM) 09/10/24 09:30 09/10/24 10:00 09/10/24 10:30 Temperature Temperature Source Pulse Rate 70 82 85 Pulse Rate [Right] Respiratory Rate 14 13 17 Blood Pressure 151/79 H 116/81 119/97 H Blood Pressure [Right Arm] Blood Pressure Mean [Right Arm] Blood Pressure Source [Right Arm] Blood Pressure Position [Right Arm] 02 Sat by Pulse Oximetry 100 100 99 Oxygen Delivery Method Room Air Room Air Oxygen Flow Rate (LPM) 09/10/24 11:00 Temperature Temperature Source Pulse Rate 76 Pulse Rate [Right] Respiratory Rate 17 Blood Pressure 119/84 Blood Pressure [Right Arm] Blood Pressure Mean [Right Arm] Blood Pressure Source [Right Arm] Blood Pressure Position [Right Arm] 02 Sat by Pulse Oximetry 96 Oxygen Delivery Method Nasal Cannula Oxygen Flow Rate (LPM) Lab Data Lab results reviewed: Yes I reviewed the patient's lab results. Lab Results 09/10/24 07:17: WBC 6.4, RBC 4.30, Hgb 12.7, Hct 39.7, MCV 92.3, MCH 29.5, MCHC 32.0, RDW 13.4, Plt Count 232, MPV 10.8 H, Neut % (Auto) 68.2, Lymph % (Auto) 19.2, [place] % (Auto) 9.5 H, Eos % (Auto) 2.0, Baso % (Auto) 0.8, Neut # (Auto) 4.4, Lymph # (Auto) 1.2, [place] # (Auto) 0.6, Eos # (Auto) 0.1, Baso # (Auto) 0.1, Sodium 140, Potassium 4.4, Chloride 103, Carbon Dioxide 34 H, Anion Gap 7.4, BUN 28 H, Creatinine 0.90, Estimated GFR 59, Est GFR ( Amer) 72, Glucose 95, Calcium 9.8, Total Bilirubin 0.7, AST 24, ALT 16, Alkaline Phosphatase 94, Total Protein 7.8, Albumin 4.4, Globulin 3.4 H, Albumin/Globulin Ratio 1.3, HCV Ab POLINA w/Rflx PCR Qn Negative, HIV Ag/Ab Combo Qual Negative 09/10/24 07:20: Urine Color Yellow, Urine Appearance Clear, Urine pH 7.0, Ur Specific [place] 1.025, Urine Protein Trace, Urine Glucose (UA) Negative, Urine Ketones Negative, Urine Blood 1+ A, Urine Nitrate Positive A, Urine Bilirubin Negative, Urine Urobilinogen 2.0, Ur Leukocyte Esterase Trace, Urine RBC None, Urine WBC 10-20, Ur Squamous Epith Cells 5-10, Urine Bacteria 3+ 09/10/24 07:17 09/10/24 07:17 Orders (Tests/Meds): ED MEDICATIONS Generic Name Dose Route Start Last Admin Trade Name Freq PRN Reason Stop Dose Admin Ceftriaxone Sodium 1 gm/ 50 mls @ 100 mls/hr 09/10/24 08:45 09/10/24 08:41 Sodium Chloride IV 09/20/24 08:44 100 mls/hr Q24H PRITESH Administration Discontinued Medications Generic Name Dose Route Start Last Admin Trade Name Michael PRN Reason Stop Dose Admin Ceftriaxone Sodium 1 gm/ 50 mls @ 100 mls/hr 09/10/24 08:19 09/10/24 08:40 Sodium Chloride IV 09/10/24 08:48 Not Given ONCE ONE ORDERS Category Date Time Status CT head/brain wo con Stat Cat Scan 09/10/24 07:21 Completed Consult to Case Management [CONS] Routine Cons 09/10/24 08:40 Active CXR --portable [XR chest portable] Stat Exams 09/10/24 07:22 Completed CBC w/Auto Diff [Complete Blood Count Auto Diff] Stat Lab 09/10/24 07:17 Completed CMP [Comprehensive Metabolic Panel] Stat Lab 09/10/24 07:17 Completed HIV Combo Stat Lab 09/10/24 07:17 Completed Hepatitis C Ab Qual. W/ RFX Stat Lab 09/10/24 07:17 Completed UA [Urinalysis and Microscopic] Stat Lab 09/10/24 07:20 Completed Urine Culture Stat Micro 09/10/24 07:20 Received ECG Data Tracing #1: I reviewed this ECG and interpreted as documented below: Ventricular rate of 80 atrial fibrillation inferior and lateral ST depressions consistent with old EKGs no acute ischemic changes noted no ST elevations normal axis Medical Decision Narrative: 89-year-old with numerous comorbidities including end-stage heart failure on hospice presents today with visual hallucinations. She seems to be aware the fact that what she was seeing earlier today was in fact a hallucination but she still holds the fact that she saw what she saw. She is without any complaints gives me a good history and physical exam right now. She has a normal neurologic exam at the moment nonfocal has normal vitals respiratory effort no pain or tenderness anywhere. Will do a basic workup from an altered mental status standpoint and reassess. Reassessment CT scan performed I personally interpreted which shows no evidence of an acute intracranial pathology. Labs unremarkable aside from the fact that she has a urinary tract infection. I spoke with hospital medicine given the fact that she has a difficult social situation her POA is currently in the hospital for rehab and she has nobody else with her at the moment. She is unsafe to go home. Hospital medicine subsequently spoke to case management to then get in touch with [facility] she was accepted the patient for respite care and has been in direct conversation contact with hospice and the patient's sister. Everyone is agreeable to this plan patient was discharged in stable condition prescription sent to [facility] pharmacy which I have been told we will get to the patient ultimately at [place]. Critical Care Critical Care Time Critical Care Time: No
[2024-09-10 07:31] LABS: Microscopic, Urine URINE MICROSCOPIC (MICROSCOPIC)
[2024-09-10 07:32] LABS: Basophils # 0.1 K/mm3 (0-0.2); Basophils % 0.8 % (0.1-2.0); Eosinophils # 0.1 K/mm3 (0.0-0.4); Hematocrit 39.7 % (37.0-47.0); Hemoglobin 12.7 g/dL (12.2-16.2); Lymphocytes # 1.2 K/mm3 (0.7-4.5); Lymphocytes % 19.2 % (10-50); Mean Corpuscular Hemoglobin 29.5 pg (27.0-31.2); Mean Corpuscular Volume 92.3 fl (81-99); Mean Platelet Volume 10.8 fl (7.4-10.4); Monocytes # 0.6 K/mm3 (0.1-1.0); Monocytes % 9.5 % (1.7-9.3); Neutrophils # 4.4 K/mm3 (1.8-7.8); Neutrophils % 68.2 % (37.0-80.0); Platelet Count 232 K/mm3 (142-424); Red Cell Distribution Width 13.4 % (11.5-17.5); White Blood Count 6.4 K/mm3 (4.8-10.8)
--- NOTE | 2024-09-10 07:33 | ECG_ITS ---
APPROVED REPORT Exam: Resting ECG HR:80 bpm ECG Measurements Heart Rate 80 AXES QRSd 100 QRS 44 QT 345 T -88 QTc 381 Conclusion ATRIAL FIBRILLATION VOLTAGE CRITERIA FOR LVH [MEETS CRITERIA IN ONE OF: R(aVL), S(V1), R(V5), R(V5/V6)+S(V1)] ST DEVIATION AND MODERATE T-WAVE ABNORMALITY, CONSIDER INFERIOR ISCHEMIA [-0.1+ mV T-WAVE IN II/aVF] ABNORMAL ECG UNCONFIRMED REPORT Electronically signed by : Feng Goodman, 09/10/2024 15:24:00
--- NOTE | 2024-09-10 07:37 | PC.NURSE ---
pt to radiology
--- NOTE | 2024-09-10 07:39 | PC.NURSE ---
Pt gone to CT at this time
[2024-09-10 07:49] LABS: Alanine Aminotransferase 16 U/L (12-78); Albumin Level 4.4 g/dl (3.5-5.0); Albumin/Globulin Ratio 1.3 (1.1-1.8); Alkaline Phosphatase 94 U/L (38-126); Anion Gap 7.4 mEq/L (5-15); Aspartate Amino Transferase 24 U/L (14-36); Bilirubin,Total 0.7 mg/dl (0.2-1.3); Blood Urea Nitrogen 28 mg/dl (7-17); Calcium 9.8 mg/dl (8.4-10.2); Carbon Dioxide 34 mmol/L (22.0-30.0); Chloride 103 mmol/L (98-107); Estimated Glomerular Filt Rate 59 ml/min (>60); GFR (African American) 72 ML/MIN (>60); Globulin 3.4 g/dL (1.3-3.2); Glucose 95 mg/dl (74-100); Potassium 4.4 mmoL/L (3.5-5.1); Sodium 140 mmol/L (136-145); Total Protein,Serum 7.8 g/dl (6.3-8.2)
[2024-09-10 07:50] LABS: Appearance,Urine CLEAR (Clear); Bilirubin,Urine Negative (Negative); Blood, Urine 1+ (Negative); Color,Urine YELLOW (Yellow); Glucose,Urine (UA) Negative (Negative); Ketones,Urine Negative (Negative); Leukocyte Esterase,Urine TRACE (Negative); Nitrate,Urine POSITIVE (Negative); Protein,Urine TRACE (Negative); Specific Gravity, Urine 1.025 (1.005-1.030)
[2024-09-10 08:00] LABS: Bacteria,Urine 3+ /lpf
--- NOTE | 2024-09-10 08:04 | PC.NURSE ---
i spoke with Blanca from Hospice, she states pt does not have anyone that currently stays with her, but they have staff that comes to assist pt almost daily. this is due to pts granddaughters being hospitalized and unable to care for her. Blanca would like to be called if and when pt is discharged.
[2024-09-10] MEDS: CEFTRIAXONE 1 GM 1 GM in 0.9 % SODIUM CHLORIDE 50 ML IV (08:41)
--- NOTE | 2024-09-10 08:52 | PC.NURSE ---
hospice is currently waiting on [facility] to call them back regarding respite stay
[2024-09-10 09:35] LABS: HIV Combo NEGATIVE (Negative)
--- NOTE | 2024-09-10 09:52 | PC.NURSE ---
Mackenzie Garcia-the pts [facility]/POA called for an update. I informed her the plan is for case management to reach out to [facility]. She reports the pts sister Seema is no longer the POA. Mackenzie states the new paperwork is at the pts house. Her call back number is [phone]
--- NOTE | 2024-09-10 09:53 | SW/DCPLANNER ---
Addendum entered by Abril Brito 09/10/24 12:31: Patient has been accepted by [facility]. Patient will be going to the facility today. Danielito Roman Addendum entered by Idania Castellanos 09/10/24 10:20: Bess maurice/ [facility] stated she will be onsite this AM to evaluate patient. Original Note: ED put in a consult on patient stating that they are not sure if patient is safe to go home. Spoke with Blanca from Hospice and she has talked to ED and [facility]. Blanca stated that [facility] is looking over patients info and seeing if patient can get respite care for 5 days. Blanca is going to follow up with me once she hears from [facility]. Idania has spoke with Brandy from [facility] and faxed patients info once i get a update I will update. Danielito Roman
[2024-09-10 09:57] LABS: Hepatitis C Ab Qual. W/ RFX NEGATIVE (Negative)
--- NOTE | 2024-09-10 10:15 | PC.NURSE ---
spoke to Blanca with hospice, [facility] is still reviewing pt info for respite
--- NOTE | 2024-09-10 11:41 | PC.NURSE ---
report called to Roni @ [place]
--- NOTE | 2024-09-10 11:46 | PC.NURSE ---
I spoke to Mackenzie lopes granddaughter regarding pt being discharged to [facility] for a respite stay.
== END 2024-09-10 12:07 | disposition home or self-care (01) ==
PROVIDERS: Emergency Provider Student in an Organized Health Care Education/Training Program
DX: R44.3 Hallucinations, unspecified (principal); N39.0 Urinary tract infection, site not specified
CPT/HCPCS: 70450; 71045; 80053; 81001; 85025; 86803; 87086; 87088; 87186; 87389; 93005; 96374; 99285; J0696

== ENCOUNTER 2024-10-15 10:01 | Outpatient (CLI) | payer OTHER, SELFPAY ==
[2024-10-15 10:06] LABS: Microscopic, Urine URINE MICROSCOPIC (MICROSCOPIC)
[2024-10-15 10:48] LABS: Appearance,Urine CLEAR (Clear); Bilirubin,Urine Negative (Negative); Blood, Urine Negative (Negative); Color,Urine YELLOW (Yellow); Glucose,Urine (UA) Negative (Negative); Ketones,Urine Negative (Negative); Leukocyte Esterase,Urine Negative (Negative); Nitrate,Urine Negative (Negative); PH,Urine 5.5 (5.0-8.5); Protein,Urine Negative (Negative); Specific Gravity, Urine >= 1.030 (1.005-1.030); Urobilinogen,Urine 0.2 EU/dl (0.2)
[2024-10-15 11:09] LABS: Bacteria,Urine 2+ /lpf; WBC,Urine Occasional #/hpf (0-3)
== END 2024-10-15 23:59 | disposition home or self-care (01) ==
LOC: LAB.DROPOF 10:01
PROVIDERS: PCP Family Medicine Hospice and Palliative Medicine; Visit Provider Family Medicine Hospice and Palliative Medicine
DX: I51.9 Heart disease, unspecified (principal)
CPT/HCPCS: 81001; 87086

== ENCOUNTER 2025-04-03 07:26 | Inpatient (IN) | payer OTHER, SELFPAY ==
[2025-04-03] VITALS (12 sets, daily range): BP systolic 94–135; BP diastolic 51–93; PULSE 60–120; RESP 14–21; TEMP 36.5–36.8; O2SAT 91–100; BMI 22.4
--- NOTE | 2025-04-03 07:29 | CT_ITS ---
PROCEDURE INFORMATION: Exam: CTA Abdomen and Pelvis With Contrast Exam date and time: 04/03/2025 8:12 AM Age: 89 years old Clinical indication: Other: Hematochezia; Large volume TECHNIQUE: Imaging protocol: Computed tomographic angiography of the abdomen and pelvis with contrast. Exam focused on the arteries. 3D rendering (Not supervised by radiologist): MIP and/or 3D reconstructed images were created by the technologist. Radiation optimization: All CT scans at this facility use at least one of these dose optimization techniques: automated exposure control; mA and/or kV adjustment per patient size (includes targeted exams where dose is matched to clinical indication); or iterative reconstruction. Contrast material: ISOVUE 370; Contrast volume: 80 ml; Contrast route: INTRAVENOUS (IV); COMPARISON: CT ANGIO ABDOMEN PELVIS 07/16/2023 8:39 AM FINDINGS: Heart: Cardiomegaly. There is calcification of the aortic valve annulus. There is calcification of the mitral valve annulus. Coronary arteries: Coronary artery calcifications may indicate coronary artery disease. Aorta: Infrarenal abdominal aortic aneurysm 3.79 x 2 cm.. Celiac and mesenteric arteries: No occlusion or significant stenosis. Renal arteries: No occlusion or significant stenosis. Right iliac arteries: No occlusion or significant stenosis. Left iliac arteries: No occlusion or significant stenosis. Liver: No mass. Gallbladder and biliary ducts: Multiple gallstones in the gallbladder. Pancreas: Unremarkable. No mass. No ductal dilation. Spleen: Unremarkable. No splenomegaly. Adrenal glands: Unremarkable. No mass. Kidneys and ureters: 3.2 cm simple cyst left Kidney. 3.8 cm simple cyst left kidney 2.7 cm simple cyst left kidney . No follow-up imaging recommended . 2.9 cm mass right kidney 25 Hounsfield units.. Stomach and bowel: The rectum is distended 9.2 cm in width and 22 cm in length with fecal material consistent with fecal impaction. Mild bowel wall thickening around the rectum may represent proctitis. 13.5 mm series 7, image 145. Appendix: No evidence of appendicitis. Intraperitoneal space: Unremarkable. No free air. No significant fluid collection. Lymph nodes: Unremarkable. No enlarged lymph nodes. Urinary bladder: Unremarkable. No mass. Reproductive: 4.7 cm simple cyst right ovary. Recommend nonemergent pelvic ultrasound. Bones/joints: No acute fracture. Soft tissues: Unremarkable. IMPRESSION: 1. The rectum is distended 9.2 cm in width and 22 cm in length with fecal material consistent with fecal impaction. 2. Mild bowel wall thickening around the rectum may represent proctitis. 13.5 mm series 7, image 145. 3. 4.7 cm simple cyst right ovary. Recommend nonemergent pelvic ultrasound. 4. 2.9 cm mass right kidney 25 Hounsfield units.. Recommend nonemergent evaluation of the mass with MR without and with contrast or CT without and with contrast. MR is preferred for masses under 1.5 cm. 5. Infrarenal abdominal aortic aneurysm 3.79 x 2 cm..
--- NOTE | 2025-04-03 07:31 | HMH.EDGENADL ---
Discharge Plan Disposition Patient Disposition: Admitted Clinical Impressions Clinical Impression: Hematochezia, Atrial fibrillation with rapid ventricular response, Fecal impaction, Stercoral colitis Discharge ED Provider: Paula Goodman General Adult HPI General Chief complaint: GI Bleed Stated complaint: Blood in Stool Time Seen by Provider: 04/03/25 07:26 History of Present Illness HPI narrative: The patient is an 89-year-old female with a history of heart failure with reduced ejection fraction/ischemic cardiomyopathy with an EF of 20% per cardiology notes in the past she has been prescribed Eliquis but most recent medication list includes Pradaxa but not Eliquis for unknown reasons. Patient presents today with large-volume hematochezia. This began 48 hours ago she states. No pain associated with this. She does have a history of hemorrhoids. She states that she has never had a colonoscopy. She also claims that she is on hospice. Brought in by EMS and stable. Related Data Home Medications ?Medication ?Instructions ?Recorded ?Confirmed acetaminophen 500 mg tablet 500 mg PO Q4HP PRN Mild Pain 01/24/24 09/10/24 (Scale Score 1-4) dabigatran etexilate 150 mg 150 mg PO BID 01/24/24 01/24/24 capsule (Pradaxa) digoxin 125 mcg (0.125 mg) tablet 125 mcg PO DAILY 01/24/24 09/10/24 lorazepam 0.5 mg tablet 0.5 mg PO Q6HP PRN Anxiety 01/24/24 09/10/24 mupirocin 2 % topical ointment 1 applic topical TID 01/24/24 01/24/24 Previous Rx's ?Medication ?Instructions ?Recorded furosemide 40 mg tablet 40 mg PO DAILY 30 days #30 tabs 07/19/23 spironolactone 25 mg tablet 25 mg PO DAILY 30 days #30 tabs 07/19/23 cefdinir 300 mg capsule 300 mg PO BID 10 days #20 caps 09/10/24 Allergies Allergy/AdvReac Type Severity Reaction Status Date / Time codeine Allergy Mild Vomiting/na Verified 09/10/24 07:46 usea meloxicam AdvReac Other Verified 09/10/24 07:46 [facility] Disclaimer: The information contained in this section may have been updated after the patient was seen, as this information can be updated by other users. Medical History (Updated 04/03/25 @ 08:57 by Paula Goodman MD) Atrial fibrillation Ischemic cardiomyopathy Regional wall motion abnormality of heart Atypical angina HFrEF (heart failure with reduced ejection fraction) Hx of cardiomyopathy Tachy-kaylah syndrome Symptomatic bradycardia History of stroke Congestive heart failure Hyperlipidemia Hypertension Left-sided weakness Pincer nail deformity Edema Hammer toe Callus of foot Osteomyelitis Onychoincurvatum Encounter for wound care Ulcer of right foot Cardiomyopathy Pulmonary hypertension Hypokalemia Congestive heart failure Atrial fibrillation with rapid ventricular response Surgical History History of surgery History of left knee replacement Family History Other No significant family history Social History (Updated 01/24/24 @ 03:59 by Eileen Mendez RN) Smoking Status: Never smoker alcohol intake: never substance use type: denies use current occupational status: retired Travel in the last 8 weeks?: None household members: none caffeine: No Have you lived/traveled outside [place] in past 30 days?: No Contact w/someone who lives/traveled outside US past 30 days?: No Exposure to someone with infectious disease in past 14 days?: No Do you have a fever (greater than 100.4 F or 38 C)?: No Have you tested positive for COVID-19?: No Exposed to someone with COVID-19 in past 14 days?: No Do you have a sore throat?: No Do you have a cough?: No Do you have any weakness?: No Do you have any diarrhea?: No Are you experiencing any unusual bleeding?: Yes Do you have any muscle aches/pain?: No Do you have any abdominal pain?: No Are you experiencing loss of taste or smell?: No Other Medical History Have you received the Flu Vaccine for this season: No Have you received the Pneumonia Vaccine: No ROS Obtained: Yes All systems reviewed & no additional complaints except as documented Physical Exam General General appearance: alert and in no apparent distress Respiratory Respiratory exam: Present normal lung sounds bilaterally Cardiovascular Cardiovascular exam: Present regular rate and normal rhythm Abdominal Exam Abdominal exam: Present soft; Absent distention or tenderness Rectal Exam Rectal exam: Present bloody stool (Large-volume hematochezia) Neurological Exam Neurological exam: Present alert and other (Nonfocal) Medical Decision Making Medical Records Screening: Per USPSTF and CDC recommendations, given the prevalence of disease in our region, it is our hospital?s policy to screen for HIV and viral Hepatitis for all patients aged 18 and over and those with ongoing risk factors. Chaz Inquiry Pt receiving controlled substance: No Vital Signs: 04/03/25 07:30 04/03/25 07:31 04/03/25 08:00 Temperature 98.1 F Temperature Source Oral Pulse Rate 60 Pulse Rate [Right] 69 Respiratory Rate 18 20 Blood Pressure 110/77 125/93 H Blood Pressure [Right Arm] 130/66 Blood Pressure Mean [Right Arm] 87 02 Sat by Pulse Oximetry 95 100 100 Oxygen Delivery Method Nasal Cannula Nasal Cannula Nasal Cannula Oxygen Flow Rate (LPM) 3 3 3 04/03/25 08:30 04/03/25 09:00 Temperature Temperature Source Pulse Rate Pulse Rate [Right] Respiratory Rate 21 21 Blood Pressure 113/92 H 132/70 Blood Pressure [Right Arm] Blood Pressure Mean [Right Arm] 02 Sat by Pulse Oximetry 100 100 Oxygen Delivery Method Nasal Cannula Nasal Cannula Oxygen Flow Rate (LPM) 3 3 Lab Data Lab results reviewed: Yes I reviewed the patient's lab results. Lab Results 04/03/25 07:20: WBC 7.8, RBC 4.57, Hgb 12.7, Hct 40.8, MCV 89.3, MCH 27.8, MCHC 31.1 L, RDW 14.1, Plt Count 267, MPV 11.2 H, Neut % (Auto) 77.0, Lymph % (Auto) 14.2, Beckham % (Auto) 7.0, Eos % (Auto) 1.0, Baso % (Auto) 0.5, Neut # (Auto) 6.0, Lymph # (Auto) 1.1, Beckham # (Auto) 0.5, Eos # (Auto) 0.1, Baso # (Auto) 0.0, PT 25.1 H, INR 2.41 H, APTT 64.6 H* D, Sodium 139, Potassium 4.0, Chloride 105, Carbon Dioxide 25, Anion Gap 13.0, BUN 25 H, Creatinine 0.90, Estimated Creat Clear 39, Estimated GFR 59, Est GFR ( Amer) 72, Glucose 91, Calcium 9.9, Total Bilirubin 1.1, AST 24, ALT 14, Alkaline Phosphatase 117, Total Protein 7.9, Albumin 4.4, Globulin 3.5 H, Albumin/Globulin Ratio 1.3, Digoxin < 0.40 04/03/25 07:45: Blood Type A Positive, Antibody Screen Negative 04/03/25 07:20 04/03/25 07:20 Orders (Tests/Meds): ED MEDICATIONS Generic Name Dose Route Start Last Admin Trade Name Michael PRN Reason Stop Dose Admin Acetaminophen 650 mg 04/03/25 09:28 Acetaminophen 325mg Tab PO 05/03/25 09:27 Q4HP PRN Fever or Mild Pain (1-3) Piperacillin Sod/Tazobactam 50 mls @ 100 mls/hr 04/03/25 17:00 Sod 3.375 gm/ Sodium Chloride IV 04/13/25 16:59 Q6H PRITESH Metoprolol Succinate 25 mg 04/03/25 09:45 Metoprolol Succinate Xl 25mg Tablet PO 05/03/25 09:44 BID PRITESH Polyethylene Glycol 17 gm 04/03/25 10:30 Polyethylene Glycol 3350 17 Gm Packet PO 04/03/25 22:31 Q6H PRITESH Sodium Chloride 10 ml 04/03/25 08:20 04/03/25 08:22 Sodium Chloride 0.9% 10ml Syr (Rad Only) IV 05/03/25 08:19 10 ml NEEDED PRN Administration Maintain IV Site Discontinued Medications Generic Name Dose Route Start Last Admin Trade Name Michael PRN Reason Stop Dose Admin Acetaminophen 500 mg 04/03/25 08:27 04/03/25 08:30 Acetaminophen 500mg Tab PO 04/03/25 08:28 500 mg ONCE ONE Administration Piperacillin Sod/Tazobactam 50 mls @ 100 mls/hr 04/03/25 09:11 Sod 3.375 gm/ Sodium Chloride IV 04/03/25 09:40 ONCE ONE Iopamidol 80 ml 04/03/25 08:20 04/03/25 08:22 Iopamidol-370 (76%);100ml Bottle IV 04/03/25 08:21 80 ml ONCE ONE Administration Sodium Chloride 50 ml 04/03/25 08:20 04/03/25 08:22 0.9 % Sodium Chloride 50 Ml Vial IV 04/03/25 08:21 50 ml ONCE ONE Administration ORDERS Category Date Time Status Type and Screen Stat BBK 04/03/25 07:[address] angio abd/pel - GI Bleed Stat Cat Scan 04/03/25 07:29 Taken CBC w/Auto Diff [Complete Blood Count Auto Diff] Stat Lab 04/03/25 07:20 Completed CMP [Comprehensive Metabolic Panel] Stat Lab 04/03/25 07:20 Completed Complete Blood Count Auto Diff AMLAB Lab 04/04/25 06:00 Ordered Comprehensive Metabolic Panel AMLAB Lab 04/04/25 06:00 Ordered Digoxin Stat Lab 04/03/25 07:20 Completed Magnesium AMLAB Lab 04/04/25 06:00 Ordered PT/PTT Stat Lab 04/03/25 07:20 Completed ECG Data Tracing #1: I reviewed this ECG and interpreted as documented below: Ventricular rate of 118 A-fib with RVR no acute ischemic changes noted normal axis Medical Decision Narrative: Patient is an 89-year-old female with above history and physical. She had large-volume hematochezia on my exam. Unclear as to what medication she is currently on I checked her medication home list in our system and it seems that she is only on Pradaxa but most recent cardiology note states that she is supposed to be on Eliquis. Will obtain CBC and type and screen and get a CT angio GI bleed to see if she has any active extravasation given the volume of bleeding that I saw on exam. She appears to be hemodynamically stable on my initial evaluation does not appear to be toxic. Abdominal exam is benign I do not suspect that this is ischemic or inflammatory. Reassessment 9:[address] scan was performed I personally interpreted shows no evidence of any active extravasation however there is a very large stool ball in the rectosigmoid region with some bowel wall thickening concerning for stercoral colitis. No evidence of sepsis or perforation clinically. Patient did after further discussion states that she had some rectal discomfort. I did a manual disimpaction which had significant tenderness associated with this but was able to disimpact some. Will also use an enema to see if we can get further amounts of stool out as this localized impaction is likely the cause of inflammatory change in this region which is almost certainly contributory to the bleeding. I discussed the case with the patient's granddaughter who recently had a car wreck and has broken arms and legs and has difficult time caring for her at home patient is on hospice who comes Saturday and Saturday I spoke with hospice triage nurses as well as the hospice nurse on-call. We will admit the patient for further evaluation and management of atrial fibrillation with RVR likely she just needs to have her beta-hamilton reinitiated as she had that discontinued last year secondary to bradycardia. She has been anywhere from 90s to 120s RVR but no evidence of any significant instability or ischemia. Therefore I think we can slowly change medications from that standpoint. Zosyn has been initiated she will have her still coral colitis and rectal impaction managed inpatient after discussing with hospital medicine. Critical Care Critical Care Time Critical Care Time: Yes Attestation: On 04/03/25, the high probability of a clinically significant, sudden or life threatening deterioration of the following system(s) required my full and direct attention, intervention and personal management. The time I documented below is in addition to time spent performing reported procedures but includes the following listed in this critical care notation. Total Time Total Critical Care Time: 35
--- NOTE | 2025-04-03 07:39 | PC.NURSE ---
Granddaughter called and advised she can be contacted if there is any questions
[2025-04-03 07:42] LABS: Hematocrit 40.8 % (37.0-47.0); Hemoglobin 12.7 g/dL (12.2-16.2); Immature Granulocytes % 0.3 %; Mean Corpuscular HGB Conc 31.1 g/dL (31.8-35.4); Mean Corpuscular Hemoglobin 27.8 pg (27.0-31.2); Mean Corpuscular Volume 89.3 fl (81-99); Nucleated Red Blood Cells % 0 %; Platelet Count 267 K/mm3 (142-424); Red Blood Count 4.57 M/mm3 (4.20-5.40); Red Cell Distribution Width-SD 45.2 fL; White Blood Count 7.8 K/mm3 (4.8-10.8)
[2025-04-03 07:46] LABS: Alanine Aminotransferase 14 U/L (12-78); Albumin Level 4.4 g/dl (3.5-5.0); Albumin/Globulin Ratio 1.3 (1.1-1.8); Alkaline Phosphatase 117 U/L (38-126); Anion Gap 13.0 mEq/L (5-15); Aspartate Amino Transferase 24 U/L (14-36); Bilirubin,Total 1.1 mg/dl (0.2-1.3); Blood Urea Nitrogen 25 mg/dl (7-17); Calcium 9.9 mg/dl (8.4-10.2); Carbon Dioxide 25 mmol/L (22.0-30.0); Chloride 105 mmol/L (98-107); Creatinine Clearance Estimated 39 mL/min (50-200); Creatinine,Serum 0.90 mg/dl (0.52-1.04); Estimated Glomerular Filt Rate 59 ml/min (>60); GFR (African American) 72 ML/MIN (>60); Globulin 3.5 g/dL (1.3-3.2); Glucose 91 mg/dl (74-100); Potassium 4.0 mmoL/L (3.5-5.1); Sodium 139 mmol/L (136-145); Total Protein,Serum 7.9 g/dl (6.3-8.2)
[2025-04-03 07:50] LABS: INR 2.41 (0.9-1.1); Prothrombin Time 25.1 seconds (10.1-12.5)
--- OUTSIDE RECORDS SUMMARY | 2025-04-03 07:50 | XMS_ITS | Patient Health Record ---
Author Organization 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 Name Role Phone Tacho Barker Primary Care Provider Allergies Allergen (clinical drug ingredient) Drug/Non Drug Allergy documented on EMR Reaction Allergy Type Onset Date Status meloxicam Meloxicam Unknown Drug Allergy Active Sulfamethoxazole Unknown Drug Allergy Active codeine Codeine Unknown Drug Allergy Active Reason For Referral No Information Medications Medication SIG (Take, Route, Frequency, Duration) Notes Start Date End Date Status Spironolactone 25 MG 1 tab(s) orally onc e a day; Duration: 30 days Active Xarelto 10 MG 1 tab(s) orally once a day Active Betadine 10 % 1 valerie applied topically once a day soaking in guaze and apply to wound Active DNR *Please review for potential replacement for e-prescription and drug interaction check* Active Plavix 75 MG 1 tab(s) orally once a day Active REGULAR DIET *Please review for potential replacement for e-prescription and drug interaction check* Active DAPTOmycin 500 MG 1 Gm intravenously every 24 hours Active PICC LINE CATH CARE DIRECTED PRN *Please revi ew for potential replacement for e-prescription and drug interaction check* Active Digoxin 125 MCG 1 tab(s) orally once a day Active BOWEL PROTOCOL FOR NO BM IN 72 HOURS NATURAL LAXATIVE 2 TBS PO BID; IF NO RESULTS IN 24 H, ADD MOM; IF NO RESULTS ADD DULCOLAX SUPP 10MG; IF NO RESULT, GIVE FLEETS ENEMA; IF STILL NO RESULTS, CALL MD *Please review for potential replacement for e-prescription and drug interaction check* Active Doxycycline 100 MG 1 TAB BID *Please revie w and pick correct strength-formulat ion from Medispan options. If intended option is not shown, discontinue and re-order from Quick Search* Active INCONTINENCE SKIN CARE *Please review for potential replacement for e-prescription and drug interaction check* Active Entresto 24-26 MG 1 tab(s) orally 2 times a day Active Furosemide 40 MG 1 tab(s) orally once a day Active hydrALAZINE HCl 25 MG 1/2 tab(s) orally qHS Active Acetaminophen 500 MG 1 tab(s) orally at HS 08/19/2022 Active Metoprolol Succinate ER 25 MG 1 tab(s) orally once a day Active traZODone HCl 50 MG 1 pill orally qhs Active Multiple Vitamin - 1 cap(s) orally once a day Active oxyCODONE HCl 5 MG 1 tab(s) orally every 6 hours as needed for pain 08/11/2022 Active Tylenol 325 MG 2 tab(s) orally every 6 hours prn Active Atorvastatin Calcium 80 MG 1 tab(s) orally once a day Active Problems Problem Type SNOMED Code ICD Code Onset Dates Problem Status W/U Status Risk Notes Problem Insomnia (591978554) Insomnia (G47.00) Active confirmed Problem Atrial fibrillation (36892533) A-fib (I48.91) Active confirmed Problem Constipation (66273718) Constipation (K59.00) Active confirmed Problem 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) Active confirmed Problem Frailty (finding) (170944072) Age-related physical debility (R54) Active confirmed Problem Encounter for orthopedic aftercare following surgical amputation (Z47.81) Active confirmed Problem 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) Active confirmed Problem Cardiomyopathy (97355322) Cardiomyopathy (I42.9) Active confirmed Problem Peripheral vascular disease (879980802) Arterial insufficiency of lower extremity (I73.9) Active confirmed Problem Osteomyelitis (97739554) 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) Active confirmed Problem Pulmonary hypertension (65871113) Pulmonary HTN (I27.20) Active confirmed Problem Acute on chronic systolic heart failure (644701461) Acute on chronic HFrEF (heart failure with reduced ejection fraction) (I50.23) Active confirmed Problem Hypertensive heart failure (66521744) Hypertensive heart disease with congestive heart failure, unspecified heart failure type (I11.0) Active confirmed Plan Of Treatment No Information Insurance Providers Payer Name Payer Address Payer Phone Subscriber Number Group Number Insured Name Patient Relationship to Insured Coverage Start Date Coverage End Date [employer] (MEDICAR E) [address] [address] [place] [id number] Mireya Jones Self - patient is the insured Medical (General) History Medical History History ICD Code ASVCVD with previous AR CVA x2 Atrial fib Peripheral vascular disease Cardiomyopathy Osteoarthritis Surgical History Surgery Date(Month/Year) Date of procedure: 08/08/22 Pre-op Diagnosis:: Right second toe ulcer Right second toe osteomyelitis Post-op Diagnosis:: Same Procedure performed:: Right second toe amputation Right foot I&D Surgeon:: ANILA Villa 08/08/2022 Hospitalization History Reason Date(Month/Year) [facility] Discharge Diagnosis (1) Peripheral arterial disease: Status: Acute (2) Atrial fibrillation: Status: Acute (3) CAD (coronary atherosclerotic disease): Status: Acute (4) Chronic systolic heart failure: Status: Acute 07/31-08/01/2022
[2025-04-03 07:58] LABS: Activated Partial Thrombo Time 64.6 seconds (22.8-30.6)
--- NOTE | 2025-04-03 07:58 | ECG_ITS ---
APPROVED REPORT Exam: Resting ECG HR:118 bpm ECG Measurements Heart Rate 118 AXES QRSd 85 QRS 56 QT 276 T 27 QTc 346 Conclusion ATRIAL FIBRILLATION WITH RAPID VENTRICULAR RESPONSE NONSPECIFIC ST & T-WAVE ABNORMALITY ABNORMAL RHYTHM ECG UNCONFIRMED REPORT Electronically signed by : Feng Goodman, 04/03/2025 14:56:46
--- NOTE | 2025-04-03 08:20 | PC.NURSE ---
pt back from CT at this time
[2025-04-03] MEDS: IOPAMIDOL-370 (76%);100ML BOTTLE 80 ML IV (08:22)
[2025-04-03] MEDS: 0.9 % SODIUM CHLORIDE 50 ML VIAL IV (08:22)
[2025-04-03] MEDS: SODIUM CHLORIDE 0.9% 10ML SYR (RAD ONLY) 10 ML IV (08:22)
[2025-04-03] MEDS: ACETAMINOPHEN 500MG TAB 500 MG PO (08:30)
--- NOTE | 2025-04-03 09:02 | PC.NURSE ---
on the phone with hospitalist
--- NOTE | 2025-04-03 09:13 | PC.NURSE ---
i left hospice a message to call back regarding pt
--- NOTE | 2025-04-03 09:16 | PC.NURSE ---
md on phone with hospice
--- NOTE | 2025-04-03 09:31 | PC.NURSE ---
called house for bed
--- NOTE | 2025-04-03 09:33 | EXP.HP ---
History of Present Illness *Admission Date: 04/03/25 *Reason for visit:: blood in stool *History of present illness: Ms. 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 She presented to the ER due to concern for bloody bowel movements. They reportedly began about 2 days ago. She denies nausea or vomiting. Is on her baseline oxygen of 3-1/2 L. On arrival to the ER, found to be in A-fib and not rate controlled at this time. Hemoglobin 12.7, appears stable compared to labs over the past year. Kidney function at baseline. Imaging of her abdomen showed significant stool burden and large stool ball in her rectum. Concern for inflammation of the lower rectal wall. Medicine consulted after attempt at disimpaction for hematochezia and stercoral colitis. My evaluation after arriving to the floor, patient is at baseline mentation. Oriented to self. Denies sensation of shortness of breath. Denies significant lower abdominal pain. No fever at home that we are aware of. On digoxin home but Toprol all. Had an echo dated with Pradaxa. INR between 2 and 3. [facility] Disclaimer: The information contained in this section may have been updated after the patient was seen, as this information can be updated by other users. Medical History Atrial fibrillation Ischemic cardiomyopathy Regional wall motion abnormality of heart Atypical angina HFrEF (heart failure with reduced ejection fraction) Hx of cardiomyopathy Tachy-kaylah syndrome Symptomatic bradycardia History of stroke Congestive heart failure Hyperlipidemia Hypertension Left-sided weakness Pincer nail deformity Edema Hammer toe Callus of foot Osteomyelitis Onychoincurvatum Encounter for wound care Ulcer of right foot Cardiomyopathy Pulmonary hypertension Hypokalemia Congestive heart failure Atrial fibrillation with rapid ventricular response Surgical History History of surgery History of left knee replacement Family History Other No significant family history Social History Smoking Status: Never smoker alcohol intake: never substance use type: denies use current occupational status: retired Travel in the last 8 weeks?: None household members: none caffeine: No Have you lived/traveled outside US in past 30 days?: No Contact w/someone who lives/traveled outside US past 30 days?: No Exposure to someone with infectious disease in past 14 days?: No Do you have a fever (greater than 100.4 F or 38 C)?: No Have you tested positive for COVID-19?: No Exposed to someone with COVID-19 in past 14 days?: No Do you have a sore throat?: No Do you have a cough?: No Do you have any weakness?: No Do you have any diarrhea?: No Are you experiencing any unusual bleeding?: Yes Do you have any muscle aches/pain?: No Do you have any abdominal pain?: No Are you experiencing loss of taste or smell?: No Other Medical History Have you received the Flu Vaccine for this season: No Have you received the Pneumonia Vaccine: No Review of Systems Review of Systems Review of systems (narrative): 14 point review of systems performed, pertinent positives and negatives as per [facility] Meds Home Medications and Allergies Home Medications ?Medication ?Instructions ?Recorded ?Confirmed ?Type spironolactone 25 mg tablet 25 mg PO DAILY 30 days #30 tabs 07/19/23 04/03/25 Rx acetaminophen 500 mg tablet 500 mg PO Q4HP PRN Mild Pain 01/24/24 04/03/25 History (Scale Score 1-4) dabigatran etexilate 150 mg 150 mg PO BID 01/24/24 04/03/25 History capsule (Pradaxa) digoxin 125 mcg (0.125 mg) tablet 125 mcg PO DAILY 01/24/24 04/03/25 History lorazepam 0.5 mg tablet 0.5 mg PO Q6HP PRN Anxiety 01/24/24 04/03/25 History furosemide 40 mg tablet 40 mg PO MOWEFRSA 04/03/25 04/03/25 History hydrocortisone 0.5 % topical cream 1 applic topical DAILYP PRN Itching 04/03/25 04/03/25 History lactulose 10 gram/15 mL oral 10 g PO NEEDED PRN Constipation 04/03/25 04/03/25 History solution melatonin 5 mg tablet 5 mg PO HS 04/03/25 04/03/25 History morphine concentrate 100 mg/5 mL 5 mg PO Q6HP PRN Severe Pain 04/03/25 04/03/25 History (20 mg/mL) oral solution (Scale Score 7-10) nystatin 100,000 unit/gram topical 1 applic topical BIDP PRN REDNESS 04/03/25 04/03/25 History powder polyethylene glycol 3350 17 17 g PO DAILYP PRN Constipation 04/03/25 04/03/25 History gram/dose oral powder (Miralax) sennosides 8.6 mg-docusate sodium 8.6 tab PO DAILY Constipation 04/03/25 04/03/25 History 50 mg tablet (Stool Softener-Stimulant Laxative) simethicone 80 mg chewable tablet 80 mg PO NEEDED PRN Abdominal 04/03/25 04/03/25 History (Gas Relief (simethicone)) Discomfort temazepam 15 mg capsule (Restoril) 15 mg PO NEEDED PRN Insomnia 04/03/25 04/03/25 History New Prescriptions to Start Prescriptions: Allergies Allergy/AdvReac Type Severity Reaction Status Date / Time codeine Allergy Mild Vomiting/na Verified 09/10/24 07:46 usea meloxicam AdvReac Other Verified 09/10/24 07:46 Exam Data for Last 24 hours Vital signs and Labs for Last 24 Hours: Temp Pulse Resp BP Pulse Ox O2 Del Method O2 Flow Rate 98.1 F 60 21 132/70 100 Nasal Cannula 3 04/03/25 07:30 04/03/25 07:31 04/03/25 09:00 04/03/25 09:00 04/03/25 09:00 04/03/25 09:00 04/03/25 09:00 Laboratory Results - last 24 hr 04/03/25 07:20: WBC 7.8, RBC 4.57, Hgb 12.7, Hct 40.8, MCV 89.3, MCH 27.8, MCHC 31.1 L, RDW 14.1, Plt Count 267, MPV 11.2 H, Neut % (Auto) 77.0, Lymph % (Auto) 14.2, [place] % (Auto) 7.0, Eos % (Auto) 1.0, Baso % (Auto) 0.5, Neut # (Auto) 6.0, Lymph # (Auto) 1.1, [place] # (Auto) 0.5, Eos # (Auto) 0.1, Baso # (Auto) 0.0, PT 25.1 H, INR 2.41 H, APTT 64.6 H* D, Sodium 139, Potassium 4.0, Chloride 105, Carbon Dioxide 25, Anion Gap 13.0, BUN 25 H, Creatinine 0.90, Estimated Creat Clear 39, Estimated GFR 59, Est GFR ( Amer) 72, Glucose 91, Calcium 9.9, Total Bilirubin 1.1, AST 24, ALT 14, Alkaline Phosphatase 117, Total Protein 7.9, Albumin 4.4, Globulin 3.5 H, Albumin/Globulin Ratio 1.3 04/03/25 07:45: Blood Type A Positive, Antibody Screen Negative I & O for Last 24 hours: Intake & Output 03/31/25 04/01/25 04/02/25 04/03/25 23:59 23:59 23:59 23:59 Weight 63.049 kg Constitutional Constitutional: no acute distress, average body habitus and chronically ill appearing *Routine HEENT Exam Head: Present normocephalic and atraumatic Eye: Present EOMI and PERRL ENT: Present mucous membranes moist *Routine Neck Exam Neck: Present supple *Routine Respiratory Exam Respiratory: Present CTA bilaterally; Absent respiratory distress or rhonchi *Routine Cardiovascular Exam Cardiovascular: Present tachycardia and irregularly irregular *Routine Abdominal Exam Abdominal: Present soft, tenderness (Worse in the lower abdomen) and distended; Absent normoactive bowel sounds (hypoactive), rebound or guarding *Routine Rectal Exam Rectal:: deferred *Routine Genitalia Exam Genitalia:: deferred *Routine Extremities Exam Extremities: Present pulses intact and normal capillary refill; Absent cyanosis *Routine Skin Exam Skin: Present intact *Routine Neurological Exam Neurological: Present alert and moving all extremities Comments: Oriented to self. Answers questions appropriately with simple answers. Tangential thought. Assessment and Plan *Assessment and plan (1) Stercoral colitis: Status: Acute Category: Medical Code(s): K52.89 - Other specified noninfective gastroenteritis and colitis (2) Fecal impaction: Status: Acute Category: Medical Code(s): K56.41 - Fecal impaction (3) Atrial fibrillation with rapid ventricular response: Status: Acute Category: Medical Code(s): I48.91 - Unspecified atrial fibrillation (4) Hematochezia: Status: Acute Category: Medical Code(s): K92.1 - Melena (5) HFrEF (heart failure with reduced ejection fraction): Status: Acute Category: Medical Code(s): I50.20 - Unspecified systolic (congestive) heart failure (6) Cerebrovascular accident (CVA): Status: Chronic Qualifiers: CVA mechanism: embolism Category: Medical Code(s): I63.9 - Cerebral infarction, unspecified (7) Hospice care: Status: Acute Category: Medical Code(s): Z51.5 - Encounter for palliative care Plan 89-year-old female on hospice for HFrEF who presents with bloody bowel movements. Found to have coagulopathy secondary to her medication. Hemoglobin stable. Large stool burden necessitating disimpaction in the ED. Initiated on broad-spectrum antibiotics for stercoral colitis. Discussed case with ER physician, request admission for further management and monitoring. I decided to admit for serial labs to monitor hemoglobin level, increase bowel regimen to clean out bowels, and clinical monitoring. Problems addressed as follows: Fecal impaction Stercoral colitis Hematochezia -Per my review of CT of abdomen, has extensive stool burden and lower abdomen and colon. Thickening of rectal wall. - Hemoglobin stable at 12.7. Will repeat CBC, CMP, magnesium for the morning. White count 7.8. - Initiated on Zosyn in the ER, continue renally dosed 3.375 g every 6 hours scheduled - Aggressive bowel regimen with enema in the ED. Monitor stool output. Initiate MiraLAX every 6 hours for 3 doses 17 g p.o. Docusate senna nightly. - Advance diet as tolerated HFrEF A-fib with RVR -Does not appear to be in exacerbation. Per my review of chart, Echo from July 2023 shows severe reduced EF of 20%. Akinesis of the septal and anteroseptal LV curiel. Severe biatrial dilation. RVSP elevated at 35-40. - Holding anticoagulation with bloody bowel movements. Consider resuming tomorrow. - Resume metoprolol succinate 25 mg p.o. twice daily. Resume digoxin 125 mcg daily - Monitor for improvement in heart rate. - Consider diuresis in the morning if appears volume overloaded. Resume melatonin 5 mg nightly for sleep disorder Resume Ativan 0.5 mg p.o. every 6 hours as needed for anxiety Resume morphine 5 mg as needed p.o. every 6 hours for severe pain, monitor for toxicity Supplemental oxygen as needed for goal sats greater 90%. On her baseline 3 L at this time Kidney function stable with BUN 25, creatinine 0.9. Potassium 4.0. DNR/DNI Holding anticoagulation in the setting of bloody bowel movements Full liquid diet
[2025-04-03 09:45] LABS: Digoxin < 0.40 ng/ml (0.2-2.00)
--- NOTE | 2025-04-03 10:16 | PC.NURSE ---
pt tolerated soap suds enema well
--- NOTE | 2025-04-03 10:19 | PC.NURSE ---
report called to Mary
[2025-04-03] MEDS: PIPERCILLIN/TAZO 3.375 GM in 0.9 % SODIUM CHLORIDE 50 ML IV (10:21)
--- NOTE | 2025-04-03 10:30 | PC.NURSE ---
arrived to floor by stretcher from ED
[2025-04-03] MEDS: POLYETHYLENE GLYCOL 3350 17 GM PACKET PO ×3 (11:18→23:00)
[2025-04-03] MEDS: METOPROLOL SUCCINATE XL 25MG TABLET 25 MG PO (11:19)
[2025-04-03] MEDS: DIGOXIN 0.125MG TABLET 125 MCG PO (12:22)
[2025-04-03] MEDS: PIPERACILLIN/TAZO 3.375 GM in 0.9 % SODIUM CHLORIDE 50 ML IV ×2 (16:23→23:00)
--- NOTE | 2025-04-03 18:40 | PC.NURSE ---
new admit this shift. pt got enema in ER and has had multiple BMs. receiving miralax. purewick in place. no complaints of pain. requiring 3L to maintiain sats >90%.
--- NOTE | 2025-04-03 20:40 | EXP.EVENT.NO ---
Patient's BP 94/51 tonight. Will therefore hold metoprolol overnight. If blood pressure falls further, will consider either crystalloid bolus or midodrine administration.
[2025-04-03] MEDS: MELATONIN 5MG TABLET 5 MG PO (21:34)
[2025-04-04] VITALS (7 sets, daily range): BP systolic 95–118; BP diastolic 47–80; PULSE 66–109; RESP 12–18; TEMP 36.4–36.8; O2SAT 98–100; BMI 22.5
--- NOTE | 2025-04-04 04:00 | PC.NURSE ---
Patient is pleasantly alert and oriented, speech occasionally mumbled and difficult to understand. She was observed to have both wakeful periods and resting periods (eyes closed, respirations) throughout the night. She has remained on 3 L of oxygen via nasal cannula with oxygen saturations > 90%. Patient has had multiple frequent, loose, red-brown, very odorous bowel movements (reported a burning sensation in rectum during defecation) this shift. Her female purewick has also been removed since midnight this shift. She has been utilizing both brief and bedpan for elimination needs; patient can vocalize urges to defecate/urinate but sometimes has trouble controlling when it happens. Urine appearance light yellow in color. She denies abdominal pain; abdomen is soft with palpation. Patient is able to self-turn in bed, requires assistance during transfers. Scheduled medications were administered as appropriately per MAR (metoprolol succinate held due to soft blood pressure). Clear lungs, irregular heart rhythm, very active bowel sounds heard upon auscultation. No nausea/vomiting, tolerating a regular diet well from prior advancement. At this time, the patient is resting in bed without any new needs vocalized. Bed alarm is on. Call light within reach.
[2025-04-04] MEDS: PIPERACILLIN/TAZO 3.375 GM in 0.9 % SODIUM CHLORIDE 50 ML IV ×4 (05:50→22:25)
[2025-04-04 06:24] LABS: Hematocrit 34.5 % (37.0-47.0); Immature Granulocytes % 0.2 %; Mean Corpuscular HGB Conc 30.7 g/dL (31.8-35.4); Mean Corpuscular Hemoglobin 27.9 pg (27.0-31.2); Mean Corpuscular Volume 90.8 fl (81-99); Nucleated Red Blood Cells % 0 %; Platelet Count 203 K/mm3 (142-424); Red Blood Count 3.80 M/mm3 (4.20-5.40); Red Cell Distribution Width-SD 46.3 fL; White Blood Count 5.2 K/mm3 (4.8-10.8)
[2025-04-04 06:29] LABS: Hemoglobin 10.9 g/dL (12.2-16.2)
[2025-04-04 06:30] LABS: Alanine Aminotransferase 12 U/L (12-78); Albumin Level 3.5 g/dl (3.5-5.0); Albumin/Globulin Ratio 1.2 (1.1-1.8); Alkaline Phosphatase 94 U/L (38-126); Anion Gap 10.0 mEq/L (5-15); Aspartate Amino Transferase 21 U/L (14-36); Bilirubin,Total 1.1 mg/dl (0.2-1.3); Blood Urea Nitrogen 19 mg/dl (7-17); Calcium 9.1 mg/dl (8.4-10.2); Carbon Dioxide 24 mmol/L (22.0-30.0); Chloride 106 mmol/L (98-107); Creatinine Clearance Estimated 40 mL/min (50-200); Creatinine,Serum 0.80 mg/dl (0.52-1.04); Estimated Glomerular Filt Rate 68 ml/min (>60); GFR (African American) 82 ML/MIN (>60); Globulin 2.9 g/dL (1.3-3.2); Glucose 86 mg/dl (74-100); Magnesium 2.1 mg/dl (1.6-2.3); Potassium 4.0 mmoL/L (3.5-5.1); Sodium 136 mmol/L (136-145); Total Protein,Serum 6.4 g/dl (6.3-8.2)
[2025-04-04] MEDS: FUROSEMIDE 40 MG TABLET PO (08:38)
[2025-04-04] MEDS: DIGOXIN 0.125MG TABLET 125 MCG PO (08:38)
[2025-04-04] MEDS: METOPROLOL SUCCINATE XL 25MG TABLET 25 MG PO (08:39)
--- NOTE | 2025-04-04 10:19 | DIET.NUTRFU ---
RD consulted for low jenny score, patient tolerating regular diet with 25% consumed. Added ensure TID to help meet nutritional needs.
--- NOTE | 2025-04-04 11:34 | HMH.PHAINT1 ---
Pharmacy Intervention Comments: COMPARED MED REC TO FILL HX AND MATTHEW ALONG WITH MD OFFICE NOTES. COLITIS AND GI BLEED, HOLDING ANTICOAGULANTS. BP LOW MD REDUCED OR HELD BP MEDS. JDB
--- OUTSIDE RECORDS SUMMARY | 2025-04-04 11:58 | XMS_ITS | Clinical Summary ---
Author Organization Healthcare Address [address] [place] [address] Care Team Providers Care Coupling Machine Operator Name Role Phone Jairo Valverde MD Primary Care Provider [phone] Edouard Contreras SINGING MESSENGER Unavailable [phone] Allergies Active Allergy Reactions Criticality Noted Date Comments Codeine Other - please docum ent in the comment field Low 04/23/2022 Upset stomach Jacquelyn Hays unable to confirm. Penicillins Unknown - Patient st ates they do not know rxn details Low 05/14/2022 Reported by Jacquelyn Hays. Tolerated zosyn 05/15 Sulfa Drugs Other - please docum ent in the comment field Low 05/14/2022 Reported by Jacquelyn Hays. Medications furosemide (Lasix) 40 MG tablet Take 1 tablet (40 mg total) by mouth every other day. 15 tablet 11 04/27/2022 Active multivitamin (Theragran-M) tablet Take 1 tablet by mouth 1 (one) time each day. 30 tablet 05/26/2022 Active hydrALAZINE (Apresoline) 25 MG tablet Take 1 tablet (25 mg total) by mouth 3 (three) times a day. 90 tablet 11 05/26/2022 Active apixaban (Eliquis) 5 MG tablet Take 1 tablet (5 mg total) by mouth 2 (two) times a day. 60 tablet 1 05/27/2022 Active atorvastatin (Lipitor) 80 MG tablet Take 1 tablet (80 mg total) by mouth 1 (one) time each day. 30 tablet 11 05/27/2022 Active digoxin (Lanoxin) 125 MCG tablet Take 1 tablet (125 mcg total) by mouth 1 (one) time each day. 30 tablet 1 05/27/2022 Active lisinopril 10 MG tablet Take 1 tablet (10 mg total) by mouth 1 (one) time each day. 30 tablet 11 05/27/2022 Active metoprolol tartrate (Lopressor) 25 MG tablet Take 1 tablet (25 mg total) by mouth 3 (three) times a day. 90 tablet 11 05/27/2022 Active Active Problems Problem Noted Date Diagnosed Date Uncontrolled hypertension 04/24/2022 Overview (04/24/2022): - Blood pressure goal for normotension - 04/24, Start lisinopril 5mg daily and continue digoxin 125mcg daily, and furosemide 40mg every other day. CHF (congestive heart failure) 04/24/2022 Overview (04/24/2022): - LVEF of 40 to 55% - Continue digoxin 125mcg daily, furosemide 40mg every other day, and lisinopril 5mg daily Bilateral lower leg cellulitis 04/24/2022 Overview (04/24/2022): - Per pharmacy review being treated with an OTC silver cream and antibiotics prior to admission - Wound care team following Dysphagia 04/24/2022 Overview (04/24/2022): - 04/24, Nursing reported patient having mild difficulty with PO intake. PET CARE ASSOCIATE re-assessed at bedside and able to continue current puree and honey thick liquids by TSP only diet. - Requires 1:1 supervision with meals as patient is noted to be impulsive with diet - Repeat MBS pending Intracranial atherosclerosis 04/19/2022 Atherosclerosis of vertebral artery 04/19/2022 Atherosclerosis of both carotid arteries 022 Stenosis of right carotid artery greater than 50 % 04/19/2022 Cerebrovascular accident (CV A) due to stenosis of right carotid artery 04/19/2022 Paroxysmal atrial fibrillation 04/19/2022 Homonymous hemianopsia following cerebrovascular accident 04/19/2022 Class 1 obesity due to exces s calories without serious comorbidity with body mass index (BMI) of 31.0 to 31.9 in adult 04/19/2022 Overview (04/24/2022): - BMI 31.18 - Complicates all aspects of care - Heart healthy diet and exercise as able Cerebrovascular accident (CV A) due to embolism of right middle cerebral artery 04/18/2022 Overview (04/24/2022): - She presented to [facility] after developing left sided weakness, left facial droop, and aphasia with an initial NIHSS of 13. - Her last known normal is around 5pm on 04/17/22. - Stroke risk factors include hypertension and age. - Stroke labs include TSH 0.61, A1c 4.9, and LDL 116.8. - tPA not given as she presented outside the treatment window. - Mechanical thrombectomy not performed due to no large vessel occlusion. - Stroke mechanism is cardioembolic in the setting of A fib. - CT head showed chronic right sided infarcts but no acute infarct of hemorrhage. - CTA of head and neck showed indeterminate level of stenosis at the origin of the left vertebral artery, 95% stenosis of the right ICA origin, apparent outpouching of the V3 segment of the right vertebral artery representing likely simple tortuosity of the vessel, however, a pseudoaneurysm cannot be excluded. Focal severe stenoses of the right P2 DIETARY AIDE segments, proximal right A1 KIMBERLEY segment, and left proximal P2 DIETARY AIDE segment. - Carotid duplex remarkable for hemodynamically significant stenosis on the right, but not the left. - Neurosurgery consulted and will plan to see patient as an outpatient. - MR head showed acute right frontal and parietal infarcts superimposed on previous chronic infarcts. - Routine EEG with left slowing but no epileptiform discharges - TTE showed normal LV, moderate left ventricular myocardial thickness and mass. Variable LVEF due to arrythmia, but estimated at 40 to 55%. - Blood pressure goals for normotension. - PT/OT recommend acute rehab. - Dysphagia recommend puree diet with honey thick liquids by TSP only. Recommend supervision with meals. - PHQ and MoCA pending prior to discharge. - Secondary stroke prophylaxis includes ASA 81mg daily, atorvastatin 80mg daily, and apixaban for atrial fibrillation. - Follow up with [facility] Stroke Neurology in 8 to 12 weeks for continued stroke care. - Follow up with [facility] Neurosurgery for hemodynamically significant carotid artery stenosis. - Follow up with her PCP as soon as possible for continued management of comorbid conditions. Resolved Problems Problem Noted Date Diagnosed Date Resolved Date UTI (urinary tract infection) 05/17/2022 03/28/2025 Shock 05/13/2022 03/28/2025 Social History Tobacco Use Types Packs/Day Years Used Date Smoking Tobacco: Never Passive Smoke Exposure: Never Smokeless Tobacco: Never Tobacco Cessation:Counseling Given: Not Answered Alcohol Use Standard Drinks/Week Comments Never 0 (1 standard drink = 0.6 oz pur e alcohol) AUDIT-C Answer Date Recorded Q1: How often do you have a drink containing alcohol? Never 04/18/2022 Q2: How many drinks containi ng alcohol do you have on a typical day when you are drinking? Patient does not drink Q3: How often do you have si x or more drinks on one occasion? Never 04/18/2022 CAGE ASSESSMENT Answer Date Recorded Cage unable to access Not on file 04/18/2022 Cage max number of drinks Not on file 2021 Cage Beverages a week Not on file 04/18/2022 Have you ever felt you should CUT down on your d rinking? 0 04/18/2022 Have you been ANNOYED by people criticizing your drinking? 0 04/18/2022 Have you felt GUILTY about your drinking? 0 04/18/2022 Have you had a drink first t katja in the morning ([employer] HERBALIST) to steady your nerves or to get rid of a hangover? 0 04/18/2022 CAGE Questionnaire Score 0 022 Comments Unknown Sex and Gender Information Value Date Recorded Sex Assigned at Not on file Legal Sex Female 7:50 PM EDT Gender Identity Not on file Sexual Orientation Not on file Last Filed Vital Signs Vital Sign Reading Time Taken Comments Blood Pressure 145/60 05/26/2022 7:24 AM EST Pulse 82 05/26/2022 7:24 AM EST Temperature 36.3 C (97.4 F) 05/26/2022 7:24 AM EST Respiratory Rate 17 05/26/2022 7:24 AM EST Oxygen Saturation 97% 05/26/2022 7:2 4 AM EST Inhaled Oxygen Concentration - - Weight 73.6 kg (162 lb 4.1 oz) 05/26/20 5:42 AM EST bed weight Height 167 cm (5' 5.75 ) 05/21/2022 11: 00 AM EST Body Mass Index 26.39 05/21/2022 11:00 AM EST Plan of Treatment Health Maintenance Due Date Last Done Comments [facility]-Bone Density Scan 1937 [facility]-Depression Screening 1937 [facility]-Medicare Annual Wellness (AWV) 1937 [facility]-Infant/Child/Adol SDOH Screenings 1937 [facility]-Obesity Intervention 1943 [facility]- SDOH Screenings 1955 [facility]-Adult SDOH Screenings 1955 [facility]-DTaP,Tdap,and Td Vaccine s (1 - Tdap) 1956 [facility]-Pneumococcal Vaccine: 50 + Years (1 of 1 - PCV) 1987 [facility]-Zoster Vaccines (1 of 2) 1987 [facility]-RSV Vaccine: 60+ Years o r (1 - 1-dose 75+ series) 2012 [id number] Vaccine (2 - 20 25-26 season) 2025 09/14/2020 [facility]-Influenza Vaccine (#1) 2025 HPV Vaccines Aged Out No longer eligi ble based on patient's age to complete this topic [facility]-HIB Vaccines Aged Out No longer e ligible based on patient's age to complete this topic [facility]-Hepatitis A Vaccines Aged Out No longer eligible based on patient's age to complete this topic [facility]-IPV Vaccines Aged Out No longer e ligible based on patient's age to complete this topic [facility]-Rotavirus Vaccines Aged Out No lo nger eligible based on patient's age to complete this topic Additional Health Concerns Infection Onset Date Last Indicated MRSA 05/13/2022 05/13/2022 Insurance [facility] MEDICARE Advance Directives * DNR/DNI (Latest Code Status on File) Date Activated Date Inactivated Comments 05/13/2022 6:14 PM 05/26/2022 6:14 PM Question Answer Comments DNR determined on/before admission date? Yes Patient has decision-making capacity? Yes * DNR/DNI Date Activated Date Inactivated Comments 05/13/2022 5:29 PM 05/13/2022 6:14 PM DNR + DNI Discussed with patient in presence of grand daughter as witness that she does not wish to have CPR and/or intubation performed. Question Answer Comments DNR determined on/before admission date? Yes Patient has decision-making capacity? Yes * DNR - Ok to intubate Date Activated Date Inactivated Comments 04/18/2022 2:42 PM 04/25/2022 6:26 PM Question Answer Comments DNR determined on/before admission date? No Patient has decision-making capacity? Yes Healthcare Agents on File Name Relationship Healthcare Agent Relationshi p Communication Drake Arnel Grandtyesha Next of Kin [phone] ( Mobile) Care Teams Coupling Machine Operator Relationship Specialty Start Date End Date Jairo Valverde MD [address] [place] [address] [place] [address] PCP - General 11/18/20 Edouard Contreras APRN [address] [place] [id number] First Call Provider Neurology 04/24/22
--- OUTSIDE RECORDS SUMMARY | 2025-04-04 11:58 | XMS_ITS | Encounter Summary ---
Author Organization Healthcare Address [address] [place] [address] Care Team Providers Care Human Resource Internship Name Role Phone Jairo Valverde MD Primary Care Provider [phone] Edouard Contreras GARDEN WORKER Unavailable [phone] Encounter Details Date Type Department Care Team (Late st Contact Info) Description 05/14/2022 Lab Requisition [facility] [address] [place] [address] Patrick Murrieta MD [address] [place] [address] Encounter for general adult medical examination without abnormal findings Social History Tobacco Use Types Packs/Day Years Used Date Smoking Tobacco: Never Passive Smoke Exposure: Never Smokeless Tobacco: Never Alcohol Use Standard Drinks/Week Comments Never 0 [...] drink first t katja in the 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 0 04/18/2022 CAGE Questionnaire Score 0 022 Comments Unknown Sex and Gender Information Value Date Recorded Sex Assigned at Not on file Legal Sex Female 7:50 PM EDT Gender Identity Not on file Sexual Orientation Not on file COVID-19 Exposure Response Date Recorded In the last 10 days, have yo u been in contact with someone who was confirmed or suspected to have Coronavirus/COVID-19? No / Unsure 05/13/2022 10:14 AM EST documented as of this encounter Functional Status * Calculated C-SSRS Risk Score (Lifetime/Recent) Answer Date of Assessment Author No Risk Indicated 05/16/2022 8:00 PM EST Cynthia Jerome RN * Question Answer Date of Assessment Author 1. Wish to be (Past 1 Month) No 05/16/2022 8:00 PM EST Cynthia Jerome RN 2. Non-Specific Active Suici darin Thoughts (Past 1 Month) No 05/16/2022 8:00 PM EST Ana Jerome RN 6. Suicidal Behavior (Lifetime) No 8:00 PM EST Cynthia Jerome RN documented as of this encounter Plan of Treatment Not on file documented as of this encounter Procedures Procedure Name Priority Date/Time Associated Diagnosis Comments MULTI DRUG RESISTANCE TEST Routine 05/15/2022 11:42 AM EST Encounter for general adult medical examination without abnormal findings documented in this encounter Results * Multi Drug Resistance Test (05/15/2022 11:42 AM EST) Culture No Multi Drug Resistant Organisms Isolated 05/15/2022 11:42 AM EST [facility] Swab (Nares and Rosa Maria Rectal) 05/14/2022 9:54 AM EST Patrick Lr MD LAB MICROBIOLOGY - GENERAL ORDERABLES Final Result [facility] [address] [place] [address] documented in this encounter Visit Diagnoses Diagnosis Encounter for general adult medical examination without abnormal findings documented in this encounter Additional Health Concerns Infection Onset Date Last Indicated Resolved Time RSV 05/13/2022 05/13/2022 06/10/2022 5:23 AM EST COVID 19 (Confirmed) Comment:[facility] has verified patient has a COVID-19 positive result. A chart review has been completed, EPI PUI has been completed and sent to appropriate Health Dept. [facility] Wash Helper: Tushar Lopez Infection Prevention & Control Note Isolation Discontinued: 05/24/2022 Patient has been approved by [facility] medical direction to have COVID-19 isolation discontinued. Patients COVID-19 infection is >11 days, all isolation precautions in place for COVID-19 infection have been discontined/removed and the infection has been resolved. [X ]Patient is asymptomatic or symptoms are improving (afebrile). [ X]Patient does not require supplemental O2, if O2 is required demand is not above the baseline. [ X]Patient is not considered immunocompromised or suppressed. [facility] has been contacted to complete a modified clean of the room. Please continue isolation precautions until [facility] has completed the modified clean. 05/13/2022 05/13/2022 05/24/2022 11:35 AM EST MRSA 05/13/2022 05/13/2022 documented as of this encounter Care Teams Human Resource Internship Relationship Specialty Start Date End Date Jairo Valverde MD [address] [place] [id number] PCP - General 11/18/20 Edouard Contreras APRN [address] [place] [id number] First Call Provider Neurology 04/24/22 documented as of this encounter
--- OUTSIDE RECORDS SUMMARY | 2025-04-04 11:58 | XMS_ITS | Patient Health Record ---
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) Active confirmed Problem Frailty (finding) (525925791) Age-related physical debility (R54) Active confirmed Problem Encounter for orthopedic aftercare following surgical amputation (Z47.81) Active confirmed Problem Arteriosclerotic vascular disease (08715034) Arteriosclerotic cardiovascular disease (I25.10) Active confirmed Problem Cardiomyopathy (19207327) Cardiomyopathy (I42.9) Active confirmed Problem Peripheral vascular disease (495874584) Arterial insufficiency of lower extremity (I73.9) Active confirmed Problem Osteomyelitis (62149343) 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) Active confirmed Problem Pulmonary hypertension (40721388) Pulmonary HTN (I27.20) Active confirmed Problem Acute on chronic systolic heart failure (128714375) Acute on chronic HFrEF (heart failure with reduced ejection fraction) (I50.23) Active confirmed Problem Hypertensive heart failure (89144208) Hypertensive heart disease with congestive heart failure, unspecified heart failure type (I11.0) Active confirmed Plan Of Treatment No Information Insurance Providers Payer Name Payer Address Payer Phone Subscriber Number Group Number Insured Name Patient Relationship to Insured Coverage Start Date Coverage End Date [employer] (MEDICAR E) [address] [address] [place] [address] [phone] [id number] Mireya Jones Self - patient is the insured Medical (General) History Medical History History ICD Code ASVCVD with previous MT CVA x2 Atrial fib Peripheral vascular disease Cardiomyopathy Osteoarthritis Surgical History Surgery Date(Month/Year) Date of procedure: 08/08/22 Pre-op Diagnosis:: Right second toe ulcer Right second toe osteomyelitis Post-op Diagnosis:: Same Procedure performed:: Right second toe amputation Right foot I&D Surgeon:: ANILA Villa 08/08/2022 Hospitalization History Reason Date(Month/Year) [facility] Discharge Diagnosis (1) Peripheral arterial disease: Status: Acute (2) Atrial fibrillation: Status: Acute (3) CAD (coronary atherosclerotic disease): Status: Acute (4) Chronic systolic heart failure: Status: Acute 07/31-08/01/2022
--- OUTSIDE RECORDS SUMMARY | 2025-04-04 11:58 | XMS_ITS | Clinical Summary ---
Author Organization [facility] Address [address] [place] [address] Care Team Providers Care Glue Maker Name Role Phone Unavailable Primary Care Provider Unavailabl e Social History Tobacco Use Types Packs/Day Years Used Date Smoking Tobacco: Never Assessed Abuse Screen Answer Date Recorded Unsafe at Home or Work/School Not on file Feels Threatened by Someone? Not on file 03/2023 Does Anyone Keep You from Co ntacting Others or Doint Things Outside the Home? Not on file 04/15/2023 Physical Sign of Abuse Present Not on file 1 Housing Stability Answer Date Recorded Current Living Arrangements Not on file 03/2023 Potentially Unsafe Housing Conditions Not on saúl e 04/15/2023 Family and Community Support Answer Mohinder e Recorded Help with Day-to-Day Activities Not on file 04/15/2023 Lonely or Isolated Not on file 04/15/2023 Employment Answer Date Recorded Do you want help finding or keeping work or a kirstin b? Not on file 04/15/2023 Disabilities Answer Date Recorded Concentrating, Remembering, or Making Decisions Difficulty Not on file 04/15/2023 Doing Errands Independently Difficulty Not on fi le 04/15/2023 Education Answer Date Recorded Help with school or training? Not on file Preferred Language Not on file 04/15/2023 Comments Unknown Sex and Gender Information Value Date Recorded Sex Assigned at Not on file Legal Sex Female 1:09 PM EDT Gender Identity Not on file Sexual Orientation Not on file Plan of Treatment Health Maintenance Due Date Last Done Comments ANNUAL PHYSICAL 1935 DXA SCAN 1935 TDAP/TD VACCINES (1 - Tdap) 1956 Pneumococcal Vaccine 50+ (1 of 1 - PCV) 1987 ZOSTER VACCINE (1 of 2) 1987 RSV Vaccine - Adults (1 - 1-dose 75+ series) 3 INFLUENZA VACCINE 02/05/2025 COVID-19 Vaccine (2023- season) [address] [facility] MEDICARE ADVANTAGE
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
--- NOTE | 2025-04-04 12:38 | P.PN_ITS ---
Subjective *Date: 04/04/25 *Time: 12:38 Interval history: Stable on baseline oxygen at 3 L. Tolerating p.o. intake. Will had some dark bloody bowel movements yesterday. Abdomen feeling better. No nausea or vomiting. Therapy today. Did have a drop in her hemoglobin on morning labs com pared to admission. Medical Exam Vital signs and Labs for Last 24 Hours: Vital Signs Temp Pulse Pulse Pulse Resp BP Pulse Ox 04/04/25 12:00 97.7 F 66 72 14 95/56 L 99 04/04/25 09:00 04/04/25 08:38 93 H 04/04/25 08:00 04/04/25 07:31 97.5 F L 93 H 12 116/80 100 04/04/25 07:00 04/04/25 05:00 04/04/25 04:00 97.6 F 80 18 100/65 L 100 04/04/25 03:00 04/04/25 01:00 04/04/25 00:00 97.8 F 109 H 16 118/70 99 04/03/25 23:00 04/03/25 21:00 04/03/25 20:00 04/03/25 19:56 97.9 F 86 14 94/51 L 91 L 04/03/25 18:30 04/03/25 17:00 04/03/25 15:32 97.8 F 93 H 14 116/79 100 04/03/25 15:00 04/03/25 13:00 O2 Del Method O2 Flow Rate 04/04/25 12:00 Nasal Cannula 3 04/04/25 09:00 Nasal Cannula 3 04/04/25 08:38 04/04/25 08:00 Nasal Cannula 3 04/04/25 07:31 Nasal Cannula 3 04/04/25 07:00 Nasal Cannula 3 04/04/25 05:00 Nasal Cannula 3 04/04/25 04:00 Nasal Cannula 3 04/04/25 03:00 Nasal Cannula 3 04/04/25 01:00 Nasal Cannula 3 04/04/25 00:00 Nasal Cannula 3 04/03/25 23:00 Nasal Cannula 3 04/03/25 21:00 Nasal Cannula 3 04/03/25 20:00 Nasal Cannula 3 04/03/25 19:56 Nasal Cannula 3 04/03/25 18:30 Nasal Cannula 3 04/03/25 17:00 Nasal Cannula 3 04/03/25 15:32 Nasal Cannula 3 04/03/25 15:00 Nasal Cannula 3 04/03/25 13:00 Nasal Cannula 3 Intake and Output 04/03/25 04/04/25 04/04/25 23:59 07:59 15:59 Intake Total 580 / 830 250 / 520 270 / 520 Output Total 200 / 200 0 / 0 Balance 380 / 630 250 / 520 270 / 520 Intake: Intake, Oral Amount 480 / 680 200 / 420 220 / 420 Intake, Total IV Amount 100 / 150 50 / 100 50 / 100 Piperacillin/Tazo 3.375 gm In 0 100 / 100 50 / 100 50 / 100 .9 % Sodium Chloride 50 ml @ 100 mls/hr IV Q6H [facility] Rx#: [id number] Output: Output, Urine Amount 200 / 200 0 / 0 Other: Number of Unmeasured Voids 1 1 Number of Bowel Movements 2 2 1 Weight 63.5 kg 63.5 kg Patient Weight 04/04/25 23:59 Weight 63.5 kg Laboratory Results - last 24 hr 04/04/25 06:10: WBC 5.2 D, RBC 3.80 L, Hgb 10.9 L D, Hct 34.5 L, MCV 90.8, MCH 27.9, MCHC 30.7 L, RDW 14.0, Plt Count 203, MPV 11.3 H, Neut % (Auto) 70.2, Lymph % (Auto) 19.2, Ada % (Auto) 7.9, Eos % (Auto) 1.7, Baso % (Auto) 0.8, Neut # (Auto) 3.6, Lymph # (Auto) 1.0, Ada # (Auto) 0.4, Eos # (Auto) 0.1, Baso # (Auto) 0.0, Sodium 136, Potassium 4.0, Chloride 106, Carbon Dioxide 24, Anion Gap 10.0, BUN 19 H, Creatinine 0.80, Estimated Creat Clear 40, Estimated GFR 68, Est GFR ( Amer) 82, Glucose 86, Calcium 9.1, Magnesium 2.1, Total Bilirubin 1.1, AST 21, ALT 12, Alkaline Phosphatase 94, Total Protein 6.4, Albumin 3.5 D, Globulin 2.9, Albumin/Globulin Ratio 1.2 I & O for Labs for Last 24 Hours: Intake & Output 04/01/25 04/02/25 04/03/25 04/04/25 23:59 23:59 23:59 23:59 Intake Total 630 / 830 520 / 520 Output Total 200 / 200 0 / 0 Balance 430 / 630 520 / 520 Weight 63.049 kg 63.5 kg Constitutional: Present no acute distress, average body habitus and chronically ill appearing Head: Present atraumatic and normocephalic ENT: Present normal exam Respiratory: Present normal respiratory effort; Absent rhonchi, wheezes or crackles Cardiac: Present Irregularly Regular GI: Present soft and normal bowel sounds; Absent distention or tenderness Extremities: Present normal inspection and full ROM Skin: Present intact; Absent erythema Neuro: Present Grossly Intact, alert, awake and moves all extremities Comment:: Alert to person and place Assessment and Plan *Assessment and plan (1) Stercoral colitis: Status: Acute Category: Medical Code(s): K52.89 - Other specified noninfective gastroenteritis and colitis (2) Fecal impaction: Status: Acute Category: Medical Code(s): K56.41 - Fecal impaction (3) Atrial fibrillation with rapid ventricular response: Status: Acute Category: Medical Code(s): I48.91 - Unspecified atrial fibrillation (4) Hematochezia: Status: Acute Category: Medical Code(s): K92.1 - Melena (5) HFrEF (heart failure with reduced ejection fraction): Status: Acute Category: Medical Code(s): I50.20 - Unspecified systolic (congestive) heart failure (6) Cerebrovascular accident (CVA): Status: Chronic Qualifiers: CVA mechanism: embolism Category: Medical Code(s): I63.9 - Cerebral infarction, unspecified (7) Hospice care: Status: Acute Category: Medical Code(s): Z51.5 - Encounter for palliative care Plan 89-year-old female on hospice for HFrEF who presents with bloody bowel movements. Found to have coagulopathy secondary to her medication. Hemoglobin stable. Large stool burden necessitating disimpaction in the ED. Initiated on broad-spectrum antibiotics for stercoral colitis. Discussed case with ER physician, request admission for further management and monitoring. I decided to admit for serial labs to monitor hemoglobin level, increase bowel regimen to clean out bowels, and clinical monitoring. Has had multiple bowel movements. Belly feeling better. Therapy evaluating today. On baseline oxygen. Anticipate discharge tomorrow if hemoglobin remained stable. Problems addressed as follows: Fecal impaction Stercoral colitis Hematochezia - CT on admission with large stool burden. Multiple bowel movements yesterday. Abdomen feeling better today. - Hemoglobin on admission of 12.7, dropped to 10.9 today. Monitor for further bleeding. Will repeat CBC, CMP, magnesium for the morning. White count 5.2. - Continue on Zosyn renally dosed 3.375 g every 6 hours scheduled - De-escalate bowel regimen to docusate senna daily. Goal of 1-2 soft stools a day. HFrEF A-fib with RVR -Does not appear to be in exacerbation. Per my review of chart, Echo from July 2023 shows severe reduced EF of 20%. Akinesis of the septal and anteroseptal LV curiel. Severe biatrial dilation. RVSP elevated at 35-40. - Holding anticoagulation with bloody bowel movements. Consider resuming tomorrow. - Continue metoprolol succinate 25 mg p.o. daily and digoxin 125 mcg daily - Heart rate improved - Consider diuresis in the morning if appears volume overloaded. Resume melatonin 5 mg nightly for sleep disorder Resume Ativan 0.5 mg p.o. every 6 hours as needed for anxiety Resume morphine 5 mg as needed p.o. every 6 hours for severe pain, monitor for toxicity Supplemental oxygen as needed for goal sats greater 90%. On her baseline 3 L at this time Kidney function stable with BUN 25, creatinine 0.9. Potassium 4.0. DNR/DNI Holding anticoagulation in the setting of bloody bowel movements Regular diet
--- NOTE | 2025-04-04 17:21 | PC.NURSE ---
pt has had multiple liquid bloody stools this shift. requiring 3LNC to maintain sats >90%. tolerating po intake with no n/v. abx given per mar. no complaints of pain. call light within reach
[2025-04-04] MEDS: NYSTATIN TOPICAL POWDER 30GM TP (20:00)
[2025-04-04] MEDS: MELATONIN 5MG TABLET 5 MG PO (21:22)
--- NOTE | 2025-04-05 03:40 | PC.NURSE ---
Patient remains alert and oriented, has been more conversational this shift. She was observed to be awake for the majority of the night. Remains on 3 L of oxygen via nasal cannula, oxygen saturations > 90%. Patient continues to have multiple red-brown bowel movements (stool consistency slightly more formed from just loose). Brief/bedpan utilized for elimination needs. Patient continues to deny abdominal pain, nausea, generalized pain, etc. this shift. As needed Nystatin powder was applied once this shift to her abdominal folds/susan-area due to mild excoriation/moisture. Scheduled medications were administered as appropriately per SEP. Clear lungs, irregular heart rhythm, very active bowel sounds remain heard upon auscultation. Continues to tolerate a regular diet well. At this time, the patient is resting in bed without any new needs vocalized. Bed alarm is on. Call light within reach.
[2025-04-05 04:00] VITALS: BP 135/72; PULSE 61; RESP 17; TEMP 36.4; O2SAT 99; BMI 24.4
[2025-04-05] MEDS: PIPERACILLIN/TAZO 3.375 GM in 0.9 % SODIUM CHLORIDE 50 ML IV ×2 (05:45→10:29)
[2025-04-05 06:34] LABS: Hematocrit 32.5 % (37.0-47.0); Hemoglobin 10.3 g/dL (12.2-16.2); Immature Granulocytes % 0.4 %; Mean Corpuscular HGB Conc 31.7 g/dL (31.8-35.4); Mean Corpuscular Hemoglobin 28.1 pg (27.0-31.2); Mean Corpuscular Volume 88.8 fl (81-99); Nucleated Red Blood Cells % 0 %; Platelet Count 205 K/mm3 (142-424); Red Blood Count 3.66 M/mm3 (4.20-5.40); Red Cell Distribution Width-SD 45.0 fL; White Blood Count 5.6 K/mm3 (4.8-10.8)
[2025-04-05 06:46] LABS: Anion Gap 9.7 mEq/L (5-15); Blood Urea Nitrogen 19 mg/dl (7-17); Calcium 8.8 mg/dl (8.4-10.2); Carbon Dioxide 26 mmol/L (22.0-30.0); Chloride 105 mmol/L (98-107); Creatinine Clearance Estimated 43 mL/min (50-200); Creatinine,Serum 0.90 mg/dl (0.52-1.04); Estimated Glomerular Filt Rate 59 ml/min (>60); GFR (African American) 72 ML/MIN (>60); Glucose 93 mg/dl (74-100); Potassium 3.7 mmoL/L (3.5-5.1); Sodium 137 mmol/L (136-145)
[2025-04-05 07:53] VITALS: BP 147/74; PULSE 88; RESP 16; TEMP 36.7; O2SAT 100
[2025-04-05 08:15] VITALS: O2SAT 100
[2025-04-05 08:41] VITALS: PULSE 88
[2025-04-05] MEDS: DIGOXIN 0.125MG TABLET 125 MCG PO (08:41)
[2025-04-05] MEDS: METOPROLOL SUCCINATE XL 25MG TABLET 25 MG PO (08:41)
[2025-04-05] MEDS: SENNOSIDES 8.6MG/DOCUSATE 50MG TABLET 1 TAB PO (08:42)
[2025-04-05] MEDS: FUROSEMIDE 40 MG TABLET PO (08:42)
--- NOTE | 2025-04-05 09:23 | SW/DCPLANNER ---
Addendum entered by Idania Castellanos 04/05/25 11:43: Rosie has arranged transportation for patient to [facility] between 3:30-4PM today. I have updated patient's nurse and Dr Harrington. Addendum entered by Idania Castellanos 04/05/25 11:30: Per Rosie w/ Hospice this patient can discharge to [facility] under respite care. Rosie stated that she will arrange transportation for this patient once medically stable for discharge. Per MD patient will be ready for discharge today. Addendum entered by Idania Castellanos 04/05/25 10:36: Patient will discharge to [facility] under 5 day respite if accepted. If patient is not accepted then she will plan to return home w/ family. I will continue to follow up w/ patient, family, Hospice and [facility]. Original Note: Per Keisha w/ Hospice this patient's stay is related to Hospice dx. Updated patient information has been faxed.
--- NOTE | 2025-04-05 10:20 | HMH.PHAAMS2 ---
- Antimicrobial Stewardship Review 48 HOUR ANIBIOTIC TIME OUT Stewardship interventions: 48 hour timeout review
--- NOTE | 2025-04-05 10:39 | HMH.OTEV ---
OT Evaluation Rehab OT IP Evaluation Start: 04/03/25 10:51 Freq: ONCE Status: Active Protocol: Document 04/05/25 10:34 [facility] (Rec: 04/05/25 10:38 [facility] [id number]) Rehab OT IP Assessment Subjective History Pt oriented x 2 on arrival. Pt agreeable to engage in therapy evaluation. Pt admitted on 04/03/25 due to colitis. History and physical: Ms. 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 She presented to the ER due to concern for bloody bowel movements. They reportedly began about 2 days ago. She denies nausea or vomiting. Is on her baseline oxygen of 3-1/2 L. On arrival to the ER, found to be in A-fib and not rate controlled at this time. Hemoglobin 12.7, appears stable compared to labs over the past year. Kidney function at baseline. Imaging of her abdomen showed significant stool burden and large stool ball in her rectum. Concern for inflammation of the lower rectal wall. Medicine consulted after attempt at disimpaction for hematochezia and stercoral colitis. My evaluation after arriving to the floor, patient is at baseline mentation. Oriented to self. Denies sensation of shortness of breath. Denies significant lower abdominal pain. No fever at home that we are aware of. On digoxin home but Toprol all. Had an echo dated with Pradaxa. INR between 2 and 3. Subjective Prior to being in the hospital, pt lived at home with her granddaughter. Pt reports prior to being in the hospital, pt claims she needed minimal assistance with ADLs. Pt was dependent upon granddaughter for completion of all IADLS. Pt did use a rolling walker during functional transfers. Pt was oxygen dependent as well. According to chart review pt was on hospice at home. Objective Patient Orientation Person,Birthday Right Upper WFL Extremity Gross ROM Left Upper Extremity WFL Gross ROM Bed Mobility bed mobility-scooting,bed mobility - supine/sit Assist Level Minimal x 1 (25% assist) Transfer Training Sit/Stand/Step Transfer Assist Level Moderate x 1 (50% assist) Chair Transfer Moderate x 1 (50% assist) Ability Chair Transfer Stand Step Pivot Technique Rehab OT IP prob,goals,plan Problems Date of Evaluation: 04/05/25 OT IP Problems Bed Mobility,Transfers,Balance,Self care,Safety Rehab Potential Rehab Potential Good Equipment Needs Assistive Devices Rolling / Wheeled Walker Plan OT intervention Plan Bed Mobility,Transfers,Balance,Self care,Safety, Therapeutic Exercise OT Plan Frequency Daily Duration LOS Discharge Goals Bed Mobility Ability Standby Assistance Sit to Stand Chair Minimal x 1 (25% assist) Transfer Ability Chair Transfer Minimal x 1 (25% assist) Ability Chair Transfer Stand Step Pivot Technique Chair Transfer Rolling Walker Assistive Devices Lower Body Dressing Moderate Assistance Ability Upper Body Dressing Minimal Assistance Ability Performing Toilet Minimal Assistance Hygiene Ability Overall Commode/ Minimal Assistance Toilet Transfer Ability Commode/Toilet Sit to/from Ambulatory Transfer Technique Discharge Plan OT Discharge Plan Pt will continue to be seen for OT services while at hospital. Pt can return home with hospice care and family assistance once she is medically stable per physician. Eval Complexity Eval Charge Codes 67948 - Moderate Complexity PHYSICIAN CERTIFICATION: I certify the specified therapy services for Mireya Jones are required, authorized, and reviewed every 30 days.
--- NOTE | 2025-04-05 11:55 | P.DS_ITS ---
General Admission date:: 04/03/25 HPI HPI HPI: Ms. 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 She presented to the ER due to concern for bloody bowel movements. They reportedly began about 2 days ago. She denies nausea or vomiting. Is on her baseline oxygen of 3-1/2 L. On arrival to the ER, found to be in A-fib and not rate controlled at this time. Hemoglobin 12.7, appears stable compared to labs over the past year. Kidney function at baseline. Imaging of her abdomen showed significant stool burden and large stool ball in her rectum. Concern for inflammation of the lower rectal wall. Medicine consulted after attempt at disimpaction for hematochezia and stercoral colitis. My evaluation after arriving to the floor, patient is at baseline mentation. Oriented to self. Denies sensation of shortness of breath. Denies significant lower abdominal pain. No fever at home that we are aware of. On digoxin home but Toprol all. Had an echo dated with Pradaxa. INR between 2 and 3. Hospital Course Hospital Course Hospital Course: Mireya Jones is a 89-year-old female on hospice for HFrEF 20% who presented with bloody bowel movements. Large stool burden necessitating disimpaction in the ED. Initiated on broad-spectrum antibiotics for stercoral colitis. Discussed case with ER physician, request admission for further management and monitoring. #Fecal impaction #Stercoral colitis #Hematochezia - CT on admission with large stool burden. Multiple bowel movements during admission, patient feeling much better today. - Hemoglobin on admission of 12.7, 10.3 today though in the setting of IV fluid dilution. No active signs of bleeding. Vital signs stable. ? Treated with IV Zosyn for stercoral colitis, and this along with fecal impaction likely contributed microtear and epithelium causing bloody bowel movement. Improved during admission. ? Patient will need at least 1-2 bowel movements a day to ensure colitis and constipation improves. ? Discharged with Augmentin 500 mg 3 times daily for 3 more days, MiraLAX 17 g daily. #HFrEF #A-fib with RVR - Does not appear to be in exacerbation. ECHO from July 2023 shows severe reduced EF of 20%. Akinesis of the septal and anteroseptal LV curiel. Severe biatrial dilation. RVSP elevated at 35-40. - RVR improved with starting metoprolol succinate 25 mg, and restarting home medications. - Started metoprolol succinate 25 mg, continue digoxin 125 mcg daily, Pradaxa 1 50 mg twice daily. Continue Lasix 40 mg Saturday, Saturday, Saturday, Saturday, and spironolactone 25 mg daily. ? Patient will be discharged back [facility] for further hospice care for HFrEF. Continue melatonin 5 mg nightly for sleep disorder Continue Ativan 0.5 mg p.o. every 6 hours as needed for anxiety Continue morphine 5 mg as needed p.o. every 6 hours for severe pain Supplemental oxygen as needed for goal sats greater 90%. On her baseline 3 L at this time Total time spent on discharge: 32 minutes on chart review, counseling, documenta tion, and direct care with patient. Exam Data for Last 24 hours Vital signs and Labs for Last 24 Hours: Temp Pulse Resp BP Pulse Ox O2 Del Method O2 Flow Rate 98.1 F 88 16 147/74 H 100 Nasal Cannula 3.5 04/05/25 07:53 04/05/25 08:41 04/05/25 07:53 04/05/25 07:53 04/05/25 08:15 04/05/25 09:10 04/05/25 09:10 Laboratory Results - last 24 hr 04/05/25 06:12: WBC 5.6, RBC 3.66 L, Hgb 10.3 L, Hct 32.5 L, MCV 88.8, MCH 28.1, MCHC 31.7 L, RDW 13.9, Plt Count 205, MPV 11.3 H, Neut % (Auto) 68.7, Lymph % (Auto) 20.5, [place] % (Auto) 8.1, Eos % (Auto) 1.8, Baso % (Auto) 0.5, Neut # (Auto) 3.8, Lymph # (Auto) 1.1, [place] # (Auto) 0.5, Eos # (Auto) 0.1, Baso # (Auto) 0.0, Sodium 137, Potassium 3.7, Chloride 105, Carbon Dioxide 26, Anion Gap 9.7, BUN 19 H, Creatinine 0.90, Estimated Creat Clear 43, Estimated GFR 59, Est GFR ( Amer) 72, Glucose 93, Calcium 8.8 I & O for Last 24 hours: Intake & Output 04/02/25 04/03/25 04/04/25 04/05/25 23:59 23:59 23:59 23:59 Intake Total 630 / 830 960 / 1080 580 / 580 Output Total 200 / 200 0 / 0 0 / 0 Balance 430 / 630 960 / 1080 580 / 580 Weight 63.049 kg 63.5 kg 68.946 kg Constitutional Constitutional: no acute distress *Routine HEENT Exam Head: Present normocephalic Eye: Present EOMI and PERRL ENT: Present mucous membranes moist *Routine Neck Exam Neck: Present supple; Absent lymphadenopathy *Routine Respiratory Exam Respiratory: Present CTA bilaterally *Routine Cardiovascular Exam Cardiovascular: Present RRR *Routine Abdominal Exam Abdominal: Present soft and normoactive bowel sounds; Absent tenderness *Routine Extremities Exam Extremities: Absent cyanosis, clubbing or edema *Routine Skin Exam Skin: Present warm; Absent rash *Routine Neurological Exam Neurological: Present alert and oriented X3 Results Data Completed and Pending Labs on day of discharge: Labs from last 24 hours 04/05/25 06:12 WBC 5.6 RBC 3.66 L Hgb 10.3 L Hct 32.5 L MCV 88.8 MCH 28.1 MCHC 31.7 L RDW 13.9 Plt Count 205 MPV 11.3 H Neut % (Auto) 68.7 Lymph % (Auto) 20.5 [place] % (Auto) 8.1 Eos % (Auto) 1.8 Baso % (Auto) 0.5 Neut # (Auto) 3.8 Lymph # (Auto) 1.1 [place] # (Auto) 0.5 Eos # (Auto) 0.1 Baso # (Auto) 0.0 Sodium 137 Potassium 3.7 Chloride 105 Carbon Dioxide 26 Anion Gap 9.7 BUN 19 H Creatinine 0.90 Estimated Creat Clear 43 Estimated GFR 59 Est GFR ( Amer) 72 Glucose 93 Calcium 8.8 DS: Diagnosis Discharge Diagnosis (1) Stercoral colitis: Status: Acute Code(s): K52.89 - Other specified noninfective gastroenteritis and colitis (2) Fecal impaction: Status: Acute Code(s): K56.41 - Fecal impaction (3) Atrial fibrillation with rapid ventricular response: Status: Acute Code(s): I48.91 - Unspecified atrial fibrillation (4) Hematochezia: Status: Acute Code(s): K92.1 - Melena (5) HFrEF (heart failure with reduced ejection fraction): Status: Acute Code(s): I50.20 - Unspecified systolic (congestive) heart failure (6) Cerebrovascular accident (CVA): Status: Chronic Code(s): I63.9 - Cerebral infarction, unspecified Qualifiers: CVA mechanism: embolism (7) Hospice care: Status: Acute Code(s): Z51.5 - Encounter for palliative care Meds Home Medications and Allergies Home Medications ?Medication ?Instructions ?Recorded ?Confirmed ?Type spironolactone 25 mg tablet 25 mg PO DAILY 30 days #30 tabs 07/19/23 04/03/25 Rx acetaminophen 500 mg tablet 500 mg PO Q4HP PRN Mild Pa in 01/24/24 04/03/25 History (Scale Score 1-4) dabigatran etexilate 150 mg 150 mg PO BID 01/24/24 History capsule (Pradaxa) digoxin 125 mcg (0.125 mg) tablet 125 mcg PO DAILY 04/03/25 History lorazepam 0.5 mg tablet 0.5 mg PO Q6HP PRN Anxiety 0 01/24/24 04/03/25 History furosemide 40 mg tablet 40 mg PO MOWEFRSA 04/03/25 0 04/03/25 History hydrocortisone 0.5 % topical cream 1 applic topical DA ILYP PRN Itching 04/03/25 04/03/25 History lactulose 10 gram/15 mL oral 10 g PO DAILYP PRN Consti pation 04/03/25 04/04/25 History solution melatonin 5 mg tablet 5 mg PO HS 04/03/25 04/03/25 History morphine concentrate 100 mg/5 mL 5 mg PO Q6HP PRN Erica re Pain 04/03/25 04/03/25 History (20 mg/mL) oral solution (Scale Score 7-10) nystatin 100,000 unit/gram topical 1 applic topical BI DP PRN REDNESS 04/03/25 04/03/25 History powder sennosides 8.6 mg-docusate sodium 1 tab PO DAILY Const ipation 04/03/25 04/04/25 History 50 mg tablet (Stool Softener-Stimulant Laxative) simethicone 80 mg chewable tablet 80 mg PO Q6HP PRN Ab dominal 04/03/25 04/04/25 History (Gas Relief (simethicone)) Discomfort temazepam 15 mg capsule (Restoril) 15 mg PO HSP PRN In somnia 04/03/25 04/04/25 History amoxicillin 500 mg-potassium 1 tab PO TID 3 days #9 ta bs 04/05/25 Rx clavulanate 125 mg tablet (Augmentin) metoprolol succinate 25 mg 25 mg PO DAILY 30 days #30 tabs 04/05/25 Rx tablet,extended release 24 hr polyethylene glycol 3350 17 17 g PO DAILY Constipation 30 days 04/05/25 04/03/25 Rx gram/dose oral powder (Miralax) #0 grams New Prescriptions to Start Prescriptions: amoxicillin-pot clavulanate [Augmentin] Mariusz Harrington metoprolol succinate Mariusz Harrington Allergies Allergy/AdvReac Type Severity Reaction Status Date / Time codeine Allergy Mild Vomiting/na Verified 09/10/24 07:46 usea meloxicam AdvReac Other Verified 09/10/24 07:46 Discharge Plan Disposition Patient Disposition: Hospice - Medical Facility Condition: Fair Discharge Order Discharge Orders: Discharge Order (Routine); Ordered 04/05/25 Ordered By: Mariusz Harrington Follow up Plan Prescriptions/Medication Reconciliation: New metoprolol succinate 25 mg Tablet Extended Release 24 Hr 25 mg PO DAILY 30 Days Qty: 30 0RF amoxicillin-pot clavulanate [Augmentin] 500-125 mg tablet 1 tab PO TID 3 Days Qty: 9 0RF Continued lorazepam 0.5 mg tablet 0.5 mg PO Q6HP PRN (Reason: Anxiety) Patient Comments: 1 Tablet Oral PRN Every 6 Hours Indication: anxiety SOA digoxin 125 mcg (0.125 mg) tablet 125 mcg PO DAILY dabigatran etexilate [Pradaxa] 150 mg capsule 150 mg PO BID Patient Comments: 1 Capsule Oral 2 Times Daily Indication: heart/afib acetaminophen 500 mg tablet 500 mg PO Q4HP PRN (Reason: Mild Pain (Scale Score 1-4)) Patient Comments: 1 Tablet Oral PRN Every 4 Hours Indication: pain/fever hydrocortisone 0.5 % cream 1 applic TOPICAL DAILYP PRN (Reason: Itching) Patient Comments: 1 Gram Topical 3 Times Daily, PRN Indication: Burning and itching sennosides-docusate sodium [Stool Softener-Stimulant Laxat] 8.6-50 mg tablet 1 tab PO DAILY Patient Comments: 1 Tablet Oral PRN 2 Times Daily Indication: constipation temazepam [Restoril] 15 mg capsule 15 mg PO HSP PRN (Reason: Insomnia) Patient Comments: 1 Capsule Oral Hour Of Sleep PRN Indication: insomnia nystatin 100,000 unit/gram powder 1 applic TOPICAL BIDP PRN (Reason: REDNESS) Patient Comments: 1 Application Topical 2 Times Daily Indication: beneath breasts and groin for redness/moisture simethicone [Gas Relief (simethicone)] 80 mg tablet,chewable 80 mg PO Q6HP PRN (Reason: Abdominal Discomfort) Patient Comments: 1 Tablet Oral PRN Every 6 Hours Indication: gas lactulose 10 gram/15 mL solution 10 g PO DAILYP PRN (Reason: Constipation) Patient Comments: 30 Milliliter Oral PRN 1 Time Daily Indication: constipation melatonin 5 mg tablet 5 mg PO HS Patient Comments: 1 Tablet Oral Hour Of Sleep Indication: sleep morphine concentrate 100 mg/5 mL (20 mg/mL) solution 5 mg PO Q6HP PRN (Reason: Severe Pain (Scale Score 7-10)) Patient Comments: 0.25 Milliliter (5mg) Oral PRN Every 6 Hours Indication: pain/SOA furosemide 40 mg tablet 40 mg PO MOWEFRSA spironolactone 25 mg Tablet 25 mg PO DAILY 30 Days Qty: 30 0RF Changed polyethylene glycol 3350 [Miralax] 17 gram/dose powder 17 g PO DAILY 30 Days Qty: 0 0RF Patient Comments: 17 Gram Oral PRN 1 Time Daily Indication: bowel regimen Problem Reconciliation Problems Reviewed?: Yes Patient Discharge Instructions Patient Instructions: Atrial Fibrillation, DI for Rectal Bleeding, DI for Colitis, Stop Light Heart Failure Print Language: Vietnamese Providers Primary Care Provider: Provider,Referral Admit Provider: Feng Vicente Attending Provider: Feng Vicente
== END 2025-04-05 15:06 | disposition hospice, inpatient (51) | DRG 389 ==
LOC: ER 08:33 → 2ND 10:01
PROVIDERS: Admitting Provider Internal Medicine Adolescent Medicine; Emergency Provider Student in an Organized Health Care Education/Training Program; Visit Provider Internal Medicine Adolescent Medicine
DX: K56.41 Fecal impaction (principal); D68.32 Hemorrhagic disorder due to extrinsic circulating anticoagulants; K92.1 Melena; I50.22 Chronic systolic (congestive) heart failure; K52.89 Other specified noninfective gastroenteritis and colitis; I48.91 Unspecified atrial fibrillation; I11.0 Hypertensive heart disease with heart failure; I25.5 Ischemic cardiomyopathy; T45.515A Adverse effect of anticoagulants, initial encounter; Z86.73 Personal history of transient ischemic attack (TIA), and cerebral infarction without residual deficits; Z66 Do not resuscitate; Z51.5 Encounter for palliative care; Z88.5 Allergy status to narcotic agent; Z88.6 Allergy status to analgesic agent; Z79.01 Long term (current) use of anticoagulants; Z79.899 Other long term (current) drug therapy
CPT/HCPCS: 36415; 74174; 80048; 80053; 80162; 83735; 85025; 85610; 85730; 86850; 93005; 97161; 97166; 99285; J2543; Q9967

== ENCOUNTER 2025-05-20 22:40 | Inpatient (IN) | payer OTHER, SELFPAY ==
[2025-05-20 22:45] VITALS: BP 100/72; PULSE 121; RESP 21; TEMP 36.9; O2SAT 99; BMI 22.4
--- OUTSIDE RECORDS SUMMARY | 2025-05-20 22:50 | XMS_ITS | Encounter Summary ---
Author Organization Healthcare Address [address] [place] [address] Care Team Providers Care Material Coordinator Name Role Phone Jairo Valverde MD Primary Care Provider [phone] Edouard Contreras [facility] SPECIALIST Unavailable [phone] Encounter Details Date Type Department Care Team (Late st Contact Info) Description 05/14/2022 Lab Requisition [facility] [address] [place] [address] Patrick Murrieta MD [id number] [place] [address] Encounter for general adult medical [...] drink first t katja in the morning (EYE-GENERAL ACCOUNTANT) to steady your nerves or to get [...] Rosa Maria Rectal) 05/14/2022 9:54 AM EST aPtrick Lr MD LAB MICROBIOLOGY - GENERAL ORDERABLES Final Result [facility] [address] [place] [address] documented in this encounter Visit Diagnoses Diagnosis Encounter for general adult medical examination without abnormal findings documented in this encounter Additional Health Concerns Infection Onset Date Last Indicated Resolved Time RSV 05/13/2022 05/13/2022 06/10/2022 5:23 AM EST COVID 19 (Confirmed) Comment:[facility] has verified patient has a COVID-19 positive result. A chart review has been completed, EPI PUI has been completed and sent to appropriate Health Dept. [facility] Associate Media Director: Tushar Lopez Infection Prevention & Control Note Isolation Discontinued: 05/24/2022 Patient has been approved by [facility] medical direction to have COVID-19 isolation [...] X]Patient is not considered immunocompromised or suppressed. [facility] has been contacted to complete a modified clean of the room. Please continue isolation precautions until [facility] has completed the modified clean. 05/13/2022 05/13/2022 05/24/2022 11:35 AM EST MRSA 05/13/2022 05/13/2022 documented as of this encounter Care Teams Material Coordinator Relationship Specialty Start Date End Date Jairo Valverde MD [address] [place] [id number] PCP - General 11/18/20 Edouard Contreras APRN [address] [place] [id number] First Call Provider Neurology 04/24/22 documented as of this encounter
--- OUTSIDE RECORDS SUMMARY | 2025-05-20 22:50 | XMS_ITS | Clinical Summary ---
Author Organization Healthcare Address [address] [place] [address] Care Team Providers Care Irrigation Engineer Name Role Phone Jairo Valverde MD Primary Care Provider [phone] Edouard Contreras HOUSE RN Unavailable [phone] Allergies Active Allergy Reactions Criticality Noted Date [...] patient having mild difficulty with PO intake. AD CLERK re-assessed at bedside and able to continue [...] 04/18/2022 Overview (04/24/2022): - She presented to [facility] after developing left sided weakness, left [...] Focal severe stenoses of the right P2 OPTICIAN APPRENTICE segments, proximal right A1 KIMBERLEY segment, and left proximal P2 OPTICIAN APPRENTICE segment. - Carotid duplex remarkable for hemodynamically [...] for atrial fibrillation. - Follow up with [facility] Stroke Neurology in 8 to 12 weeks for continued stroke care. - Follow up with [facility] Neurosurgery for hemodynamically significant carotid artery stenosis. [...] drink first t katja in the morning (EYE-SHIPWRIGHT APPRENTICE) to steady your nerves or to get [...] r (1 - 1-dose 75+ series) 2012 [id number] Vaccine (2 - 20 25-26 season) 2025 [...] Date Last Indicated MRSA 05/13/2022 05/13/[address] [facility] MEDICARE Advance Directives * DNR/DNI (Latest [...] Communication Drake Arnel Grandtyesha Next of Kin [phone] ( Mobile) Care Teams Irrigation Engineer Relationship Specialty Start Date End Date Jairo Valverde MD [address] [place] [address] [place] [address] PCP - General 11/18/20 Edouard Contreras APRN [address] [place] [id number] First Call Provider Neurology 04/24/22
--- OUTSIDE RECORDS SUMMARY | 2025-05-20 22:50 | XMS_ITS | Clinical Summary ---
[facility] Address [address] [place] [address] Care Team Providers Care Hand Tube Winder Name Role Phone Unavailable Primary Care Provider [...] 02/05/2025 COVID-19 Vaccine (2023- season) 2025 Insurance [facility] MEDICARE ADVANTAGE
--- NOTE | 2025-05-20 22:51 | ECG_ITS ---
APPROVED REPORT Exam: Resting ECG HR:111 bpm ECG Measurements Heart Rate 111 AXES QRSd 95 QRS 50 QT 326 T 0 QTc 391 Conclusion A-fib RVR no acute ST or T wave changes concerning for ischemia Electronically signed by : Anna Marie Collier, 05/24/2025 00:38:44
[2025-05-20 22:55] VITALS: BP 95/68; PULSE 74; RESP 17; TEMP 36.9; O2SAT 98
--- NOTE | 2025-05-20 23:02 | XR_ITS ---
PROCEDURE INFORMATION: Exam: XR Chest Exam date and time: 05/20/2025 11:15 PM Age: 89 years old Clinical indication: Pain; Shortness of breath; Chest pressure; Additional info: Shortness of breath/chest pain TECHNIQUE: Imaging protocol: Radiologic exam of the chest. Views: 1 view. COMPARISON: CR XR CHEST PORTABLE 01/23/2024 10:35 PM FINDINGS: Lungs: Chronic interstitial change. Pleural spaces: Unremarkable. No pleural effusion. No pneumothorax. Heart/Mediastinum: Unremarkable. No cardiomegaly. Bones/joints: Unremarkable. IMPRESSION: No acute findings.
--- NOTE | 2025-05-20 23:03 | CT_ITS ---
PROCEDURE INFORMATION: Exam: CT Head Without Contrast Exam date and time: 05/20/2025 11:12 PM Age: 89 years old Clinical indication: Altered mental status/memory loss; Additional info: Disorientation TECHNIQUE: Imaging protocol: Computed tomography of the head without contrast. Radiation optimization: All CT scans at this facility use at least one of these dose optimization techniques: automated exposure control; mA and/or kV adjustment per patient size (includes targeted exams where dose is matched to clinical indication); or iterative reconstruction. COMPARISON: CT HEAD/BRAIN WO CON 09/10/2024 7:41 AM FINDINGS: Brain: Stable large remote infarctions including the right parietal and occipital lobes. Advanced chronic ischemic change and atrophy. No mass effect. Cerebral ventricles: No ventriculomegaly. Paranasal sinuses: Visualized sinuses are unremarkable. No fluid levels. Mastoid air cells: Visualized mastoid air cells are well aerated. Bones: Unremarkable. No acute fracture. Soft tissues: Unremarkable. IMPRESSION: No acute intracranial abnormality. Multiple large remote infarctions.
[2025-05-20 23:07] LABS: Hematocrit 35.7 % (37.0-47.0); Hemoglobin 11.1 g/dL (12.2-16.2); Immature Granulocytes % 0.3 %; Mean Corpuscular HGB Conc 31.1 g/dL (31.8-35.4); Mean Corpuscular Hemoglobin 27.9 pg (27.0-31.2); Mean Corpuscular Volume 89.7 fl (81-99); Nucleated Red Blood Cells % 0 %; Platelet Count 260 K/mm3 (142-424); Red Blood Count 3.98 M/mm3 (4.20-5.40); Red Cell Distribution Width-SD 46.7 fL; White Blood Count 6.6 K/mm3 (4.8-10.8)
[2025-05-20 23:14] LABS: Alanine Aminotransferase 21 U/L (12-78); Albumin Level 4.3 g/dl (3.5-5.0); Albumin/Globulin Ratio 1.2 (1.1-1.8); Alkaline Phosphatase 104 U/L (38-126); Anion Gap 10.6 mEq/L (5-15); Aspartate Amino Transferase 26 U/L (14-36); Bilirubin,Total 0.8 mg/dl (0.2-1.3); Blood Urea Nitrogen 30 mg/dl (7-17); Calcium 9.9 mg/dl (8.4-10.2); Carbon Dioxide 25 mmol/L (22.0-30.0); Chloride 106 mmol/L (98-107); Creatinine Clearance Estimated 36 mL/min (50-200); Creatinine,Serum 1.10 mg/dl (0.52-1.04); Estimated Glomerular Filt Rate 47 ml/min (>60); GFR (African American) 57 ML/MIN (>60); Globulin 3.6 g/dL (1.3-3.2); Glucose 117 mg/dl (74-100); Lipase 157 U/L (23-300); Magnesium 2.1 mg/dl (1.6-2.3); Phosphorous 3.8 mg/dl (2.5-4.5); Potassium 4.6 mmoL/L (3.5-5.1); Sodium 137 mmol/L (136-145); Total Protein,Serum 7.9 g/dl (6.3-8.2)
[2025-05-20 23:18] LABS: D-Dimer 0.53 ug/mL (0.0-0.5)
[2025-05-20 23:25] LABS: Troponin I 0.07 ng/ml (0.00-0.034)
--- NOTE | 2025-05-20 23:29 | HMH.EDGENADL ---
Discharge Plan Disposition Patient Disposition: Admitted Condition: Good Prescriptions Prescriptions: No Action lorazepam 0.5 mg tablet 0.5 mg PO Q6HP PRN (Reason: Anxiety) Patient Comments: 1 Tablet Oral PRN Every 6 Hours Indication: anxiety SOA digoxin 125 mcg (0.125 mg) tablet 125 mcg PO DAILY dabigatran etexilate [Pradaxa] 150 mg capsule 150 mg PO BID Patient Comments: 1 Capsule Oral 2 Times Daily Indication: heart/afib acetaminophen 500 mg tablet 500 mg PO Q4HP PRN (Reason: Mild Pain (Scale Score 1-4)) Patient Comments: 1 Tablet Oral PRN Every 4 Hours Indication: pain/fever hydrocortisone 0.5 % cream 1 applic TOPICAL DAILYP PRN (Reason: Itching) Patient Comments: 1 Gram Topical 3 Times Daily, PRN Indication: Burning and itching sennosides-docusate sodium [Stool Softener-Stimulant Laxat] 8.6-50 mg tablet 1 tab PO DAILY Patient Comments: 1 Tablet Oral PRN 2 Times Daily Indication: constipation temazepam [Restoril] 15 mg capsule 15 mg PO HSP PRN (Reason: Insomnia) Patient Comments: 1 Capsule Oral Hour Of Sleep PRN Indication: insomnia nystatin 100,000 unit/gram powder 1 applic TOPICAL BIDP PRN (Reason: REDNESS) Patient Comments: 1 Application Topical 2 Times Daily Indication: beneath breasts and groin for redness/moisture simethicone [Gas Relief (simethicone)] 80 mg tablet,chewable 80 mg PO Q6HP PRN (Reason: Abdominal Discomfort) Patient Comments: 1 Tablet Oral PRN Every 6 Hours Indication: gas lactulose 10 gram/15 mL solution 10 g PO DAILYP PRN (Reason: Constipation) Patient Comments: 30 Milliliter Oral PRN 1 Time Daily Indication: constipation melatonin 5 mg tablet 5 mg PO HS Patient Comments: 1 Tablet Oral Hour Of Sleep Indication: sleep morphine concentrate 100 mg/5 mL (20 mg/mL) solution 5 mg PO Q6HP PRN (Reason: Severe Pain (Scale Score 7-10)) Patient Comments: 0.25 Milliliter (5mg) Oral PRN Every 6 Hours Indication: pain/SOA furosemide 40 mg tablet 40 mg PO MOWEFRSA metoprolol succinate 25 mg Tablet Extended Release 24 Hr 25 mg PO DAILY 30 Days Qty: 30 0RF amoxicillin-pot clavulanate [Augmentin] 500-125 mg tablet 1 tab PO TID 3 Days Qty: 9 0RF polyethylene glycol 3350 [Miralax] 17 gram/dose powder 17 g PO DAILY 30 Days Qty: 0 0RF Patient Comments: 17 Gram Oral PRN 1 Time Daily Indication: bowel regimen spironolactone 25 mg Tablet 25 mg PO DAILY 30 Days Qty: 30 0RF Referrals Follow up/Referrals: Provider,Referral, [Primary Care Provider, Medical] - See instructions Clinical Impressions Clinical Impression: CHF exacerbation Instructions Patient Instructions: DI for Altered Mental Status Print Language Print Language: Nepali Discharge ED Provider: Alexandra Hunter General Adult HPI General Chief complaint: Altered Mental Status Stated complaint: Altered mental status Time Seen by Provider: 05/20/25 22:50 Mode of Arrival: Ambulatory Source of Information: Patient and EMS Description of Symptoms (Recalled from ER Triage Doc. by RN): Pt reports that she has been just feeling off all day, pt denies any pain. EMS reports they called out for a fall but pt reports she just fell backwards into her chair. daughter reports she has had some confusion on and off today History of Present Illness HPI narrative: Patient is an 89-year-old female with a past medical history of A-fib with severe reduced EF who presents to the emergency department with concern for shortness of breath, disorientation from home. Per patient, she states that she just started feeling short of breath around 2 AM, she states that she has had a nonproductive cough. Denies any chest pain. Patient reports nausea but no abdominal pain or diarrhea. Patient states that she is currently on hospice because she was told that she only had a week to live a year ago and now she has continued to live for more than a year. Patient states that she did not have any falls but felt slightly weaker earlier. Per the sister, she states that she did have some intermittent confusion today and over the last couple days which is abnormal for her. She states that when this typically occurs she has a urinary tract infection. Patient has not had any fevers or other associated infectious symptoms. Related Data Home Medications ?Medication ?Instructions ?Recorded ?Confirmed acetaminophen 500 mg tablet 500 mg PO Q4HP PRN Mild Pain 01/24/24 04/03/25 (Scale Score 1-4) dabigatran etexilate 150 mg 150 mg PO BID 01/24/24 04/03/25 capsule (Pradaxa) digoxin 125 mcg (0.125 mg) tablet 125 mcg PO DAILY 01/24/24 04/03/25 lorazepam 0.5 mg tablet 0.5 mg PO Q6HP PRN Anxiety 01/24/24 04/03/25 furosemide 40 mg tablet 40 mg PO MOWEFRSA 04/03/25 04/03/25 hydrocortisone 0.5 % topical cream 1 applic topical DAILYP PRN Itching 04/03/25 04/03/25 lactulose 10 gram/15 mL oral 10 g PO DAILYP PRN Constipation 04/03/25 04/04/25 solution melatonin 5 mg tablet 5 mg PO HS 04/03/25 04/03/25 morphine concentrate 100 mg/5 mL 5 mg PO Q6HP PRN Severe Pain 04/03/25 04/03/25 (20 mg/mL) oral solution (Scale Score 7-10) nystatin 100,000 unit/gram topical 1 applic topical BIDP PRN REDNESS 04/03/25 04/03/25 powder sennosides 8.6 mg-docusate sodium 1 tab PO DAILY Constipation 04/03/25 04/04/25 50 mg tablet (Stool Softener-Stimulant Laxative) simethicone 80 mg chewable tablet 80 mg PO Q6HP PRN Abdominal 04/03/25 04/04/25 (Gas Relief (simethicone)) Discomfort temazepam 15 mg capsule (Restoril) 15 mg PO HSP PRN Insomnia 04/03/25 04/04/25 Previous Rx's ?Medication ?Instructions ?Recorded spironolactone 25 mg tablet 25 mg PO DAILY 30 days #30 tabs 07/19/23 amoxicillin 500 mg-potassium 1 tab PO TID 3 days #9 tabs 04/05/25 clavulanate 125 mg tablet (Augmentin) metoprolol succinate 25 mg 25 mg PO DAILY 30 days #30 tabs 04/05/25 tablet,extended release 24 hr polyethylene glycol 3350 17 17 g PO DAILY Constipation 30 days 04/05/25 gram/dose oral powder (Miralax) #0 grams Allergies Allergy/AdvReac Type Severity Reaction Status Date / Time codeine Allergy Mild Vomiting/na Verified 09/10/24 07:46 usea meloxicam AdvReac Other Verified 09/10/24 07:46 PFSH [facility] Disclaimer: The information contained in this section may have been updated after the patient was seen, as this information can be updated by other users. Medical History Atrial fibrillation Ischemic cardiomyopathy Regional wall motion abnormality of heart Atypical angina HFrEF (heart failure with reduced ejection fraction) Hx of cardiomyopathy Tachy-kaylah syndrome Symptomatic bradycardia History of stroke Congestive heart failure Hyperlipidemia Hypertension Left-sided weakness Pincer nail deformity Edema Hammer toe Callus of foot Osteomyelitis Onychoincurvatum Encounter for wound care Ulcer of right foot Cardiomyopathy Pulmonary hypertension Hypokalemia Congestive heart failure Atrial fibrillation with rapid ventricular response Surgical History History of surgery History of left knee replacement Family History Other No significant family history Social History Smoking Status: Unknown if ever smoked alcohol intake: never substance use type: denies use current occupational status: retired Travel in the last 8 weeks?: None household members: none caffeine: No Have you lived/traveled outside US in past 30 days?: No Contact w/someone who lives/traveled outside US past 30 days?: No Exposure to someone with infectious disease in past 14 days?: No Do you have a fever (greater than 100.4 F or 38 C)?: No Have you tested positive for COVID-19?: No Exposed to someone with COVID-19 in past 14 days?: No Do you have a sore throat?: No Do you have a cough?: No Do you have any weakness?: No Do you have any diarrhea?: No Are you experiencing any unusual bleeding?: No Do you have any muscle aches/pain?: No Do you have any abdominal pain?: No Are you experiencing loss of taste or smell?: No Other Medical History Have you received the Flu Vaccine for this season: No Have you received the Pneumonia Vaccine: No ROS Obtained: Yes All systems reviewed & no additional complaints except as documented and Yes Systems reviewed as appropriate & no additional complaints except as documented Physical Exam General General appearance: alert and in no apparent distress Head Head exam: atraumatic, normocephalic and normal inspection Eye Eye exam: Present normal appearance, PERRL and EOMI; Absent scleral icterus ENT ENT exam: Present normal exam and normal external ear exam Neck Neck exam: Present normal inspection and full ROM Chest Chest inspection: Present normal inspection and symmetric chest wall rise Respiratory Respiratory exam: Present normal lung sounds bilaterally; Absent respiratory distress or wheezes Cardiovascular Cardiovascular exam: Present regular rate, normal rhythm and normal heart sounds Abdominal Exam Abdominal exam: Present soft and distention; Absent tenderness, guarding or rebound Extremities Exam Extremities exam: Present normal inspection, full ROM and other (very mild lower extremity edema that is not pitting) Back Exam Back exam: Present normal inspection and full ROM Neurological Exam Neurological exam: Present alert and oriented X3 Psychiatric Psychiatric exam: Present normal affect and normal mood Skin Skin exam: Present warm and dry Medical Decision Making Medical Records Medical records reviewed: Yes I reviewed the patient's medical records. Screening: Per USPSTF and CDC recommendations, given the prevalence of disease in our region, it is our hospital?s policy to screen for HIV and viral Hepatitis for all patients aged 18 and over and those with ongoing risk factors. Chaz Inquiry Pt receiving controlled substance: No Vital Signs: 05/20/25 22:45 Temperature 98.4 F Temperature Source Oral Pulse Rate [Right] 121 H Respiratory Rate 21 Blood Pressure [Right Arm] 100/72 L Blood Pressure Mean [Right Arm] 81 02 Sat by Pulse Oximetry 99 Oxygen Delivery Method Nasal Cannula Oxygen Flow Rate (LPM) 3 Lab Data Lab results reviewed: Yes I reviewed the patient's lab results. Lab Results 05/20/25 22:25: WBC 6.6, RBC 3.98 L, Hgb 11.1 L, Hct 35.7 L, MCV 89.7, MCH 27.9, MCHC 31.1 L, RDW 14.4, Plt Count 260, MPV 11.8 H, Neut % (Auto) 60.7, Lymph % (Auto) 27.1, [place] % (Auto) 9.2, Eos % (Auto) 1.8, Baso % (Auto) 0.9, Neut # (Auto) 4.0, Lymph # (Auto) 1.8, [place] # (Auto) 0.6, Eos # (Auto) 0.1, Baso # (Auto) 0.1, PT 38.4 H, INR 3.82 H, D-Dimer 0.53 H, Sodium 137, Potassium 4.6, Chloride 106, Carbon Dioxide 25, Anion Gap 10.6, BUN 30 H, Creatinine 1.10 H, Estimated Creat Clear 36, Estimated GFR 47 L, Est GFR ( Amer) 57 L, Glucose 117 H, Calcium 9.9, Phosphorus 3.8, Magnesium 2.1, Total Bilirubin 0.8, AST 26, ALT 21, Alkaline Phosphatase 104, Troponin I 0.07 H, NT-Pro-B Natriuret Pep 37130 H, Total Protein 7.9, Albumin 4.3, Globulin 3.6 H, Albumin/Globulin Ratio 1.2, Lipase 157 05/20/25 22:25 05/20/25 22:25 Orders (Tests/Meds): ED MEDICATIONS Generic Name Dose Route Start Last Admin Trade Name Freq PRN Reason Stop Dose Admin Furosemide 40 mg 05/21/25 00:57 Furosemide 40mg/4ml Vial IV 05/21/25 00:58 ONCE ONE ORDERS Category Date Time Status CT head/brain wo con Stat Cat Scan 05/20/25 23:03 Completed XR chest portable Stat Exams 05/20/25 23:02 Completed BNP [NT Pro Brain Natriuretic Pep.] Stat Lab 05/20/25 22:25 Completed CBC w/Auto Diff [Complete Blood Count Auto Diff] Stat Lab 05/20/25 22:25 Completed CMP [Comprehensive Metabolic Panel] Stat Lab 05/20/25 22:25 Completed D-Dimer Stat Lab 05/20/25 22:25 Completed Lipase Stat Lab 05/20/25 22:25 Completed MAG [Magnesium] Stat Lab 05/20/25 22:25 Completed PHOS [Phosphorous] Stat Lab 05/20/25 22:25 Completed Prothrombin Time INR Stat Lab 05/20/25 22:25 Completed Trop I [Troponin I] Stat Lab 05/20/25 22:25 Completed Troponin I Q3H Lab 05/21/25 02:15 Ordered Troponin I Q3H Lab 05/21/25 05:15 Ordered UA [Urinalysis and Microscopic] Stat Lab 05/20/25 23:02 Ordered Urine Culture Stat Micro 05/20/25 23:02 Ordered Medical Decision Narrative: Patient is an 89-year-old female with a past medical history of severe heart failure on hospice with chronic A-fib on anticoagulation who presented to the emergency department with concern for shortness of breath as well as confusion. On arrival, patient was tachycardic in A-fib blood pressure was otherwise stable. Patient was afebrile. Differential includes but not limited to: CHF exacerbation, pneumonia, pleural effusion, ACS/MS, urinary tract infection, intracranial pathology, amongst others Patient's labs were reviewed and interpreted by myself: CBC showed no leukocytosis, hemoglobin was stable. INR was elevated at 3.82. D-dimer mildly elevated at 0.53. CMP was unremarkable except for mildly elevated creatinine at 1.0. Patient's initial troponin was 0.07. Patient's BNP was significantly elevated at 20,000. Lipase normal. Chest x-ray did not show any acute focal saltation, pneumothorax, pleural effusion or other acute cardiopulmonary process. EKG was reviewed and interpreted by myself and showed A-fib without acute ST or T wave changes concerning for ischemia. CT scan was obtained of the head which showed no acute intracranial pathology. UA was pending at this time. Concern for acute heart failure exacerbation, patient was given 40 of IV Lasix. Given patient's significantly elevated troponin as well as elevated BNP I felt the patient warranted admission. Although patient was in A-fib, patient's rate was relatively well-controlled I did not give any beta-blockers at this time. I discussed the case with the hospitalist and patient was ultimately admitted to their service for further evaluation and workup. Critical Care Critical Care Time Critical Care Time: No
[2025-05-20 23:49] LABS: NT Pro Brain Natriuretic Pep. 20000 pg/mL (0-450)
[2025-05-20 23:52] LABS: INR 3.82 (0.9-1.1); Prothrombin Time 38.4 seconds (10.1-12.5)
[2025-05-21] VITALS (18 sets, daily range): BP systolic 88–132; BP diastolic 51–93; PULSE 74–138; RESP 16–22; TEMP 36.5–37.2; O2SAT 71–100; BMI 25.9; BMI 24.3
[2025-05-21] MEDS: FUROSEMIDE 40MG/4ML VIAL 40 MG IV ×3 (01:07→15:31)
--- NOTE | 2025-05-21 01:20 | PC.NURSE ---
report called to kym HEWITT
--- NOTE | 2025-05-21 02:14 | P.HP_ITS ---
<Statement entered by Feng Vicente MD - 05/21/25 09:56> Rounded on patient after nurse practitioner. Personally examined and interviewed patient. Agree with exam findings and care plan as documented. History of Present Illness *Admission Date: 05/21/25 *Reason for visit:: AMS, A/C HFrEF, NSTEMI *History of present illness: 89-year-old female patient presents to ER via EMS with complaints of shortness of breath nonproductive cough and chest pressure. States she has felt off for the last couple of days. Chest pressure began about 2 days ago and is resolved now. States she has felt off balance and that her legs have been hurting. She has history of atrial fib as well as CHF with an EF of 20%. She is on hospice for congestive heart failure. Workup in the ER shows a troponin of 0.07, BNP of 20,000 PT 38.4 INR 3.82 and D-dimer 0.53. Records show she is on Pradaxa. EKG does show some mild ST depression. [facility] Disclaimer: The information contained in this section may have been updated after the patient was seen, as this information can be updated by other users. Medical History Atrial fibrillation Ischemic cardiomyopathy Regional wall motion abnormality of heart Atypical angina HFrEF (heart failure with reduced ejection fraction) Hx of cardiomyopathy Tachy-kaylah syndrome Symptomatic bradycardia History of stroke Congestive heart failure Hyperlipidemia Hypertension Left-sided weakness Pincer nail deformity Edema Hammer toe Callus of foot Osteomyelitis Onychoincurvatum Encounter for wound care Ulcer of right foot Cardiomyopathy Pulmonary hypertension Hypokalemia Congestive heart failure Atrial fibrillation with rapid ventricular response Surgical History History of surgery History of left knee replacement Family History Other No significant family history Social History Smoking Status: Unknown if ever smoked alcohol intake: never substance use type: denies use current occupational status: retired Travel in the last 8 weeks?: None household members: none caffeine: No Have you lived/traveled outside US in past 30 days?: No Contact w/someone who lives/traveled outside US past 30 days?: No Exposure to someone with infectious disease in past 14 days?: No Do you have a fever (greater than 100.4 F or 38 C)?: No Have you tested positive for COVID-19?: No Exposed to someone with COVID-19 in past 14 days?: No Do you have a sore throat?: No Do you have a cough?: No Do you have any weakness?: No Do you have any diarrhea?: No Are you experiencing any unusual bleeding?: No Do you have any muscle aches/pain?: No Do you have any abdominal pain?: No Are you experiencing loss of taste or smell?: No Other Medical History Have you received the Flu Vaccine for this season: No Have you received the Pneumonia Vaccine: No Review of Systems Constitutional Constitutional: Denies body ache(s), Denies chills and Denies fever(s) Eyes Eyes: Reports system reviewed and no additional complaints, except as documented ENT Ears, Nose, Mouth, and Throat: Reports system reviewed and no additional complaints, except as documented and Reports disequilibrium *Cardiovascular Cardiovascular: Reports chest pain, Reports dyspnea and Reports rapid heart rate *Respiratory Respiratory: Reports cough and Reports dyspnea *Gastrointestinal Gastrointestinal: Denies abdominal pain, Denies diarrhea and Denies vomiting *Genitourinary Genitourinary: Denies difficulty voiding and Denies dysuria *Musculoskeletal Musculoskeletal: Reports muscle weakness *Neurologic Neurologic: Reports disequilibrium Meds Home Medications and Allergies Home Medications ?Medication ?Instructions ?Recorded ?Confirmed ?Type spironolactone 25 mg tablet 25 mg PO DAILY 30 days #30 tabs 07/19/23 04/03/25 Rx acetaminophen 500 mg tablet 500 mg PO Q4HP PRN Mild Pa in 01/24/24 04/03/25 History (Scale Score 1-4) dabigatran etexilate 150 mg 150 mg PO BID 01/24/24 History capsule (Pradaxa) digoxin 125 mcg (0.125 mg) tablet 125 mcg PO DAILY 04/03/25 History lorazepam 0.5 mg tablet 0.5 mg PO Q6HP PRN Anxiety 0 01/24/24 04/03/25 History furosemide 40 mg tablet 40 mg PO MOWEFRSA 04/03/25 0 04/03/25 History hydrocortisone 0.5 % topical cream 1 applic topical DA ILYP PRN Itching 04/03/25 04/03/25 History lactulose 10 gram/15 mL oral 10 g PO DAILYP PRN Consti pation 04/03/25 04/04/25 History solution melatonin 5 mg tablet 5 mg PO HS 04/03/25 04/03/25 History morphine concentrate 100 mg/5 mL 5 mg PO Q6HP PRN Erica re Pain 04/03/25 04/03/25 History (20 mg/mL) oral solution (Scale Score 7-10) nystatin 100,000 unit/gram topical 1 applic topical BI DP PRN REDNESS 04/03/25 04/03/25 History powder sennosides 8.6 mg-docusate sodium 1 tab PO DAILY Const ipation 04/03/25 04/04/25 History 50 mg tablet (Stool Softener-Stimulant Laxative) simethicone 80 mg chewable tablet 80 mg PO Q6HP PRN Ab dominal 04/03/25 04/04/25 History (Gas Relief (simethicone)) Discomfort temazepam 15 mg capsule (Restoril) 15 mg PO HSP PRN In somnia 04/03/25 04/04/25 History amoxicillin 500 mg-potassium 1 tab PO TID 3 days #9 ta bs 04/05/25 Rx clavulanate 125 mg tablet (Augmentin) metoprolol succinate 25 mg 25 mg PO DAILY 30 days #30 tabs 04/05/25 Rx tablet,extended release 24 hr polyethylene glycol 3350 17 17 g PO DAILY Constipation 30 days 04/05/25 04/03/25 Rx gram/dose oral powder (Miralax) #0 grams New Prescriptions to Start Prescriptions: Allergies Allergy/AdvReac Type Severity Reaction Status Date / Time codeine Allergy Mild Vomiting/na Verified 09/10/24 07:46 usea meloxicam AdvReac Other Verified 09/10/24 07:46 Exam Data for Last 24 hours Vital signs and Labs for Last 24 Hours: Temp Pulse Resp BP Pulse Ox O2 Del Method O2 Flow Rate 98.4 F 138 H 18 113/93 H 99 Nasal Cannula 3 05/21/25 01:57 05/21/25 01:57 05/21/25 01:57 05/21/25 01:57 05/21/25 01:57 05/21/25 01:57 05/21/25 01:57 Laboratory Results - last 24 hr 05/20/25 22:25: WBC 6.6, RBC 3.98 L, Hgb 11.1 L, Hct 35.7 L, MCV 89.7, MCH 27.9, MCHC 31.1 L, RDW 14.4, Plt Count 260, MPV 11.8 H, Neut % (Auto) 60.7, Lymph % (Auto) 27.1, [place] % (Auto) 9.2, Eos % (Auto) 1.8, Baso % (Auto) 0.9, Neut # (Auto) 4.0, Lymph # (Auto) 1.8, [place] # (Auto) 0.6, Eos # (Auto) 0.1, Baso # (Auto) 0.1, PT 38.4 H, INR 3.82 H, D-Dimer 0.53 H, Sodium 137, Potassium 4.6, Chloride 106, Carbon Dioxide 25, Anion Gap 10.6, BUN 30 H, Creatinine 1.10 H, Estimated Creat Clear 36, Estimated GFR 47 L, Est GFR ( Amer) 57 L, Glucose 117 H, Calcium 9.9, Phosphorus 3.8, Magnesium 2.1, Total Bilirubin 0.8, AST 26, ALT 21, Alkaline Phosphatase 104, Troponin I 0.07 H, NT-Pro-B Natriuret Pep 84768 H, Total Protein 7.9, Albumin 4.3, Globulin 3.6 H, Albumin/Globulin Ratio 1.2, Lipase 157 I & O for Last 24 hours: Intake & Output 05/18/25 05/19/25 05/20/25 05/21/25 23:59 23:59 23:59 23:59 Weight 63.049 kg 73.1 kg Constitutional Constitutional: mild distress and disheveled *Routine HEENT Exam Head: Present normocephalic and atraumatic Eye: Present PERRL ENT: Present mucous membranes moist *Routine Neck Exam Neck: Present supple *Routine Respiratory Exam Respiratory: Present CTA bilaterally *Routine Cardiovascular Exam Cardiovascular: Present Normal S1, Normal S2, tachycardia and irregular rhythm *Routine Abdominal Exam Abdominal: Present soft and normoactive bowel sounds; Absent tenderness *Routine Rectal Exam Rectal:: deferred *Routine Genitalia Exam Genitalia:: deferred *Routine Extremities Exam Extremities: Present pulses intact; Absent edema *Routine Skin Exam Skin: Present dry and warm *Routine Neurological Exam Neurological: Present alert, oriented X3 and moving all extremities (Strength equal bilaterally) Assessment and Plan *Assessment and plan (1) NSTEMI (non-ST elevated myocardial infarction): Status: Acute Category: Medical Code(s): I21.4 - Non-ST elevation (NSTEMI) myocardial infarction (2) CHF exacerbation: Status: Acute Qualifiers: Heart failure type: systolic Qualified Code(s): I50.23 - Acute on chronic systolic (congestive) heart failure Category: Medical Code(s): I50.9 - Heart failure, unspecified (3) Atrial fibrillation with rapid ventricular response: Status: Acute Category: Medical Code(s): I48.91 - Unspecified atrial fibrillation (4) Chronic anticoagulation: Status: Acute Category: Medical Code(s): Z79.01 - intermodal dispatcher (current) use of anticoagulants (5) Ischemic cardiomyopathy: Status: Acute Category: Medical Code(s): I25.5 - Ischemic cardiomyopathy (6) HFrEF (heart failure with reduced ejection fraction): Status: Acute Category: Medical Code(s): I50.20 - Unspecified systolic (congestive) heart failure (7) Hyperlipidemia: Status: Acute Qualifiers: Hyperlipidemia type: mixed hyperlipidemia Qualified Code(s): E78.2 - Mixed hyperlipidemia Category: Medical Code(s): E78.5 - Hyperlipidemia, unspecified Plan This patient presents to the ER with complaints of shortness of breath and chest pain. Workup shows findings of NSTEMI with an elevated troponin as well as acute acute exacerbation of HFrEF with a BNP of 20,000. She is in chronic atrial fibs on Pradaxa her heart rate is in the 120-130 range. There was some concern with confusion from her family, CT head shows old infarcts no acute changes. After discussion with the ER provider I excepted this patient for admission for further evaluation and treatment of her CHF exacerbation, atrial Fib and NSTEMI. NSTEMI?Will trend troponins and repeat labs in the morning. Consult cardiology. Currently she is pain-free. I do not see aspirin on her med list, there is a recent history of some concern for bloody bowel movements so we will hold off on that for now. She is on Pradaxa for anticoagulation. We will continue this. Acute on chronic HFrEF?patient reports with shortness of breath and is found to have an elevated BNP of 20,000. Chest x-ray shows cardiomegaly with some congestion. Received Lasix 40 mg IV in the ER and a Aguilar catheter was anchored. Will monitor I&O. A-fib RVR?patient is A-fib with a rate of 120-130. Blood pressure has been on the low normal side. I am checking a dig level. Once that results we will use dig or beta-hamilton for rate control. She is on Pradaxa for Anticoagulation. We will continue this. Patient is on hospice for HFrEF with an EF of 20%. I believe she has been on ho spice about a year.
[2025-05-21 02:16] LABS: Troponin I 0.07 ng/ml (0.00-0.034)
[2025-05-21 03:14] LABS: Microscopic, Urine URINE MICROSCOPIC (MICROSCOPIC)
[2025-05-21 03:17] LABS: Bilirubin,Urine Negative (Negative); Color,Urine YELLOW (Yellow); Glucose,Urine (UA) Negative (Negative); Ketones,Urine Negative (Negative); Leukocyte Esterase,Urine Negative (Negative); PH,Urine 6.0 (5.0-8.5); Protein,Urine Negative (Negative); Specific Gravity, Urine 1.010 (1.005-1.030); Urobilinogen,Urine 0.2 EU/dl (0.2)
[2025-05-21 03:22] LABS: Digoxin < 0.40 ng/ml (0.2-2.00)
[2025-05-21 03:28] LABS: Bacteria,Urine 1+ /lpf
--- NOTE | 2025-05-21 03:36 | PC.NURSE ---
Pt arrived to Unit at 0310 from floor by bed.
[2025-05-21] MEDS: METOPROLOL TARTRATE 5MG/5ML VIAL 5 MG IV (04:18)
[2025-05-21 06:12] LABS: Hematocrit 33.7 % (37.0-47.0); Hemoglobin 10.5 g/dL (12.2-16.2); Immature Granulocytes % 0.4 %; Mean Corpuscular HGB Conc 31.2 g/dL (31.8-35.4); Mean Corpuscular Hemoglobin 28.2 pg (27.0-31.2); Mean Corpuscular Volume 90.3 fl (81-99); Nucleated Red Blood Cells % 0 %; Platelet Count 225 K/mm3 (142-424); Red Blood Count 3.73 M/mm3 (4.20-5.40); Red Cell Distribution Width-SD 46.4 fL; White Blood Count 5.5 K/mm3 (4.8-10.8)
[2025-05-21 06:26] LABS: Alanine Aminotransferase 18 U/L (12-78); Albumin Level 4.0 g/dl (3.5-5.0); Albumin/Globulin Ratio 1.2 (1.1-1.8); Alkaline Phosphatase 104 U/L (38-126); Anion Gap 11.0 mEq/L (5-15); Aspartate Amino Transferase 24 U/L (14-36); Bilirubin,Total 0.9 mg/dl (0.2-1.3); Blood Urea Nitrogen 29 mg/dl (7-17); Calcium 9.8 mg/dl (8.4-10.2); Carbon Dioxide 27 mmol/L (22.0-30.0); Chloride 105 mmol/L (98-107); Creatinine Clearance Estimated 39 mL/min (50-200); Creatinine,Serum 1.10 mg/dl (0.52-1.04); Estimated Glomerular Filt Rate 47 ml/min (>60); GFR (African American) 57 ML/MIN (>60); Globulin 3.3 g/dL (1.3-3.2); Glucose 101 mg/dl (74-100); Potassium 4.0 mmoL/L (3.5-5.1); Sodium 139 mmol/L (136-145); Total Protein,Serum 7.3 g/dl (6.3-8.2)
--- NOTE | 2025-05-21 06:31 | ECG_ITS ---
APPROVED REPORT Exam: Resting ECG HR:112 bpm ECG Measurements Heart Rate 112 AXES QRSd 94 QRS 50 QT 332 T 180 QTc 398 Conclusion ATRIAL FIBRILLATION WITH RAPID VENTRICULAR RESPONSE ST DEVIATION AND MODERATE T-WAVE ABNORMALITY, CONSIDER LATERAL ISCHEMIA [-0.1+ mV T-WAVE IN I/aVL/V5/V6] ABNORMAL ECG UNCONFIRMED REPORT Electronically signed by : Jairo Mann MD 05/22/2025 18:59:56
[2025-05-21 07:41] LABS: Magnesium 2.0 mg/dl (1.6-2.3)
[2025-05-21 07:54] LABS: Troponin I 0.07 ng/ml (0.00-0.034)
--- NOTE | 2025-05-21 08:08 | SW/DCPLANNER ---
Addendum entered by Idania Castellanos 05/21/25 14:03: Patient refuses hospital bed at home at time of discharge. Addendum entered by Idania Castellanos 05/21/25 13:10: After lengthy discussion w/ Hospice staff the plan for this patient is to discharge back home w/ Hospice services. Hospice did discuss revoking services and attempt SNF but PT evaluation stated that patient is not appropriate for skilled therapy. I have updated Dr Vicente and he plans to discharge patient home tomorrow to resume Hospice services. I will update patient of discharge plans. Original Note: Patient is currently established w/ Hospice services. Patient information has been faxed to Keisha w/ Hospice. Per Keisha this is a related hospital admission. CM will continue to follow up.
--- NOTE | 2025-05-21 08:46 | CA_ITS ---
APPROVED REPORT EXAM: Comprehensive 2D, Doppler, and color-flow Echocardiogram with contrast Food Production Worker: Cass Mckeon RT(R) Ht: 5 ft 6 in Wt: 150lbs BSA: 1.77 BP: 113/93 mmHg Indications: CHF, AFIB, HFrEF Echo Enhancing Agent Indication: Endocardial border delineation Agent(s) / Amount(s) Used: Definity 2 cc 2D Dimensions LVEF (Kulkarni's) 23.80 % F: 54 - 74 LV Volume 112.00 mL F: 46 - 106 LV Volume Index 63.3 mL/m2 F: 29 - 61 LA Volume 115.50 mL LA Volume Index 65.25 mL/m2 (M/F) 16-34 EF AP4 19.10 % EF AP2 27.0 % EF BP 23.8 % GL Strain -3.3 % M-Mode Dimensions RVDd 2.24 cm (0.9-2.6) LA Diam 5.91 cm (1.9-4.0) LVDd 6.09 cm (3.5-5.7) LVDs 5.05 cm (3.5-5.7) IVSd 0.68 cm (0.6-1.1) PWd 0.72 cm (0.6-1.1) EF (Teich) 35.00% FS 17.10% EDV (Teich) 186.20 mL ESV (Teich) 121.00 mL Tricuspid Valve TR P. Velocity 286.00 cm/s RAP Estimate 10.00 mmHg RVSP 42.70 mmHg Left Ventricle The left ventricle is normal size. Left ventricular systolic function is severely reduced. There is increased left ventricular wall thickness. There is severe global hypokinesis present. The LV apical wall is akinetic. The left ventricular diastolic function is indeterminate. No left ventricle thrombus noted on this study. LVEF is 25% Right Ventricle The right ventricle is mildly dilated. The right ventricular systolic function is mildly reduced. Atria Left atrium is severely dilated. Right atrium is moderately dilated. There is no color Doppler evidence of interatrial shunt. Aortic Valve The aortic valve is mildly thickened. There is no hemodynamically significant aortic valvular stenosis. Trace aortic regurgitation is present. Mitral Valve The mitral valve is mildly thickened. No evidence of mitral valve stenosis. Moderate to severe mitral regurgitation is present. Tricuspid Valve The tricuspid valve leaflets are thin and pliable. Mild tricuspid regurgitation. RVSP is 35-40 mmHg. Pulmonic Valve The pulmonary valve is grossly normal in structure. Mild pulmonic valve regurgitation is present. Great Vessels The aortic root is normal in size. IVC is normal in size and collapses >50% with inspiration. Pericardium There is a trivial, posterior pericardial effusion present. No echo indications of tamponade. Other Information Study Quality: Fair Conclusion Severe reduction in LV systolic function (LVEF 25%). Akinesis of the LV apical wall. Mild RV dilation with mild reduction in RV function. Severe biatrial dilation. Moderate to severe MR. Mild TR, mild PI. RVSP is 35-40 mmHg. Further evaluation with cardiac MRI (cardiomyopathy / MR protocol) is suggested. Electronically signed by : Mary Antonio MD 05/21/2025 23:46:50
--- NOTE | 2025-05-21 08:46 | P.CONPHA_ITS ---
Pharmacy Intervention Comments: MEDICATION RECONCILIATION COMPLETED ON PATIENT USING LIST FROM [facility]. -LAMAR COLE, CARMELAD
--- NOTE | 2025-05-21 08:46 | HMH.PHAINT1 ---
Pharmacy Intervention Comments: MEDICATION RECONCILIATION COMPLETED ON PATIENT USING LIST FROM [facility]. -LAMAR COLE, CARMELAD
[2025-05-21] MEDS: DIGOXIN 0.125MG TABLET 125 MCG PO (09:28)
[2025-05-21] MEDS: SPIRONOLACTONE 25MG TABLET 25 MG PO (09:29)
[2025-05-21] MEDS: METOPROLOL SUCCINATE XL 25MG TABLET 25 MG PO (09:29)
--- NOTE | 2025-05-21 11:00 | HMH.PTEV ---
Physical Therapy Evaluation Rehab PT IP Evaluation Start: 05/21/25 02:06 Freq: ONCE Status: Active Protocol: Document 05/21/25 10:50 JUS (Rec: 05/21/25 10:58 JUS [id number]) Subjective/History History History Per H&P: 89-year-old female patient presents to ER via EMS with complaints of shortness of breath nonproductive cough and chest pressure. States she has felt off for the last couple of days. Chest pressure began about 2 days ago and is resolved now. States she has felt off balance and that her legs have been hurting. She has history of atrial fib as well as CHF with an EF of 20%. She is on hospice for congestive heart failure. Workup in the ER shows a troponin of 0. 07, BNP of 20,000 PT 38.4 INR 3.82 and D-dimer 0.53. Records show she is on Pradaxa. EKG does show some mild ST depression. Subjective Subjective Pt reports she lives in a home with 0 JAQUELIN. Pt lives with family and is currently receiving hospice services. Prior to hospitalization, pt required assistance from family with mobility. Pt used a RW for short amb distances. New diagnosis of No cancer in past 12 months? [facility] How much help from another person do you currently need... Turning from your A little back to your side while in a flat bed without using bedrails? Moving from lying on A little back to sitting on the side of a flat bed without using bedrails? Moving to and from a A little bed to a chair ( including a wheelchair)? Standing up from a A little chair using your arms? (e.g., wheelchair, bedside chair) Walking in hospital A little room? Climbing 3-5 steps A lot with a railing? Mobility Score 17 Mobility Level [facility] Mobility 5 Stand (1 or more minutes) Mobility Calculator Rehab PT IP Eval Objective Appearance Patient Behavior Appropriate,Cooperative Patient Orientation Person,Place Difficulty following none instructions Speech Pattern Clear Ambulation Patient Able to No Ambulate Balance Ability to Arise Able, uses arms to help Sitting Balance Steady, safe Standing Balance Unsteady Dynamic Sitting Good Balance Ability Dynamic Standing Poor Balance Ability Transfers Bed Transfer Ability Minimal x 1 (25% assist) Sit to Stand Bed Minimal x 1 (25% assist) Transfer Ability Rehab PT IP prob,goals,plan Problems Date of Evaluation: 05/21/25 Rehab Potential Rehab Potential Innapropriate for Skilled Therapy Discharge Plan PT Discharge Plan PT recommending pt return home with continued 28/01 care by family. Pt stood and demo'd good functional standing balance with OR DIRECTOR x 1. Pt not agreeable to ambulate in room at this time. Skilled PT not indicated at this time as pt is receiving hospice services and appears to be very close to her reported mobility baseline. Eval Complexity Eval Charge Codes 70226 - Moderate Complexity PHYSICIAN CERTIFICATION: I certify the specified therapy services for Mireya Jones are required, authorized, and reviewed every 30 days.
[2025-05-21] MEDS: DEFINITY US ECHO CONTRAST 2ML INJ 2 MG IV (11:34)
--- NOTE | 2025-05-21 11:42 | P.CONCA_ITS ---
History of Present Illness History of Present Illness Consult date: 05/21/25 Chief complaint: AMS History of present illness: This is an 89-year-old female who presented to the emergency department with altered mental status. Her granddaughter reports that she got up from the couch and then suddenly fell backwards and had an altered mental status. She was unable to speak or answer any questions. The patient reports that she felt off for few days prior to her admission. She was having some shortness of breath with exertion and a nonproductive cough. She denies any chest pain or pressure. She states that her shortness of breath is better now. She just states that she felt really off balance and her legs have been hurting her. The patient is in hospice care for her end-stage CAD and congestive heart failure. Upon arrival to the emergency department she had a troponin of 0.08 and a BNP greater than 20,000. The patient has known severe three-vessel coronary artery disease that would be high risk for intervention. The patient and her family have opted not to intervene on her coronary artery disease and she is adamant today that she wants no procedures during this hospitalization. She just wants medications to help improve her symptoms. [facility] Disclaimer: The information contained in this section may have been updated after the patient was seen, as this information can be updated by other users. Medical History (Updated 05/21/25 @ 11:55 by Mackenzie Burger APRN) Acute on chronic HFrEF (heart failure with reduced ejection fraction) CAD in [place] artery Atrial fibrillation Ischemic cardiomyopathy Regional wall motion abnormality of heart Atypical angina HFrEF (heart failure with reduced ejection fraction) Hx of cardiomyopathy Tachy-kaylah syndrome Symptomatic bradycardia History of stroke Congestive heart failure Hyperlipidemia Hypertension Left-sided weakness Pincer nail deformity Edema Hammer toe Callus of foot Osteomyelitis Onychoincurvatum Encounter for wound care Ulcer of right foot Cardiomyopathy Pulmonary hypertension Hypokalemia Congestive heart failure Atrial fibrillation with rapid ventricular response Surgical History History of surgery History of left knee replacement Family History Other No significant family history Social History Smoking Status: Unknown if ever smoked alcohol intake: never substance use type: denies use current occupational status: retired Travel in the last 8 weeks?: None household members: none caffeine: No Have you lived/traveled outside [place] in past 30 days?: No Contact w/someone who lives/traveled outside US past 30 days?: No Exposure to someone with infectious disease in past 14 days?: No Do you have a fever (greater than 100.4 F or 38 C)?: No Have you tested positive for COVID-19?: No Exposed to someone with COVID-19 in past 14 days?: No Do you have a sore throat?: No Do you have a cough?: No Do you have any weakness?: No Do you have any diarrhea?: No Are you experiencing any unusual bleeding?: No Do you have any muscle aches/pain?: No Do you have any abdominal pain?: No Are you experiencing loss of taste or smell?: No Review of Systems Review of Systems Review of systems:: pertinent systems reviewed and negative unless documented below Constitutional Constitutional: Reports system reviewed and no additional complaints, except as documented, Reports fatigue, Reports lethargy and Reports weakness Eyes Eyes: Reports system reviewed and no additional complaints, except as documented ENT Ears, Nose, Mouth, and Throat: Reports system reviewed and no additional complaints, except as documented and Reports disequilibrium *Cardiovascular Cardiovascular: Reports system reviewed and no additional complaints, except as documented, Denies chest pain, Reports dyspnea and Reports dyspnea on exertion *Respiratory Respiratory: Reports system reviewed and no additional complaints, except as documented, Reports cough, Reports dyspnea and Reports dyspnea on exertion *Gastrointestinal Gastrointestinal: Reports system reviewed and no additional complaints, except as documented *Genitourinary Genitourinary: Reports system reviewed and no additional complaints, except as documented *Musculoskeletal Musculoskeletal: Reports system reviewed and no additional complaints, except as documented Integumentary/Breasts Skin/Breast: Reports system reviewed and no additional complaints, except as documented *Neurologic Neurologic: Reports system reviewed and no additional complaints, except as documented, Reports confusion, Reports disequilibrium and Reports weakness Psychiatric Psychiatric: Reports system reviewed and no additional complaints, except as documented and Reports confusion Endocrine Endocrine: Reports system reviewed and no additional complaints, except as documented and Reports fatigue Hematologic/Lymphatic Hematologic/Lymphatic: Reports system reviewed and no additional complaints, except as documented Allergic/Immunologic Allergic/Immunologic: Reports system reviewed and no additional complaints, except as documented Exam Data for Last 24 hours Vital signs and Labs for Last 24 Hours: Temp Pulse Resp BP Pulse Ox O2 Del Method O2 Flow Rate 98.1 F 103 H 18 119/77 96 Nasal Cannula 3 05/21/25 11:00 05/21/25 11:00 05/21/25 11:00 05/21/25 11:00 05/21/25 11:00 05/21/25 11:00 05/21/25 11:00 Laboratory Results - last 24 hr 05/20/25 22:25: WBC 6.6, RBC 3.98 L, Hgb 11.1 L, Hct 35.7 L, MCV 89.7, MCH 27.9, MCHC 31.1 L, RDW 14.4, Plt Count 260, MPV 11.8 H, Neut % (Auto) 60.7, Lymph % (Auto) 27.1, [place] % (Auto) 9.2, Eos % (Auto) 1.8, Baso % (Auto) 0.9, Neut # (Auto) 4.0, Lymph # (Auto) 1.8, [place] # (Auto) 0.6, Eos # (Auto) 0.1, Baso # (Auto) 0.1, PT 38.4 H, INR 3.82 H, D-Dimer 0.53 H, Sodium 137, Potassium 4.6, Chloride 106, Carbon Dioxide 25, Anion Gap 10.6, BUN 30 H, Creatinine 1.10 H, Estimated Creat Clear 36, Estimated GFR 47 L, Est GFR ( Amer) 57 L, Glucose 117 H, Calcium 9.9, Phosphorus 3.8, Magnesium 2.1, Total Bilirubin 0.8, AST 26, ALT 21, Alkaline Phosphatase 104, Troponin I 0.07 H, NT-Pro-B Natriuret Pep 65342 H, Total Protein 7.9, Albumin 4.3, Globulin 3.6 H, Albumin/Globulin Ratio 1.2, Lipase 157 05/21/25 01:47: Troponin I 0.07 H, Digoxin < 0.40 05/21/25 04:58: WBC 5.5, RBC 3.73 L, Hgb 10.5 L, Hct 33.7 L, MCV 90.3, MCH 28.2, MCHC 31.2 L, RDW 14.3, Plt Count 225, MPV 11.5 H, Neut % (Auto) 65.6, Lymph % (Auto) 23.4, [place] % (Auto) 7.9, Eos % (Auto) 2.2, Baso % (Auto) 0.5, Neut # (Auto) 3.6, Lymph # (Auto) 1.3, [place] # (Auto) 0.4, Eos # (Auto) 0.1, Baso # (Auto) 0.0, Sodium 139, Potassium 4.0, Chloride 105, Carbon Dioxide 27, Anion Ga p 11.0, BUN 29 H, Creatinine 1.10 H, Estimated Creat Clear 39, Estimated GFR 47 L, Est GFR ( Amer) 57 L, Glucose 101 H, Calcium 9.8, Magnesium 2.0, Total Bilirubin 0.9, AST 24, ALT 18, Alkaline Phosphatase 104, Troponin I 0.07 H, Total Protein 7.3, Albumin 4.0, Globulin 3.3 H, Albumin/Globulin Ratio 1.2 05/21/25 : Urine Color Yellow, Urine Appearance Clear, Urine pH 6.0, Ur Specific [place] 1.010, Urine Protein Negative, Urine Glucose (UA) Negative, Urine Ketones Negative, Urine Blood 1+ A, Urine Nitrate Negative, Urine Bilirubin Negative, Urine Urobilinogen 0.2, Ur Leukocyte Esterase Negative, Urine RBC 5- 10, Urine WBC 5-10, Ur Squamous Epith Cells 5-10, Urine Bacteria 1+ I & O for Last 24 hours: Intake & Output 05/18/25 05/19/25 05/20/25 05/21/25 23:59 23:59 23:59 23:59 Intake Total 320 / 320 Output Total 2009 Balance -1690 / -1690 Weight 139 lb 151 lb 1.6 oz Constitutional Constitutional: no acute distress, average body habitus and chronically ill appearing *Routine HEENT Exam Head: Present normocephalic and atraumatic ENT: Present mucous membranes moist *Routine Neck Exam Neck: Present supple, full ROM and normal carotid upstroke; Absent JVD, carotid bruit or lymphadenopathy *Routine Respiratory Exam Respiratory: Present CTA bilaterally, normal respiratory effort, able to speak in complete sentences and symmetric chest movement *Routine Cardiovascular Exam Cardiovascular: Present Normal S1, Normal S2, tachycardia and irregularly irregular; Absent murmur or gallop *Routine Abdominal Exam Abdominal: Present soft and normoactive bowel sounds; Absent tenderness, distended or organomegaly *Routine Extremities Exam Extremities: Present full ROM, pulses intact and normal capillary refill; Absent cyanosis, clubbing or edema *Routine Skin Exam Skin: Present intact and warm; Absent erythema *Routine Neurological Exam Neurological: Present alert, oriented X3 and CN II-XII intact; Absent sensory deficit or motor deficit Routine Psychiatric Exam Psychiatric: Present normal affect Meds Home Medications and Allergies Home Medications ?Medication ?Instructions ?Recorded ?Confirmed ?Type acetaminophen 500 mg tablet 500 mg PO Q6HP PRN Mild Pa in 05/21/25 05/21/25 History (Scale Score 1-4) bisacodyl 10 mg rectal suppository 10 mg PA DAILYP PRN Constipation 05/21/25 05/21/25 History (Dulcolax (bisacodyl)) dabigatran etexilate 150 mg capsule 150 mg PO BID 05/0805/21/25 History diphenhydramine HCl 25 mg tablet 25 mg PO Q6HP PRN Itc katja 05/21/25 05/21/25 History furosemide 40 mg tablet (Lasix) 40 mg PO MOWEFRSA 05/0805/21/25 History guaifenesin 1,200 mg tablet, 1,200 mg PO BIDP PRN delroy estion 05/21/25 05/21/25 History extended release 12 hr (Mucinex) haloperidol 1 mg tablet 1 mg PO Q6HP PRN Agitation 1 07/21/24 05/21/25 History hydrocortisone 0.5 % topical cream 1 applic topical TI DP PRN Itching 05/21/25 05/21/25 History hyoscyamine sulfate 0.125 mg tablet 0.125 mg PO Q6HP P RN Secretions 05/21/25 05/21/25 History lactulose 10 gram/15 mL oral 30 ml PO DAILYP PRN Const ipation 05/21/25 05/21/25 History solution lorazepam 0.5 mg tablet 0.5 mg PO HS 05/21/25 History lorazepam 0.5 mg tablet 0.5 mg PO Q6HP PRN Anxiety 1 07/21/24 05/21/25 History melatonin 5 mg tablet 5 mg PO HS 05/21/25 05/21/25 History morphine concentrate 5 mg/0.25 mL 5 mg PO Q6HP PRN Mod erate Pain 05/21/25 05/21/25 History oral syringe (ORAL USE) (Scale Score 5-6) nitroglycerin 0.4 mg sublingual 0.4 mg sublingual Q5M PRN Chest 05/21/25 05/21/25 History tablet Pain nystatin 100,000 unit/gram topical 1 applic topical BI D 05/21/25 05/21/25 History powder ondansetron 4 mg disintegrating 4 mg PO Q6HP PRN Nause a And 05/21/25 05/21/25 History tablet Vomiting polyethylene glycol 3350 17 17 g PO DAILYP PRN Constip ation 05/21/25 05/21/25 History gram/dose oral powder (Miralax) prochlorperazine maleate 10 mg 10 mg PO Q6HP PRN Nause a And 05/21/25 05/21/25 History tablet (Compazine) Vomiting sennosides 8.6 mg tablet (senna) 8.6 mg PO HS 05/21/25 05/21/25 History sennosides 8.6 mg-docusate sodium 1 tab PO BIDP PRN co nstipation 05/21/25 05/21/25 History 50 mg tablet (Stool Softener-Stimulant Laxative) simethicone 80 mg chewable tablet 80 mg PO Q6HP PRN Ga s 05/21/25 05/21/25 History spironolactone 25 mg tablet 25 mg PO DAILY 05/21/25 History New Prescriptions to Start Prescriptions: Allergies Allergy/AdvReac Type Severity Reaction Status Date / Time codeine Allergy Mild Vomiting/na Verified 09/10/24 07:46 usea meloxicam AdvReac Other Verified 09/10/24 07:46 Assessment and Plan *Assessment and plan (1) NSTEMI (non-ST elevated myocardial infarction): Status: Acute Category: Medical Code(s): I21.4 - Non-ST elevation (NSTEMI) myocardial infarction (2) CAD in [place] artery: Status: Acute Category: Medical Code(s): I25.10 - Atherosclerotic heart disease of [place] coronary artery without angina pectoris (3) Acute on chronic HFrEF (heart failure with reduced ejection fraction): Status: Acute Category: Medical Code(s): I50.23 - Acute on chronic systolic (congestive) heart failure (4) Ischemic cardiomyopathy: Status: Acute Category: Medical Code(s): I25.5 - Ischemic cardiomyopathy (5) Hospice care: Status: Acute Category: Medical Code(s): Z51.5 - Encounter for palliative care (6) Atrial fibrillation with rapid ventricular response: Status: Acute Category: Medical Code(s): I48.91 - Unspecified atrial fibrillation (7) Hyperlipidemia: Status: Acute Qualifiers: Hyperlipidemia type: mixed hyperlipidemia Qualified Code(s): E78.2 - Mi xed hyperlipidemia Category: Medical Code(s): E78.5 - Hyperlipidemia, unspecified (8) Cerebrovascular accident (CVA): Status: Chronic Qualifiers: CVA mechanism: embolism Precerebral and cerebral artery: unspecified cerebral artery Qualified Code(s): I63.40 - Cerebral infarction due to embolism of unspecified cerebral artery Category: Medical Code(s): I63.9 - Cerebral infarction, unspecified Plan Plan: 1. The patient presented to the emergency department with altered mental status. She is alert and oriented x 3 today. Her sister is at bedside and her granddaughter who is her POA is on the phone to help with giving history. 2. The patient has been admitted for acute on chronic exacerbation of HFrEF. Her BNP was greater than 20,000. She has a known EF of 20%. She has been having shortness of breath and a cough. Will diurese her with Lasix 40 mg IV twice daily. 3. The patient did have an elevated troponin consistent with a non-STEMI. The patient has known severe three-vessel disease that would require high risk intervention. The patient and family have previously opted for medical management. The patient is adamant today that she wants no procedures during this hospitalization. She still prefers medical management and only wants her medicines titrated to help her feel better. 4. We do recommend aspirin 81 mg daily for her CAD. 5. Continue with IV diuresis for her acute on chronic HFrEF. She is also on spironolactone for diuresis. 6. The patient does have atrial fibrillation with RVR. She is getting her metoprolol and digoxin now for rate control. 7. Continue Pradaxa for long-term anticoagulation. 8. If her symptoms do not improve with diuresis then consider antianginals with either isosorbide or Ranexa to see if this helps improve her symptoms. 9. Her blood pressure is well-controlled. 10. Her LDL goal is less than 55. Will start her on a statin for her CAD. 11. Further recommendations will be made pending the patient's response to treatment. Thank you for the opportunity to help participate in the care of this patient. All recommendations and orders are per Dr. Antonio.
[2025-05-21] MEDS: ASPIRIN EC 81MG TABLET 81 MG PO (12:16)
--- NOTE | 2025-05-21 13:16 | PC.NURSE ---
Report called to KASH Goff.
--- NOTE | 2025-05-21 13:34 | PC.NURSE ---
pt left ICU to [facility] room [id number] @[id number]
--- NOTE | 2025-05-21 13:34 | PC.NURSE ---
patient left from ICU to [facility] room [id number] @[id number]
--- NOTE | 2025-05-21 13:35 | PC.NURSE ---
arrived by bed from ICU
[2025-05-21] MEDS: ATORVASTATIN 20MG TABLET 20 MG PO (20:36)
[2025-05-21] MEDS: SENNA 8.6MG TABLET 8.6 MG PO (20:36)
[2025-05-21] MEDS: PANTOPRAZOLE 40MG TABLET 40 MG PO (20:36)
[2025-05-22] VITALS: BP 113/66; PULSE 90; PULSE 94; RESP 18; TEMP 36.5; O2SAT 98
[2025-05-22 04:00] VITALS: BP 116/65; PULSE 80; PULSE 89; RESP 16; TEMP 36.4; O2SAT 95; BMI 23.8
--- NOTE | 2025-05-22 04:33 | PC.NURSE ---
Pt. is alert and orientated x 4. Pt. on oxygen 3 liters per NC. Pt. states that she is feeling better. Pt. has a Aguilar catheter in place draining adequate amounts of clear yellow urine. Pt. can move herself in bed with difficulty. Assisted to turn and move to comfortable positions. Pt. remains in A-FIB. Pt. states the she sees Hospice nurse 3 times a week. Pt. also states that she lives with a granddaughter that was injured in a car accident. Personal items and call travis in reach. Bed in low and locked position. safety measures in place.
[2025-05-22 07:48] LABS: Hematocrit 32.9 % (37.0-47.0); Hemoglobin 10.2 g/dL (12.2-16.2); Immature Granulocytes % 0.2 %; Mean Corpuscular HGB Conc 31.0 g/dL (31.8-35.4); Mean Corpuscular Hemoglobin 27.7 pg (27.0-31.2); Mean Corpuscular Volume 89.4 fl (81-99); Nucleated Red Blood Cells % 0 %; Platelet Count 203 K/mm3 (142-424); Red Blood Count 3.68 M/mm3 (4.20-5.40); Red Cell Distribution Width-SD 44.6 fL; White Blood Count 6.3 K/mm3 (4.8-10.8)
[2025-05-22 07:55] VITALS: BP 114/71; PULSE 60; RESP 14; TEMP 36.7; O2SAT 100
[2025-05-22 08:04] LABS: Anion Gap 8.4 mEq/L (5-15); Blood Urea Nitrogen 30 mg/dl (7-17); Calcium 9.3 mg/dl (8.4-10.2); Carbon Dioxide 31 mmol/L (22.0-30.0); Chloride 99 mmol/L (98-107); Creatinine Clearance Estimated 35 mL/min (50-200); Creatinine,Serum 1.20 mg/dl (0.52-1.04); Estimated Glomerular Filt Rate 42 ml/min (>60); GFR (African American) 51 ML/MIN (>60); Glucose 87 mg/dl (74-100); Magnesium 1.8 mg/dl (1.6-2.3); Potassium 3.4 mmoL/L (3.5-5.1); Sodium 135 mmol/L (136-145)
--- NOTE | 2025-05-22 08:10 | PC.NURSE ---
Urine culture results forwarded to hospitalist.
[2025-05-22 08:26] LABS: Cholesterol 180 mg/dl (140-200); HDL Cholesterol 39 mg/dl (40-60); Triglycerides 99 mg/dl (30-150)
[2025-05-22 08:43] VITALS: PULSE 70
[2025-05-22] MEDS: DIGOXIN 0.125MG TABLET 125 MCG PO (08:43)
[2025-05-22] MEDS: METOPROLOL SUCCINATE XL 25MG TABLET 25 MG PO (08:43)
[2025-05-22] MEDS: ASPIRIN EC 81MG TABLET 81 MG PO (08:43)
[2025-05-22] MEDS: FUROSEMIDE 40MG/4ML VIAL 40 MG IV (08:43)
[2025-05-22] MEDS: SPIRONOLACTONE 25MG TABLET 25 MG PO (08:43)
--- NOTE | 2025-05-22 09:31 | EXP.DC.SUM ---
General Admission date:: 05/21/25 Discharge date: 05/22/25 HPI HPI HPI: 89-year-old female patient presents to ER via EMS with complaints of shortness of breath nonproductive cough and chest pressure. States she has felt off for the last couple of days. Chest pressure began about 2 days ago and is resolved now. States she has felt off balance and that her legs have been hurting. She has history of atrial fib as well as CHF with an EF of 20%. She is on hospice for congestive heart failure. Workup in the ER shows a troponin of 0.07, BNP of 20,000 PT 38.4 INR 3.82 and D-dimer 0.53. Records show she is on Pradaxa. EKG does show some mild ST depression. Hospital Course Hospital Course Hospital Course: This is an 89-year-old female who is being admitted for an NSTEMI. On my exam, patient is lying in bed in no acute distress. No complaints at this time. Admitted to medicine for management. Of note, patient is a hospice patient for heart failure. Diuresed during admission. Had improvement. Also found to have UTI. Will treat for UTI. Stable to discharge back home with hospice. Has a caregiver 28/01 at home. Problems addressed as follows: Heart failure with reduced ejection fraction, acute on chronic exacerbation A-fib NSTEMI -Patient had mild detectable troponin. Chest pain better by morning. In light of patient's goals of care, will not pursue any further interventions. Responded well to diuretics. Continue home regimen including Pradaxa twice daily, Lasix 40 mg daily increased from previous regimen of every other day, continue metoprolol succinate 25 mg daily, and spironolactone 25 mg daily. Breathing better. Stable on 2 to 3 L oxygen which appears to be chronic for her. UTI: Urinalysis abnormal. Urine with 5-10 whites and 1+ bacteria. Positive for E. coli. Discharged on Levaquin to complete 5 days. Renally dosed Anxiety: Continue Ativan 0.5 mg every 6 hours as needed. Would also benefit from having the ability to increase her oxygen as needed when she feels anxious. Currently on 2 to 3 L at baseline. Would recommend increasing to 5 if she is anxious to help with transient hypoxia. Continue activity as tolerated. Oxygen as needed for comfort. Stable to discharge home with hospice care. It has been a pleasure to care for Ms. Jones. Total time spent on discharge 32 minutes in counseling, documentation, chart review, and direct care with patient. Exam Data for Last 24 hours Vital signs and Labs for Last 24 Hours: Temp Pulse Resp BP Pulse Ox O2 Del Method O2 Flow Rate 98.0 F 70 14 114/71 100 Nasal Cannula 3 05/22/25 07:55 05/22/25 08:43 05/22/25 07:55 05/22/25 07:55 05/22/25 07:55 05/22/25 07:55 05/22/25 07:55 Laboratory Results - last 24 hr 05/21/25 : Urine Color Yellow, Urine Appearance Clear, Urine pH 6.0, Ur Specific Radcliffe 1.010, Urine Protein Negative, Urine Glucose (UA) Negative, Urine Ketones Negative, Urine Blood 1+ A, Urine Nitrate Negative, Urine Bilirubin Negative, Urine Urobilinogen 0.2, Ur Leukocyte Esterase Negative, Urine RBC 5-10, Urine WBC 5-10, Ur Squamous Epith Cells 5-10, Urine Bacteria 1+ 05/22/25 06:36: WBC 6.3, RBC 3.68 L, Hgb 10.2 L, Hct 32.9 L, MCV 89.4, MCH 27.7, MCHC 31.0 L, RDW 13.9, Plt Count 203, MPV 11.3 H, Neut % (Auto) 71.0, Lymph % (Auto) 18.6, Crenshaw % (Auto) 7.9, Eos % (Auto) 1.7, Baso % (Auto) 0.6, Neut # (Auto) 4.5, Lymph # (Auto) 1.2, Crenshaw # (Auto) 0.5, Eos # (Auto) 0.1, Baso # (Auto) 0.0, Sodium 135 L, Potassium 3.4 L, Chloride 99, Carbon Dioxide 31 H, Anion Gap 8.4, BUN 30 H, Creatinine 1.20 H, Estimated Creat Clear 35, Estimated GFR 42 L, Est GFR ( Amer) 51 L, Glucose 87, Calcium 9.3, Magnesium 1.8, Triglycerides 99, Cholesterol 180, LDL Cholesterol Direct 123.97, VLDL Cholesterol 20, HDL Cholesterol 39 L, Cholesterol/HDL Ratio 4.6 H I & O for Last 24 hours: Intake & Output 11/1205/20/25 05/21/25 05/22/25 23:59 23:59 23:59 23:59 Intake Total 420 / 660 760 / 760 Output Total 5175 / 5175 300 / 300 Balance -4755 / -4515 460 / 460 Weight 63.049 kg 68.538 kg 67.132 kg Microbiology Reports for the Last 24 Hours: Microbiology 05/21/25 Unknown Urine,Clean Catch Urine Culture - Preliminary Gram Negative Rods Constitutional Constitutional: no acute distress, average body habitus, chronically ill appearing and cooperative *Routine HEENT Exam Head: Present normocephalic and atraumatic ENT: Present mucous membranes moist *Routine Neck Exam Neck: Present supple, full ROM and normal carotid upstroke; Absent JVD, carotid bruit or lymphadenopathy *Routine Respiratory Exam Respiratory: Present normal respiratory effort, able to speak in complete sentences and symmetric chest movement; Absent rhonchi, wheezes or crackles (in bases) *Routine Cardiovascular Exam Cardiovascular: Present Normal S1, Normal S2, murmur and irregularly irregular; Absent gallop *Routine Abdominal Exam Abdominal: Present soft and normoactive bowel sounds; Absent tenderness, distended or organomegaly *Routine Rectal Exam Patient deferred: visual exam *Routine Exam Patient deferred: external exam *Routine Extremities Exam Extremities: Present pulses intact and normal capillary refill; Absent cyanosis, clubbing or edema *Routine Skin Exam Skin: Present intact and warm; Absent erythema *Routine Neurological Exam Neurological: Present alert, CN II-XII intact and moving all extremities; Absent sensory deficit, motor deficit or altered mental status Comments: Oriented to self and place. Answers questions appropriately. Routine Psychiatric Exam Psychiatric: Present normal affect Results Data Completed and Pending Labs on day of discharge: Labs from last 24 hours 05/22/25 05/21/25 06:36 Unknown WBC 6.3 RBC 3.68 L Hgb 10.2 L Hct 32.9 L MCV 89.4 MCH 27.7 MCHC 31.0 L RDW 13.9 Plt Count 203 MPV 11.3 H Neut % (Auto) 71.0 Lymph % (Auto) 18.6 Crenshaw % (Auto) 7.9 Eos % (Auto) 1.7 Baso % (Auto) 0.6 Neut # (Auto) 4.5 Lymph # (Auto) 1.2 Crenshaw # (Auto) 0.5 Eos # (Auto) 0.1 Baso # (Auto) 0.0 Sodium 135 L Potassium 3.4 L Chloride 99 Carbon Dioxide 31 H Anion Gap 8.4 BUN 30 H Creatinine 1.20 H Estimated Creat Clear 35 Estimated GFR 42 L Est GFR ( Amer) 51 L Glucose 87 Calcium 9.3 Magnesium 1.8 Triglycerides 99 Cholesterol 180 LDL Cholesterol Direct 123.97 VLDL Cholesterol 20 HDL Cholesterol 39 L Cholesterol/HDL Ratio 4.6 H Urine Color Yellow Urine Appearance Clear Urine pH 6.0 Ur Specific Radcliffe 1.010 Urine Protein Negative Urine Glucose (UA) Negative Urine Ketones Negative Urine Blood 1+ A Urine Nitrate Negative Urine Bilirubin Negative Urine Urobilinogen 0.2 Ur Leukocyte Esterase Negative Urine RBC 5-10 Urine WBC 5-10 Ur Squamous Epith Cells 5-10 Urine Bacteria 1+ Preliminary micro results at discharge 05/21/25 Unknown Urine Culture - Preliminary Urine,Clean Catch Gram Negative Rods DS: Diagnosis Discharge Diagnosis (1) NSTEMI (non-ST elevated myocardial infarction): Status: Acute Code(s): I21.4 - Non-ST elevation (NSTEMI) myocardial infarction (2) CAD in [place] artery: Status: Acute Code(s): I25.10 - Atherosclerotic heart disease of [place] coronary artery without angina pectoris (3) Acute on chronic HFrEF (heart failure with reduced ejection fraction): Status: Acute Code(s): I50.23 - Acute on chronic systolic (congestive) heart failure (4) Ischemic cardiomyopathy: Status: Acute Code(s): I25.5 - Ischemic cardiomyopathy (5) Hospice care: Status: Acute Code(s): Z51.5 - Encounter for palliative care (6) Atrial fibrillation with rapid ventricular response: Status: Acute Code(s): I48.91 - Unspecified atrial fibrillation (7) Hyperlipidemia: Status: Acute Code(s): E78.5 - Hyperlipidemia, unspecified Qualifiers: Hyperlipidemia type: mixed hyperlipidemia Qualified Code(s): E78.2 - Mixed hyperlipidemia (8) Cerebrovascular accident (CVA): Status: Chronic Code(s): I63.9 - Cerebral infarction, unspecified Qualifiers: CVA mechanism: embolism Precerebral and cerebral artery: unspecified cerebral artery Qualified Code(s): I63.40 - Cerebral infarction due to embolism of unspecified cerebral artery (9) Acute UTI: Status: Acute Code(s): N39.0 - Urinary tract infection, site not specified Problem details: Gram-negative rods, suspected E. coli based on previous cultures. Meds Home Medications and Allergies Home Medications ?Medication ?Instructions ?Recorded ?Confirmed ?Type acetaminophen 500 mg tablet 500 mg PO Q6HP PRN Mild Pain 05/21/25 05/21/25 History (Scale Score 1-4) bisacodyl 10 mg rectal suppository 10 mg AK DAILYP PRN Constipation 05/21/25 05/21/25 History (Dulcolax (bisacodyl)) dabigatran etexilate 150 mg capsule 150 mg PO BID 05/21/25 05/21/25 History diphenhydramine HCl 25 mg tablet 25 mg PO Q6HP PRN Itching 05/21/25 05/21/25 History guaifenesin 1,200 mg tablet, 1,200 mg PO BIDP PRN congestion 05/21/25 05/21/25 History extended release 12 hr (Mucinex) haloperidol 1 mg tablet 1 mg PO Q6HP PRN Agitation 05/21/25 05/21/25 History hydrocortisone 0.5 % topical cream 1 applic topical TIDP PRN Itching 05/21/25 05/21/25 History hyoscyamine sulfate 0.125 mg tablet 0.125 mg PO Q6HP PRN Secretions 05/21/25 05/21/25 History lactulose 10 gram/15 mL oral 30 ml PO DAILYP PRN Constipation 05/21/25 05/21/25 History solution lorazepam 0.5 mg tablet 0.5 mg PO HS 05/21/25 05/21/25 History lorazepam 0.5 mg tablet 0.5 mg PO Q6HP PRN Anxiety 05/21/25 05/21/25 History melatonin 5 mg tablet 5 mg PO HS 05/21/25 05/21/25 History morphine concentrate 5 mg/0.25 mL 5 mg PO Q6HP PRN Moderate Pain 05/21/25 05/21/25 History oral syringe (ORAL USE) (Scale Score 5-6) nitroglycerin 0.4 mg sublingual 0.4 mg sublingual Q5M PRN Chest 05/21/25 05/21/25 History tablet Pain nystatin 100,000 unit/gram topical 1 applic topical BID 05/21/25 05/21/25 History powder ondansetron 4 mg disintegrating 4 mg PO Q6HP PRN Nausea And 05/21/25 05/21/25 History tablet Vomiting polyethylene glycol 3350 17 17 g PO DAILYP PRN Constipation 05/21/25 05/21/25 History gram/dose oral powder (Miralax) prochlorperazine maleate 10 mg 10 mg PO Q6HP PRN Nausea And 05/21/25 05/21/25 History tablet (Compazine) Vomiting sennosides 8.6 mg tablet (senna) 8.6 mg PO HS 05/21/25 05/21/25 History sennosides 8.6 mg-docusate sodium 1 tab PO BIDP PRN constipation 05/21/25 05/21/25 History 50 mg tablet (Stool Softener-Stimulant Laxative) simethicone 80 mg chewable tablet 80 mg PO Q6HP PRN Gas 05/21/25 05/21/25 History spironolactone 25 mg tablet 25 mg PO DAILY 05/21/25 05/21/25 History furosemide 40 mg tablet (Lasix) 40 mg PO DAILY 30 days #0 tabs 05/22/25 05/21/25 Rx levofloxacin 750 mg tablet 750 mg PO Q48H 3 days #2 tabs 05/22/25 Rx metoprolol succinate 25 mg 25 mg PO DAILY 30 days #30 tabs 05/22/25 Rx tablet,extended release 24 hr New Prescriptions to Start Prescriptions: levofloxacin Feng Vicente metoprolol succinate Feng Vicente Allergies Allergy/AdvReac Type Severity Reaction Status Date / Time codeine Allergy Mild Vomiting/na Verified 09/10/24 07:46 usea meloxicam AdvReac Other Verified 09/10/24 07:46 Discharge Plan Disposition Patient Disposition: Hospice - Home Condition: Good Discharge Order Discharge Orders: Discharge Order (Routine); Ordered 05/22/25 Ordered By: Feng Vicente Follow up Plan Prescriptions/Medication Reconciliation: New levofloxacin 750 mg Tablet 750 mg PO Q48H 3 Days Qty: 2 0RF Rx Instructions: first dose 05/24/25 metoprolol succinate 25 mg Tablet Extended Release 24 Hr 25 mg PO DAILY 30 Days Qty: 30 0RF Continued hydrocortisone 0.5 % cream 1 applic topical TIDP PRN (Reason: Itching) sennosides [senna] 8.6 mg Tablet 8.6 mg PO HS sennosides-docusate sodium [Stool Softener-Stimulant Laxat] 8.6-50 mg tablet 1 tab PO BIDP PRN (Reason: constipation) haloperidol 1 mg Tablet 1 mg PO Q6HP PRN (Reason: Agitation) prochlorperazine maleate [Compazine] 10 mg Tablet 10 mg PO Q6HP PRN (Reason: Nausea And Vomiting) acetaminophen 500 mg tablet 500 mg PO Q6HP PRN (Reason: Mild Pain (Scale Score 1-4)) spironolactone 25 mg tablet 25 mg PO DAILY lorazepam 0.5 mg tablet 0.5 mg PO Q6HP PRN (Reason: Anxiety) lorazepam 0.5 mg tablet 0.5 mg PO HS bisacodyl [Dulcolax (bisacodyl)] 10 mg Suppository 10 mg AK DAILYP PRN (Reason: Constipation) hyoscyamine sulfate 0.125 mg Tablet 0.125 mg PO Q6HP PRN (Reason: Secretions) diphenhydramine HCl 25 mg Tablet 25 mg PO Q6HP PRN (Reason: Itching) nitroglycerin 0.4 mg Tablet, Sublingual 0.4 mg SUBLINGUAL Q5M PRN (Reason: Chest Pain) Rx Instructions: do not exceed 3 doses per episode nystatin 100,000 unit/gram Powder 1 applic TOPICAL BID polyethylene glycol 3350 [Miralax] 17 gram/dose powder 17 g PO DAILYP PRN (Reason: Constipation) ondansetron 4 mg Tablet,Disintegrating 4 mg PO Q6HP PRN (Reason: Nausea And Vomiting) simethicone 80 mg Tablet,Chewable 80 mg PO Q6HP PRN (Reason: Gas ) lactulose 10 gram/15 mL Solution 30 ml PO DAILYP PRN (Reason: Constipation) guaifenesin [Mucinex] 1,200 mg tablet extended release 12hr 1,200 mg PO BIDP PRN (Reason: congestion) melatonin 5 mg tablet 5 mg PO HS dabigatran etexilate 150 mg capsule 150 mg PO BID morphine concentrate 5 mg/0.25 mL Syringe 5 mg PO Q6HP PRN (Reason: Moderate Pain (Scale Score 5-6)) Changed furosemide [Lasix] 40 mg tablet 40 mg PO DAILY 30 Days Qty: 0 0RF Problem Reconciliation Problems Reviewed?: Yes Patient Discharge Instructions ACTIVITY: Continue current activity DIET: continue same diet Patient Instructions: DI for Heart Failure, Catheter-Associated Urinary Tract Infection, Stop Light Heart Failure Print Language: Hong Konger Providers Primary Care Provider: Provider,Referral Admit Provider: Feng Vicente Attending Provider: Feng Vicente
--- NOTE | 2025-05-22 09:43 | PC.NURSE ---
F/C removed. iv removed.
--- NOTE | 2025-05-22 09:47 | HMH.PHAAMS2 ---
- Antimicrobial Stewardship Review culture & sensitivity review Stewardship interventions: culture & sensitivity review (GRAM NEGATIVE RODS IN URINE, STARTED ON LEVAQUIN TODAY.)
== END 2025-05-22 12:20 | disposition hospice, home (50) | DRG 280 ==
LOC: ER 05-21 00:58 → ICU 05-21 14:20 → 2ND 05-21 14:20
PROVIDERS: Nurse Practitioner Acute Care; Nurse Practitioner Family; Student in an Organized Health Care Education/Training Program; Admitting Provider Internal Medicine Adolescent Medicine; Emergency Provider Emergency Medicine; Visit Provider Internal Medicine Adolescent Medicine
DX: I21.4 Non-ST elevation (NSTEMI) myocardial infarction (principal); I50.23 Acute on chronic systolic (congestive) heart failure; I63.40 Cerebral infarction due to embolism of unspecified cerebral artery; N39.0 Urinary tract infection, site not specified; I48.20 Chronic atrial fibrillation, unspecified; B96.20 Unspecified Escherichia coli [E. coli] as the cause of diseases classified elsewhere; F41.9 Anxiety disorder, unspecified; I25.10 Atherosclerotic heart disease of native coronary artery without angina pectoris; I25.5 Ischemic cardiomyopathy; E78.2 Mixed hyperlipidemia; Z51.5 Encounter for palliative care; Z88.5 Allergy status to narcotic agent; Z88.6 Allergy status to analgesic agent; Z79.01 Long term (current) use of anticoagulants; Z79.899 Other long term (current) drug therapy
CPT/HCPCS: 36415; 70450; 71045; 80048; 80053; 80061; 80162; 81001; 83690; 83735; 83880; 84100; 84484; 85025; 85378; 85610; 87086; 87088; 87186; 93005; 93306; 97162; 97165; 99285; J1650; J1938; Q9957

== ENCOUNTER 2025-06-07 22:50 | Inpatient (IN) | payer OTHER, SELFPAY ==
[2025-06-07 22:49] VITALS: BP 130/82; PULSE 98; RESP 17; TEMP -17.7; TEMP 0; O2SAT 99; BMI 24.2
--- NOTE | 2025-06-07 22:50 | PC.NURSE ---
Attempted to place an OG, OG felt as if it were coiling, will await XR at bedside for ET placement verification.
[2025-06-07] MEDS: ETOMIDATE 40MG/20ML VIAL 20 MG IV (22:53)
[2025-06-07] MEDS: SUCCINYLCHOLINE 20MG/ML 10 ML MDV 68 MG IV (22:53)
--- NOTE | 2025-06-07 22:55 | ECG_ITS ---
APPROVED REPORT Exam: Resting ECG HR:120 bpm ECG Measurements Heart Rate 120 AXES QRSd 99 QRS 55 QT 319 T 172 QTc 390 Conclusion ATRIAL FIBRILLATION WITH RAPID VENTRICULAR RESPONSE MARKED ST DEPRESSION, CONSIDER SUBENDOCARDIAL INJURY [0.2+ mV ST DEPRESSION] ACUTE HI Electronically signed by : THAO CASTRO, 06/08/2025 17:09:24
--- NOTE | 2025-06-07 22:55 | XR_ITS ---
PROCEDURE INFORMATION: Exam: XR Chest Exam date and time: 06/07/2025 11:07 PM Age: 89 years old Clinical indication: Device placement; Ett placement (vent status); Et tube placement/ og tube placement; Additional info: S/P intubation TECHNIQUE: Imaging protocol: Radiologic exam of the chest. Views: 1 view. COMPARISON: CR XR CHEST PORTABLE 05/20/2025 11:15 PM FINDINGS: Tubes, catheters and devices: Endotracheal tube appears low in position with the tip at the level of the faheem. Proximal portion of esophagogastric tube is seen extending below the level of the diaphragm. Distal end not included in the field of view. Lungs: Moderate right upper lobe perihilar airspace disease. Left lung appears largely clear. Pleural spaces: Unremarkable. No pleural effusion. No pneumothorax. Heart/Mediastinum: Unremarkable. No cardiomegaly. Bones/joints: Unremarkable. IMPRESSION: 1. Low position of endotracheal tube. Withdrawal approximately 4 cm recommended. 2. Esophagogastric tube appears to extend below the diaphragm with the distal tip is not included in the field of view 3. Moderate right upper lobe perihilar infiltrate
--- OUTSIDE RECORDS SUMMARY | 2025-06-07 22:57 | XMS_ITS | Clinical Summary ---
[facility] Address [address] [place] [address] Care Team Providers Care Booth Cleaner Name Role Phone Unavailable Primary Care Provider [...] 02/05/2025 COVID-19 Vaccine (2023- season) 2025 Insurance [facility] MEDICARE ADVANTAGE
--- OUTSIDE RECORDS SUMMARY | 2025-06-07 22:57 | XMS_ITS | Encounter Summary ---
Author Organization Healthcare Address [address] [place] [address] Care Team Providers Care Fuel Cell Test Engineer Name Role Phone Jairo Valverde MD Primary Care Provider [phone] Edouard Contreras FAGOTING MACHINE OPERATOR Unavailable [phone] Encounter Details Date Type Department Care Team (Late st Contact Info) Description 05/14/2022 Lab Requisition [facility] [address] [place] [address] Patrick Murrieta MD [address] [place] [address] Encounter for general adult medical [...] drink first t katja in the morning (EYE-RESEARCH SPEC) to steady your nerves or to get [...] Final Result [facility] [address] [place] [address] documented in this encounter Visit Diagnoses Diagnosis Encounter for general adult medical examination without abnormal findings documented in this encounter Additional Health Concerns Infection Onset Date Last Indicated Resolved Time RSV 05/13/2022 05/13/2022 06/10/2022 5:23 AM EST COVID 19 (Confirmed) Comment:[facility] has verified patient has a COVID-19 positive result. A chart review has been completed, EPI PUI has been completed and sent to appropriate Health Dept. [facility] Passport Application Examiner: Tushar Lopez Infection Prevention & Control Note Isolation Discontinued: 05/24/2022 Patient has been approved by [facility] medical direction to have COVID-19 isolation discontinued. [...] not considered immunocompromised or suppressed. [facility] has been contacted to complete a modified clean of the room. Please continue isolation precautions until [facility] has completed the modified clean. 05/13/2022 05/13/2022 05/24/2022 11:35 AM EST MRSA 05/13/2022 05/13/2022 documented as of this encounter Care Teams Fuel Cell Test Engineer Relationship Specialty Start Date End Date Jairo Valverde MD [address] [place] [id number] PCP - General 11/18/20 Edouard Contreras APRN [address] [place] [id number] First Call Provider Neurology 04/24/22 documented as of this encounter
--- OUTSIDE RECORDS SUMMARY | 2025-06-07 22:57 | XMS_ITS | Clinical Summary ---
Author Organization Healthcare Address [address] [place] [address] Care Team Providers Care Technical Support Technician Name Role Phone Jairo Valverde MD Primary Care Provider [phone] Edouard Contreras DRAW FURNACE TENDER Unavailable [phone] Allergies Active Allergy Reactions Criticality Noted Date [...] patient having mild difficulty with PO intake. BRAND MARKETING INTERN re-assessed at bedside and able to continue [...] 04/18/2022 Overview (04/24/2022): - She presented to [facility] after developing left sided weakness, left facial [...] Focal severe stenoses of the right P2 ETHICAL HACKER segments, proximal right A1 KIMBERLEY segment, and left proximal P2 ETHICAL HACKER segment. - Carotid duplex remarkable for hemodynamically [...] drink first t katja in the morning (EYE-LUMBER GRADER) to steady your nerves or to get [...] Wellness (AWV) 1937 [facility]-Infant/Child/Adol SDOH Screenings 1937 [facility]- SDOH Screenings 1955 [facility]-Adult SDOH Screenings 1955 [facility]-DTaP,Tdap,and Td Vaccine s (1 - Tdap) 1956 [facility]-Pneumococcal Vaccine: 50 + Years (1 of 1 - PCV) 1987 [facility]-Zoster Vaccines (1 of 2) 1987 [facility]-RSV Vaccine: 60+ Years o r (1 - 1-dose 75+ series) 2012 [id number] Vaccine (2 - 20 25-26 season) 2025 [...] Date Last Indicated MRSA 05/13/2022 05/13/2022 Insurance [facility] MEDICARE Advance Directives * DNR/DNI (Latest [...] Healthcare Agent Relationshi p Communication Drake Arnel Grandchild Next of Kin [phone] ( Mobile) Care Teams Technical Support Technician Relationship Specialty Start Date End Date Jairo Valverde MD [address] [facility] [place] [address] PCP - General 11/18/20 Edouard Contreras APRN [address] [place] [address] First Call Provider Neurology 04/24/22
[2025-06-07 23:01] LABS: VBG HCO3 17.1 mmol/L (23-30); VBG PCO2 45.8 mmol/L (35-51); VBG PO2 115.2 mmol/L (28-40)
[2025-06-07 23:02] VITALS: BP 110/79; PULSE 130; O2SAT 99
[2025-06-07] MEDS: NOREPINEPHRINE BITARTRATE/D5W 8 MG/250 ML PLAST..BAG 15 MG IV (23:02)
[2025-06-07 23:03] LABS: Hematocrit 34.5 % (37.0-47.0); Hemoglobin 10.5 g/dL (12.2-16.2); Immature Granulocytes % 3.0 %; Mean Corpuscular HGB Conc 30.4 g/dL (31.8-35.4); Mean Corpuscular Hemoglobin 27.1 pg (27.0-31.2); Mean Corpuscular Volume 89.1 fl (81-99); Nucleated Red Blood Cells % 0 %; Platelet Count 270 K/mm3 (142-424); Red Blood Count 3.87 M/mm3 (4.20-5.40); Red Cell Distribution Width-SD 46.9 fL; White Blood Count 9.3 K/mm3 (4.8-10.8)
[2025-06-07 23:04] VITALS: BP 58/40; PULSE 128; O2SAT 99
[2025-06-07 23:09] VITALS: BP 79/59; PULSE 128; O2SAT 100
[2025-06-07 23:14] LABS: Alanine Aminotransferase 19 U/L (12-78); Anion Gap 8.7 mEq/L (5-15); Aspartate Amino Transferase 26 U/L (14-36); Bilirubin,Total 0.4 mg/dl (0.2-1.3); Blood Urea Nitrogen 20 mg/dl (7-17); Calcium 6.6 mg/dl (8.4-10.2); Carbon Dioxide 14 mmol/L (22.0-30.0); Chloride 116 mmol/L (98-107); Creatinine,Serum 0.80 mg/dl (0.52-1.04); Estimated Glomerular Filt Rate 68 ml/min (>60); GFR (African American) 82 ML/MIN (>60); Glucose 142 mg/dl (74-100); Sodium 136 mmol/L (136-145); Total Protein,Serum 5.2 g/dl (6.3-8.2)
[2025-06-07 23:15] LABS: Albumin Level 2.6 g/dl (3.5-5.0); Albumin/Globulin Ratio 1.0 (1.1-1.8); Alkaline Phosphatase 81 U/L (38-126); Globulin 2.6 g/dL (1.3-3.2)
--- NOTE | 2025-06-07 23:23 | ED_ITS ---
Discharge Plan Disposition Patient Disposition: Admitted Clinical Impressions Clinical Impression: Coma, Acute head trauma, Respiratory failure, Coagulopathy, Facial trauma Discharge ED Provider: Teddy Montejo General Adult HPI General Stated complaint: unresponsive Time Seen by Provider: 06/07/25 22:55 Mode of Arrival: EMS Source of Information: EMS History of Present Illness HPI narrative: Mireya Jones is an 89-year-old female with past medical history of HFrEF, NSTEMI, A-fib, coronary artery disease who presents to the emergency department via EMS unresponsive. Per EMS, she was at her shelter and collapsed. Is unclear if she lost her pulse at that time. When EMS arrived, she was GCS of 3. They noted significant facial trauma and bleeding from the face, nose and mouth. Patient had a pulse at the time of their arrival. Related Data Home Medications ?Medication ?Instructions ?Recorded ?Confirmed acetaminophen 500 mg tablet 500 mg PO Q6HP PRN Mild Pa in 05/21/25 05/21/25 (Scale Score 1-4) bisacodyl 10 mg rectal suppository 10 mg VA DAILYP PRN Constipation 05/21/25 05/21/25 (Dulcolax (bisacodyl)) dabigatran etexilate 150 mg capsule 150 mg PO BID 05/0805/21/25 diphenhydramine HCl 25 mg tablet 25 mg PO Q6HP PRN Itc katja 05/21/25 05/21/25 guaifenesin 1,200 mg tablet, 1,200 mg PO BIDP PRN delroy estion 05/21/25 05/21/25 extended release 12 hr (Mucinex) haloperidol 1 mg tablet 1 mg PO Q6HP PRN Agitation 1 07/21/24 05/21/25 hydrocortisone 0.5 % topical cream 1 applic topical TI DP PRN Itching 05/21/25 05/21/25 hyoscyamine sulfate 0.125 mg tablet 0.125 mg PO Q6HP P RN Secretions 05/21/25 05/21/25 lactulose 10 gram/15 mL oral 30 ml PO DAILYP PRN Const ipation 05/21/25 05/21/25 solution lorazepam 0.5 mg tablet 0.5 mg PO HS 05/21/25 lorazepam 0.5 mg tablet 0.5 mg PO Q6HP PRN Anxiety 1 07/21/24 05/21/25 melatonin 5 mg tablet 5 mg PO HS 05/21/25 05/21/25 morphine concentrate 5 mg/0.25 mL 5 mg PO Q6HP PRN Mod erate Pain 05/21/25 05/21/25 oral syringe (ORAL USE) (Scale Score 5-6) nitroglycerin 0.4 mg sublingual 0.4 mg sublingual Q5M PRN Chest 05/21/25 05/21/25 tablet Pain nystatin 100,000 unit/gram topical 1 applic topical BI D 05/21/25 05/21/25 powder ondansetron 4 mg disintegrating 4 mg PO Q6HP PRN Nause a And 05/21/25 05/21/25 tablet Vomiting polyethylene glycol 3350 17 17 g PO DAILYP PRN Constip ation 05/21/25 05/21/25 gram/dose oral powder (Miralax) prochlorperazine maleate 10 mg 10 mg PO Q6HP PRN Nause a And 05/21/25 05/21/25 tablet (Compazine) Vomiting sennosides 8.6 mg tablet (senna) 8.6 mg PO HS 05/21/25 05/21/25 sennosides 8.6 mg-docusate sodium 1 tab PO BIDP PRN co nstipation 05/21/25 05/21/25 50 mg tablet (Stool Softener-Stimulant Laxative) simethicone 80 mg chewable tablet 80 mg PO Q6HP PRN Ga s 05/21/25 05/21/25 spironolactone 25 mg tablet 25 mg PO DAILY 05/21/25 Previous Rx's ?Medication ?Instructions ?Recorded furosemide 40 mg tablet (Lasix) 40 mg PO DAILY 30 days #0 tabs 05/22/25 levofloxacin 750 mg tablet 750 mg PO Q48H 3 days #2 ta bs 05/22/25 metoprolol succinate 25 mg 25 mg PO DAILY 30 days #30 tabs 05/22/25 tablet,extended release 24 hr Allergies Allergy/AdvReac Type Severity Reaction Status Date / Time codeine Allergy Mild Vomiting/na Verified 09/10/24 07:46 usea meloxicam AdvReac Other Verified 09/10/24 07:46 [facility] Dis[facility]: The information contained in this section may have been updated after the patient was seen, as this information can be updated by other users. Medical History (Updated 06/08/25 @ 02:39 by Teddy Montejo MD) Acute on chronic HFrEF (heart failure with reduced ejection fraction) CAD in [place] artery Atrial fibrillation Ischemic cardiomyopathy Regional wall motion abnormality of heart Atypical angina HFrEF (heart failure with reduced ejection fraction) Hx of cardiomyopathy Tachy-kaylha syndrome Symptomatic bradycardia History of stroke Congestive heart failure Hyperlipidemia Hypertension Left-sided weakness Pincer nail deformity Edema Hammer toe Callus of foot Osteomyelitis Onychoincurvatum Encounter for wound care Ulcer of right foot Cardiomyopathy Pulmonary hypertension Hypokalemia Congestive heart failure Atrial fibrillation with rapid ventricular response Surgical History History of surgery History of left knee replacement Family History Other No significant family history Social History (Updated 06/08/25 @ 00:30 by Mayra Cuellar RN) Smoking Status: Unknown if ever smoked alcohol intake: never substance use type: denies use current occupational status: retired Travel in the last 8 weeks?: None household members: none caffeine: No Have you lived/traveled outside [place] in past 30 days?: No Contact w/someone who lives/traveled outside US past 30 days?: No Exposure to someone with infectious disease in past 14 days?: No Do you have a fever (greater than 100.4 F or 38 C)?: No Have you tested positive for COVID-19?: No Exposed to someone with COVID-19 in past 14 days?: No Do you have a sore throat?: No Do you have a cough?: No Do you have any weakness?: No Do you have any diarrhea?: No Are you experiencing any unusual bleeding?: No Do you have any muscle aches/pain?: No Do you have any abdominal pain?: No Are you experiencing loss of taste or smell?: No Other Medical History Have you received the Flu Vaccine for this season: No Have you received the Pneumonia Vaccine: No ROS Obtained: Yes unobtainable due to mental status Physical Exam General General appearance: other Comment: Agonal respirations, GCS 3, receiving bag valve ventilation Head Head exam: other (significant mid face trauma with periorbital ecchymosis, bleeding laceration to bridge of nose, bright red epistaxis and posterior oropharyngeal pooling blood. ) Eye Eye exam: Absent PERRL (pupils fixed and 3mm bilaterally) ENT ENT exam: Absent normal oropharynx (bright red blood pooling in oropharynx and rapidly accumulating after suctioning) Respiratory Respiratory exam: Present respiratory distress (agonal respirations) and other (breath sounds present bilaterally) Cardiovascular Cardiovascular exam: Present normal rhythm and tachycardia Abdominal Exam Abdominal exam: Present distention Extremities Exam Extremities exam: Present normal inspection Neurological Exam Neurological exam: Absent oriented X3 (GCS 3) Skin Skin exam: Present other (pale) Medical Decision Making Medical Records Screening: Per USPSTF and CDC recommendations, given the prevalence of disease in our region, it is our hospital?s policy to screen for HIV and viral Hepatitis for all patients aged 18 and over and those with ongoing risk factors. Chaz Inquiry Pt receiving controlled substance: No Vital Signs: 06/07/25 22:49 06/07/25 23:02 06/07/25 23:04 Temperature 0 F L Temperature Source Oral Pulse Rate 130 H 128 H Pulse Rate [Apical] 98 H Respiratory Rate 17 Blood Pressure 110/79 58/40 L Blood Pressure [Right Arm] 130/82 Blood Pressure Mean [Right Arm] 98 Blood Pressure Source [Right Arm] Automatic Cuff Blood Pressure Position [Right Arm] Supine 02 Sat by Pulse Oximetry 99 99 99 Oxygen Delivery Method Ambu-Bag Mechanical Ventilation Mechanical Ventilation 06/07/25 23:09 06/07/25 23:35 Temperature Temperature Source Pulse Rate 128 H Pulse Rate [Apical] Respiratory Rate Blood Pressure 79/59 L Blood Pressure [Right Arm] Blood Pressure Mean [Right Arm] Blood Pressure Source [Right Arm] Blood Pressure Position [Right Arm] 02 Sat by Pulse Oximetry 100 Oxygen Delivery Method Mechanical Ventilation Mechanical Ventilation Lab Data Lab Results 06/07/25 22:45: WBC 9.3, RBC 3.87 L, Hgb 10.5 L, Hct 34.5 L, MCV 89.1, MCH 27.1, MCHC 30.4 L, RDW 14.6, Plt Count 270, MPV 10.9 H, Neut % (Auto) 67.2, Lymph % (Auto) 24.1, [place] % (Auto) 4.0, Eos % (Auto) 1.3, Baso % (Auto) 0.4, Neut # (Auto) 6.2, Lymph # (Auto) 2.2, [place] # (Auto) 0.4, Eos # (Auto) 0.1, Baso # (Auto) 0.0, PT 53.1 H, INR 5.42 H, Sodium 136, Potassium 2.7 L*, Chloride 116 H, Carbon Dioxide 14 L, Anion Gap 8.7, BUN 20 H, Creatinine 0.80, Estimated GFR 68, Est GFR ( Amer) 82, Glucose 142 H, Calcium 6.6 L, Total Bilirubin 0.4, AST 26, ALT 19, Alkaline Phosphatase 81, Troponin I 0.04 H, NT-Pro-B Natriuret Pep 13744 H, Total Protein 5.2 L D, Albumin 2.6 L, Globulin 2.6, A lbumin/Globulin Ratio 1.0 L 06/07/25 22:55: VBG pH 7.19 L, VBG pCO2 45.8, VBG pO2 115.2 H, VBG HCO3 17.1 L, VBG Total CO2 18.5 L, VBG O2 Saturation 97.6 H, VBG Base Excess -11.0 L, VBG Lactic Acid 4.4 H 06/07/25 23:15: Blood Type A Positive, Antibody Screen Negative, Crossmatch (AHG) See Detail 06/07/25 22:45 06/07/25 22:45 Orders (Tests/Meds): ED MEDICATIONS Generic Name Dose Route Start Last Admin Trade Name Freq PRN Reason Stop Dose Admin Etomidate 20 mg 06/08/25 00:06 06/07/25 22:53 Etomidate 40mg/20ml Vial IV 06/08/25 00:07 20 mg ONCE ONE Administration Glycopyrrolate 0.2 mg 06/08/25 00:41 06/08/25 00:46 Glycopyrrolate 0.2 Mg/Ml 1ml Vial IV 06/08/25 00:42 0.2 mg ONCE ONE Administration Lorazepam 0.5 mg 06/08/25 00:57 Lorazepam 2mg/Ml Vial IV 07/08/25 00:41 Q6HP PRN Agitation Morphine Sulfate 4 mg 06/08/25 00:38 06/08/25 00:46 Morphine 4mg/Ml Syringe IV 06/08/25 00:39 4 mg ONCE ONE Administration Morphine Sulfate 2 mg 06/08/25 00:44 Morphine 4mg/Ml Syringe IV 07/08/25 00:43 Q4HP PRN Severe Pain (7-10) Sodium Chloride 10 ml 06/08/25 00:42 Sodium Chloride 0.9% 10ml Vial IV 07/08/25 00:41 NEEDED PRN to Dilute Lorazepam inj Succinylcholine Chloride 68 mg 06/08/25 00:06 06/07/25 22:53 Succinylcholine 20mg/Ml 10 Ml Mdv IV 06/08/25 00:07 68 mg ONCE ONE Administration Discontinued Medications Generic Name Dose Route Start Last Admin Trade Name Freq PRN Reason Stop Dose Admin Norepinephrine/Dextrose 8 mg in 250 mls @ 3.75 mls/hr 06/07/25 23:02 06/08/25 01:45 Levophed 8mg/250ml-D5w Premix IV 07/07/25 23:01 0 mcg/min .Q24H PRITESH 0 mls/hr Protocol Titration 2 MCG/MIN Lorazepam 1 mg 06/08/25 00:42 Lorazepam 2mg/Ml Vial IV 07/08/25 00:41 Q6HP PRN Agitation ORDERS Category Date Time Status CXR --portable [XR chest portable] Stat Exams 06/07/25 22:55 Completed BNP [NT Pro Brain Natriuretic Pep.] Stat Lab 06/07/25 22:45 Completed CBC w/Auto Diff [Complete Blood Count Auto Diff] Stat Lab 06/07/25 22:45 Completed CMP [Comprehensive Metabolic Panel] Stat Lab 06/07/25 22:45 Completed PT INR [Prothrombin Time INR] Stat Lab 06/07/25 22:45 Completed Troponin I Stat Lab 06/07/25 22:45 Completed VBG [Venous Blood Gas] Stat RT 06/07/25 22:55 Completed Medical Decision Narrative: Mireya Jones is an 89-year-old female with past medical history of HFrEF, NSTEMI, A-fib, coronary artery disease who presents to the emergency department via EMS unresponsive. Per EMS, she was at her shelter and collapsed. Is unclear if she lost her pulse at that time. When EMS arrived, she was GCS of 3. They noted significant facial trauma and bleeding from the face, nose and mouth. Patient had a pulse at the time of their arrival. On arrival, patient is currently receiving bag valve mask ventilation via EMS. She is unresponsive. Patient noted to have significant blood around her nose and mouth. With every ventilation, blood in ear would escape through laceration through the bridge of her nose. Breath sounds were present bilaterally. Pupils were 3 mm and fixed bilaterally. Patient noted to be tachycardic and was initially maintaining oxygen saturation of 97 to 98% with [id number] ventilation. Bright red blood was noticed in both nostrils as well as rapidly accumulating in the posterior oropharynx despite suctioning. She is pale. Per EMS, patient was reportedly a hospice patient and EMS had an EMS DNR form. I was able to talk on the phone shortly after patient's arrival with her grandson who was with patient's POAMackenzie. Given her significant facial trauma, likely severe TBI/possible brain bleed, and inability to protect her airway, I did ask the family if they wanted to pursue intubation, and they wish to proceed with intubation at this time. I attempted to intubate without RSI, however patient's jaw was tight and I could not open her mouth wide enough to get the laryngoscope through. RSI was then performed using 0.3 mg/kg of etomidate and 1 mg/kg of succinylcholine. I was able to pass a 7.5 ET tube through the vocal cords using video laryngoscopy and suctioning. ET tube 22 at the lips and was secured with positive color change on capnography. Breath sounds are present bilaterally. Appropriate chest tube placement was confirmed via chest x-ray. Patient was noted to be hypotensive at this time and was given a unit of emergent blood and started on norepinephrine. EKG was interpreted by me personally and did show sinus tachycardia with ST depressions in the lateral leads without reciprocal ST elevations, which could be indicative of a myocardial infarction. Shortly after this, patient's POMackenzie Carranza arrived and stated that she had the patient's advance directives and they do not wish to escalate care any further and want her made as comfortable as possible at this time. They confirm that she is DNR and that those are her wishes. I do feel that this is appropriate as patient's injuries are severe, and that her prognosis is poor given her severely diminished mental status and continued hemorrhage in the setting of a possible PR. Family was in agreement to provide comfort measures and to avoid any further escalation of care. I then discussed admission with the hospitalist, Dr. Pink, who agreed to admit the patient for further management/comfort measures. At the time of admission, patient's INR was noted to be significantly elvated at 5.42. A VBG showed a metabolic acidosis with pH of 7.19, pCO2 of 45.8, and bicarb of 18.5 and elevated lactate of 4.4. K low at 2.7. The remainder of her labs are pending at this time. Procedures Intubation Mallampati Score:: Class II Time out performed: No sedative: Etomidate Mg Given: 20 paralytic: Succinylcholine Mg Given: 68 Laryngoscope: Glen ET Tube Size: 7.5 ET Tube Uncuffed: No Tube Secured Depth (cm): 22 Tube Secured Location: lips Tube Placement Confirmation: visualized tube passing through cords, equal breath sounds bilaterally, no breath sounds over epigastrium and confirmation by capnometry Patient Tolerated Procedure: no complications Intubation Complications: hypotension Critical Care Critical Care Time Critical Care Time: Yes Attestation: On 06/07/25, the high probability of a clinically significant, sudden or life threatening deterioration of the following system(s) required my full and direct attention, intervention and personal management. The time I documented below is in addition to time spent performing reported procedures but includes the following listed in this critical care notation. Total Time Total Critical Care Time: 40
[2025-06-07 23:27] LABS: NT Pro Brain Natriuretic Pep. 15300 pg/mL (0-450); Troponin I 0.04 ng/ml (0.00-0.034)
[2025-06-07 23:30] LABS: Potassium 2.7 mmoL/L (3.5-5.1)
--- NOTE | 2025-06-07 23:40 | PC.NURSE ---
224- pt to ED following a fall at home. Family reported pt was unresponsive and not breathing after the fall. Family started CPR and called 911. When EMS arrived, pt was found to be unresponsive, with a pulse, not breathing, with significant blood loss from nose, mouth, and face. Pt has DNR/DNI form with EMS. Pt was bagged on way to ED. Upon arrival, GCS 3, pupils 3mm and nonreactive, MA 141 in afib RVR, O2 sat 99%. BP 130/82. 2244- IO to right tibia 2245-18G IV to RAC, 20G IV to LAC 2253- 20mg etomidate 60mg Succ 225- Pt intubated with 7.5 ETT, 22cm at the teeth, color change noted with chest rise and bilat breath sounds. 2300- 1st unit PRBC's started (see emergent blood release note) 2302- Norepi started @2302 @ 8 mcg/min 2305- 16Fr OG tube placed @65cm and 16Fr temp sensing hughes placed. 2307 EKG completed.
[2025-06-07 23:50] VITALS: BP 91/56; PULSE 106; RESP 12; TEMP -17.7; TEMP 0; O2SAT 98
--- NOTE | 2025-06-07 23:58 | PC.NURSE ---
Patient arrived to floor via stretcher from ED at 23:57.
[2025-06-08 00:11] LABS: Lactate Venous 4.4 mmol/L (0.4-2.0); VBG PH 7.19 mmol/L (7.31-7.41)
[2025-06-08 00:12] LABS: INR 5.42 (0.9-1.1); Prothrombin Time 53.1 seconds (10.1-12.5)
--- NOTE | 2025-06-08 00:29 | PC.NURSE ---
Emergent Released Blood Documentation: Product Unit Number: [id number] Start time: 06/07/252299 Stop time: 06/07/252319 Volume Infused: 250ml Pre transfusion- 2255: 50/36 HR 138, RR17, O2-97% 2300-46/17. HR 137, RR 16, O2- 95% 2305-58/40, HR 127, RR 18 O2- 97% 2310- HR 124 RR16 O2- 100% 2315- 107/65 HR-111 RR 13 O2 sat 96% 2320- HR 109 RR13 O2 sat 99%
[2025-06-08] MEDS: GLYCOPYRROLATE 0.2 MG/ML 1ML VIAL IV (00:46)
[2025-06-08] MEDS: MORPHINE 4MG/ML SYRINGE 4 MG IV (00:46)
--- NOTE | 2025-06-08 01:05 | PC.NURSE ---
Pt transferred to ICU before 1 hour post-transfusion VS
[2025-06-08 01:48] VITALS: BP 50/36; PULSE 138; RESP 17; O2SAT 97
--- NOTE | 2025-06-08 02:04 | PC.NURSE ---
Oil Field Laborer paged @ [phone]
--- NOTE | 2025-06-08 02:37 | PC.NURSE ---
patient was extubated at 01:05 with family, respiratory therapy, and RN at bedside. Patient time of was 01:20. MARY was called at 01:34, spoke with Maureen. . Senior Administrative Assistant called forest economist. Lens Cutter came to bedside and after evaluation notified home that family stated they would like to use at 02:36. Post Mortem care performed. Waiting for home to arrive.
--- NOTE | 2025-06-08 03:25 | PC.NURSE ---
home left with patient at 03:25.
[2025-06-08 04:12] LABS: Reflex Lactic Add Lactic Reflex
--- NOTE | 2025-06-08 07:48 | P.HP_ITS ---
<Statement entered by Mariusz Harrington MD - 06/15/25 15:55> Agree with plan of care as outlined by the SHRIMP TRAWLER. History of Present Illness *Admission Date: 06/08/25 *Reason for visit:: Unresponsive *History of present illness: Patient is an 89-year-old female with past medical history significant for congestive heart failure, COPD, atrial fibrillation, hyperlipidemia, history of CVA. Patient presents from her nursing facility after being found unresponsive. She was found to have significant facial trauma. It was undetermined how long patient was down. EMS notified and transferred to our facility. On arrival to our facility provider noted patient was unresponsive, reactive pupils and not breathing. Pulse present on arrival. GCS 3. Significant facial trauma bleeding from face, nose and mouth. Patient is also noted to be a hospice patient. ED provider was able to reach patient's grandson who was present with POA via phone regarding plan of care due to present circumstances. Patient's grandson agreed with pursuing intubation. Shortly after the POA arrived facility with patient's advanced directive stating they do not wish to escalate any further care and wanted to pursue comfort measures. Family confirmed DNR status and agreed with continue care with comfort measures. Patient transferred to the unit. I discussed and reaffirmed comfort measures plan. We also discussed extubating patient. POA in agreements with plan. Patient received IV morphine, IV Robinul prior to extubation. Family present during extubation. Henri, patient appointment coordinator and home notified per nursing staffing coordinator. [facility] Disclaimer: The information contained in this section may have been updated after the patient was seen, as this information can be updated by other users. Medical History Acute on chronic HFrEF (heart failure with reduced ejection fraction) CAD in [place] and [place] artery Atrial fibrillation Ischemic cardiomyopathy Regional wall motion abnormality of heart Atypical angina HFrEF (heart failure with reduced ejection fraction) Hx of cardiomyopathy Tachy-kaylah syndrome Symptomatic bradycardia History of stroke Congestive heart failure Hyperlipidemia Hypertension Left-sided weakness Pincer nail deformity Edema Hammer toe Callus of foot Osteomyelitis Onychoincurvatum Encounter for wound care Ulcer of right foot Cardiomyopathy Pulmonary hypertension Hypokalemia Congestive heart failure Atrial fibrillation with rapid ventricular response Surgical History History of surgery History of left knee replacement Family History Other No significant family history Social History Smoking Status: Unknown if ever smoked alcohol intake: never substance use type: denies use current occupational status: retired Travel in the last 8 weeks?: None household members: none caffeine: No Have you lived/traveled outside US in past 30 days?: No Contact w/someone who lives/traveled outside US past 30 days?: No Exposure to someone with infectious disease in past 14 days?: No Do you have a fever (greater than 100.4 F or 38 C)?: No Have you tested positive for COVID-19?: No Exposed to someone with COVID-19 in past 14 days?: No Do you have a sore throat?: No Do you have a cough?: No Do you have any weakness?: No Do you have any diarrhea?: No Are you experiencing any unusual bleeding?: No Do you have any muscle aches/pain?: No Do you have any abdominal pain?: No Are you experiencing loss of taste or smell?: No Other Medical History Have you received the Flu Vaccine for this season: No Have you received the Pneumonia Vaccine: No Review of Systems Review of Systems Review of systems:: unable to obtain and pertinent systems reviewed and negative unless documented below Meds Home Medications and Allergies Home Medications ?Medication ?Instructions ?Recorded ?Confirmed ?Type acetaminophen 500 mg tablet 500 mg PO Q6HP PRN Mild Pa in 05/21/25 05/21/25 History (Scale Score 1-4) bisacodyl 10 mg rectal suppository 10 mg KS DAILYP PRN Constipation 05/21/25 05/21/25 History (Dulcolax (bisacodyl)) dabigatran etexilate 150 mg capsule 150 mg PO BID 05/0805/21/25 History diphenhydramine HCl 25 mg tablet 25 mg PO Q6HP PRN Itc katja 05/21/25 05/21/25 History guaifenesin 1,200 mg tablet, 1,200 mg PO BIDP PRN delroy estion 05/21/25 05/21/25 History extended release 12 hr (Mucinex) haloperidol 1 mg tablet 1 mg PO Q6HP PRN Agitation 1 07/21/24 05/21/25 History hydrocortisone 0.5 % topical cream 1 applic topical TI DP PRN Itching 05/21/25 05/21/25 History hyoscyamine sulfate 0.125 mg tablet 0.125 mg PO Q6HP P RN Secretions 05/21/25 05/21/25 History lactulose 10 gram/15 mL oral 30 ml PO DAILYP PRN Const ipation 05/21/25 05/21/25 History solution lorazepam 0.5 mg tablet 0.5 mg PO HS 05/21/25 History lorazepam 0.5 mg tablet 0.5 mg PO Q6HP PRN Anxiety 1 07/21/24 05/21/25 History melatonin 5 mg tablet 5 mg PO HS 05/21/25 05/21/25 History morphine concentrate 5 mg/0.25 mL 5 mg PO Q6HP PRN Mod erate Pain 05/21/25 05/21/25 History oral syringe (ORAL USE) (Scale Score 5-6) nitroglycerin 0.4 mg sublingual 0.4 mg sublingual Q5M PRN Chest 05/21/25 05/21/25 History tablet Pain nystatin 100,000 unit/gram topical 1 applic topical BI D 05/21/25 05/21/25 History powder ondansetron 4 mg disintegrating 4 mg PO Q6HP PRN Nause a And 05/21/25 05/21/25 History tablet Vomiting polyethylene glycol 3350 17 17 g PO DAILYP PRN Constip ation 05/21/25 05/21/25 History gram/dose oral powder (Miralax) prochlorperazine maleate 10 mg 10 mg PO Q6HP PRN Nause a And 05/21/25 05/21/25 H istory tablet (Compazine) Vomiting sennosides 8.6 mg tablet (senna) 8.6 mg PO HS 05/21/25 05/21/25 History sennosides 8.6 mg-docusate sodium 1 tab PO BIDP PRN co nstipation 05/21/2505/21 History 50 mg tablet (Stool Softener-Stimulant Laxative) simethicone 80 mg chewable tablet 80 mg PO Q6HP PRN Ga s 05/21/25 05/21/25 History spironolactone 25 mg tablet 25 mg PO DAILY 05/21/25 History furosemide 40 mg tablet (Lasix) 40 mg PO DAILY 30 days #0 tabs 05/22/25 05/21/25 Rx levofloxacin 750 mg tablet 750 mg PO Q48H 3 days #2 ta bs 05/22/25 Rx metoprolol succinate 25 mg 25 mg PO DAILY 30 days #30 tabs 05/22/25 Rx tablet,extended release 24 hr New Prescriptions to Start Prescriptions: Allergies Allergy/AdvReac Type Severity Reaction Status Date / Time codeine Allergy Mild Vomiting/na Verified 09/10/24 07:46 usea meloxicam AdvReac Other Verified 09/10/24 07:46 Exam Data for Last 24 hours Vital signs and Labs for Last 24 Hours: Temp Pulse Resp BP Pulse Ox O2 Del Method 0 F L 138 H 17 50/36 L 97 Mechanical Ventilation 06/07/25 23:50 06/08/25 01:48 06/08/25 01:48 06/08/25 01:48 06/08/25 01:48 06/08/25 01:48 Laboratory Results - last 24 hr 06/07/25 22:45: WBC 9.3, RBC 3.87 L, Hgb 10.5 L, Hct 34.5 L, MCV 89.1, MCH 27.1, MCHC 30.4 L, RDW 14.6, Plt Count 270, MPV 10.9 H, Neut % (Auto) 67.2, Lymph % (Auto) 24.1, [place] % (Auto) 4.0, Eos % (Auto) 1.3, Baso % (Auto) 0.4, Neut # ( Auto) 6.2, Lymph # (Auto) 2.2, [place] # (Auto) 0.4, Eos # (Auto) 0.1, Baso # (Auto) 0.0, PT 53.1 H, INR 5.42 H, Sodium 136, Potassium 2.7 L*, Chloride 116 H, Carbon Dioxide 14 L, Anion Gap 8.7, BUN 20 H, Creatinine 0.80, Estimated GFR 68, Est GFR ( Amer) 82, Glucose 142 H, Calcium 6.6 L, Total Bilirubin 0.4, AST 26, ALT 19, Alkaline Phosphatase 81, Troponin I 0.04 H, NT-Pro-B Natriuret Pep 32561 H, Total Protein 5.2 L D, Albumin 2.6 L, Globulin 2.6, Albumin/Globulin Ratio 1.0 L 06/07/25 22:55: VBG pH 7.19 L, VBG pCO2 45.8, VBG pO2 115.2 H, VBG HCO3 17.1 L, VBG Total CO2 18.5 L, VBG O2 Saturation 97.6 H, VBG Base Excess -11.0 L, VBG Lactic Acid 4.4 H 06/07/25 23:15: Blood Type A Positive, Antibody Screen Negative, Crossmatch (AHG) See Detail I & O for Last 24 hours: Intake & Output 06/05/25 06/06/25 06/07/25 06/08/25 23:59 23:59 23:59 23:59 Intake Total 290.75 / 290.75 Balance 290.75 / 290.75 Weight 68 kg Constitutional Comments: GCS 3, unresponsive. Pupils fixed and dilated. *Routine HEENT Exam Head: Present laceration Eye: Present other (pupils fix and dilated ) ENT: Present mucous membranes moist and other (Notable significant head trauma ) Comments: Significant head/facial trauma *Routine Neck Exam Neck: Present trauma *Routine Respiratory Exam Respiratory: Present patient mechanically ventilated Comments: Intubated-ventilator support on arrival. Extubated agonal breathing until patient passed. *Routine Cardiovascular Exam Cardiovascular: Present tachycardia *Routine Abdominal Exam Abdominal: Present soft *Routine Rectal Exam Rectal:: deferred *Routine Genitalia Exam Genitalia:: deferred *Routine Extremities Exam Extremities: Present cyanosis *Routine Skin Exam Skin: Present lesions and wounds *Routine Neurological Exam Comments: GCS 3 Assessment and Plan *Assessment and plan (1) Facial trauma: Status: Acute Qualifiers: Encounter type: initial encounter Qualified Code(s): S09.93XA - Unspecified injury of face, initial encounter Category: Medical Code(s): S09.93XA - Unspecified injury of face, initial encounter (2) Respiratory failure: Status: Acute Qualifiers: Chronicity: acute on chronic Respiratory failure complication: hypoxia Qualified Code(s): J96.21 - Acute and chronic respiratory failure with hypoxia Category: Medical Code(s): J96.90 - Respiratory failure, unspecified, unspecified whether with hypoxia or hypercapnia (3) Acute head trauma: Status: Acute Qualifiers: Encounter type: initial encounter Qualified Code(s): S09.90XA - Unspecified injury of head, initial encounter Category: Medical Code(s): S09.90XA - Unspecified injury of head, initial encounter (4) Unresponsive state: Status: Acute Category: Medical Code(s): R41.89 - Other symptoms and signs involving cognitive functions and awareness (5) Fixed pupils: Status: Acute Category: Medical Code(s): R29.818 - Other symptoms and signs involving the nervous system (6) Comfort measures only status: Status: Acute Category: Medical Code(s): Z51.5 - Encounter for palliative care (7) DNR (do not resuscitate): Status: Acute Category: Medical Code(s): Z66 - Do not resuscitate Plan Assessment/plan I discussed patient case with the emergency department in agreements to admit for further management for comfort measures. Patient presented with significant head trauma from her nursing facility. Unresponsive, GCS 3. Intubated initially due to family request. POA arrived shortly after with advanced directive stating they no longer want to escalate care and wanted to make xenia ent comfortable as possible. Confirmed DNR status. Patient transferred to nursing for. I discussed again with family to confirm plan with comfort measures/extubating patient. Family/POA agreed with plan. Patient received IV morphine and Robinul prior to extubation. Family at bedside during extubation. Comfort measure medication provided/available for, respiratory distress. Patient passed quickly, time of 1:20 AM. Nursing staff notified [facility], corner and home.
--- NOTE | 2025-06-08 08:08 | EXP.EVENT.NO ---
Patient CODE STATUS confirmed as DNR-POA requesting comfort care. Patient extubated on the floor. Time of 1:20 AM.
--- NOTE | 2025-06-08 08:11 | SW/DCPLANNER ---
I have updated Keisha maurice/ [facility] that patient did .
--- OUTSIDE RECORDS SUMMARY | 2025-06-08 08:39 | XMS_ITS | Encounter Summary ---
Author Organization Healthcare Address [address] [place] [address] Care Team Providers Care Literature Teacher Name Role Phone Jairo Valverde MD Primary Care Provider [phone] Edouard Contreras MANAGER OF IT Unavailable [phone] Encounter Details Date Type Department Care Team (Late st Contact Info) Description 05/14/2022 Lab Requisition [facility] [address] [place] [address] Patrick Murrieta MD [address] [place] [address] Encounter for general adult medical [...] drink first t katja in the morning (EYE-MANAGER CT) to steady your nerves or to get [...] Final Result [facility] [address] [place] [address] documented in this encounter Visit Diagnoses Diagnosis Encounter for general adult medical examination without abnormal findings documented in this encounter Additional Health Concerns Infection Onset Date Last Indicated Resolved Time RSV 05/13/2022 05/13/2022 06/10/2022 5:23 AM EST COVID 19 (Confirmed) Comment:[facility] has verified patient has a COVID-19 positive result. A chart review has been completed, EPI PUI has been completed and sent to appropriate Health Dept. [facility] Distance Learning Technician: Tushar Lopez Infection Prevention & Control Note Isolation Discontinued: 05/24/2022 Patient has been approved by [facility] medical direction to have COVID-19 isolation discontinued. [...] X]Patient is not considered immunocompromised or suppressed. [facility] has been contacted to complete a modified clean of the room. Please continue isolation precautions until [facility] has completed the modified clean. 05/13/2022 05/13/2022 05/24/2022 11:35 AM EST MRSA 05/13/2022 05/13/2022 documented as of this encounter Care Teams Literature Teacher Relationship Specialty Start Date End Date Jairo Valverde MD [address] [place] [id number] PCP - General 11/18/20 Edouard Contreras APRN [address] [place] [id number] First Call Provider Neurology 04/24/22 documented as of this encounter
--- OUTSIDE RECORDS SUMMARY | 2025-06-08 08:39 | XMS_ITS | Clinical Summary ---
[facility] [address] [place] [address] Care Team Providers Care Warehouse Packer Name Role Phone Unavailable Primary Care Provider [...] 02/05/2025 COVID-19 Vaccine (2023- season) 2025 Insurance [facility] MEDICARE ADVANTAGE
--- OUTSIDE RECORDS SUMMARY | 2025-06-08 08:39 | XMS_ITS | Clinical Summary ---
Author Organization Healthcare Address [address] [place] [address] Care Team Providers Care Navigation Teacher Name Role Phone Jairo Valverde MD Primary Care Provider [phone] Edouard Contreras STICKER OPERATOR Unavailable [phone] Allergies Active Allergy Reactions Criticality Noted Date [...] patient having mild difficulty with PO intake. 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 - Carotid duplex remarkable for hemodynamically [...] for atrial fibrillation. - Follow up with [facility] Stroke Neurology in 8 to 12 weeks for continued stroke care. - Follow up with [facility] Neurosurgery for hemodynamically significant carotid artery [...] drink first t katja in the morning (EYE-FIREWORKS ASSEMBLER) to steady your nerves or to get [...] r (1 - 1-dose 75+ series) 2012 [id number] Vaccine (2 - 20 25-26 season) 2025 [...] Date Last Indicated MRSA 05/13/2022 05/13/2022 Insurance [facility] MEDICARE Advance Directives * DNR/DNI (Latest Code [...] Communication Drake Arnel Grandchild Next of Kin [phone] ( Mobile) Care Teams Navigation Teacher Relationship Specialty Start Date End Date Jairo Valverde MD [address] [facility] [place] [address] PCP - General 11/18/20 Edouard Contreras APRN [address] [place] [address] First Call Provider Neurology 04/24/22
== END 2025-06-08 03:25 | disposition expired | DRG 951 ==
LOC: ER 23:04 → 2ND 23:41
PROVIDERS: Admitting Provider Internal Medicine Adolescent Medicine; Emergency Provider Student in an Organized Health Care Education/Training Program; Visit Provider Internal Medicine Adolescent Medicine
DX: Z51.5 Encounter for palliative care (principal); J96.21 Acute and chronic respiratory failure with hypoxia; S06.9X9A Unspecified intracranial injury with loss of consciousness of unspecified duration, initial encounter; I50.22 Chronic systolic (congestive) heart failure; E87.20 Acidosis, unspecified; I11.0 Hypertensive heart disease with heart failure; I48.91 Unspecified atrial fibrillation; I25.10 Atherosclerotic heart disease of native coronary artery without angina pectoris; S01.21XA Laceration without foreign body of nose, initial encounter; X58.XXXA Exposure to other specified factors, initial encounter; Z66 Do not resuscitate; I95.9 Hypotension, unspecified; E78.5 Hyperlipidemia, unspecified; R40.2430 Glasgow coma scale score 3-8, unspecified time; I25.2 Old myocardial infarction; Y92.129 Unspecified place in nursing home as the place of occurrence of the external cause; Z86.73 Personal history of transient ischemic attack (TIA), and cerebral infarction without residual deficits; Z88.6 Allergy status to analgesic agent; Z88.5 Allergy status to narcotic agent; Z79.899 Other long term (current) drug therapy
CPT/HCPCS: 36430; 71045; 80053; 82803; 83880; 84484; 85025; 85610; 86850; 93005; 99285; G0378; J0330; J1596; J2270; P9016